=== PATIENT | male | born 1950 | race Caucasian/White ===

== ENCOUNTER 2016-03-15 20:14 | Inpatient (IN) | payer OTHER ==
[~2016-03-15] VITALS: Ht 180.3 cm; Wt 104.7 kg
[~2016-03-15 20:14] MED LIST: ASPI-435 PO; CIPR1TAB10 PO; COEN1CAP28 PO; HYDR500C3 PO; LISI40TA PO; MULT-506 PO; OMEG10007 PO; PARO1TAB27 PO; ROSU40TA PO
[2016-03-15] MEDS ORDERED: PARO10TA3 PO ×2 (21:14)
[2016-03-15] MEDS ORDERED: SODIUM CHLORIDE 0.9% 500ML 500 ML IV STA (21:25)
[2016-03-15] MEDS ORDERED: SODIUM CHLORIDE 0.9% 1000ML 1,000 ML IV STA (21:25)
--- NOTE | 2016-03-15 21:32 | EMERGENCY ROOM VISIT NOTE ---
History Report prepared by Denita: Vaughn Klein Under the Supervision of: Dr. Nancie Zabala M.D. First contact with patient: 21:00 Chief Complaint: OTHER COMPLAINT Stated Complaint: CLOGGED CATHETER History of Present Illness The patient is a 65 year old male who presents to the Emergency Room with complaints of a persistent clogged catheter that started around 1600 today. Per the nursing staff, the patient's catheter is a 15 [place]. The patient notes that he was here last Wednesday because he was having hematuria. 2 days ago, the patient was here and he had a catheter put in. He was also here twice last night due to not having clear fluid coming out of the catheter and he had the catheter replaced. He was bleeding last night. The patient called urology because he started getting back pain associated with this problem, and he was told that he was having bladder spasms. He saw his urologist (Dr. Anderson) last week, and the plan was to have a CT scan and the doctor would go in with a scope on the . He has the CT scan scheduled for this Wednesday. He denies any fevers. The patient stopped taking Aspirin 2 weeks ago after being given advice to stop taking it from his doctor. Source of History: patient Onset: Earlier today around 1600 Position: other (bladder - clogged catheter) Timing: other (persistent) Associated Symptoms: + back pain, + urinary symptoms (hematuria), No fevers Note: No other associated symptoms noted. Review of Systems See HPI for pertinent positives & negatives. A total of 10 systems reviewed and were otherwise negative. Past Medical & Surgical Medical Problems: (1) Hx of dislocation of shoulder (2) Hypertension (3) Malignant hypertension Surgical Problems: (1) Hx of tonsillectomy Family History Diabetes mellitus Heart disease Lung disease Social History Smoking Status: Never Smoker Alcohol Use: occasionally Marital Status: Housing Status: lives with family Occupation Status: employed Current/Historical Medications Scheduled Ciprofloxacin Hcl (Cipro), 500 MG PO BID Coenzyme Q10 (Ubidecarenone) (Co Q10), 100 MG PO DAILY Fish Oil ([place]-3), 1,000 MG PO DAILY Hydroxyurea (Hydrea Cap), 1,000 MG PO DAILY Lisinopril (Zestril), 40 MG PO DAILY Multivitamin (Multivitamin), 1 TAB PO DAILY Paroxetine HCl (Paroxetine), 10 MG PO DAILY Rosuvastatin Calcium (Crestor), 40 MG PO DAILY Allergies Coded Allergies: No Known Allergies (Unverified , 03/13/16) Physical Exam Vital Signs Date Time Temp Pulse Resp B/P Pulse Ox O2 Delivery O2 Flow Rate FiO2 03/15/16 23:40 81 20 131/78 99 Room Air 03/15/16 22:16 90 20 172/105 99 Room Air 03/15/16 20:17 36.8 84 20 196/106 97 Room Air Physical Exam Vital signs reviewed. General: Well-appearing 65 year old male, in no significant distress. HEENT: No scleral icterus, PERRLA, neck supple. Atraumatic. Cardiovascular: Regular rate and rhythm, no extra sounds. Pulmonary: Clear to auscultation bilaterally, normal work of breathing. Abdomen: Soft, nontender, nondistended, positive bowel sounds. Musculoskeletal: Atraumatic, no peripheral edema. : Normal external male genitalia. Circumcised. Catheter in place with bright red urine with several small clots, slow drainage. Neurologic: Patient awake alert and oriented x 3 Skin: Warm, dry, no rash Medical Decision & Procedures ER Provider Diagnostic Interpretation: CT results as stated below per my review and radiologist interpretation: CT UROGRAM CLINICAL HISTORY: Hematuria. COMPARISON STUDY: Abdominal CT dated 12/07/2013. TECHNIQUE: Before and following the IV administration of 120 cc of Optiray 320, CT urogram of the abdomen and pelvis is performed from the lung bases to the proximal femora. Images are reviewed in the axial, sagittal, and coronal planes. IV contrast was administered without complication. CT DOSE: 1492.38 mGy.cm FINDINGS: Lung bases: The heart is normal in size and without pericardial effusion. There are coronary artery calcifications. The lung bases are clear noting dependent atelectasis. A small hiatal hernia is identified. Liver: The contrast-enhanced liver is normal in size, contour, and attenuation. There is no intrahepatic biliary ductal dilatation. The hepatic veins and portal veins are patent. Gallbladder: Unremarkable. Spleen: The spleen is enlarged measuring 16 cm in length. Pancreas: Unremarkable. Adrenal glands: Unremarkable. Kidneys and ureters: The contrast enhanced kidneys demonstrate mild cortical atrophy and are without hydronephrosis. There are no renal calculi identified on the unenhanced images. The kidneys enhance and excrete symmetrically. There is no enhancing renal cortical mass lesion identified. Subcentimeter cortical hypodensities in both kidneys may represent cysts but are too small for definitive characterization. These are unchanged from 2014. There is no evidence of urothelial lesion within the renal pelvis bilaterally or along the course of either ureter. Abdominal vasculature: The abdominal aorta is normal in course and caliber noting mild atherosclerotic calcification. Bowel: The small bowel and colon are normal in course and caliber. There is mild to moderate sigmoid diverticulosis without CT evidence of acute diverticulitis. There is colonic fecal retention. The appendix is well-visualized and normal. Peritoneum: There is no intraperitoneal free air or abdominal ascites. There is a small fat-containing umbilical hernia. Lymphadenopathy: None. Pelvic viscera: The bladder is partially decompressed around a Sweeney catheter. Foci of intraluminal gas are likely related to instrumentation. Heterogeneous hyperdense material within the bladder likely represents blood clots. No obvious mucosal lesion is seen although this is not well assessed. The prostate gland is diminutive versus surgically absent. There are small bilateral fat-containing inguinal hernias. Skeletal structures: The skeletal structures appear osteopenic. There is mild lumbar sacral spondylosis. Degenerative changes noted in the sacroiliac joints. No destructive bony lesions are seen. IMPRESSION: 1. The bladder is partially decompressed around a Sweeney catheter. Foci of intraluminal gas are likely related to instrumentation. 2. Hyperdense debris within the bladder lumen likely represents blood clots. There is no clear evidence of mucosal lesion although this is not well assessed. Follow-up with urology is recommended. 3. There are no renal calculi identified and there is no hydronephrosis. There is no enhancing renal cortical mass or evidence of urothelial lesion within the renal pelvis bilaterally or along the course of the ureters. 4. Mild to moderate sigmoid diverticulosis without CT evidence of acute diverticulitis. 5. The prostate gland is diminutive versus surgically absent. 6. Splenomegaly. 7. Additional changes as above. Electronically signed by: Mamadou Weeks M.D. 03/15/2016 10:55 PM Laboratory Results 03/15/16 21:45 Red Blood Count 3.54, Mean Corpuscular Volume 110.5, Mean Corpuscular Hemoglobin 39.0, Mean Corpuscular Hemoglobin Concent 35.3, Mean Platelet Volume 10.2, Neutrophils (%) (Auto) 63.7, Lymphocytes (%) (Auto) 23.4, Monocytes (%) ( Auto) 11.1, Eosinophils (%) (Auto) 0.8, Basophils (%) (Auto) 0.2, Neutrophils # (Auto) 3.84, Lymphocytes # (Auto) 1.41, Monocytes # (Auto) 0.67, Eosinophils # ( Auto) 0.05, Basophils # (Auto) 0.01 03/15/16 21:45 Test 03/15/16 21:45 03/15/16 22:17 White Blood Count 6.03 K/uL (4.8-10.8) Red Blood Count 3.54 M/uL (4.7-6.1) Hemoglobin 13.8 g/dL (14.0-18.0) Hematocrit 39.1 % (42-52) Mean Corpuscular Volume 110.5 fL (80-100) Mean Corpuscular Hemoglobin 39.0 pg (25-34) Mean Corpuscular Hemoglobin Concent 35.3 g/dl (32-36) Platelet Count 271 K/uL (130-400) Mean Platelet Volume 10.2 fL (7.4-10.4) Neutrophils (%) (Auto) 63.7 % Lymphocytes (%) (Auto) 23.4 % Monocytes (%) (Auto) 11.1 % Eosinophils (%) (Auto) 0.8 % Basophils (%) (Auto) 0.2 % Neutrophils # (Auto) 3.84 K/uL (1.4-6.5) Lymphocytes # (Auto) 1.41 K/uL (1.2-3.4) Monocytes # (Auto) 0.67 K/uL (0.11-0.59) Eosinophils # (Auto) 0.05 K/uL (0-0.5) Basophils # (Auto) 0.01 K/uL (0-0.2) RDW Standard Deviation 56.4 fL (36.4-46.3) RDW Coefficient of Variation 14.0 % (11.5-14.5) Immature Granulocyte % (Auto) 0.8 % Immature Granulocyte # (Auto) 0.05 K/uL (0.00-0.02) Hypersegmented Polys 1+ Polychromasia 1+ Macrocytosis PRESENT Prothrombin Time 11.4 SECONDS (9.0-12.0) Prothromb Time International Ratio 1.1 (0.9-1.1) Activated Partial Thromboplast Time 26.7 SECONDS (21.0-31.0) Partial Thromboplastin Ratio 1.0 Anion Gap 9.0 mmol/L (3-11) Est Creatinine Clear Calc Drug Dose 75.8 ml/min Estimated GFR () 72.6 Estimated GFR (Non- 62.6 BUN/Creatinine Ratio 16.4 (10-20) Calcium Level 8.7 mg/dl (8.5-10.1) Magnesium Level 2.3 mg/dl (1.8-2.4) Total Bilirubin 0.7 mg/dl (0.2-1) Direct Bilirubin 0.2 mg/dl (0-0.2) Aspartate Amino Transf (AST/SGOT) 25 U/L (15-37) Alanine Aminotransferase (ALT/SGPT) 35 U/L (12-78) Alkaline Phosphatase 96 U/L (45-117) Total Protein 6.8 gm/dl (6.4-8.2) Albumin 3.8 gm/dl (3.4-5.0) Urine Color RED Urine Appearance CLOUDY (CLEAR) Urine pH 7.5 (4.5-7.5) Urine Specific [place] 1.025 (1.000-1.030) Urine Protein 3+ (NEG) Urine Glucose (UA) NEG (NEG) Urine Ketones NEG (NEG) Urine Occult Blood 3+ (NEG) Urine Nitrite NEG (NEG) Urine Bilirubin NEG (NEG) Urine Urobilinogen NEG (NEG) Urine Leukocyte Esterase NEG (NEG) Urine RBC >30 /hpf (0-4) Urine WBC 5-10 /hpf (0-5) Urine Epithelial Cells 0-5 /lpf (0-5) Urine Bacteria NEG (NEG) Laboratory results per my review. Medications Administered Medications (Trade) Dose Ordered Sig/Kelvin Route Start Time Stop Time Status Last Admin Dose Admin Sodium Chloride 500 ml @ 999 mls/hr Q31M STAT IV 03/15/16 21:25 03/15/16 21:55 DC 03/15/16 21:25 999 MLS/HR Sodium Chloride (Nss 1000ml) 1,000 ml @ 125 mls/hr Q8H STAT IV 03/15/16 21:25 03/16/16 01:44 DC 03/15/16 21:25 125 MLS/HR Labetalol HCl (Normodyne IV) 10 mg NOW STAT IV 03/15/16 22:35 03/15/16 22:36 DC 03/15/16 23:29 10 MG Hydromorphone HCl (Dilaudid Inj) 1 mg STK-MED ONCE .ROUTE 03/15/16 23:10 03/15/16 23:11 DC 03/15/16 23:12 1 MG ED Course 2106: Past medical records reviewed. The patient was evaluated in room B7. A complete history and physical examination was performed. 2124: Ordered NSS 1000 ml @ 125 mls/hr IV, NSS 500 ml @ 999 mls/hr IV. 2128: I discussed the patient with Dr. Monica GALVEZ urology - he says no continuous bladder irrigation. 2234: Ordered Normodyne IV 10 mg IV. 9: I reevaluated the patient and he is resting comfortably. The patient verbally expressed agreement and understanding of the treatment plan. The patient will be evaluated for further treatment. 5: I discussed the patient with Dr. Ravinedr Gandhi [facility] hospitalist - he will evaluate the patient for further treatment. Medical Decision Differential diagnoses include: bladder mass, UTI, prostate hemorrhage, kidney stone, renal mass. This patient was evaluated and appeared to be in significant discomfort. Full catheter was irrigated however we were unable to retrieve the fluid/urine. Catheter was removed and a larger catheter was placed. Initially the patient was able to pass urine but is again clotted off. An attempt irrigation was made with the same issue returned. The catheter was removed and the patient was able to urinate and pass several clots. Patient's blood pressure was noted to be markedly elevated. He was given IV labetalol. Pain medication was also administered. CT scan of the abdomen and pelvis was ordered per Dr. Anderson of urology. He has requested a hematuria protocol. He is familiar with the patient's story and has recommended admission at this time given the multiple ER visits and catheter complications. The patient was discussed with Dr. Hunter the hospitalist service who will evaluate for further management. Patient is aware of the plan and agrees. Consults Time Called: 2126 Consulting Physician: Dr. Monica GALVEZ urology Returned Call: [phone] I discussed the patient with Dr. Monica GALVEZ urology - he says no continuous bladder irrigation. Additional Consults: Time Called: 2328 Consulted Physician: Dr. Ravinder GALVEZ hospitalist Returned Call: [phone] Additional Comments: I discussed the patient with Dr. Ravinder GALVEZ hospitalist - he will evaluate the patient for further treatment. Impression Primary Impression: Gross hematuria Additional Impression: Urinary obstruction Scribe Attestation The scribe's documentation has been prepared under my direction and personally reviewed by me in its entirety. I confirm that the note above accurately reflects all work, treatment, procedures, and medical decision making performed by me. Departure Information Dispostion Being Evaluated By Hospitalist Referrals Bryan Arias M.D. (PCP) Patient Instructions A Signature Page, My [facility]
[2016-03-15] MEDS ORDERED: OPTIRAY 320 IV PRN (21:45)
[2016-03-15 21:56] LABS: BASO % 0.2 %; BASO ABS # 0.01 K/uL (0-0.2); EOS % 0.8 %; HEMATOCRIT 39.1 % (42-52); IG% 0.8 %; LYMPH % 23.4 %; LYMPH ABS # 1.41 K/uL (1.2-3.4); MEAN CELL VOLUME 110.5 fL (80-100); MEAN CORPUSCULAR HGB CONC 35.3 g/dl (32-36); MEAN PLATELET VOLUME 10.2 fL (7.4-10.4); MONO % 11.1 %; NEUT % 63.7 %; PLATELET COUNT 271 K/uL (130-400); RED BLOOD COUNT 3.54 M/uL (4.7-6.1); WHITE BLOOD COUNT 6.03 K/uL (4.8-10.8)
[2016-03-15 22:05] LABS: INR 1.1 (0.9-1.1); PROTHROMBIN TIME (PATIENT) 11.4 SECONDS (9.0-12.0)
[2016-03-15 22:12] LABS: BUN/CREATININE RATIO 16.4 (10-20); CALCIUM 8.7 mg/dl (8.5-10.1); CREATININE 1.2 mg/dl (0.60-1.40); MAGNESIUM 2.3 mg/dl (1.8-2.4)
[2016-03-15 22:26] LABS: COMPLETE YES; HYPERSEGMENTED POLYS 1+; POLYCHROMASIA 1+
[2016-03-15] MEDS ORDERED: LABETALOL HCL IV 5 MG/ML 20ML IV STA (22:35)
[2016-03-15 22:41] LABS: MANUAL MICROSCOPIC REQUIRED? YES; URINE APPEARANCE CLOUDY (CLEAR); URINE BILIRUBIN NEG (NEG); URINE COLOR RED; URINE NITRITE NEG (NEG); URINE PH 7.5 (4.5-7.5); URINE SPECIFIC GRAVITY 1.025 (1.000-1.030); UROBILINOGEN NEG (NEG)
[2016-03-15 22:42] LABS: REVIEW REQ? NO
[2016-03-15 22:46] LABS: SULFASALICYLIC ACID POS (NEG); URINE BACTERIA NEG (NEG); URINE RBC >30 /hpf (0-4)
[2016-03-15 22:47] LABS: ZZURINE CULT IF INDIC CATH NO
--- NOTE | 2016-03-15 22:57 | DIAGNOSTIC IMAGING REPORT ---
CT UROGRAM CLINICAL HISTORY: Hematuria. COMPARISON STUDY: Abdominal CT dated 12/07/2013. TECHNIQUE: Before and following the IV administration of 120 cc of Optiray 320, CT urogram of the abdomen and pelvis is performed from the lung bases to the proximal femora. Images are reviewed in the axial, sagittal, and coronal planes. IV contrast was administered without complication. CT DOSE: 1492.38 mGy.cm FINDINGS: Lung bases: The heart is normal in size and without pericardial effusion. There are coronary artery calcifications. The lung bases are clear noting dependent atelectasis. A small hiatal hernia is identified. Liver: The contrast-enhanced liver is normal in size, contour, and attenuation. There is no intrahepatic biliary ductal dilatation. The hepatic veins and portal veins are patent. Gallbladder: Unremarkable. Spleen: The spleen is enlarged measuring 16 cm in length. Pancreas: Unremarkable. Adrenal glands: Unremarkable. Kidneys and ureters: The contrast enhanced kidneys demonstrate mild cortical atrophy and are without hydronephrosis. There are no renal calculi identified on the unenhanced images. The kidneys enhance and excrete symmetrically. There is no enhancing renal cortical mass lesion identified. Subcentimeter cortical hypodensities in both kidneys may represent cysts but are too small for definitive characterization. These are unchanged from 2014. There is no evidence of urothelial lesion within the renal pelvis bilaterally or along the course of either ureter. Abdominal vasculature: The abdominal aorta is normal in course and caliber noting mild atherosclerotic calcification. Bowel: The small bowel and colon are normal in course and caliber. There is mild to moderate sigmoid diverticulosis without CT evidence of acute diverticulitis. There is colonic fecal retention. The appendix is well-visualized and normal. Peritoneum: There is no intraperitoneal free air or abdominal ascites. There is a small fat-containing umbilical hernia. Lymphadenopathy: None. Pelvic viscera: The bladder is partially decompressed around a Sweeney catheter. Foci of intraluminal gas are likely related to instrumentation. Heterogeneous hyperdense material within the bladder likely represents blood clots. No obvious mucosal lesion is seen although this is not well assessed. The prostate gland is diminutive versus surgically absent. There are small bilateral fat-containing inguinal hernias. Skeletal structures: The skeletal structures appear osteopenic. There is mild lumbar sacral spondylosis. Degenerative changes noted in the sacroiliac joints. No destructive bony lesions are seen. IMPRESSION: 1. The bladder is partially decompressed around a Sweeney catheter. Foci of intraluminal gas are likely related to instrumentation. 2. Hyperdense debris within the bladder lumen likely represents blood clots. There is no clear evidence of mucosal lesion although this is not well assessed. Follow-up with urology is recommended. 3. There are no renal calculi identified and there is no hydronephrosis. There is no enhancing renal cortical mass or evidence of urothelial lesion within the renal pelvis bilaterally or along the course of the ureters. 4. Mild to moderate sigmoid diverticulosis without CT evidence of acute diverticulitis. 5. The prostate gland is diminutive versus surgically absent. 6. Splenomegaly. 7. Additional changes as above. Electronically signed by: Mamadou Weeks M.D. 03/15/2016 10:55 PM
[2016-03-15] MEDS ORDERED: HYDROmorphone INJ 1 MG/ML SYR ONE (23:10)
[2016-03-16] VITALS (10 sets, daily range): BP systolic 122–161; BP diastolic 68–90; PULSE 59–69; TEMP 36.4–36.7; O2SAT 95–98; Ht 180.3 cm; Wt 104.7 kg
[2016-03-16] MEDS ORDERED: ZOLPIDEM TARTRATE 5 MG TAB PO PRN (00:30)
[2016-03-16] MEDS ORDERED: CIPROFLOXACIN 400MG / 200ML D5W IV STA (00:38)
[2016-03-16] MEDS ORDERED: DILTIAZEM HCL 60 MG TAB PO STA (00:44)
[2016-03-16] MEDS ORDERED: METOPROLOL TARTRATE 1 MG/ML VIAL IV PRN (00:45)
[2016-03-16] MEDS: NSS + 20MEQ KCL 1000ML 1,000 ML IV SCH ×4 (01:55→21:55)
[2016-03-16] MEDS: CIPROFLOXACIN / D5W 400 MG in PREMIXED IN D5W 200 ML IV SCH ×2 (01:55→14:22)
--- NOTE | 2016-03-16 04:10 | History and Physical ---
History & Physical Date & Time of Service: Mar 16, 2016 at 03:55 Chief Complaint: Gross Hematuria, Malignant Hypertension Primary Care Physician: Bryan Arias M.D. History of Present Illness Source: patient The patient is a 65-year-old male who presents emergency department with complaint of persistently clogged urinary catheter that began around 1600 hrs. today. The patient initially began having symptoms about 6 weeks ago. He did see his PCP, underwent laboratory testing, which was negative, and was ultimately sent to urology, who also performed laboratory testing, which again was normal. When he returned his PCP, he was advised to stop aspirin, and was scheduled to have follow-up procedure done by urology. In the intervening time he has developed significantly more issues with passing blood clots, and over the past week has been seen at the emergency department on the medications as had a Sweeney catheter placed and irrigated and also changed. Is also developed right lower back pain which was thought to be related to bladder spasms. He did see his urologist last week, and was scheduled to undergo a CT scan this week and undergo a scoping procedure on April 01. He return to the emergency department again today due to clogging of the Sweeney catheter again, and urology is advised his admission for further assessment. Of note, upon questioning, he does take naproxen 440 mg every morning for right shoulder pain , and also takes 2000 mg of fish oil every day. Past Medical/Surgical History Medical Problems: (1) Hx of dislocation of shoulder Status: Chronic (2) Hypertension Status: Chronic Surgical Problems: (1) Hx of tonsillectomy Status: Chronic Family History Diabetes mellitus Heart disease Lung disease Social History Smoking Status: Never Smoker Smokeless Tobacco Use: No Alcohol Use: none Drug Use: none Marital Status: Housing status: lives with family Occupational Status: employed Immunizations History of Influenza Vaccine: Yes History of Tetanus Vaccine?: Yes History of Pneumococcal: No History of Hepatitis B Vaccine: No Multi-Drug Resistant Organisms History of MDRO: No Allergies Coded Allergies: No Known Allergies (Unverified , 03/13/16) Home Medications Scheduled Ciprofloxacin Hcl (Cipro), 500 MG PO BID Coenzyme Q10 (Ubidecarenone) (Co Q10), 100 MG PO DAILY Fish Oil ([place]-3), 1,000 MG PO DAILY Hydroxyurea (Hydrea Cap), 1,000 MG PO DAILY Lisinopril (Zestril), 40 MG PO DAILY Multivitamin (Multivitamin), 1 TAB PO DAILY Paroxetine HCl (Paroxetine), 10 MG PO DAILY Rosuvastatin Calcium (Crestor), 40 MG PO DAILY Review of Systems The patient denies chest pain, palpitations, shortness of breath, cough, lower extremity swelling, vision change, hearing change, sore throat, fevers, chills, sweats, weight change, fatigue, nausea, vomiting, abdominal pain, pelvic pain, blood in stool, lightheadedness, dizziness, headache, memory loss, rash, abnormal bruising or bleeding, imbalance, focal or generalized weakness, numbness or tingling in arms or legs, arthralgias or myalgias, neck pain, night sweats, or allergy symptoms. The review of systems is otherwise negative other than for that already noted above, and at least 10 systems have been reviewed. Physical Exam Vital Signs Date Time Temp Pulse Resp B/P Pulse Ox O2 Delivery O2 Flow Rate FiO2 03/16/16 02:45 61 122/68 03/16/16 01:35 77 20 131/78 98 03/16/16 01:30 36.4 69 20 161/90 95 Room Air 03/15/16 23:40 81 20 131/78 99 Room Air 03/15/16 22:16 90 20 172/105 99 Room Air 03/15/16 20:17 36.8 84 20 196/106 97 Room Air The patient is awake, well-developed and adequately nourished, alert and oriented 3, normocephalic and atraumatic, lying in bed and in no acute distress. HEENT--PERRL, EOMI, mucous membranes moist, and oropharynx normal. Neck--supple, no JVD or bruits, thyroid normal, trachea midline, no adenopathy. Heart--normal S1 and S2, no extra beats, no murmurs, rubs or gallops. Lungs--clear bilaterally with good air movement, no respiratory distress, no accessory muscle use. Abdomen--normal bowel sounds and soft, right flank and lower back pain, no hernias or masses, no organomegaly. Extremities--no cyanosis, clubbing or edema. There are good distal pulses b/l. Dermatologic--normal skin turgor, normal color, warm and dry, no abnormal lymph nodes, no rash. Neurologic--cranial nerves II through XII grossly intact. Rheumatologic--normal range of motion, nontender, muscles and joints. Psychiatric--normal affect. Diagnostics Laboratory Results Results Past 24 Hours Test 03/15/16 21:45 03/15/16 22:17 Range/Units White Blood Count 6.03 4.8-10.8 K/uL Red Blood Count 3.54 4.7-6.1 M/uL Hemoglobin 13.8 14.0-18.0 g/dL Hematocrit 39.1 42-52 % Mean Corpuscular Volume 110.5 80-100 fL Mean Corpuscular Hemoglobin 39.0 25-34 pg Mean Corpuscular Hemoglobin Concent 35.3 32-36 g/dl Platelet Count 271 130-400 K/uL Mean Platelet Volume 10.2 7.4-10.4 fL Neutrophils (%) (Auto) 63.7 % Lymphocytes (%) (Auto) 23.4 % Monocytes (%) (Auto) 11.1 % Eosinophils (%) (Auto) 0.8 % Basophils (%) (Auto) 0.2 % Neutrophils # (Auto) 3.84 1.4-6.5 K/uL Lymphocytes # (Auto) 1.41 1.2-3.4 K/uL Monocytes # (Auto) 0.67 0.11-0.59 K/uL Eosinophils # (Auto) 0.05 0-0.5 K/uL Basophils # (Auto) 0.01 0-0.2 K/uL RDW Standard Deviation 56.4 36.4-46.3 fL RDW Coefficient of Variation 14.0 11.5-14.5 % Immature Granulocyte % (Auto) 0.8 % Immature Granulocyte # (Auto) 0.05 0.00-0.02 K/uL Hypersegmented Polys 1+ Polychromasia 1+ Macrocytosis PRESENT Prothrombin Time 11.4 9.0-12.0 SECONDS Prothromb Time International Ratio 1.1 0.9-1.1 Activated Partial Thromboplast Time 26.7 21.0-31.0 SECONDS Partial Thromboplastin Ratio 1.0 Sodium Level 140 136-145 mmol/L Potassium Level 4.0 3.5-5.1 mmol/L Chloride Level 104 98-107 mmol/L Carbon Dioxide Level 27 21-32 mmol/L Anion Gap 9.0 3-11 mmol/L Blood Urea Nitrogen 20 7-18 mg/dl Creatinine 1.20 0.60-1.40 mg/dl Est Creatinine Clear Calc Drug Dose 75.8 ml/min Estimated GFR () 72.6 Estimated GFR (Non- 62.6 BUN/Creatinine Ratio 16.4 10-20 Random Glucose 107 70-99 mg/dl Calcium Level 8.7 8.5-10.1 mg/dl Magnesium Level 2.3 1.8-2.4 mg/dl Total Bilirubin 0.7 0.2-1 mg/dl Direct Bilirubin 0.2 0-0.2 mg/dl Aspartate Amino Transf (AST/SGOT) 25 15-37 U/L Alanine Aminotransferase (ALT/SGPT) 35 12-78 U/L Alkaline Phosphatase 96 45-117 U/L Total Protein 6.8 6.4-8.2 gm/dl Albumin 3.8 3.4-5.0 gm/dl Urine Color RED Urine Appearance CLOUDY CLEAR Urine pH 7.5 4.5-7.5 Urine Specific [place] 1.025 1.000-1.030 Urine Protein 3+ NEG Urine Glucose (UA) NEG NEG Urine Ketones NEG NEG Urine Occult Blood 3+ NEG Urine Nitrite NEG NEG Urine Bilirubin NEG NEG Urine Urobilinogen NEG NEG Urine Leukocyte Esterase NEG NEG Urine RBC >30 0-4 /hpf Urine WBC 5-10 0-5 /hpf Urine Epithelial Cells 0-5 0-5 /lpf Urine Bacteria NEG NEG Diagnostic Radiology Patient Name: AYE CLARKE Unit Number: [id number] Dictated: 03/15/162246 Transcribed: 03/15/162246 EV Printed Date/Time: [~ rep prt dt]/[~ rep prt tm] [~ rep ct labl] - [~ rep ct ivnm] [facility] [place] [address] Dictated: 03/15/162246 Transcribed: 03/15/162246 EV Printed Date/Time: [~ rep prt dt]/[~ rep prt tm] [~ rep ct labl] - [~ rep ct ivnm] CT UROGRAM CLINICAL HISTORY: Hematuria. COMPARISON STUDY: Abdominal CT dated 12/07/2013. TECHNIQUE: Before and following the IV administration of 120 cc of Optiray 320, CT urogram of the abdomen and pelvis is performed from the lung bases to the proximal femora. Images are reviewed in the axial, sagittal, and coronal planes. IV contrast was administered without complication. CT DOSE: 1492.38 mGy.cm FINDINGS: Lung bases: The heart is normal in size and without pericardial effusion. There are coronary artery calcifications. The lung bases are clear noting dependent atelectasis. A small hiatal hernia is identified. Liver: The contrast-enhanced liver is normal in size, contour, and attenuation. There is no intrahepatic biliary ductal dilatation. The hepatic veins and portal veins are patent. Gallbladder: Unremarkable. Spleen: The spleen is enlarged measuring 16 cm in length. Pancreas: Unremarkable. Adrenal glands: Unremarkable. Kidneys and ureters: The contrast enhanced kidneys demonstrate mild cortical atrophy and are without hydronephrosis. There are no renal calculi identified on the unenhanced images. The kidneys enhance and excrete symmetrically. There is no enhancing renal cortical mass lesion identified. Subcentimeter cortical hypodensities in both kidneys may represent cysts but are too small for definitive characterization. These are unchanged from 2014. There is no evidence of urothelial lesion within the renal pelvis bilaterally or along the course of either ureter. Abdominal vasculature: The abdominal aorta is normal in course and caliber noting mild atherosclerotic calcification. Bowel: The small bowel and colon are normal in course and caliber. There is mild to moderate sigmoid diverticulosis without CT evidence of acute diverticulitis. There is colonic fecal retention. The appendix is well-visualized and normal. Peritoneum: There is no intraperitoneal free air or abdominal ascites. There is a small fat-containing umbilical hernia. Lymphadenopathy: None. Pelvic viscera: The bladder is partially decompressed around a Sweeney catheter. Foci of intraluminal gas are likely related to instrumentation. Heterogeneous hyperdense material within the bladder likely represents blood clots. No obvious mucosal lesion is seen although this is not well assessed. The prostate gland is diminutive versus surgically absent. There are small bilateral fat-containing inguinal hernias. Skeletal structures: The skeletal structures appear osteopenic. There is mild lumbar sacral spondylosis. Degenerative changes noted in the sacroiliac joints. No destructive bony lesions are seen. IMPRESSION: 1. The bladder is partially decompressed around a Sweeney catheter. Foci of intraluminal gas are likely related to instrumentation. 2. Hyperdense debris within the bladder lumen likely represents blood clots. There is no clear evidence of mucosal lesion although this is not well assessed. Follow-up with urology is recommended. 3. There are no renal calculi identified and there is no hydronephrosis. There is no enhancing renal cortical mass or evidence of urothelial lesion within the renal pelvis bilaterally or along the course of the ureters. 4. Mild to moderate sigmoid diverticulosis without CT evidence of acute diverticulitis. 5. The prostate gland is diminutive versus surgically absent. 6. Splenomegaly. 7. Additional changes as above. Electronically signed by: Mamadou Weeks M.D. 03/15/2016 10:55 PM The status of this report is Signed. Draft = Not yet reviewed or approved by Radiologist. Signed = Reviewed and approved by Radiologist. <AttendingPhy></AttendingPhy> <FamilyPhy>Bryan Arias M.D.</FamilyPhy> < PrimaryPhy>Bryan Arias M.D.</PrimaryPhy> <UnitNumber>[id number]</ UnitNumber> <VisitNumber>[id number]</VisitNumber> <PatientName>AYE CLARKE</ PatientName> <DateOfBirth>1950</DateOfBirth> <Location>C.[facility]</Location> < ServiceDate>03/15/16</ServiceDate> <MNE>ESINDI</MNE> <OrderingPhy>Nancie Zabala M.D.</OrderingPhy> <OrderingPhyMNE>f rep ord dr philippe</OrderingPhyMNE> < DictatingPhyMNE>f rep dict dr philippe</DictatingPhyMNE> <CCListMNE>f rep ct karene</ CCListMNE> <AdmittingPhyMNE>f pt admit dr philippe</AdmittingPhyMNE> <AttendingPhyMNE >f pt attend dr philippe</AttendingPhyMNE> <ConsultingPhyMNE>f pt consult dr philippe</ConsultingPhyMNE> <FamilyPhyMNE>f pt fam dr phiilppe</FamilyPhyMNE> <OtherPhyMNE>f pt other dr philippe</OtherPhyMNE> < PrimaryPhyMNE>f pt prim care dr philippe</PrimaryPhyMNE> <ReferringPhyMNE>f pt referring dr philippe</ReferringPhyMNE> Impression Assessment and Plan Gross hematuria--the patient will be admitted to the medical surgical floor. He 'll be kept nothing by mouth after midnight except medications for possible procedure. We'll consult urology. He'll be placed on normal saline with potassium chloride 20 mEq at 125 ML's per hour. We will hold naproxen 440 mg every morning, and fish oil 2000 mg by mouth daily. We will start Cipro 400 mg IV every 12 hours. Malignant Hypertension--hold lisinopril 40 mg by mouth daily. We'll start Cardizem 60 mg by mouth 4 times a day. We will have Lopressor 5 mg IV every 4 hours PRN systolic blood pressure greater than 150 available. This may be secondary to combination of NSAIDs and KARRI inhibitor's being used. Of note, this does not appear to be related to a pain stimulus. Polycythemia vera--continue hydroxyurea 1000 mg by mouth daily. Hypercholesterolemia--continue Crestor 40 mg by mouth daily. Depression--continue Paxil 10 mg by mouth daily. Level of Care Med/Surg Advanced Directives Existing Advance Directive: No Existing Living Will: No Existing Power of Health It Specialist: No Resuscitation Status FULL RESUSCITATION VTE Prophylaxis VTE Risk Assessment Done? Y/N: Yes Risk Level: Low Given or contraindicated: SCD's Social Service Consult None Apply
[2016-03-16] MEDS: MULTIVITAMIN TAB PO SCH (09:00)
[2016-03-16] MEDS ORDERED: NON-FORMULARY MEDICATION (Coenzyme Q10 (Ubidecarenone) (Co Q10) 100 MG) PO SCH (09:00)
[2016-03-16] MEDS: HYDROXYUREA 500 MG CAP PO SCH (09:00)
[2016-03-16] MEDS: DILTIAZEM HCL 60 MG TAB PO SCH ×4 (09:00→20:27)
[2016-03-16] MEDS: PAROXETINE 20 MG TAB PO SCH (09:00)
[2016-03-16] MEDS: ROSUVASTATIN CALCIUM 20 MG TAB PO SCH (09:00)
--- NOTE | 2016-03-16 10:05 | Urology Consultation ---
History General Date of Service: Mar 16, 2016. Primary Care Physician: Bryan Arias M.D. Pt seen a urologist before?: Yes If yes, why?: hematuria History of Present Illness 65 year old male admitted with hematuria and blood clots. He was recently seen by Dr. Cheek in our office last week after recurrent ER visits due to hematuria, urinary clot retention. Reviewed his CT scan this am- he has notable clots in bladder along with smalls catheter- this was changed in ER but continued to become clogged with clot therefore was removed. CT did not show any stones/hydro/masses. He is currently voiding on his own clear urine- he reports this has been the pattern at home for over the past week. He is able to void for a while then passes clot and is unable to void with pain. He has remained NPO for possible intervention. He is currently pain free. Reviewed allscript chart- hx of prostate cancer about 10 years ago with prostatectomy elsewhere. His PSA has been <0 per pt. Recent cytology was negative for high grade epithelial cancer but did reveal abundant acute inflammatory cells. Stopped his ASA as well as Naproxen and Fish Oil. No hx of smoking, stones. Denies other bothersome urinary symptoms. White count and creatinine normal Hgb/Hct 13.8/39.1 AFVSS Urine culture from 03/13 showed no growth Imaging Imaging: CT Laboratory Labs were reviewed and are within normal limits unless listed below. Labs are available in the chart and at [facility] Problem List Medical Problems: (1) Gross hematuria Status: Acute (2) Right knee pain Status: Acute (3) Urinary obstruction Status: Acute Past History hypertension Past Surgical History: tonsillectomy Family History Diabetes mellitus Heart disease Lung disease Social History Hx Tobacco Use In Past Year?: No Smoking: non-smoker Marital status: Housing status: lives with family Occupation status: employed Immunizations History of Influenza Vaccine: Yes History of Tetanus Vaccine?: Yes History of Pneumococcal: No History of Hepatitis B Vaccine: No History of MDRO No Allergies Coded Allergies: No Known Allergies (Unverified , 03/13/16) Medications Home Medications: Home Meds and Scripts Medications Dose Route/Sig Max Daily Dose Days Date Category Paroxetine (Paroxetine HCl) 10 Mg Tab 10 Mg PO DAILY 03/15/16 Reported Cipro (Ciprofloxacin Hcl) 500 Mg Tab 500 Mg PO BID 7 03/11/16 Rx [place]-3 (Fish Oil) 1 Ea Cap 1,000 Mg PO DAILY 06/16/15 Reported Co Q10 (Coenzyme Q10) 50 Mg Cap 100 Mg PO DAILY 06/16/15 Reported Zestril (Lisinopril) 40 Mg Tab 40 Mg PO DAILY 06/16/15 Reported Crestor (Rosuvastatin Calcium) 40 Mg Tab 40 Mg PO DAILY 06/16/15 Reported Hydrea Cap (Hydroxyurea) 500 Mg Cap 1,000 Mg PO DAILY 01/29/14 Reported Multivitamin (Multivitamins) Tab 1 Tab PO DAILY 01/24/13 Reported Inpatient Medications: Current Inpatient Medications Medications (Trade) Dose Ordered Sig/Kelvin Route Start Time Stop Time Status Last Admin Dose Admin Ioversol 100 ml 100 ml UD PRN IV 03/15/16 21:45 03/19/16 21:44 Potassium Chloride/Sodium Chloride (Nss + 20meq KCl 1000ml) 1,000 ml @ 125 mls/hr Q8H IV 03/16/16 01:45 04/15/16 01:44 03/16/16 01:55 125 MLS/HR Acetaminophen (Tylenol Tab) 650 mg Q4H PRN PO 03/16/16 00:30 04/15/16 00:29 Zolpidem Tartrate (Ambien Tab) 5 mg HSZ PRN PO 03/16/16 00:30 04/15/16 00:29 Hydroxyurea (Hydrea Cap) 1,000 mg DAILY PO 03/16/16 09:00 04/15/16 08:59 Multivitamins (Multivitamin Tab) 1 tab DAILY PO 03/16/16 09:00 04/15/16 08:59 Rosuvastatin Calcium (Crestor Tab) 40 mg DAILY PO 03/16/16 09:00 04/15/16 08:59 Paroxetine HCl (pAXil TAB) 10 mg QAM PO 03/16/16 09:00 04/15/16 08:59 Diltiazem HCl (Cardizem Tab) 60 mg QID PO 03/16/16 09:00 04/15/16 08:59 Metoprolol Tartrate 5 mg 5 mg Q4 PRN IV 03/16/16 00:45 04/15/16 00:44 Ciprofloxacin/ Dextrose/Prmx (Cipro / D5w/ Premixed D5W) 200 ml @ 100 mls/hr Q12H IV 03/16/16 02:00 03/26/16 01:59 03/16/16 01:55 100 MLS/HR Review of Systems Review of Systems Constitutional: No fever Eyes: No blurred vision Neurological: No dizzy Endocrine: No excessive thirst Gastrointestinal: No abdominal pain Cardiovascular: No chest pain Respiratory: No shortness of breath Skin: No rash Musculoskeletal: No joint pain Blood / Lymphatic: + see HPI Ears / Nose / Throat: No hearing loss Psychologic / Mental: No nervous Male : + see HPI Physical Exam Vital Signs: Vital Signs Past 12 Hours Date Time Temp Pulse Resp B/P Pulse Ox O2 Delivery O2 Flow Rate FiO2 03/16/16 07:09 36.4 59 18 136/72 98 BiPAP 03/16/16 05:00 36.4 68 18 130/70 97 CPAP 03/16/16 05:00 97 Room Air 03/16/16 05:00 97 Room Air CPAP 03/16/16 02:45 61 122/68 03/16/16 01:35 77 20 131/78 98 03/16/16 01:30 36.4 69 20 161/90 95 Room Air 03/15/16 23:40 81 20 131/78 99 Room Air 03/15/16 22:16 90 20 172/105 99 Room Air Physical Exam: General Appearance: WD/WN, no apparent distress ENT: hearing grossly normal Neck: no JVD Respiratory/Chest: no respiratory distress, no accessory muscle use Extremities: normal inspection, no pedal edema, no calf tenderness Neurologic/Psychiatric: alert, normal mood/affect, oriented x 3 Skin: normal color, warm/dry, no rash Assessment & Plan Assessment & Plan Hematuria with clots. Reviewed CT images with Dr. Spence- note clots in bladder. No stones or masses in kidney, ureter or bladder. Previous urine culture showed no growth and urine cytology no high grade cancer. Since pt is able to pass clots on his own for now without pain recommend continuing to monitor. Will avoid CBI for now. If he is unable to void due to clot will use at least 18 persian straight cath and hand irrigate prn. No plans for clot evacuation in the OR for now. Explained above to pt and he is not pleased he will not be going to for cysto to manually remove clots. Offered second opinion with [facility] urologist. Thanks for the consult. Will continue to monitor for now. May increase diet as tolerated.
[2016-03-16] MEDS: ACETAMINOPHEN 325 MG TAB PO PRN ×2 (10:31→21:55)
--- NOTE | 2016-03-16 13:39 | Urology Consultation ---
History General Date of Service: Mar 16, 2016. Chief Complaint: second opinion hematuria Primary Care Physician: Bryan Arias M.D. Pt seen a urologist before?: Yes If yes, why?: hematuria History of Present Illness I am asked by Dr Spence to evaluate patient for hematuria. He has been having intermittent hematuria for 2 weeks. he has been in and out of ER several times and is very frustrated. lynette thompson had clot retention and multiple foleys. He had a ct urogram yesterday which showed no renal mass or ureteral mass. There is clot in the bladder. He clogged up a 18 fr smalls shortly after placement and is currently voiding on his own. He never smoked. He had a radical prostatectomy many years ago. Imaging Imaging: CT Laboratory Labs were reviewed and are within normal limits unless listed below. Labs are available in the chart and at [facility] Problem List Medical Problems: (1) Gross hematuria Status: Acute (2) Right knee pain Status: Acute (3) Urinary obstruction Status: Acute Past History hypertension Past Surgical History: tonsillectomy, other (prostatectomy) Family History Diabetes mellitus Heart disease Lung disease Social History Hx Tobacco Use In Past Year?: No Smoking: non-smoker Marital status: Housing status: lives with family Occupation status: employed Immunizations History of Influenza Vaccine: Yes History of Tetanus Vaccine?: Yes History of Pneumococcal: No History of Hepatitis B Vaccine: No History of MDRO No Allergies Coded Allergies: No Known Allergies (Unverified , 03/13/16) Medications Home Medications: Home Meds and Scripts Medications Dose Route/Sig Max Daily Dose Days Date Category Paroxetine (Paroxetine HCl) 10 Mg Tab 10 Mg PO DAILY 03/15/16 Reported Cipro (Ciprofloxacin Hcl) 500 Mg Tab 500 Mg PO BID 7 03/11/16 Rx [place]-3 (Fish Oil) 1 Ea Cap 1,000 Mg PO DAILY 06/16/15 Reported Co Q10 (Coenzyme Q10) 50 Mg Cap 100 Mg PO DAILY 06/16/15 Reported Zestril (Lisinopril) 40 Mg Tab 40 Mg PO DAILY 06/16/15 Reported Crestor (Rosuvastatin Calcium) 40 Mg Tab 40 Mg PO DAILY 06/16/15 Reported Hydrea Cap (Hydroxyurea) 500 Mg Cap 1,000 Mg PO DAILY 01/29/14 Reported Multivitamin (Multivitamins) Tab 1 Tab PO DAILY 01/24/13 Reported Inpatient Medications: Current Inpatient Medications Medications (Trade) Dose Ordered Sig/Kelvin Route Start Time Stop Time Status Last Admin Dose Admin Ioversol 100 ml 100 ml UD PRN IV 03/15/16 21:45 03/19/16 21:44 Potassium Chloride/Sodium Chloride (Nss + 20meq KCl 1000ml) 1,000 ml @ 125 mls/hr Q8H IV 03/16/16 01:45 04/15/16 01:44 03/16/16 12:39 125 MLS/HR Acetaminophen (Tylenol Tab) 650 mg Q4H PRN PO 03/16/16 00:30 04/15/16 00:29 03/16/16 10:31 650 MG Zolpidem Tartrate (Ambien Tab) 5 mg HSZ PRN PO 03/16/16 00:30 04/15/16 00:29 Hydroxyurea (Hydrea Cap) 1,000 mg DAILY PO 03/16/16 09:00 04/15/16 08:59 03/16/16 09:00 1,000 MG Multivitamins (Multivitamin Tab) 1 tab DAILY PO 03/16/16 09:00 04/15/16 08:59 03/16/16 09:00 1 TAB Rosuvastatin Calcium (Crestor Tab) 40 mg DAILY PO 03/16/16 09:00 04/15/16 08:59 03/16/16 09:00 40 MG Paroxetine HCl (pAXil TAB) 10 mg QAM PO 03/16/16 09:00 04/15/16 08:59 03/16/16 09:00 10 MG Diltiazem HCl (Cardizem Tab) 60 mg QID PO 03/16/16 09:00 04/15/16 08:59 03/16/16 12:40 60 MG Metoprolol Tartrate 5 mg 5 mg Q4 PRN IV 03/16/16 00:45 04/15/16 00:44 Ciprofloxacin/ Dextrose/Prmx (Cipro / D5w/ Premixed D5W) 200 ml @ 100 mls/hr Q12H IV 03/16/16 02:00 03/26/16 01:59 03/16/16 01:55 100 MLS/HR Review of Systems Review of Systems Male : + blood in urine, + frequent urination, + nocturia more than once/ night, + painful urination, + urinary retention Physical Exam Vital Signs: Vital Signs Past 12 Hours Date Time Temp Pulse Resp B/P Pulse Ox O2 Delivery O2 Flow Rate FiO2 03/16/16 12:23 36.4 65 20 155/84 97 Room Air 03/16/16 12:00 97 Room Air CPAP 03/16/16 08:00 97 Room Air CPAP 03/16/16 07:09 36.4 59 18 136/72 98 BiPAP 03/16/16 05:00 36.4 68 18 130/70 97 CPAP 03/16/16 05:00 97 Room Air 03/16/16 05:00 97 Room Air CPAP 03/16/16 02:45 61 122/68 03/16/16 01:35 77 20 131/78 98 Physical Exam: General Appearance: WD/WN, no apparent distress, + obese ENT: hearing grossly normal Assessment & Plan Assessment & Plan Imaging: CT gross hematuria has clogged several catheters I agree with leaving smalls out He will pass his clots on his own his own urethra is bigger than any smalls if he ever needs a new smalls go big like 22fr or larger to irrigate clots I see no reason to go to OR this admission for clot evacuation. he will need outpatient cysto I suggest delay cysto if possible for a few weeks to give time for all the smalls trauma to resolve. He is now off all his blood thinners (asa, fish oil, and naproxen) suggest he add antioxidants like blueberries daily
--- NOTE | 2016-03-16 13:39 | Medical Student: [facility] ---
Med Student Progress Note Date of Service Mar 16, 2016. Subjective Pt evaluation today including: conversation w/ patient, physical exam, chart review, lab review, review of studies Pain: Mild right lower back pain PO Intake: NPO Voiding: voiding difficulty (passing frequent clots, but no obstructions since removal of smalls catheter last night) Patient reports that his smalls was removed last night at the recommendation of urology. Since then, he has had frequent clots passing in his voids, but reports that his last two voids have been clear and without clots. He has been drinking receiving lots of fluids, but has not eaten anything since his admission yesterday. He also expresses some frustration because he understood that he was supposed to get scoped today but urology is not planning on scoping him at this time since he has not had any more obstructions. Review of Systems Male : + hematuria, + incontinence, + urinary frequency All Other Systems: Reviewed and Negative (except as noted in HPI) Objective Vital Signs Date Time Temp Pulse Resp B/P Pulse Ox O2 Delivery O2 Flow Rate FiO2 03/16/16 07:09 36.4 59 18 136/72 98 BiPAP 03/16/16 05:00 36.4 68 18 130/70 97 CPAP 03/16/16 05:00 97 Room Air 03/16/16 05:00 97 Room Air CPAP 03/16/16 02:45 61 122/68 03/16/16 01:35 77 20 131/78 98 03/16/16 01:30 36.4 69 20 161/90 95 Room Air 03/15/16 23:40 81 20 131/78 99 Room Air 03/15/16 22:16 90 20 172/105 99 Room Air 03/15/16 20:17 36.8 84 20 196/106 97 Room Air Physical Exam General Appearance: WD/WN, no apparent distress, + obese ENT: normal ENT inspection, hearing grossly normal, pharynx normal Neck: no JVD Respiratory/Chest: chest non-tender, lungs clear, normal breath sounds Cardiovascular: regular rate, rhythm, no gallop, no JVD, no murmur Abdomen: normal bowel sounds, non tender, soft, no organomegaly Extremities: no pedal edema, normal capillary refill Neurologic/Psychiatric: alert, normal mood/affect, oriented x 3 Skin: normal color, warm/dry Comments: : No CVA tenderness Laboratory Results Last 24 Hours Test 03/15/16 21:45 03/15/16 22:17 White Blood Count 6.03 K/uL Red Blood Count 3.54 M/uL Hemoglobin 13.8 g/dL Hematocrit 39.1 % Mean Corpuscular Volume 110.5 fL Mean Corpuscular Hemoglobin 39.0 pg Mean Corpuscular Hemoglobin Concent 35.3 g/dl Platelet Count 271 K/uL Mean Platelet Volume 10.2 fL Neutrophils (%) (Auto) 63.7 % Lymphocytes (%) (Auto) 23.4 % Monocytes (%) (Auto) 11.1 % Eosinophils (%) (Auto) 0.8 % Basophils (%) (Auto) 0.2 % Neutrophils # (Auto) 3.84 K/uL Lymphocytes # (Auto) 1.41 K/uL Monocytes # (Auto) 0.67 K/uL Eosinophils # (Auto) 0.05 K/uL Basophils # (Auto) 0.01 K/uL RDW Standard Deviation 56.4 fL RDW Coefficient of Variation 14.0 % Immature Granulocyte % (Auto) 0.8 % Immature Granulocyte # (Auto) 0.05 K/uL Hypersegmented Polys 1+ Polychromasia 1+ Macrocytosis PRESENT Prothrombin Time 11.4 SECONDS Prothromb Time International Ratio 1.1 Activated Partial Thromboplast Time 26.7 SECONDS Partial Thromboplastin Ratio 1.0 Sodium Level 140 mmol/L Potassium Level 4.0 mmol/L Chloride Level 104 mmol/L Carbon Dioxide Level 27 mmol/L Anion Gap 9.0 mmol/L Blood Urea Nitrogen 20 mg/dl Creatinine 1.20 mg/dl Est Creatinine Clear Calc Drug Dose 75.8 ml/min Estimated GFR () 72.6 Estimated GFR (Non- 62.6 BUN/Creatinine Ratio 16.4 Random Glucose 107 mg/dl Calcium Level 8.7 mg/dl Magnesium Level 2.3 mg/dl Total Bilirubin 0.7 mg/dl Direct Bilirubin 0.2 mg/dl Aspartate Amino Transf (AST/SGOT) 25 U/L Alanine Aminotransferase (ALT/SGPT) 35 U/L Alkaline Phosphatase 96 U/L Total Protein 6.8 gm/dl Albumin 3.8 gm/dl Urine Color RED Urine Appearance CLOUDY Urine pH 7.5 Urine Specific [place] 1.025 Urine Protein 3+ Urine Glucose (UA) NEG Urine Ketones NEG Urine Occult Blood 3+ Urine Nitrite NEG Urine Bilirubin NEG Urine Urobilinogen NEG Urine Leukocyte Esterase NEG Urine RBC >30 /hpf Urine WBC 5-10 /hpf Urine Epithelial Cells 0-5 /lpf Urine Bacteria NEG Assessment and Plan Problems Blocked urinary catheter Gross hematuria Hematuria Hx of dislocation of shoulder Hx of tonsillectomy Hypertension Assessment and Plan: Hematuria: Continue to monitor urine for blood and obstruction. Defer to urology for further workup and evaluation. Malignant Hypertension: Continue current blood pressure regimen of cardizem.and lopressor. Polycythemia Vera: Continue hydroxyurea 1000 mg Continue paroxetine 10 mg daily Continued [facility] stay due to: voiding difficulties (monitor urine for blood and wait for further instructions regarding urinary tract scoping) Discharge planning: home
--- NOTE | 2016-03-16 18:33 | Progress Note ---
Subjective Date of Service: Mar 16, 2016. Subjective Pt evaluation today including: conversation w/ patient, physical exam, chart review, lab review, review of studies (CT abd/pelvis), review of inpatient medication list Pain: minimal back pain PO Intake: eager to eat smalls catheter was discontinued this am since then his urine has cleared; no further hematuria he denies suprapubic pain or difficulty passing his urine no dysuria Problem List Medical Problems: (1) Gross hematuria Status: Acute (2) Right knee pain Status: Acute (3) Urinary obstruction Status: Acute Review of Systems Constitutional: No fever Respiratory: No shortness of breath Cardiac: No chest pain Abdomen: No pain Objective Vital Signs Date Time Temp Pulse Resp B/P Pulse Ox O2 Delivery O2 Flow Rate FiO2 03/16/16 16:00 97 Room Air 03/16/16 15:16 36.7 64 18 136/71 97 Room Air 03/16/16 12:23 36.4 65 20 155/84 97 Room Air 03/16/16 12:00 97 Room Air CPAP 03/16/16 08:00 97 Room Air CPAP 03/16/16 07:09 36.4 59 18 136/72 98 BiPAP 03/16/16 05:00 36.4 68 18 130/70 97 CPAP 03/16/16 05:00 97 Room Air 03/16/16 05:00 97 Room Air CPAP 03/16/16 02:45 61 122/68 03/16/16 01:35 77 20 131/78 98 03/16/16 01:30 36.4 69 20 161/90 95 Room Air 03/15/16 23:40 81 20 131/78 99 Room Air 03/15/16 22:16 90 20 172/105 99 Room Air 03/15/16 20:17 36.8 84 20 196/106 97 Room Air Physical Exam General Appearance: no apparent distress ENT: pharynx normal Neck: no JVD Respiratory/Chest: lungs clear, no respiratory distress, no accessory muscle use Cardiovascular: regular rate, rhythm, no gallop, no murmur Abdomen: normal bowel sounds, non tender, soft, no organomegaly Extremities: no pedal edema Neurologic/Psychiatric: alert, oriented x 3 Laboratory Results Last 24 Hours Test 03/15/16 21:45 03/15/16 22:17 White Blood Count 6.03 K/uL Red Blood Count 3.54 M/uL Hemoglobin 13.8 g/dL Hematocrit 39.1 % Mean Corpuscular Volume 110.5 fL Mean Corpuscular Hemoglobin 39.0 pg Mean Corpuscular Hemoglobin Concent 35.3 g/dl Platelet Count 271 K/uL Mean Platelet Volume 10.2 fL Neutrophils (%) (Auto) 63.7 % Lymphocytes (%) (Auto) 23.4 % Monocytes (%) (Auto) 11.1 % Eosinophils (%) (Auto) 0.8 % Basophils (%) (Auto) 0.2 % Neutrophils # (Auto) 3.84 K/uL Lymphocytes # (Auto) 1.41 K/uL Monocytes # (Auto) 0.67 K/uL Eosinophils # (Auto) 0.05 K/uL Basophils # (Auto) 0.01 K/uL RDW Standard Deviation 56.4 fL RDW Coefficient of Variation 14.0 % Immature Granulocyte % (Auto) 0.8 % Immature Granulocyte # (Auto) 0.05 K/uL Hypersegmented Polys 1+ Polychromasia 1+ Macrocytosis PRESENT Prothrombin Time 11.4 SECONDS Prothromb Time International Ratio 1.1 Activated Partial Thromboplast Time 26.7 SECONDS Partial Thromboplastin Ratio 1.0 Sodium Level 140 mmol/L Potassium Level 4.0 mmol/L Chloride Level 104 mmol/L Carbon Dioxide Level 27 mmol/L Anion Gap 9.0 mmol/L Blood Urea Nitrogen 20 mg/dl Creatinine 1.20 mg/dl Est Creatinine Clear Calc Drug Dose 75.8 ml/min Estimated GFR () 72.6 Estimated GFR (Non- 62.6 BUN/Creatinine Ratio 16.4 Random Glucose 107 mg/dl Calcium Level 8.7 mg/dl Magnesium Level 2.3 mg/dl Total Bilirubin 0.7 mg/dl Direct Bilirubin 0.2 mg/dl Aspartate Amino Transf (AST/SGOT) 25 U/L Alanine Aminotransferase (ALT/SGPT) 35 U/L Alkaline Phosphatase 96 U/L Total Protein 6.8 gm/dl Albumin 3.8 gm/dl Urine Color RED Urine Appearance CLOUDY Urine pH 7.5 Urine Specific [place] 1.025 Urine Protein 3+ Urine Glucose (UA) NEG Urine Ketones NEG Urine Occult Blood 3+ Urine Nitrite NEG Urine Bilirubin NEG Urine Urobilinogen NEG Urine Leukocyte Esterase NEG Urine RBC >30 /hpf Urine WBC 5-10 /hpf Urine Epithelial Cells 0-5 /lpf Urine Bacteria NEG Assessment and Plan 65yo male with: 1. gross hematuria - resolved. H/H stable. appreciate urology consultation. no emergent/urgent cystoscopy planned at this time. leave smalls out. observe overnight. H/H in am. reasonable to cont cipro for now while awaiting urine cx but would d/c if cx is negative will likely have outpatient cystoscopy in very near future. no RBC casts on u/a and micro thus this is unlikely to be glomerular in origin 2. PCV - continue hydroxyurea. CBC is stable. 3. hyperlipidemia - statin 4. HTN - controlled 5. DVT proph - SCDs; chemical means contraindicated hopefully home tomorrow if H/H stable and no further/copious gross hematuria Discharge planning: home
[2016-03-17 00:27] VITALS: BP 131/77; PULSE 8; TEMP 36.7; O2SAT 97
[2016-03-17] MEDS: CIPROFLOXACIN / D5W 400 MG in PREMIXED IN D5W 200 ML IV SCH (01:28)
[2016-03-17] MEDS: ACETAMINOPHEN 325 MG TAB PO PRN ×2 (03:07→10:19)
[2016-03-17 03:24] VITALS: BP 151/84; PULSE 59; TEMP 36.5; O2SAT 98
[2016-03-17 05:42] LABS: HEMATOCRIT 35.5 % (42-52); MEAN CELL VOLUME 110.9 fL (80-100); MEAN CORPUSCULAR HEMOGLOBIN 38.8 pg (25-34); MEAN CORPUSCULAR HGB CONC 34.9 g/dl (32-36); MEAN PLATELET VOLUME 10.1 fL (7.4-10.4); PLATELET COUNT 241 K/uL (130-400); WHITE BLOOD COUNT 4.95 K/uL (4.8-10.8)
[2016-03-17 06:28] LABS: BUN/CREATININE RATIO 10.4 (10-20); CALCIUM 8.3 mg/dl (8.5-10.1); CREATININE 1.2 mg/dl (0.60-1.40)
[2016-03-17 07:17] VITALS: BP 155/86; PULSE 67; TEMP 36.6; O2SAT 98
[2016-03-17] MEDS: HYDROXYUREA 500 MG CAP PO SCH (07:52)
[2016-03-17] MEDS: MULTIVITAMIN TAB PO SCH (07:52)
[2016-03-17] MEDS: ROSUVASTATIN CALCIUM 20 MG TAB PO SCH (07:52)
[2016-03-17] MEDS: DILTIAZEM HCL 60 MG TAB PO SCH (07:53)
[2016-03-17] MEDS: PAROXETINE 20 MG TAB PO SCH (07:53)
[2016-03-17] MEDS: NSS + 20MEQ KCL 1000ML 1,000 ML IV SCH (07:53)
--- NOTE | 2016-03-17 10:27 | Progress Note ---
Subjective Date of Service: Mar 17, 2016. Subjective Pt evaluation today including: conversation w/ patient, chart review, lab review Voiding: no voiding problems 65 yo male with gross hematuria. Pt reports passing a clot yesterday, but none since. He reports his urine is yellow this morning, and denies difficulty voiding. H&H are stable at 12.4 and 35.5. The pt reports he would like to continue care with his regular urologist Dr. Cheek. Problem List Medical Problems: (1) Gross hematuria Status: Acute (2) Right knee pain Status: Acute (3) Urinary obstruction Status: Acute Review of Systems Constitutional: No chills, No fever Respiratory: No shortness of breath Cardiac: No chest pain Abdomen: No nausea, No pain, No vomiting Male : No dysuria, No hematuria Heme: No abnormal bleeding/bruising Objective Vital Signs Date Time Temp Pulse Resp B/P Pulse Ox O2 Delivery O2 Flow Rate FiO2 03/17/16 08:00 Room Air 03/17/16 07:17 36.6 67 20 155/86 98 BiPAP 03/17/16 04:00 Room Air 03/17/16 03:24 36.5 59 19 151/84 98 Room Air 03/17/16 00:27 36.7 8 18 131/77 97 Room Air 03/17/16 00:00 Room Air 03/16/16 20:00 Room Air 03/16/16 19:01 36.5 67 18 155/71 96 Room Air 03/16/16 16:00 97 Room Air 03/16/16 15:16 36.7 64 18 136/71 97 Room Air 03/16/16 12:23 36.4 65 20 155/84 97 Room Air 03/16/16 12:00 97 Room Air CPAP Physical Exam General Appearance: no apparent distress Eyes: normal inspection ENT: hearing grossly normal Neck: no JVD Respiratory/Chest: no respiratory distress, no accessory muscle use Cardiovascular: no JVD Extremities: normal inspection Neurologic/Psychiatric: alert, normal mood/affect, oriented x 3 Skin: normal color Laboratory Results Last 24 Hours Test 03/17/16 05:05 White Blood Count 4.95 K/uL Red Blood Count 3.20 M/uL Hemoglobin 12.4 g/dL Hematocrit 35.5 % Mean Corpuscular Volume 110.9 fL Mean Corpuscular Hemoglobin 38.8 pg Mean Corpuscular Hemoglobin Concent 34.9 g/dl RDW Standard Deviation 57.8 fL RDW Coefficient of Variation 14.4 % Platelet Count 241 K/uL Mean Platelet Volume 10.1 fL Sodium Level 142 mmol/L Potassium Level 4.0 mmol/L Chloride Level 110 mmol/L Carbon Dioxide Level 26 mmol/L Anion Gap 6.0 mmol/L Blood Urea Nitrogen 12 mg/dl Creatinine 1.20 mg/dl Est Creatinine Clear Calc Drug Dose 74.5 ml/min Estimated GFR () 72.6 Estimated GFR (Non- 62.6 BUN/Creatinine Ratio 10.4 Random Glucose 97 mg/dl Calcium Level 8.3 mg/dl Assessment and Plan A/P: Gross hematuria AFVSS. Hematuria improved. Pt will continue outpatient urologic care with Dr. Cheek. Plan for outpatient cysto as scheduled. Pt OK for d/c home from [facility]. Will sign off for now. Recall PRN issues. Discharge planning: home
--- NOTE | 2016-03-17 10:42 | Discharge Instructions ---
Discharge Instructions Admission Reason for Admission: Gross Hematuria (bright red blood in the urine) Discharge Discharge Diagnosis / Problem: Hematuria - resolved; exact cause to be determined. Discharge Goals Goal(s): Learn about illness, Diagnostic testing, Therapeutic intervention Activity Recommendations Activity Limitations: resume your previous activity . Instructions / Follow-Up Instructions / Follow-Up From Dr. Campbell - 1. PLEASE STOP all anti-inflammatory pills including - * asprin * motrin / ibuprofen * naprosyn / naproxen / alleve 2. PLEASE STOP all fish oil supplements. 3. Tylenol is ok for any pain or discomfort. 4. Please call the urology office OR report back to [facility] with any fever over 100.5 degrees, worsening bleeding from the penis/bladder, severe bladder pain not responding to tylenol, severe back pain or pain on the sides of your abdomen, etc. 5. Keep your appointment for this for your cystoscopy. Current Hospital Diet Patient's current hospital diet: Regular Diet Discharge Diet Recommended Diet: Regular Diet Procedures Procedures Performed: CAT scan of abdomen & pelvis showing blood in your bladder but normal kidneys and normal ureters (the tubes that run from the kidneys to the bladder). No bladder cancer or kidney cancer seen. Pending Studies Studies pending at discharge: no Medical Emergencies . Who to Call and When: Medical Emergencies: If at any time you feel your situation is an emergency, please call 911 immediately. . Non-Emergent Contact Non-Emergency issues call your: Urologist Call Non-Emergent contact if: temperature is above 100.5, your pain is not controlled, your pain is worsening, your pain is concerning you, you have any medication questions . . "Provider Documentation" section prepared by Bryan Campbell. VTE Core Measure Inpt VTE Proph given/why not?: SCD's
[2016-03-17 10:45] VITALS: BP 155/86; PULSE 67; TEMP 36.6; O2SAT 98
[2016-03-17 11:47] LABS: URINE PROTIEN/CREAT RATIO 0.2 (0-0.2)
--- NOTE | 2016-03-23 15:33 | Discharge Summary ---
Discharge Summary Admission Date: Mar 16, 2016 at 00:29 Discharge Date: Mar 17, 2016 Discharge Disposition: Home Principal Diagnosis: gross hematuria - resolved; etiology uncertain Problems/Secondary Diagnoses: polycythemia rubra vera HTN hyperlipidemia proteinuria Immunizations: Have You Had Influenza Vaccine: Yes History of Tetanus Vaccine?: Yes History of Pneumococcal: No History of Hepatitis B Vaccine: No Procedures: CT abd/pelvis: IMPRESSION: 1. The bladder is partially decompressed around a Smalls catheter. Foci of intraluminal gas are likely related to instrumentation. 2. Hyperdense debris within the bladder lumen likely represents blood clots. There is no clear evidence of mucosal lesion although this is not well assessed. Follow-up with urology is recommended. 3. There are no renal calculi identified and there is no hydronephrosis. There is no enhancing renal cortical mass or evidence of urothelial lesion within the renal pelvis bilaterally or along the course of the ureters. 4. Mild to moderate sigmoid diverticulosis without CT evidence of acute diverticulitis. 5. The prostate gland is diminutive versus surgically absent. 6. Splenomegaly. Consultations: urology - MD Vanessa Henderson MD Medication Reconciliation Continued Medications: Coenzyme Q10 (Ubidecarenone) (Co Q10) 50 Mg Cap 100 MG PO DAILY Hydroxyurea (Hydrea Cap) 500 Mg Cap 1000 MG PO DAILY, CAP Lisinopril (Zestril) 40 Mg Tab 40 MG PO DAILY, TAB Multivitamin (Multivitamin) Tab 1 TAB PO DAILY, TAB Paroxetine HCl (Paroxetine) 10 Mg Tab 10 MG PO DAILY Rosuvastatin Calcium (Crestor) 40 Mg Tab 40 MG PO DAILY, TAB Discontinued Medications: Ciprofloxacin Hcl (Cipro) 500 Mg Tab 500 MG PO BID for 7 Days, #14 TAB Fish Oil ([place]-3) 1 Ea Cap 1000 MG PO DAILY, CAP Referrals At Discharge Follow up Referrals: Urologist Referral - 03/19/16 with Torito Cheek MD Discharge Exam Physical Exam: General Appearance: WD/WN, no apparent distress ENT: pharynx normal Neck: no JVD Respiratory/Chest: lungs clear, no respiratory distress, no accessory muscle use Cardiovascular: regular rate, rhythm, no gallop, no murmur, normal peripheral pulses Abdomen / GI: normal bowel sounds, non tender, soft, no organomegaly Extremities: no pedal edema Neurologic/Psychiatric: alert, oriented x 3 Skin: no rash Hospital Course HISTORY OF PRESENT ILLNESS: The patient is a 65-year-old male who presented to the emergency department with complaint of persistently clogged urinary catheter that began the afternoon of admission. The patient initially began having symptoms (hematuria ) about 6 weeks ago. He saw his PCP, underwent laboratory testing, which was negative, and was ultimately sent to urology, who also performed laboratory testing including urine cytologies, which again were normal. He was ultimately scheduled to have a cystoscopy done by urology as an outpatient on April 01. In the intervening time he had developed significantly more issues with passing blood clots, and over the past week was seen at the emergency department and had a Smalls catheter placed and irrigated and also changed. He also developed right lower back pain which was thought to be related to bladder spasms. He returned to the emergency department again today due to clogging of the Smalls catheter again due to clots and urology advised admission for further assessment. Of note, upon questioning, he does take naproxen 440 mg every morning for right shoulder pain, and also takes 2000 mg of fish oil every day. CT scan of the abd/pelvis in the ER did NOT show any bladder or kidney masses, no stones, or other abnormalities except for dense material in the bladder suspicious for blood. HOSPITAL COURSE: Shortly after admission he was seen by urology who recommended discontinuation of his smalls catheter. Aspirin, NSAIDs, and fish oil were all discontinued. He was given IVF, and his gross hematuria resolved in less than 24 hours. His hemoglobin remained relatively stable with discharge Hb of 12.4. Since his hematuria had fully resolved and hemoglobin was stable urology felt he was safe to discharge home. He will follow-up with Dr. Torito Cheek on March 19, 2016 for outpatient cystoscopy to determine the etiology of his chronic, intermittent gross hematuria. If urological work-up is negative consider nephrology referral in light of his 3 + protein on urine dipstick. Total Time Spent: Greater than 30 minutes This includes examination of the patient, discharge planning, medication reconciliation, and communication with other providers. Discharge Instructions Please refer to the electronic Patient Visit Report (Discharge Instructions) for additional information. Follow-Up March 19, [address] Torito Cheek Additional Copies To Bryan Arias M.D.; Torito Cheek MD
== END 2016-03-17 12:32 | disposition home or self-care (01) | DRG 696 ==
LOC: ENRESERVTM → CANRESERV → ENRESERVDT → C.EDB 20:14 → C.MED 03-16 00:29
PROVIDERS: ADMIT Hospitalist; ATTEND Internal Medicine
PROC: 0T9B70Z Drainage of Bladder with Drainage Device, Via Natural or Artificial Opening (ICD-10-PCS; principal; 2016-03-13)
DX: R31.0 Gross hematuria (principal); N13.9 Obstructive and reflux uropathy, unspecified; N32.89 Other specified disorders of bladder; I10 Essential (primary) hypertension; D45 Polycythemia vera; E78.00 Pure hypercholesterolemia, unspecified; E78.5 Hyperlipidemia, unspecified; M25.511 Pain in right shoulder; F32.9 Major depressive disorder, single episode, unspecified; Z96.0 Presence of urogenital implants; Z85.46 Personal history of malignant neoplasm of prostate; Z90.79 Acquired absence of other genital organ(s); Z79.899 Other long term (current) drug therapy; Z79.1 Long term (current) use of non-steroidal anti-inflammatories (NSAID); R31.9 Hematuria, unspecified; R33.9 Retention of urine, unspecified; Z98.890 Other specified postprocedural states; T83.098A Other mechanical complication of other urinary catheter, initial encounter; R39.89 Other symptoms and signs involving the genitourinary system; R10.9 Unspecified abdominal pain; R10.30 Lower abdominal pain, unspecified; Z83.3 Family history of diabetes mellitus

== ENCOUNTER → 2016-07-13 | Outpatient (CLI) | payer OTHER ==
[~2016-07-13] MED LIST changes: -ASPI-435 PO; -CIPR1TAB10 PO; -OMEG10007 PO; +PARO10TA3 PO; -PARO1TAB27 PO
== END | disposition home or self-care (01) ==
LOC: C.RDSM 16:34
PROVIDERS: ATTEND Physical Medicine & Rehabilitation Sports Medicine
DX: M25.512 Pain in left shoulder (principal)

== ENCOUNTER 2022-04-28 05:22 | Observation (INO) ==
--- NOTE | 2022-03-26 10:43 | PAT Medication Instructions ---
Medication Instructions Date of Service March 26, 2022 Home Medications chlorthalidone 25 mg tablet 25 mg PO Q2D fluoxetine 10 mg tablet 10 mg PO QAM hydroxyurea 500 mg capsule 500 mg PO UD irbesartan 300 mg tablet 300 mg PO HS rosuvastatin 5 mg tablet 5 mg PO UD aspirin 81 mg tablet,delayed release 81 mg PO QAM folic acid 800 mcg tablet 0.8 mg PO QAM Continue as directed rosuvastatin 5 mg tablet 5 mg PO UD ASK your prescriber and surgeon hydroxyurea 500 mg capsule 500 mg PO UD DO NOT take the morning of surgery chlorthalidone 25 mg tablet 25 mg PO Q2D folic acid 800 mcg tablet 0.8 mg PO QAM Take morning of surgery With a small sip of water, OTHERWISE NOTHING TO EAT OR DRINK AFTER MIDNIGHT: fluoxetine 10 mg tablet 10 mg PO QAM aspirin 81 mg tablet,delayed release 81 mg PO QAM (continue as normal unless told otherwise by surgeon) Take evening before surgery irbesartan 300 mg tablet 300 mg PO HS Other Notes If you have any questions please call us at [phone] or [phone] or [phone] or [phone]
--- NOTE | 2022-03-31 10:20 | Anesthesiology Consultation ---
Date of Service March 31, 2022 Assessment & Plan (1) Encounter for pre-operative examination: Chart Review Chart Review: Acceptable Risk for Surgery (pending PCP clearance 03/31/22) and Patient seen in Pre Admission Testing -Awaiting PCP clearance 03/31/21 Pt currently scheduled as 23 hours observation. If surgeon decides to change patient to [facility] Day [facility], patient would be acceptable risk for TKA, pending patient is motivated, has good support and surgeon's office completes [facility] preop requirements. Per PAT appt on 03/31/22, patient denies any recent travel or large group activities. Pt is vaccinated for Covid. Will leave to surgeon's discretion if preop Covid testing needed. Educated on importance of using Covid precautions one week prior to surgery History Surgery Operation Date: 04/28/22 10:20 Proposed Procedures p Right Total Knee Arthroplasty - Holden Melgar MD Height/Weight Height: 5 ft 11 in Weight: 102.9 kg Allergies Allergy/AdvReac Type Severity Reaction Status Date / Time No Known Drug Allergies Allergy Verified 03/23/22 08:32 Medications Home Medications Medication Instructions Recorded Confirmed Last Taken chlorthalidone 25 mg tablet 25 mg PO Q2D 10/20/21 03/23/22 Unknown fluoxetine 10 mg tablet 10 mg PO QAM 10/20/21 03/23/22 Unknown hydroxyurea 500 mg capsule 500 mg PO UD 10/20/21 03/23/22 Unknown irbesartan 300 mg tablet 300 mg PO HS 10/20/21 03/23/22 Unknown rosuvastatin 5 mg tablet 5 mg PO UD 10/20/21 03/23/22 Unknown aspirin 81 mg tablet,delayed 81 mg PO QAM 03/23/22 03/23/22 Unknown release folic acid 800 mcg tablet 0.8 mg PO QAM 03/23/22 03/23/22 Unknown Past Medical History Medical History (Updated 04/02/22 @ 08:44 by Rebecca Isbell PA-C) Anxiety History of hematuria Occurred 4-5 years ago- clots in urine Avoids NSAIDs History of prostate cancer Dx'ed 2007. S/p prostatectomy- no chemo or XRT Hx of polycythemia vera Follows with [facility] On hydroxyurea Hypertension Sleep apnea cpap Exercise / Class Metabolic Activity II 4-5 Yardwork/Stairs/Walk up hill (one flight of stairs- no chest pain or SOB ) Past Family History Family History Father Prostate cancer Heart disease Sister Heart disease Other No family history of adverse response to anesthesia No family history of bleeding disorder Past Surgical History Surgical History History of shoulder replacement rt. History of shoulder surgery lt. Hx of colonoscopy Hx of radical prostatectomy Hx of tonsillectomy Past Anesthesia History No Hx of Anesthesia Complications and No Family Hx of Anesthesia Complications History of PONV No Hx of PONV and No Hx of Motion Sickness Social History Smoking Status: Never smoker Do You Dip or Chew Tobacco: No Hx Alcohol Use: Yes alcohol intake frequency: holidays/special occasions only Hx Substance Use: No substance use type: does not use Review of Systems Patient denies chest pain, shortness of breath, dyspnea on exertion, reflux, cough, wheezing, palpitations. No hx of seizures, stroke, ID. No hx of blood clots or blood transfusions Physical Exam Vital Signs VITALS BP 129/86 P 69 TEMP 98.0 SP02 98% RESP 16 Constitutional no acute distress ENMT Mouth: + small oral opening; no TMJ clicking Thyromental Distance: < 3.5 Finger Breadths (3.0) Mallampati Class: III Caps to left front tooth Neck neck extension not limited Respiratory normal respiratory effort; no respiratory distress Auscultation: lungs clear to auscultation bilaterally; no wheezes Cardiovascular Rate/Rhythm: regular rate and regular rhythm Heart Sounds: no murmur Vessels: no carotid bruit Musculoskeletal Spine: no pain with cervical ROM Extremities: extremities normal to inspection Psychiatric Orientation: alert Lab Results Anesthesia Preop Results Results Anesthesia Widget: WBC 10.42 K/ul (4.8-10.8) 03/31/22 Hgb 14.4 g/dl (14.0-18.0) 03/31/22 Hct 41.1 % (40.1-51.0) 03/31/22 Plt 271 K/uL (130-400) 03/31/22 Na 138 mmol/L (136-145) 03/18/22 K 4.0 mmol/L (3.5-5.1) 03/18/22 Cl 103 mmol/L (98-107) 03/18/22 CO2 27 mmol/L (21-32) 03/18/22 BUN 23 mg/dl (6-23) 03/18/22 Creat 1.18 mg/dl (0.6-1.4) 03/18/22 Glucose Level 78 mg/dl (70-99(Fasting)) 03/18/22 PT 12.0 Seconds (9.0-12.0) 03/31/22 PTT 29.1 Seconds (21.0-31.0) 03/31/22 INR 1.1 (0.9-1.1) 03/31/22 Blood Type A Positive 03/31/22 Antibody Screen NEGATIVE 03/31/22 Testing Electrocardiogram Date: 03/31/22 SR with PACs at 64bpm Otherwise normal EKG per cardio Chest X-Ray Date: 08/27/21 Findings: + NAD COVID-19 Risk Screen Screening Information COVID-19 Screen Date: 03/31/22 Exposure 21 Days Family/Household +COVID Last 21 Days: No Exposure 10 Days Any COVID Exposure Last 10 Days: No Symptoms Last 10 Days Experienced COVID Sx Last 10 Days: No + COVID 0-90 Days COVID + in Last 0-90 Days: No Risk Plan COVID Risk Plan: No Risk Identified Patient Education COVID Preop Screening Education Complete: Yes
[2022-04-28] MEDS ORDERED: METOCLOPRAMIDE HCL 10 MG TABLET PO SCH (06:00)
[2022-04-28] MEDS ORDERED: GABAPENTIN 300 MG CAP PO SCH (06:00)
[2022-04-28] MEDS ORDERED: cloNIDine HCL 0.1 MG/24 HR TRANSDERM SYS TD SCH (06:00)
[2022-04-28] MEDS ORDERED: LR 500ML BOLUS, THEN 15ML/HR IV SCH (06:00)
[2022-04-28] MEDS ORDERED: CeleBREX 200 MG CAP PO SCH (06:00)
[2022-04-28] MEDS ORDERED: TRANEXAMIC ACID 1,000 MG **IV Intra-op IV SCH (06:00)
[2022-04-28] MEDS ORDERED: TRANEXAMIC ACID 1,000 MG **IV Pre-op IV SCH (06:00)
[2022-04-28] MEDS ORDERED: ROPIVACAINE 0.5% HCL/PF 150 MG, BUPIVACAINE 0.75% MPF 20 ML, EPINEPHrine 0.15 MG, Ketor... INFIL SCH (06:00)
[2022-04-28] MEDS ORDERED: ceFAZolin 2000MG 2,000 MG/15 ML SYR IV SCH (06:00)
[2022-04-28] MEDS ORDERED: FAMOTIDINE 20 MG TAB PO SCH (06:00)
[2022-04-28] MEDS ORDERED: ACETAMINOPHEN 500 MG TAB PO SCH (06:00)
[2022-04-28] MEDS ORDERED: traMADol HCL 50 MG TABLET PO SCH (06:00)
[2022-04-28] MEDS ORDERED: oxyCODONE HCL 10 MG TABCR (OxyCONTIN) PO SCH (06:00)
[2022-04-28] MEDS ORDERED: LR 60ML/HR IV SCH (06:00)
[2022-04-28] MEDS ORDERED: dexAMETHasone 4 MG TAB PO SCH (06:00)
[2022-04-28] MEDS ORDERED: BUPIVACAINE 0.5 % 5 MG/1 ML PF 10ML VIAL ONE (06:21)
[2022-04-28] MEDS ORDERED: ROPIVACAINE 0.5% 5 MG/ML 30 ML VIAL ONE (06:21)
[2022-04-28] MEDS ORDERED: VANCOMYCIN HCL 1000MG/20ML VIAL ONE (06:37)
[2022-04-28] MEDS ORDERED: ORTHO JOINT ANESTHETIC ONE (06:37)
--- NOTE | 2022-04-28 06:38 | History & Physical Bridge Note ---
Date of Service April 28, 2022 History & Physical Bridge Note I have examined the patient, reviewed the History & Physical and in the interval since the performance of the History & Physical I have noted the following changes of clinical significance: no changes noted
[2022-04-28] MEDS ORDERED: MIDAZOLAM HCL 1 MG/ML 2ML VIAL ONE (06:41)
[2022-04-28] MEDS ORDERED: ePHEDrine sulfate 50 MG/ML AMP IV PRN (06:43)
[2022-04-28] MEDS ORDERED: ONDANSETRON INJ 2 MG/ML 2 ML VIAL IV PRN ×2 (06:43→11:25)
[2022-04-28] MEDS ORDERED: fentaNYL citrate 100 MCG/2 ML VIAL IV PRN (06:43)
[2022-04-28] MEDS ORDERED: ATROPINE SULFATE 0.1 MG/ML 10ML SYR IV PRN (06:43)
[2022-04-28] MEDS ORDERED: KETAMINE 50 MG/5 ML SYRINGE ONE (07:13)
[2022-04-28] MEDS ORDERED: ONDANSETRON INJ 2 MG/ML 2 ML VIAL ONE (07:13)
[2022-04-28] MEDS ORDERED: PROPOFOL IV EMULSION 10 MG/ML 20 ML VIAL IV ONE (07:13)
[2022-04-28] MEDS ORDERED: LIDOCAINE 2% MPF LOCAL 5 ML VIAL INFIL ONE (07:13)
[2022-04-28] MEDS ORDERED: fentaNYL citrate 100 MCG/2 ML VIAL ONE (07:15)
--- NOTE | 2022-04-28 09:52 | Operative Report ---
Post Operative Report Pre & Post Diagnosis Operation Date: 04/28/22 07:00 Pre-Op Diagnosis: Right Knee Primary Osteoarthritis Post-Op Diagnosis: Right Knee Primary Osteoarthritis I identified the patient and participated in the time-out.: Yes Procedure Operation Date: 04/28/22 07:00 Actual Procedures p Right Total Knee Arthroplasty(Right) - Holden Melgar MD Surgeon Holden Melgar M.D. Rehabilitation Attendant Vanessa Wilcox PA-C Estimated Blood Loss 10 Findings Consistent with Post-Op Diagnosis Specimens bone and soft tissue Anesthesia Type MAC Spinal Regional Description of Procedure Patient was taken to the operating room, placed under general anesthesia. time out performed, given 2 gm IV Ancef for surgical prophylaxis. Prepped and draped in routine sterile fashion. I was present during the entire case, please see Dr. Melgar's operative report for further detail. Patient was taken to the recovery room in stable condition. I attest to the content of the Intraoperative Record and any orders documented therein. Any exceptions are noted below.
--- NOTE | 2022-04-28 09:54 | Operative Report ---
Post Operative Report Pre & Post Diagnosis Operation Date: 04/28/22 07:00 Pre-Op Diagnosis: Right Knee Primary Osteoarthritis Post-Op Diagnosis: Right Knee Primary Osteoarthritis I identified the patient and participated in the time-out.: Yes Procedure Operation Date: 04/28/22 07:00 Actual Procedures p Right Total Knee Arthroplasty(Right) - Holden Melgar MD Surgeon Holden Melgar MD Produce Laborer Vanessa Wilcox physicians assistant director of nursing no resident or fellow available Estimated Blood Loss 10 Findings Consistent with Post-Op Diagnosis Specimens None Anesthesia Type General Regional Complications none Disposition Accompanied Patient To Recovery: No Disposition: Recovery Room Indications Patient is 71 years old. Severe right knee arthritis refractory to nonsurgical treatment. He wishes to proceed with knee replacement. Description of Procedure Informed consent obtained. Patient identified. He identified the operative site as the right knee. I marked with my initials. A preoperative surgical timeout was performed. A preop dose of IV antibiotics was given. He was taken to the operating room positioned supine on the operating room table. A anesthetic was administered. Sedation spinal peripheral nerve block. He was positioned supine on the OR table. A bump was placed under the right hip and a padded post under the right calf. Tourniquet was applied to the right thigh. The leg was prescribed prepped and draped in usual sterile fashion. DVT prophylaxis intraoperatively with mechanical devices. Postoperatively mobility mechanical devices and Lovenox. The exam under anesthesia revealed range of motion 0/10/120. Varus deformity fixed. Intact LCL. Limb exsanguinated with the Esmarch. Tourniquet inflated to 250 mmHg. A midl ine longitudinal incision was made about 20 cm in length. This was followed by medial parapatellar arthrotomy. The synovial reflection in the lateral gutter was released. The retropatellar fat pad was noted to be scarred down and was resected. Soft tissue on the anterior aspect the distal femur was resected and an extensile medial tibial release was performed. Substantial osteophytes were noted about the patella lateral anterior and medial femur and the medial tibia and these were removed as encountered. The patella was everted and the knee was flexed. Notch osteophytes were noted and removed. The cruciate ligaments were resected. The tibia was then subluxated and the remainder of the menisci were removed. The lateral compartment looked relatively normal. The medial compartment showed large areas of worn and eburnated bone with grade 4 changes both sides of the joint with a deficient medial meniscus. No loose bodies were noted. A aeroplane pilot hole was drilled just in front of and in between the tibial spines. This was followed by the insertion of the intramedullary alignment ángela. The 0 degree cutting block was aligned to the tibial tubercle and pinned into place to resect 10 off of the lateral side corresponding to 2 mm cut medially. This was pinned into place and the knee was placed into full extension and the extra medullary alignment ángela confirmed neutral slope and intersection of the second ray and bisection of the ankle joint. This cut was then made and sized to a 5. Medial and posterior medial osteophytes were removed. A aeroplane pilot hole was drilled into the distal femur followed by insertion of the distal femoral cutting guide. This was set to be at 5 degree right knee valgus and a 14 mm thick cut based upon the flexion contracture. The level of the cut in relationship to the collateral ligaments was checked and verified. The cut was then made. The epicondylar axis was marked out. The distal femoral sizing block was applied and sized to a 5. The external rotation drill holes were then marked. The size 5 anterior down cutting block was applied. The alignment match the measured external rotation. The cut was made protecting the collateral ligaments. Large posterior medial osteophytes were removed. Osteophytes under the MCL removed. The box cutting guide was applied lateralized pinned in place and the box cut was made. The size 5 trial was applied. Attention was turned to the tibia with the size 5 tibial tray was applied and lateralized. Rotation was set and marked. This was pinned in place and then prepared with the drill and keel punch. Trialing was then performed and the knee had full extension with gentle manipulation there was slight increased lateral laxity in extension probably secondary to over tightness medially. There was 1+ LCL laxity in mid position and no laxity at 90. The sizing blocks were previously utilized in the knee. Initially it was a tight 10 medially slightly loose laterally in extension. It was a symmetric 10 on the flexion gap. I went ahead and resected some of the uncapped medial bone and did more of a medial and posterior medial release and this relieved the excessive medial tightness which actually diminished the lateral laxity as well. Therefore there was a symmetric 10 mm flexion and extension gap. The patella was sized to a 41. 25 mm thick. Guide set to preserve 15 mm of b one. The residual cut was 14-1/2. All bone was noted to be hard. The paddle was distal lysed and medialized and the lug holes were drilled with the paddle in the appropriate orientation in relationship to the trochlea. The locals were drilled and trialing showed good tracking with no hands technique. No lateral release was needed. The trial components were removed from the knee the bony surfaces were meticulously prepared by pulsatile lavage. The Ortho joint mix was injected into the back the knee and the canals were plugged. 2 bags of Simplex P cement were mixed and while in the doughy state smears were placed on the posterior condyles followed by cementation of the femur tibia and patella. The knee was held in full extension until cement hardened. Gentle manipulation was performed and full extension was achieved. After the cement had hardened and the remainder the Ortho joint mix was injected into the knee the tourniquet was let down after 100 minutes of inflation. Meticulous hemostasis was performed. The inferolateral geniculate was cauterized. Trialing again was then performed. 10 mm was good. There was intact stability and full extension trace MCL laxity in mid position 1+ LCL laxity in mid position and no varus valgus laxity at 90. Patella tracking was fine. Patellar thickness was 25-1/2 mm. The trial component was removed from the knee. Cement was removed from the posterior medial aspect the knee. Irrigation and hemostasis were performed. The final size 5 x 10 posterior stabilized polyethylene insert was applied and the knee was reduced. Irrigation was then reperformed. The extensor mechanism was closed above the equator the patella with interrupted #2 FiberWire. Below the equator with interrupted and running #1 Vicryl. The skin was closed in layers with 0 and 2-0 Vicryl followed by mary on the skin. The leg was cleaned wet and dry sponges and a bulky soft sterile dressing was applied Xeroform 4 x 4's ABD soft wrap full-length Tariq wrap and knee immobilizer. Patient was wake from anesthesia without difficulty and taken to the recovery room in stable condition. There were no complications. Counts were correct blood loss is estimated to be 10 cc in the resected bone and soft tissue was sent for specimen. At the conclusion of the operation spoke to patient's informed of my findings. Postop instructions were discussed. He will be admitted to the hospital and rehab according to the total knee protocol. He may weight-bear as tolerated. Components inserted with a J[employer]J PFC Sigma rotating platform knee size 5 right femur and a size 5 tibial tray. A size 5 x 10 mm thick polyethylene posterior stabilized rotating platform insert and a 41 mm 3 peg oval dome patella I attest to the content of the Intraoperative Record and any orders documented therein. Any exceptions are noted below.
--- NOTE | 2022-04-28 10:31 | XRay Report ---
TWO VIEWS RIGHT KNEE CLINICAL HISTORY: Postoperative examination. FINDINGS: AP and crosstable lateral portable views of the right knee are obtained. A right knee arthr oplasty is in near anatomic alignment. There has been undersurface remodeling of the patella. No acut e fracture is seen. There are expected postoperative changes around the knee including skin clips, so ft tissue edema, and subcutaneous gas. IMPRESSION: Expected postoperative changes status post right knee arthroplasty. No acute fracture is seen. ACT 112: Negative or not required by law. Electronically signed by: Mamadou Weeks M.D. 04/28/2022 10:30 AM
[2022-04-28] MEDS ORDERED: TAMSULOSIN HCL 0.4 MG CAP PO PRN (11:25)
[2022-04-28] MEDS ORDERED: hydrALAZINE HCL 20 MG/ML VIAL IV PRN (11:25)
[2022-04-28] MEDS ORDERED: MAGNESIUM HYDROXIDE SUSP 30 ML UDC PO PRN (11:25)
[2022-04-28] MEDS ORDERED: bisacodyL 10 MG SUPP PR PRN (11:25)
[2022-04-28] MEDS ORDERED: traMADol HCL 50 MG TABLET PO PRN (11:25)
[2022-04-28] MEDS ORDERED: NALOXONE HCL 0.4 MG/1 ML VIAL/CARP IV PRN (11:25)
[2022-04-28] MEDS ORDERED: HYDROmorphone INJ 0.5 MG/0.5 ML SYR IV PRN (11:25)
[2022-04-28] MEDS ORDERED: CHLORTHALIDONE 25 MG TAB PO SCH ×2 (11:25→21:00)
[2022-04-28] MEDS: CHECK CLONIDINE PATCH PLACEMENT SCH ×3 (11:44→15:56)
--- NOTE | 2022-04-28 11:47 | Anesthesiology Progress Note ---
Date of Service April 28, 2022 Anesthesia Post Procedure Vital Signs Vital Signs: Temp Pulse Pulse Resp BP Pulse Ox O2 Del Method 04/28/22 10:45 97.3 F L 82 16 125/83 93 Room Air 04/28/22 10:20 69 17 114/63 94 Room Air 04/28/22 10:00 64 18 121/75 100 Oxymask 04/28/22 10:30 97.3 F L 67 15 132/69 93 Room Air 04/28/22 10:10 65 12 112/61 97 Room Air 04/28/22 09:50 66 20 129/70 96 Oxymask 04/28/22 09:49 97.2 F L 68 16 120/74 96 Oxymask 04/28/22 05:47 98.1 F 70 18 156/81 H 98 Room Air O2 Flow Rate 04/28/22 10:45 04/28/22 10:20 04/28/22 10:00 3 04/28/22 10:30 04/28/22 10:10 04/28/22 09:50 6 04/28/22 09:49 6 04/28/22 05:47 Transfer of Care Handoff Completed per policy Notes Mental Status: alert / awake / arousable and participated in evaluation Patient Amnestic to Procedure: Yes Nausea / Vomiting: adequately controlled Pain: adequately controlled Airway Patency, RR, SpO2: stable & adequate BP & HR: stable & adequate Hydration State: stable & adequate Neuraxial Anesthesia: was administered and sensory block is resolving Anesthetic Complications: no major complications apparent and Pt Satisfied with anesthetic care
[2022-04-28] MEDS: SODIUM CHLORIDE 0.9% 1000ML 1,000 ML IV SCH (11:54)
[2022-04-28] MEDS: ACETAMINOPHEN 500 MG TAB PO SCH ×2 (12:51→21:06)
[2022-04-28] MEDS: KETOROLAC TROMETHAMINE 15 MG/ML VIAL IV SCH ×2 (12:55→18:03)
[2022-04-28] MEDS ORDERED: Nursing to Pharmacy Communication SCH (14:15)
[2022-04-28] MEDS: ceFAZolin 2000MG 2,000 MG/15 ML SYR IV SCH (15:58)
--- NOTE | 2022-04-28 16:41 | Orthopedic Progress Note ---
Date of Service April 28, 2022 Assessment & Plan (1) Status post total right knee replacement: Plan: POD 0 - right TKA with Dr. Melgar Regular diet PT/OT Lovenox 30mg SQ BID x 2-4 weeks after surgery for DVT prophylaxis. Teds and AV impulse boots Ice and elevation PRN right knee WBAT with walker Resume home medications Case management for disposition. Will re-eval in AM. Admission and Anticipated Discharge Date Admission Date: April 28, 2022 Subjective Patient doing well. Mild achiness in right knee. States that he feels his sensation is returning to normal. Tolerating a regular diet. Has not urinated or had BM since surgery. No shortness of breath or chest pains. Physical Exam Musculoskeletal: Right knee surgical dressing in place. Ice on top of knee. Normal sensation of right foot. Normal strength. Distal pulses 1 +. Able to actively SLR right lower extremity Results & Data ([facility]) Vital Signs (Past 12 Hours) Vital Signs Temp Pulse Pulse Resp BP Pulse Ox O2 Del Method 04/28/22 15:22 36.6 C 80 16 135/75 96 Room Air 04/28/22 12:55 36.7 C 75 18 149/79 H 97 Room Air 04/28/22 11:45 78 18 155/77 H 99 Room Air 04/28/22 11:15 36.5 C 75 18 152/72 H 97 Room Air 04/28/22 12:27 74 16 136/82 95 Room Air 04/28/22 10:45 36.3 C L 82 16 125/83 93 Room Air 04/28/22 10:20 69 17 114/63 94 Room Air 04/28/22 10:00 64 18 121/75 100 Oxymask 04/28/22 10:30 36.3 C L 67 15 132/69 93 Room Air 04/28/22 10:10 65 12 112/61 97 Room Air 04/28/22 09:50 66 20 129/70 96 Oxymask 04/28/22 09:49 36.2 C L 68 16 120/74 96 Oxymask 04/28/22 05:47 36.7 C 70 18 156/81 H 98 Room Air O2 Flow Rate 04/28/22 15:22 04/28/22 12:55 04/28/22 11:45 04/28/22 11:15 04/28/22 12:27 02/14/23 10:45 04/28/22 10:20 04/28/22 10:00 3 04/28/22 10:30 04/28/22 10:10 04/28/22 09:50 6 04/28/22 09:49 6 04/28/22 05:47 Diagnostic Findings TWO VIEWS RIGHT KNEE CLINICAL HISTORY: Postoperative examination. FINDINGS: AP and crosstable lateral portable views of the right knee are obtained. A right knee arthroplasty is in near anatomic alignment. There has been undersurface remodeling of the patella. No acute fracture is seen. There are expected postoperative changes around the knee including skin clips, soft tissue edema, and subcutaneous gas. IMPRESSION: Expected postoperative changes status post right knee arthroplasty. No acute fracture is seen.
[2022-04-28] MEDS ORDERED: IRBESARTAN 150 MG TAB PO SCH (21:00)
[2022-04-28] MEDS ORDERED: SENNA 8.6 MG TAB PO SCH (21:00)
[2022-04-28] MEDS: ENOXAPARIN INJ 30 MG/0.3 ML SYR SQ SCH (21:05)
[2022-04-28] MEDS: DOCUSATE SODIUM 100 MG CAP PO SCH (21:07)
[2022-04-29] MEDS: KETOROLAC TROMETHAMINE 15 MG/ML VIAL IV SCH ×2 (00:18→05:59)
[2022-04-29] MEDS: ceFAZolin 2000MG 2,000 MG/15 ML SYR IV SCH (00:18)
[2022-04-29] MEDS: CHECK CLONIDINE PATCH PLACEMENT SCH ×2 (00:30→07:45)
[2022-04-29] MEDS: oxyCODONE HCL IR 5 MG TAB (IMMEDIATE RELEASE) PO PRN ×2 (01:11→12:52)
[2022-04-29] MEDS: SODIUM CHLORIDE 0.9% 1000ML 1,000 ML IV SCH (01:18)
[2022-04-29] MEDS: ACETAMINOPHEN 500 MG TAB PO SCH (06:01)
[2022-04-29] MEDS: DOCUSATE SODIUM 100 MG CAP PO SCH (07:48)
[2022-04-29] MEDS ORDERED: dexAMETHasone 4 MG TAB PO SCH (08:00)
[2022-04-29 08:17] LABS: Hematocrit (blood only) 29.5 % (42.0-52.0); Hemoglobin 10.4 g/dl (14.0-18.0); Mean Corpuscular Hemoglobin 36.2 pg (25.0-34.0); Mean Corpuscular Hgb Conc 35.3 g/dL (32.0-36.0); Mean Corpuscular Volume 102.8 fL (80.0-100.0); Mean Platelet Volume 10.5 fL (9.4-12.4); Nucleated RBC # (auto) 0.02 K/uL (0-0.12); Nucleated RBC % (auto) 0.1 %; Platelet Count 306 K/uL (130-400); RDW Coefficient of Variation 13.8 % (11.5-14.5); RDW Standard Deviation 51.4 fL (36.4-46.3); Red Blood Count 2.87 M/uL (4.70-6.10); White Blood Count 21.22 K/ul (4.8-10.8)
[2022-04-29 08:49] LABS: BUN Creatinine Ratio 17.4 (10-20); Calcium 8.7 mg/dl (8.5-10.1); Creatinine Clr Calc Pharmacy 50.3 ml/min; Est GFR (African American) 48.8 ml/min; Est GFR (Non-African American) 42.1 ml/min; Potassium 3.7 mmol/L (3.5-5.1)
[2022-04-29] MEDS ORDERED: FLUoxetine HCL 10 MG CAP PO SCH (09:00)
[2022-04-29] MEDS ORDERED: ROSUVASTATIN CALCIUM 5 MG TAB PO SCH (09:00)
[2022-04-29] MEDS ORDERED: ASPIRIN 81 MG ECTAB PO SCH (09:00)
[2022-04-29] MEDS ORDERED: MULTIVITAMIN TAB PO SCH (09:00)
[2022-04-29] MEDS ORDERED: FOLIC ACID 400 MCG TAB PO SCH (09:00)
[2022-04-29] MEDS ORDERED: HYDROXYUREA 500 MG CAP PO SCH (09:00)
[2022-04-29] MEDS: ENOXAPARIN INJ 30 MG/0.3 ML SYR SQ SCH (10:03)
--- NOTE | 2022-04-29 11:57 | Orthopedic Progress Note ---
Date of Service April 29, 2022 Assessment & Plan (1) Status post total right knee replacement: Plan: POD 1 - right TKA with Dr. Melgar Regular diet PT/OT Lovenox 30mg SQ BID x 2-4 weeks after surgery for DVT prophylaxis. Teds and AV impulse boots Ice and elevation PRN right knee WBAT with walker Dr. Melgar present for today's visit. Plan for discharge to his home with his and home health today. Prescriptions for his oxycodone, tramadol and Lovenox was sent to his pharmacy. Will discuss with nursing on Lovenox training today. Follow-up as scheduled. He knows to call with any problems, questions or concerns. Discharge instructions provided. Admission and Anticipated Discharge Date Admission Date: April 28, 2022 Subjective Patient is sitting in chair. His is at his bedside. No complaints of significant pain in his right leg. Has been doing his bedside exercises and also getting up to walk around for 5 minutes every hour. Denies any chest pain or shortness of breath. He is tolerating a regular diet without any postoperative nausea or vomiting. His pain is well controlled. Denies any numbness or tingling in his right lower extremity. Physical Exam Musculoskeletal: Exam of his right lower extremity: His right leg is elevated on a stool. He has no significant distal edema into his right leg. His calf is supple and nontender. He has full ankle strength with dorsiflexion, plantarflexion, inversion and eversion. Distal pulses are 1+. Distal sensation is normal. He is able to independently straight leg raise. Postoperative dressings are clean and dry. Results & Data ([facility]) Vital Signs (Past 12 Hours) Vital Signs Temp Pulse Resp BP Pulse Ox O2 Del Method 04/29/22 11:16 36.5 C 82 16 119/57 L 97 Room Air 04/29/22 09:23 36.7 C 64 17 128/66 98 Room Air 04/29/22 02:54 36.7 C 82 18 115/69 97 Room Air Laboratory Results 04/29/22 04/29/22 Range/Units 08:02 08:02 WBC 21.22 H (4.8-10.8) K/ul RBC 2.87 L (4.70-6.10) M/uL Hgb 10.4 L (14.0-18.0) g/dl Hct 29.5 L (42.0-52.0) % MCV 102.8 H (80.0-100.0) fL MCH 36.2 H (25.0-34.0) pg MCHC 35.3 (32.0-36.0) g/dL RDW Std Deviation 51.4 H (36.4-46.3) fL RDW Coeff of Nikia 13.8 (11.5-14.5) % Plt Count 306 (130-400) K/uL MPV 10.5 (9.4-12.4) fL Absolute Nucleated RBC 0.02 (0-0.12) K/uL Nucleated RBC % (auto) 0.1 % Sodium 135 L (136-145) mmol/L Potassium 3.7 (3.5-5.1) mmol/L Chloride 102 (98-107) mmol/L Carbon Dioxide 27 (21-32) mmol/L Anion Gap 6 (3-11) BUN 28 H (6-23) mg/dl Creatinine 1.61 H (0.6-1.4) mg/dl Est Cr Clr Drug Dosing 50.3 ml/min Est GFR ( Amer) 48.8 ml/min Est GFR (Non-Af Amer) 42.1 ml/min BUN/Creatinine Ratio 17.4 (10-20) Glucose 119 H (70-99(Fasting)) mg/dl Calcium 8.7 (8.5-10.1) mg/dl
--- NOTE | 2022-04-29 12:02 | Discharge Summary ---
Date of Service April 29, 2022 Discharge Data Procedures Performed Operation Date: 04/28/22 07:00 Actual Procedures p Right Total Knee Arthroplasty(Right) - Holden Melgar MD Hospital Course (1) Status post total right knee replacement: Patient was admitted to [facility] after undergoing an elective right total knee arthroplasty with Dr. Melgar on April 28, 2022. His surgery was performed with spinal anesthesia peripheral nerve block. He tolerated the procedure well without any intraoperative complications. He was given 2 g of IV Ancef for surgical prophylaxis which was continued for 24 hours after his procedure. Postoperative x-rays were obtained in the recovery room and showed a stable right total knee arthroplasty with no evidence of fracture. He was allowed out of bed, weight-bear as tolerated with the assistance of a knee immobilizer and a walker. He was given IV Dilaudid, Toradol, tramadol, oxycodone all to be taken as needed for pain control. He was also placed on scheduled Tylenol for control of his postoperative pain. He was seen and evaluated by physical therapy and Occupational Therapy. He was seen by the rn case manager for disposition needs. He has been arranged for home health. He did not develop any postoperative chest pain, shortness of breath, lightheadedness or dizziness, nausea or vomiting. He is urinating normally. He is on a stool softener. He was followed by Dr. Melgar during his inpatient stay. His home medications were continued. He was given a regular diet. On postoperative day 1 it was determined that he did well in physical therapy and Occupational Therapy and was safe for discharge to his home. He was discharged to his home with his in stable condition on April 29, 2022.
[2022-04-29] MEDS ORDERED: CeleBREX 200 MG CAP PO SCH (21:00)
== END 2022-04-29 13:20 | disposition home health service (06) ==
LOC: 3N 05:22 → ASU 05:22

== ENCOUNTER 2023-01-31 03:14 | Observation (INO) ==
[2023-01-31] MEDS ORDERED: KETOROLAC 30 MG/ML VIAL IV ONE (04:12)
[2023-01-31 04:58] LABS: Alanine Aminotransferase 12 U/L (7-52); Albumin Globulin Ratio 1.3 (0.9-2); Alkaline Phosphatase 80 U/L (34-104); Anion Gap 7 (3-11); Aspartate Aminotransferase 33 U/L (13-39); BUN Creatinine Ratio 15.8 (10-20); Bilirubin,Total 0.6 mg/dl (0.2-1.0); Blood Urea Nitrogen 21 mg/dl (6-23); Carbon Dioxide 25 mmol/L (21-32); Chloride 105 mmol/L (98-107); Est GFR (Non-African American) 52.7 ml/min; Globulin 3.1 gm/dl (2.5-4.0); Glucose 108 mg/dl (70-99(Fasting)); Potassium 4.2 mmol/L (3.5-5.1); Sodium 137 mmol/L (136-145); Total Protein 7.1 gm/dl (6.0-8.3)
--- NOTE | 2023-01-31 05:38 | History & Physical Report ---
Date of Service January 31, 2023 Assessment & Plan (1) Acute Lyme disease: Plan: Patient was possibly exposed to tick bite in the last couple of weeks. Said he found some ticks on his cat Presents to the hospital with 1 week duration of muscle pains joint pains chest tightness. On examination no evidence of erythema migrans No changes on EKG However IgM and IgG were both positive for Lyme, Western blot pending We will continue p.o. doxycycline 100 mg twice daily Monitor for neurologic changes, in that case we will switch to parenteral penicillin or ceftriaxone (2) Hx of polycythemia vera: Plan: On hydroxyurea at home, continue Takes 500 mg Fridays and 250 mg the other days days (3) Hypertension: Plan: Blood pressure is under good control On irbesartan and chlorthalidone at home, continue Plan Admit to [facility] Full code DVT prophylaxis heparin History of Present Illness Chief Complaint: Generalized body aches and pains joint pains Primary Care Provider: Florinda Verdin Is a 72-year-old male with a history of hypertension, polycythemia vera who presents to the emergency department with complaints of flulike symptoms chest tightness muscle and joint pains for about 1 week duration. Patient initially presented to admitted department on the was diagnosed with Lyme disease, tested positive for IgM and IgG antibodies and was discharged home on doxycycline however he said the pain got worse so he came back to emergency department where his pain was controlled he got discharged but came back yet again this morning with worsening pain myalgia. Currently patient he thinks he may have been exposed to tick because he has found a few ticks on his home cat, which he claims sleeps on his bed. The emergency department EKG did not show any ST changes chest x-ray was unremarkable CT scan of the chest did not show any evidence of PE however there was some evidence of splenomegaly. Patient will be admitted to the hospital for treatment of his Lyme disease and control of his pain. Allergies Allergy/AdvReac Type Severity Reaction Status Date / Time No Known Drug Allergies Allergy 0 Verified 01/30/23 03:05 Home Medications Medication Instructions Recorded Confirmed Type chlorthalidone 25 mg tablet 25 mg PO Q2D 10/20/21 01/30/23 History fluoxetine 10 mg tablet 10 mg PO QAM 10/20/21 01/30/23 History hydroxyurea 500 mg capsule 500 mg PO UD 10/20/21 01/30/23 History irbesartan 300 mg tablet 300 mg PO HS 10/20/21 01/30/23 History rosuvastatin 5 mg tablet 5 mg PO UD 10/20/21 01/30/23 History aspirin 81 mg tablet,delayed 81 mg PO QAM 03/23/22 01/30/23 History release folic acid 800 mcg tablet 0.8 mg PO QAM 03/23/22 01/30/23 History acetaminophen 500 mg tablet 1,000 mg PO Q8 PRN Pain 01/30/23 01/30/23 History (Tylenol Extra Strength) doxycycline hyclate 100 mg tablet 100 mg PO BID 10 days #20 tabs 01/30/23 01/30/23 Rx hydroxyurea 500 mg capsule 250 mg PO SUTUTHSA 01/30/23 01/30/23 History Past Med/Surg History Medical History (Updated 01/31/23 @ 05:34 by Wilfrido Urbano MD) History of hematuria Occurred 4-5 years ago- clots in urine Avoids NSAIDs Hx of polycythemia vera Follows with [facility] On hydroxyurea History of prostate cancer Dx'ed 2007. S/p prostatectomy- no chemo or XRT Anxiety Hypertension Sleep apnea cpap Surgical History History of total knee replacement right Hx of colonoscopy Hx of radical prostatectomy History of shoulder replacement rt. History of shoulder surgery lt. 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 Physical Exam Physical Exam: The patient is awake, alert and oriented 3, well developed and well nourished, normocephalic and atraumatic, lying in bed and in no acute distress. HEENT--PERRL, EOMI, mucous membranes and oropharynx mildly dry Neck--supple. No JVD. No bruits. Thyroid normal, trachea midline, no adenopathy. Heart--normal S1 and S2. No murmurs, rubs or gallops. Lungs--clear bilaterally, no respiratory distress, no accessory muscle use. Abdomen--normal bowel sounds and soft. Mild epigastric and left sided abdominal pain Extremities--no cyanosis or clubbing. No edema. Dermatologic--normal skin turgor, normal color, no abnormal lymph nodes, no rash. Neurologic--cranial nerves II through XII grossly intact. Rheumatologic--normal range of motion. Psychiatric--normal affect. Results & Data Results & Data Vital Signs (Past 12 Hours) Vital Signs Temp Pulse Resp BP Pulse Ox O2 Del Method 01/31/23 05:00 88 18 147/77 H 95 Room Air 01/31/23 04:42 85 01/31/23 03:19 98.2 F 77 20 106/60 99 Room Air PG Care Time/CCT Total # of Minutes Spent Total Time Spent with Patient: Total time spent is greater than 50% in coordination of care (as documented) at patient's floor/unit and/or counseling patient: Coding Level of Care Code 24834 INT INP/OBS CARE 3/75MIN Diagnoses Acute Lyme disease A69.20 Hx of polycythemia vera Z86.2 Hypertension I10 Time Spent (min) 75
[2023-01-31 05:55] LABS: Hematocrit (blood only) 30.7 % (42.0-52.0); Hemoglobin 10.6 g/dl (14.0-18.0); Mean Corpuscular Hemoglobin 34.8 pg (25.0-34.0); Mean Corpuscular Hgb Conc 34.5 g/dL (32.0-36.0); Mean Corpuscular Volume 100.7 fL (80.0-100.0); Mean Platelet Volume 11.5 fL (9.4-12.4); Platelet Count 141 K/uL (130-400); RDW Coefficient of Variation 15.3 % (11.5-14.5); RDW Standard Deviation 56.3 fL (36.4-46.3); Red Blood Count 3.05 M/uL (4.70-6.10); White Blood Count 18.61 K/ul (4.8-10.8)
[2023-01-31 06:31] LABS: Basophils # (auto) 0.05 K/uL (0.00-0.20); Basophils % (auto) 0.3 %; Eosinophils % (auto) 0.5 %; Immature Granulocytes % (auto) 9.1 %; Lymphocytes # (auto) 1.25 K/uL (1.20-3.40); Lymphocytes % (auto) 6.7 %; Monocytes # (auto) 2.93 K/uL (0.11-0.59); Monocytes % (auto) 15.7 %; Neutrophils # (auto) 12.58 K/uL (1.40-6.50); Neutrophils % (auto) 67.7 %
--- NOTE | 2023-01-31 08:17 | Emergency Department Note ---
Impression & Plan Chest tightness, Acute extremity pain, Lyme disease Admit to the [facility] ED Provider Note NAME: AYE CLARKE AGE: 72 SEX: Male INFORMANT: Patient ED PROVIDER(S): Kathy Younger DO CHIEF COMPLAINT: Extremity pain and chest tightness PLAN: Disposition: Admit to the [facility] MEDICAL DECISION MAKING: This is a 72-year-old male patient presents to the emergency department for the third time in the past 24 hours. Patient describes recurrent episodes of chest tightness and extremity pain. The patient was diagnosed with Lyme disease and started on doxycycline Care/management discussed with: ED case management; [facility] Level of care consideration(s): After review of the information above and other included data, I feel the patient can be managed safely as an outpatient/could have required admission but improved significantly and is stable for discharge/requires escalation of care to admission. Triage Nursing notes: Reviewed and agree with them. Vital Signs: reviewed and unremarkable Additional History obtained from: None Chronic Medical/Social Conditions affecting care: Polycythemia vera Differential Diagnosis: Cardiac ischemia, pain associated with Lyme diagnosis, anxiety, complication of polycythemia Diagnostics, independently interpreted by me: Cardiac Monitoring: Normal sinus rhythm at 72 HPI: 72 year old Male arrives for evaluation of persistent chest tightness and extremity pain. Patient had return to the emergency department with chest discomfort and extremity pain after I saw him overnight last night same complaint and diagnosed him with Lyme disease. Rest of his work-up was essentially negative and there was no signs of cardiac ischemia. He tried using NSAIDs at home without relief and return to the emergency department was prescribed tramadol. He tried taking tramadol at 10 PM this evening with no relief and took a second tramadol at 1:45 AM which gave him very little relief so return here to the ER. PAST MEDICAL HISTORY: See Below, PAST SURGICAL HISTORY: See Below, SOCIAL HISTORY: See Below, HOME MEDICATIONS: See list ALLERGIES: None VITALS: See Below PHYSICAL EXAMINATION: HEENT: Head - normocephalic and atraumatic. Pupils are equal, round, and reactive to light. Extraocular eye muscles are intact, and sclera are anicteric. Nose - moist nasal mucosa without discharge. Mouth - moist buccal mucosa. Oropharynx is nonerythematous and there is no tonsillar exudate or edema noted. Neck: Supple; no cervical lymphadenopathy Heart: Regular rate and rhythm. There is a normal S1 and S2 with no murmurs, clicks, or gallops appreciated. Lungs: Clear to auscultation bilaterally with no wheezes, rales, or rhonchi. Abdomen: Soft, completely nontender, nondistended, with good bowel sounds. There are no palpable pulsatile masses or hepatosplenomegaly. There is no guarding, rigidity, or rebound noted. Extremities: No evidence of cyanosis, clubbing, or edema. There are easily palpable peripheral pulses. Skin: warm and dry with good turgor and no rashes. Emergency department treatment: telemetry monitor, IV Toradol Emergency department course: The patient was evaluated in room A-12. A complete history and physical was performed. An IV lock was initiated and labs were drawn as above. An order was placed for continuous cardiac monitoring. The patient was in a normal sinus rhythm at a rate of 72. Patient was given a dose of IV Toradol. [facility] for further [facility] care. Past Med/Surg History Medical History (Updated 02/01/23 @ 04:00 by Kathy Younger DO) History of hematuria Occurred 4-5 years ago- clots in urine Avoids NSAIDs Hx of polycythemia vera Follows with [facility] On hydroxyurea History of prostate cancer Dx'ed 2007. S/p prostatectomy- no chemo or XRT Anxiety Hypertension Sleep apnea cpap Surgical History History of total knee replacement right Hx of colonoscopy Hx of radical prostatectomy History of shoulder replacement rt. History of shoulder surgery lt. 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 Beliefs That Will Affect Care: None marital status: Current Living Situation: Spouse current occupational status: retired Feels Safe at Home: Yes Assistive Devices: CPAP and Glasses Allergies Allergies Allergy/AdvReac Type Severity Reaction Status Date / Time No Known Drug Allergies Allergy 0 Verified 01/30/23 03:05 Home Meds Home Medications Medication Instructions Recorded Confirmed chlorthalidone 25 mg tablet 25 mg PO Q2D 10/20/21 01/31/23 fluoxetine 10 mg tablet 10 mg PO QAM 10/20/21 01/31/23 hydroxyurea 500 mg capsule 500 mg PO UD 10/20/21 01/31/23 irbesartan 300 mg tablet 300 mg PO HS 10/20/21 01/31/23 rosuvastatin 5 mg tablet 5 mg PO UD 10/20/21 01/31/23 aspirin 81 mg tablet,delayed 81 mg PO QAM 03/23/22 01/31/23 release folic acid 800 mcg tablet 0.8 mg PO QAM 03/23/22 01/31/23 acetaminophen 500 mg tablet 1,000 mg PO Q8 PRN Pain 01/30/23 01/31/23 (Tylenol Extra Strength) hydroxyurea 500 mg capsule 250 mg PO SUTUTHSA 01/30/23 01/31/23 Previous Rx's Medication Instructions Recorded doxycycline hyclate 100 mg tablet 100 mg PO BID 10 days #20 tabs 01/30/23 Results & Data (ED) Vital Signs Vital Signs - 24 hr 01/31/23 04:42 01/31/23 05:00 Pulse Rate 85 88 Respiratory Rate 18 Blood Pressure 147/77 H Blood Pressure Mean 101 Pulse Oximetry 95 Oxygen Delivery Method Room Air Laboratory Data 01/31/23 05:26 01/31/23 04:24 Lab Results 01/31/23 Range/Units 04:24 WBC Cancelled RBC Cancelled Hgb Cancelled Hct Cancelled MCV Cancelled MCH Cancelled MCHC Cancelled RDW Std Deviation Cancelled RDW Coeff of Nikia Cancelled Plt Count Cancelled MPV Cancelled Immature Gran % (Auto) Cancelled Neut % (Auto) Cancelled Lymph % (Auto) Cancelled Baxter % (Auto) Cancelled Eos % (Auto) Cancelled Baso % (Auto) Cancelled Neut # (Auto) Cancelled Lymph # (Auto) Cancelled Baxter # (Auto) Cancelled Eos # (Auto) Cancelled Baso # (Auto) Cancelled Immature Gran # (Auto) Cancelled Absolute Nucleated RBC Cancelled Nucleated RBC % (auto) Cancelled Neutrophils % (Manual) Cancelled Band Neutrophils % Cancelled Lymphocytes % (Manual) Cancelled Prolymphocyte % Cancelled Reactive Lymphs % (Man) Cancelled Monocytes % (Manual) Cancelled Eosinophils % (Manual) Cancelled Basophils % (Manual) Cancelled Metamyelocytes % (Man) Cancelled Myelocytes % (Man) Cancelled Promyelocytes % (Man) Cancelled Blast Cells % (Manual) Cancelled Plasma Cell % (Manual) Cancelled Other Cells % Cancelled Nucleated RBC % Cancelled Neutrophils # (Manual) Cancelled Band Neutrophils # Cancelled Total Absolute Neuts Cancelled Lymphocytes # (Manual) Cancelled Prolymphocyte # Cancelled Reactive Lymphs # Cancelled Total Abs Lymphocytes Cancelled Monocytes # (Manual) Cancelled Eosinophils # (Manual) Cancelled Basophils # (Manual) Cancelled Metamyelocytes # (Man) Cancelled Myelocytes # (Manual) Cancelled Promyelocytes # (Man) Cancelled Blast Cells # (Man) Cancelled Plasma Cell # (Manual) Cancelled Other Cells # Cancelled Nucleated RBCs # (Man) Cancelled Hypersegmented Neuts Cancelled Hyposegmented Neuts Cancelled Hypogranular Neuts Cancelled Large Granular Lymphs Cancelled # Lrg Granular Lymphs Cancelled Hairy Cells Cancelled Smudge Cells Cancelled Toxic Granulation Cancelled Toxic Vacuolation Cancelled Dohle Bodies Cancelled Tono Rods Cancelled Platelet Estimate Cancelled Hypogranular Platelets Cancelled Giant Platelets Cancelled Platelet Satelliting Cancelled RBC Morphology Cancelled Polychromasia Cancelled Hypochromasia Cancelled Poikilocytosis Cancelled Basophilic Stippling Cancelled Anisocytosis Cancelled Microcytosis Cancelled Macrocytosis Cancelled Spherocytes Cancelled Pappenheimer Bodies Cancelled Sickle Cells Cancelled Target Cells Cancelled Tear Drop Cells Cancelled Ovalocytes Cancelled Stomatocytes Cancelled [place] Bodies Cancelled Echinocytes Cancelled Acanthocytes (Spur) Cancelled Rouleaux Cancelled RBC Agglutinates Cancelled Schistocytes Cancelled Sezary Cell Cancelled Sodium 137 (136-145) mmol/L Potassium 4.2 (3.5-5.1) mmol/L Chloride 105 (98-107) mmol/L Carbon Dioxide 25 (21-32) mmol/L Anion Gap 7 (3-11) BUN 21 (6-23) mg/dl Creatinine 1.33 (0.6-1.4) mg/dl Est Cr Clr Drug Dosing Not Reportable Est GFR ( Amer) 61.0 ml/min Est GFR (Non-Af Amer) 52.7 ml/min BUN/Creatinine Ratio 15.8 (10-20) Glucose 108 H (70-99(Fasting)) mg/dl Calcium 9.0 (8.6-10.3) mg/dl Total Bilirubin 0.6 (0.2-1.0) mg/dl AST 33 (13-39) U/L ALT 12 (7-52) U/L Alkaline Phosphatase 80 (34-104) U/L Total Protein 7.1 (6.0-8.3) gm/dl Albumin 4.0 (3.4-5.0) gm/dl Globulin 3.1 (2.5-4.0) gm/dl Albumin/Globulin Ratio 1.3 (0.9-2) Blood Parasites ID Cancelled Administered Medications Acetaminophen (Acetaminophen 500 Mg Tab) 1,000 mg PO TID GAYATHRI Stop: 03/02/23 13:59 Last Admin: 01/31/23 20:18 Dose: 1,000 mg Documented By: Admin: 01/31/23 13:12 Dose: 1,000 mg Documented By: WILY Aspirin (Aspirin 81 Mg Ectab) 81 mg PO QAM GAYATHRI Stop: 03/02/23 09:29 Last Admin: 01/31/23 09:51 Dose: 81 mg Documented By: WILY Chlorthalidone (Chlorthalidone 25 Mg Tab) 25 mg PO Q48H GAYATHRI Stop: 03/02/23 20:59 Last Admin: 01/31/23 20:18 Dose: 25 mg Documented By: BOO Docusate Sodium (Docusate Sodium 100 Mg Cap) 100 mg PO BID GAYATHRI Stop: 03/02/23 12:59 Last Admin: 01/31/23 20:18 Dose: 100 mg Documented By: Admin: 01/31/23 14:31 Dose: 100 mg Documented By: WILY Doxycycline Hyclate (Doxycycline Hyclate 100 Mg Cap) 100 mg PO BID [facility] Stop: 02/09/23 21:01 Last Admin: 01/31/23 20:18 Dose: 100 mg Documented By: Admin: 01/31/23 09:51 Dose: 100 mg Documented By: WILY Fluoxetine HCl (Fluoxetine Hcl 10 Mg Cap) [facility] [place] Stop: 03/02/23 09:29 Last Admin: 01/31/23 09:51 Dose: 10 mg Documented By: WILY Folic Acid (Folic Acid 400 Mcg Tab) [facility] [place] Stop: 03/02/23 09:29 Last Admin: 01/31/23 09:51 Dose: 800 mcg Documented By: WILY Heparin Sodium (Porcine) (Heparin Sod 5,000 Unit/0.5 Ml Vial) 5,000 units SQ Q12H [facility] Stop: 03/02/23 09:29 Last Admin: 01/31/23 20:18 Dose: 5,000 units Documented By: Admin: 01/31/23 10:31 Dose: 5,000 units Documented By: WILY Hydroxyurea (Hydroxyurea 500 Mg Cap) 500 mg PO SuTuThSa@0900 [facility] Stop: 03/02/23 17:14 Last Admin: 01/31/23 17:50 Dose: 500 mg Documented By: WILY Co-signed By: FERNANDA Losartan Potassium (Losartan Potassium 50 Mg Tab) 100 mg PO HS [facility] Stop: 03/02/23 20:59 Last Admin: 01/31/23 20:18 Dose: 100 mg Documented By: BOO Miscellaneous (Hydroxyurea 250mg ~ Order Awaiting Action) 1 each N/A QS [facility] Stop: 03/02/23 15:59 Last Admin: 01/31/23 23:38 Dose: Not Given Documented By: Admin: 01/31/23 17:49 Dose: Not Given Documented By: WILY Polyethylene Glycol (Polyethylene (Miralax) 17 Gm Pack) 17 gm PO DAILY PRN PRN Reason: Constipation Stop: 03/02/23 10:48 Last Admin: 02/01/23 03:23 Dose: 17 gm Documented By: BOO Discontinued Medications Ketorolac Tromethamine (Ketorolac 30 Mg/Ml Vial) 30 mg IV NOW ONE Stop: 01/31/23 04:13 Last Admin: 01/31/23 04:37 Dose: 30 mg Documented By: REENA Discharge Plan Visit Data Chief Complaint: Pain (Generalized) Stated Complaint: GENERALIZED PAIN ED Provider: Kathy Younger Discharge Problem: Chest tightness, Acute extremity pain, Lyme disease Patient Disposition: Admitted As Inpatient Discharge Instructions Interventions: ED Discharge Assessment Last Done: 01/31/23 08:23
[2023-01-31] MEDS ORDERED: ACETAMINOPHEN 500 MG TAB PO PRN (09:03)
[2023-01-31] MEDS: ASPIRIN 81 MG ECTAB PO SCH (09:51)
[2023-01-31] MEDS: FOLIC ACID 400 MCG TAB PO SCH (09:51)
[2023-01-31] MEDS: FLUoxetine HCL 10 MG CAP PO SCH (09:51)
[2023-01-31] MEDS: DOXYCYCLINE HYCLATE 100 MG CAP PO SCH ×2 (09:51→20:18)
[2023-01-31] MEDS: HEPARIN SOD 5,000 UNIT/0.5 ML VIAL SQ SCH ×2 (10:31→20:18)
[2023-01-31] MEDS ORDERED: oxyCODONE HCL IR 5 MG TAB (IMMEDIATE RELEASE) PO PRN (10:49)
[2023-01-31] MEDS ORDERED: NAPROXEN 250 MG TAB PO PRN (10:49)
[2023-01-31] MEDS ORDERED: SENNA 8.6 MG TAB PO PRN (10:49)
[2023-01-31] MEDS ORDERED: POLYETHYLENE (MIRALAX) 17 GM PACK PO PRN (10:49)
[2023-01-31] MEDS: ACETAMINOPHEN 500 MG TAB PO SCH ×2 (13:12→20:18)
[2023-01-31] MEDS ORDERED: traMADol HCL 50 MG TABLET PO PRN (14:05)
--- NOTE | 2023-01-31 14:12 | Communication Note ---
Date of Service: Jan Follow up Admitted this AM. Severe arthralgias/myalgias with acute lyme. Never had rash. Had lesion top of head last week, thought he picked off a scab, wonders if it could have been a tick. Started doxy by ED then returned 2x with severe discomfort. Has affected shoulders, back, hips, knees, and has had chest tightness. Much better after 30 mg IV toradol last night. Also had ceftriaxone dose in ED. Did well this AM, now having some bilateral knee pain, took APAP but might need something more. Updated and son in room. Appears well, no rash or joint swelling. Lungs clear heart reg. 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 Continue analgesics for pain - very judicious / limited low dose naproxen (caution renal function), acetaminophen, tramadol, oxycodone if necessary Continue doxycycline po - has Rx for 14d course Splenomegaly is related to his longstanding polycythemia vera and is of no acute concern. Leukocytosis occurs with 5% of Lyme, suspect he's having a more exhuberant leukemoid reaction from the Lyme in the setting of his PV, WBC frequently elevated on past labs home in AM if stable/improving sx controlled on oral medications
[2023-01-31] MEDS: DOCUSATE SODIUM 100 MG CAP PO SCH ×2 (14:31→20:18)
[2023-01-31] MEDS ORDERED: HYDROXYUREA 500 MG CAP PO SCH (17:15)
[2023-01-31] MEDS ORDERED: LOSARTAN POTASSIUM 50 MG TAB PO SCH (21:00)
[2023-01-31] MEDS ORDERED: CHLORTHALIDONE 25 MG TAB PO SCH (21:00)
[2023-02-01 06:24] LABS: Hematocrit (blood only) 31.5 % (42.0-52.0); Hemoglobin 10.6 g/dl (14.0-18.0); Mean Corpuscular Hemoglobin 34.1 pg (25.0-34.0); Mean Corpuscular Hgb Conc 33.7 g/dL (32.0-36.0); Mean Corpuscular Volume 101.3 fL (80.0-100.0); Mean Platelet Volume 11.7 fL (9.4-12.4); Platelet Count 141 K/uL (130-400); RDW Coefficient of Variation 14.9 % (11.5-14.5); RDW Standard Deviation 55.2 fL (36.4-46.3); Red Blood Count 3.11 M/uL (4.70-6.10); White Blood Count 18.85 K/ul (4.8-10.8)
[2023-02-01 06:25] LABS: BUN Creatinine Ratio 16.9 (10-20); Creatinine Clr Calc Pharmacy 56.6 ml/min; Est GFR (African American) 59.4 ml/min; Est GFR (Non-African American) 51.3 ml/min; Potassium 3.8 mmol/L (3.5-5.1)
[2023-02-01] MEDS: DOXYCYCLINE HYCLATE 100 MG CAP PO SCH (08:08)
[2023-02-01] MEDS: ASPIRIN 81 MG ECTAB PO SCH (08:08)
[2023-02-01] MEDS: ACETAMINOPHEN 500 MG TAB PO SCH (08:09)
[2023-02-01] MEDS: FLUoxetine HCL 10 MG CAP PO SCH (08:09)
[2023-02-01] MEDS: FOLIC ACID 400 MCG TAB PO SCH (08:09)
[2023-02-01] MEDS: DOCUSATE SODIUM 100 MG CAP PO SCH (08:09)
[2023-02-01] MEDS ORDERED: CHLORTHALIDONE 25 MG TAB PO SCH ×2 (09:00→21:00)
[2023-02-01] MEDS ORDERED: HYDROXYUREA 500 MG CAP PO SCH ×2 (09:00)
--- NOTE | 2023-02-01 17:23 | Hospitalist Progress Note ---
Date of Service February 01, 2023 Assessment & Plan Admission and Anticipated Discharge Date Admission Date: January 31, 2023 Results & Data Results & Data Vital Signs (Past 12 Hours) Vital Signs Temp Pulse Resp BP BP Pulse Ox O2 Del Method 02/01/23 10:04 38.7 C H 75 18 134/70 136/71 94 02/01/23 07:42 38.7 C H 75 18 136/71 94 Room Air PG Care Time/CCT Total # of Minutes Spent Total Time Spent with Patient: Total time spent is greater than 50% in coordination of care (as documented) at patient's floor/unit and/or counseling patient: Coding
--- NOTE | 2023-02-01 17:31 | Discharge Summary ---
Date of Service February 01, 2023 Admission HPI Per Admitting Provider Is a 72-year-old male with a history of hypertension, polycythemia vera who presents to the emergency department with complaints of flulike symptoms chest tightness muscle and joint pains for about 1 week duration. Patient initially presented to admitted department on the was diagnosed with Lyme disease, tested positive for IgM and IgG antibodies and was discharged home on doxycycline however he said the pain got worse so he came back to emergency department where his pain was controlled he got discharged but came back yet again this morning with worsening pain myalgia. Currently patient he thinks he may have been exposed to tick because he has found a few ticks on his home cat, which he claims sleeps on his bed. The emergency department EKG did not show any ST changes chest x-ray was unremarkable CT scan of the chest did not show any evidence of PE however there was some evidence of splenomegaly. Patient will be admitted to the hospital for treatment of his Lyme disease and control of his pain. Principal Diagnosis acute Lyme disease Discharge Exam PHYSICAL EXAMINATION Last 24h vital signs reviewed, see documentation in flowsheet General: comfortable appearing, no distress HEENT: Normocephalic, atraumatic, pupils round and equal, sclerae anicteric, no conjunctival injection, moist mucus membranes Lungs: Normal respiratory effort. Clear to auscultation bilaterally. No RRW Heart: Regular rate and rhythm, no murmurs. No JVD Abdomen: Soft, nondistended. Extremities: Warm, dry, well-perfused. No extremity edema. Neuro: Alert and oriented x 4, face asymmetric holds right corner of mouth lower but I believe this is baseline he has no evidence of paralysis of the right side of his face and has a symmetric smile, moves 4 extremities well skin: Warm dry no rashes Psych: Normal affect and behavior Discharge Data Allergies Allergy/AdvReac Type Severity Reaction Status Date / Time No Known Drug Allergies Allergy 0 Verified 01/30/23 03:05 Consultations 01/31/23 05:35 ED Decision to Admit Stat Ordered Studies 02/01/23 Range/Units 05:52 WBC 18.85 H (4.8-10.8) K/ul RBC 3.11 L (4.70-6.10) M/uL Hgb 10.6 L (14.0-18.0) g/dl Hct 31.5 L (42.0-52.0) % MCV 101.3 H (80.0-100.0) fL MCH 34.1 H (25.0-34.0) pg MCHC 33.7 (32.0-36.0) g/dL RDW Std Deviation 55.2 H (36.4-46.3) fL RDW Coeff of Nikia 14.9 H (11.5-14.5) % Plt Count 141 (130-400) K/uL MPV 11.7 (9.4-12.4) fL Sodium 134 L (136-145) mmol/L Potassium 3.8 (3.5-5.1) mmol/L Chloride 103 (98-107) mmol/L Carbon Dioxide 23 (21-32) mmol/L Anion Gap 8 (3-11) BUN 23 (6-23) mg/dl Creatinine 1.36 (0.6-1.4) mg/dl Est Cr Clr Drug Dosing 56.6 ml/min Est GFR ( Amer) 59.4 ml/min Est GFR (Non-Af Amer) 51.3 ml/min BUN/Creatinine Ratio 16.9 (10-20) Glucose 118 H (70-99(Fasting)) mg/dl Calcium 9.0 (8.6-10.3) mg/dl Hospital Course (1) Acute Lyme disease: 72-year-old man with history of polycythemia vera on hydroxyurea treatment who may have been exposed to ticks recently while taking care of his outdoor cats but no specific knowledge of a tick bite Presents to the hospital with 1 week duration of muscle pains joint pains chest tightness. On examination no evidence of erythema migrans, never had rash No changes on EKG However IgM and IgG were both positive for Lyme, Western blot pending We will continue p.o. doxycycline 100 mg twice daily x 14 days he was seen in the ED 3 times on 01/30 with worsening arthralgias and myalgias, thus admitted for observation. I believe that he was having a Jarisch- Herxheimer reaction after initiation of treatment for Lyme and thus feeling worse, he did have a fever this morning but otherwise is feeling much better and able to continue treatment at home He does have leukocytosis which is possible though uncommon in Lyme. It may be related to his underlying PV, causing an exuberant leukemoid reaction with the Lyme. His WBC is frequently elevated on my review of past labs in our system. There is no evidence of an alternative infectious source. (2) Hx of polycythemia vera: On hydroxyurea at home, continue Splenomegaly seen on CT is characteristic of polycythemia vera - follow up with his fuel management handler per usual routine, typically sees q3 mo (3) Hypertension: Blood pressure is under good control On irbesartan and chlorthalidone at home, continue Plan Admit to [facility] Full code DVT prophylaxis heparin Total Time Total Time Spent Total Time Spent (In Minutes): 25 minutes Discharge Plan Discharge Items Patient Disposition: Home - Self-Care Reason For Visit: ACUTE LYME DISEASE Discharge Diagnosis: acute lyme disease Activity: As commented below Activity Comment: no specific restrictions but you'll need to take it easy for a few weeks Non-emergency contact: Primary Care Provider Call non-emergency contact if: you have any medication questions and your symptoms worsen Follow-up/Referrals: Florinda Verdin PA-C [Primary Care Provider] - (Patient will schedule own f/u appt. Patient already scheduled w/fuel management handler.) Diet: Regular Addtl Attending Provider Instructions: You are being treated for acute Lyme disease. This is based on symptoms and bl ood tests. (Positive IgG and IgM antibody tests for Lyme) -take doxycycline for 2 weeks -take acetaminophen (tylenol) as directed for pain and fever -you can use the tramadol for pain not relieved by tylenol -you will have some fever, especially the next few days, but it should be slowly improving over time and eventually resolving within a 1-2 weeks You felt worse temporarily after starting treatment (and fever developed) because the antibiotic is killing the Lyme parasites, which is a well-described reaction to starting treatment especially in the first 24-48 hours I think your WBC is elevated because of the above reaction in combination with your polycythemia vera, which frequently causes WBC increases Your spleen is enlarged because of the polycythemia vera, there is nothing specific to do about that finding, follow up with your fuel management handler per usual routine Pending Studies at Discharge: Yes Studies:: extended Lyme immunoglobulin panel Stand-Alone Forms: My [facility] [employer], Smoking Cessation Medications and DC Order Prescriptions: New hydroxyurea 500 mg Capsule 1,000 mg PO MoWeFr@0900 Qty: 0 0RF hydroxyurea 500 mg Capsule 500 mg PO SuTuThSa@0900 Qty: 0 0RF tramadol 50 mg Tablet 50 mg PO Q4H PRNQty: 0 0RF Continued irbesartan 300 mg tablet 300 mg PO HS chlorthalidone 25 mg tablet 25 mg PO Q2D fluoxetine 10 mg tablet 10 mg PO QAM rosuvastatin 5 mg tablet 5 mg PO UD Rx Instructions: 5 mg orally every 3 days; aspirin 81 mg Tablet,Delayed Release (Dr/Ec) 81 mg PO QAM folic acid 800 mcg Tablet 0.8 mg PO QAM acetaminophen [Tylenol Extra Strength] 500 mg tablet 1,000 mg PO Q8 PRN (Reason: Pain) doxycycline hyclate 100 mg tablet 100 mg PO BID 10 Days Qty: 20 0RF Discontinued hydroxyurea 500 mg capsule 500 mg PO UD Rx Instructions: mon/wed/fri hydroxyurea 500 mg Capsule 250 mg PO SUTUTHSA Rx Instructions: 4 days a week Discharge Orders: Discharge Order (Routine); Ordered 02/01/23 Ordered By: Mee Dhaliwal/Other Patient Handouts: ED Lyme Disease Admission Data Admit Date/Time: 01/31/23 05:23 Attending Provider: Mee Garcia Admit Provider: Wilfrido Urbano Primary Care Provider: Florinda Verdin Other Providers: Wilfrido Urbano Other Interventions: Discharge Summary Assessment (RN) Last Done: 02/01/23 10:04 Coding Level of Care Code 72675 IN/OBS DISCH 30 MIN/LESS Diagnoses Acute Lyme disease A69.20 Hx of polycythemia vera Z86.2 Hypertension I10
[2023-02-02] MEDS ORDERED: ROSUVASTATIN CALCIUM 5 MG TAB PO SCH (09:00)
== END 2023-02-01 10:31 | disposition home or self-care (01) | DRG 869 ==
LOC: ED 03:14 → INTOOBSV 05:23 → SUATTDRO 05:23 → 3E 05:23

== ENCOUNTER 2023-02-04 10:09 | Inpatient (IN) ==
[2023-02-04] MEDS ORDERED: SODIUM CHLORIDE 0.9% 500 ML IV ONE (10:35)
[2023-02-04] MEDS ORDERED: KETOROLAC TROMETHAMINE 15 MG/ML VIAL IV ONE (10:35)
--- NOTE | 2023-02-04 10:40 | Emergency Department Note ---
History of Present Illness General Chief complaint: Illness Stated complaint: ACHES ALL OVER BODY Time Seen by Provider: 02/04/23 10:24 Source: patient, family, RN notes reviewed and old records reviewed (I did review her recent discharge summary from 02-01-2023) Mode of arrival: ambulatory Limitations: no limitations History of Present Illness Maximum Pain Intensity: 6 This patient is 72-year-old male who comes in with body aches and joint aches. He was diagnosed recent with Lyme and has been here several times including admission. He said this started around 10 days ago he said no redness of his joint no fever. No nausea vomiting diarrhea no headache no rash no blood or melena stool no history of gout. He tried tramadol Tylenol and oxycodone nothing seems to be helping his pain. Looking through his chart he has had Toradol before. His son is at the bedside and driving Home Medications Medication Instructions Recorded Confirmed Type chlorthalidone 25 mg tablet 25 mg PO Q2D 10/20/21 02/04/23 History fluoxetine 10 mg tablet 10 mg PO QAM 10/20/21 02/04/23 History irbesartan 300 mg tablet 300 mg PO HS 10/20/21 02/04/23 History rosuvastatin 5 mg tablet 5 mg PO .EVERY 3 DAYS 10/20/21 02/04/23 History aspirin 81 mg tablet,delayed 81 mg PO QAM 03/23/22 02/04/23 History release folic acid 800 mcg tablet 0.8 mg PO QAM 03/23/22 02/04/23 History acetaminophen 500 mg tablet 1,000 mg PO Q8 PRN Pain 01/30/23 02/04/23 History (Tylenol Extra Strength) doxycycline hyclate 100 mg tablet 100 mg PO BID 10 days #20 tabs 01/30/23 02/04/23 Rx hydroxyurea 500 mg capsule 1,000 mg (2 x 500 mg) PO 02/01/23 02/04/23 Rx MoWeFr@0900 #0 caps hydroxyurea 500 mg capsule 500 mg PO SuTuThSa@0900 #0 caps 02/01/23 02/04/23 Rx tramadol 50 mg tablet 50 mg PO Q4H PRN #0 tabs 02/01/23 02/04/23 Rx coenzyme Q10 100 mg capsule (Co 100 mg PO HS 02/04/23 02/04/23 History Q-10) multivitamin 1 tab PO QAM 02/04/23 02/04/23 History Allergies Allergy/AdvReac Type Severity Reaction Status Date / Time No Known Drug Allergies Allergy 0 Verified 02/04/23 12:26 Past Med/Surg History Medical History History of hematuria Occurred 4-5 years ago- clots in urine Avoids NSAIDs Hx of polycythemia vera Follows with [facility] On hydroxyurea History of prostate cancer Dx'ed 2007. S/p prostatectomy- no chemo or XRT Anxiety Hypertension Sleep apnea cpap Surgical History History of total knee replacement right Hx of colonoscopy Hx of radical prostatectomy History of shoulder replacement rt. History of shoulder surgery lt. 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 Beliefs That Will Affect Care: None marital status: Current Living Situation: Spouse current occupational status: retired Feels Safe at Home: Yes Assistive Devices: None Review of Systems A total of 10 systems reviewed and were otherwise negative Physical Exam Vital Signs Vital Signs - 24 hr 02/04/23 10:20 02/04/23 10:42 02/04/23 10:44 Temperature 37.5 C Temperature Source Oral Pulse Rate 81 Pulse Rate [Apical] 66 Respiratory Rate 20 18 Respiratory Effort / Characteristics Non-Labored Respiratory Depth Normal Blood Pressure 99/59 L Blood Pressure [Right Arm] 113/55 L Blood Pressure Mean 72 Blood Pressure Mean [Right Arm] 74 Pulse Oximetry 95 96 96 Oxygen Delivery Method Room Air Room Air Room Air Sepsis Recent Fever Within 48 Hours No Sepsis New/Unexplained Change in Mental Status N/A Sepsis Action Taken by Nursing No Action Required 02/04/23 12:14 02/04/23 12:30 02/04/23 14:00 Temperature Temperature Source Pulse Rate 68 Pulse Rate [Apical] 65 74 Respiratory Rate 20 16 Respiratory Effort / Characteristics Respiratory Depth Deep Deep Blood Pressure Blood Pressure [Right Arm] 122/72 132/72 Blood Pressure Mean Blood Pressure Mean [Right Arm] 88 92 Pulse Oximetry 97 97 Oxygen Delivery Method Room Air Room Air Sepsis Recent Fever Within 48 Hours Sepsis New/Unexplained Change in Mental Status Sepsis Action Taken by Nursing General: Well developed well nourished onp-[id number] older male who appears in no acute distress, breathing comfortably on room air. Normal speech HEENT: Normal cephalic atraumatic. Pupils are equal round and reactive to light. Extraocular movements are intact. Oropharynx is pink with moist mucous membranes. No swelling of the mouth lips or tongue. Neck: Supple with a midline trachea. No meningeal signs or stiffness, no JVD or bruits. No Stridor. Chest: Clear to auscultation bilaterally. No wheezes or rhonchi. No increased work of breathing. Heart: Regular rate and rhythm without murmurs or gallops. Abdomen: Soft nontender, nondistended without rebound guarding or rigidity. Extremities: No cyanosis clubbing or edema. No calf tenderness or assymetry. Joints are not red or warm. Spine/Back. Non tender to palpation. No CVA tenderness Skin: Good turgor without rashes. Neurologic exam: Cranial nerves two through 12 are intact. Motor and sensation are intact and symmetrical throughout. Course Administered Medications Discontinued Medications Sodium Chloride (Nss) 500 mls @ 999 mls/hr IV .Q31M ONE Stop: 02/04/23 11:05 Last Infusion: 02/04/23 11:36 Dose: Infused Documented By: Admin: 02/04/23 10:54 Dose: 999 mls/hr Documented By: MES Ketorolac Tromethamine (Ketorolac Tromethamine 15 Mg/Ml Vial) 10 mg IV NOW ONE Stop: 02/04/23 10:36 Last Admin: 02/04/23 10:54 Dose: 10 mg Documented By: KELSEY Morphine Sulfate (Morphine Sulfate 2 Mg/Ml Carp) 2 mg IV NOW STA Stop: 02/04/23 12:58 Last Admin: 02/04/23 13:24 Dose: 2 mg Documented By: NA Medical Decision Making Differential Diagnosis Lyme disease, reaction to medications, gout, acute exacerbation of pain, sepsis, electrolyte or metabolic abnormality Medical Records Attestation: I reviewed the patient's medical records. Home Medications Current Medication List: was personally reviewed by me Laboratory Data Attestation: I reviewed the patient's lab results. 02/04/23 10:41 02/04/23 10:41 Lab Results 02/04/23 02/04/23 Range/Units 10:41 12:27 WBC 20.66 H (4.8-10.8) K/ul RBC 3.08 L (4.70-6.10) M/uL Hgb 10.6 L (14.0-18.0) g/dl Hct 31.0 L (42.0-52.0) % MCV 100.6 H (80.0-100.0) fL MCH 34.4 H (25.0-34.0) pg MCHC 34.2 (32.0-36.0) g/dL RDW Std Deviation 54.3 H (36.4-46.3) fL RDW Coeff of Nikia 14.8 H (11.5-14.5) % Plt Count 119 L (130-400) K/uL MPV 12.1 (9.4-12.4) fL Neutrophils % (Manual) 72 % Lymphocytes % (Manual) 7 % Monocytes % (Manual) 13 % Metamyelocytes % (Man) 2 % Myelocytes % (Man) 3 % Blast Cells % (Manual) 3 % Neutrophils # (Manual) 14.88 H (1.40-6.50) K/uL Total Absolute Neuts 14.88 H (1.4-6.5) K/uL Lymphocytes # (Manual) 1.45 (1.2-3.4) K/uL Total Abs Lymphocytes 1.45 (1.2-3.4) K/uL Monocytes # (Manual) 2.69 H (0.11-0.59) K/uL Metamyelocytes # (Man) 0.41 H (0-0) K/uL Myelocytes # (Manual) 0.62 H (0-0) K/uL Blast Cells # (Man) 0.62 H (0-0) K/uL Hypogranular Neuts 2+ ESR 42 H (0-20) mm/hr Sodium 134 L (136-145) mmol/L Potassium 3.9 (3.5-5.1) mmol/L Chloride 101 (98-107) mmol/L Carbon Dioxide 22 (21-32) mmol/L Anion Gap 11 (3-11) BUN 25 H (6-23) mg/dl Creatinine 1.32 (0.6-1.4) mg/dl Est Cr Clr Drug Dosing Not Reportable Est GFR ( Amer) 61.6 ml/min Est GFR (Non-Af Amer) 53.1 ml/min BUN/Creatinine Ratio 18.9 (10-20) Glucose 96 (70-99(Fasting)) mg/dl Lactate 1.7 (0.4-2.0) mmol/L Uric Acid 8.2 H (2.6-7.2) mg/dl Calcium 9.5 (8.6-10.3) mg/dl Total Bilirubin 0.7 (0.2-1.0) mg/dl AST 39 (13-39) U/L ALT 14 (7-52) U/L Alkaline Phosphatase 82 (34-104) U/L C-Reactive Protein 10.86 H (0-0.5) mg/dl Total Protein 6.9 (6.0-8.3) gm/dl Albumin 3.8 (3.4-5.0) gm/dl Globulin 3.1 (2.5-4.0) gm/dl Albumin/Globulin Ratio 1.2 (0.9-2) Lipase 13 (11-82) U/L Procalcitonin 0.09 (0-0.5) ng/ml ECG Data Attestation: I personally reviewed and interpreted this ECG as follows: Indication: + back/shoulder pain Rate (beats per minute): 64 Rhythm: + normal sinus ECG Intervals/blocks: + Normal QRS, + Normal QT and + Normal DC ECG [place]: + Normal ECG ST segments: + Normal ST segments ECG Findings: + Poor R wave progression and + Other (Anterior T wave abnormalities in V1 and V2) Comparison ECG Date: from (01/30/2023) Change: the following changes noted (He does have poor over progression and anterior T wave abnormalities) MDM Narrative This patient comes in as scribed above he comes in with diffuse pain in his joints. He has had no fever. IV access was established and he was hydrated normal saline. He was given Toradol 10 mg IV. He does have a recent diagnosis of gout and this is been going on for about 10 days intermittently. He did feel better after receiving the IV Toradol. His white count is elevated 20 although he was 18 when in the hospital he did other inflammatory markers. Lactic acid was normal at 1.7 however sed rate and CRP were also elevated. His uric acid was elevated as well as possibly could be a gout component. He was hydrated with normal saline initial blood pressure was on the lower side at 99 he had low-grade temperature 37 5 in light of this I did add blood cultures as well. I did review his old records. His Lyme titer came back positive for IgG and IgM in the Western blot. He was feeling a lot better but then started having pain again mostly in his back. I did give morphine 2 mg IV. He is not driving. I do think with his inflammatory markers being elevated and his other underlying issues including splenomegaly he may benefit from admission/observation. I am concerned that this may be more than just Lyme. It is possible he could have another source of infection including endocarditis or osteomyelitis or other potential sources. EKG was obtained and shows no definite acute ischemic changes however he does have some poor R wave progression. I have consulted the [facility] hospitalist to see the patient in ER for these measures. Continuous cardiac monitoring: Orders placed in EMR for continuous cardiac monitoring: Upon my evaluation patient was reviewed normal sinus rhythm rate of 65. Impression & Plan Lyme disease, Myalgia, Arthralgia, Elevated erythrocyte sedimentation rate Discharge Plan Visit Data Chief Complaint: Illness Stated Complaint: ACHES ALL OVER BODY ED Provider: Brandon Alvarez Discharge Problem: Lyme disease, Myalgia, Arthralgia, Elevated erythrocyte sedimentation rate Forms Stand Alone Forms: My [facility] Prescriptions Prescriptions: No Action irbesartan 300 mg tablet 300 mg PO HS chlorthalidone 25 mg tablet 25 mg PO Q2D fluoxetine 10 mg tablet 10 mg PO QAM rosuvastatin 5 mg tablet 5 mg PO .EVERY 3 DAYS Rx Instructions: 5 mg orally every 3 days; aspirin 81 mg Tablet,Delayed Release (Dr/Ec) 81 mg PO QAM folic acid 800 mcg Tablet 0.8 mg PO QAM multivitamin Tablet 1 tab PO QAM coenzyme Q10 [Co Q-10] 100 mg Capsule 100 mg PO HS acetaminophen [Tylenol Extra Strength] 500 mg tablet 1,000 mg PO Q8 PRN (Reason: Pain) doxycycline hyclate 100 mg tablet 100 mg PO BID 10 Days Qty: 20 0RF Rx Instructions: Start Date 01/30/23 - End Date 02/09/23 hydroxyurea 500 mg Capsule 1,000 mg PO MoWeFr@0900 Qty: 0 0RF hydroxyurea 500 mg Capsule 500 mg PO SuTuThSa@0900 Qty: 0 0RF tramadol 50 mg Tablet 50 mg PO Q4H PRNQty: 0 0RF Referrals Referrals: Florinda Verdin PA-C [Primary Care Provider] -
[2023-02-04 11:07] LABS: Hemoglobin 10.6 g/dl (14.0-18.0); Mean Corpuscular Hemoglobin 34.4 pg (25.0-34.0); Mean Corpuscular Hgb Conc 34.2 g/dL (32.0-36.0); Mean Corpuscular Volume 100.6 fL (80.0-100.0); Mean Platelet Volume 12.1 fL (9.4-12.4); Platelet Count 119 K/uL (130-400); RDW Coefficient of Variation 14.8 % (11.5-14.5); RDW Standard Deviation 54.3 fL (36.4-46.3); Red Blood Count 3.08 M/uL (4.70-6.10); White Blood Count 20.66 K/ul (4.8-10.8)
[2023-02-04 11:24] LABS: Alanine Aminotransferase 14 U/L (7-52); Albumin Globulin Ratio 1.2 (0.9-2); Albumin Level 3.8 gm/dl (3.4-5.0); Alkaline Phosphatase 82 U/L (34-104); Anion Gap 11 (3-11); Aspartate Aminotransferase 39 U/L (13-39); BUN Creatinine Ratio 18.9 (10-20); Bilirubin,Total 0.7 mg/dl (0.2-1.0); Blood Urea Nitrogen 25 mg/dl (6-23); Calcium 9.5 mg/dl (8.6-10.3); Carbon Dioxide 22 mmol/L (21-32); Chloride 101 mmol/L (98-107); Est GFR (African American) 61.6 ml/min; Est GFR (Non-African American) 53.1 ml/min; Globulin 3.1 gm/dl (2.5-4.0); Glucose 96 mg/dl (70-99(Fasting)); Lipase 13 U/L (11-82); Potassium 3.9 mmol/L (3.5-5.1); Sodium 134 mmol/L (136-145); Total Protein 6.9 gm/dl (6.0-8.3); Uric Acid 8.2 mg/dl (2.6-7.2)
[2023-02-04 11:29] LABS: ALC (manual) 1.45 K/uL (1.2-3.4); ANC (manual) 14.88 K/uL (1.4-6.5); Blast # (manual) 0.62 K/uL (0-0); Blast Cells % (manual) 3 %; Hypogranular Neutrophils 2+; Lymphocytes # (manual) 1.45 K/uL (1.2-3.4); Lymphocytes % (manual) 7 %; Metamyelocytes # (manual) 0.41 K/uL (0-0); Metamyelocytes % (manual) 2 %; Monocytes # (manual) 2.69 K/uL (0.11-0.59); Monocytes % (manual) 13 %; Myelocytes # (manual) 0.62 K/uL (0-0); Myelocytes % (manual) 3 %; Neutrophils # (manual) 14.88 K/uL (1.40-6.50); Neutrophils % (manual) 72 %
[2023-02-04 12:39] LABS: C Reactive Protein 10.86 mg/dl (0-0.5)
[2023-02-04] MEDS ORDERED: MoRPHine SULFATE 2 MG/ML CARP IV STA (12:57)
--- NOTE | 2023-02-04 13:25 | History & Physical Report ---
Date of Service February 04, 2023 Assessment & Plan (1) Lumbar spine pain: Plan: Severe, intractable sacral/lumbar pain on the evening of 02/03 Patient also endorses new onset, sharp pain between the shoulder blades He reports this pain is different from his body aches over the past 10 days, which are likely secondary to recent Lyme dx Patient took 6 tablets of Tylenol, 2 tablets of tramadol, and 1 tablet of oxycodone over the course of 02/03 without pain relief CTA chest ordered, pending Lactate WNL Acetaminophen 650 mg p.o. q4h as needed for pain 1-3 Dilaudid 0.5 mg IV q4h as needed for pain 4-7 Dilaudid 1.0 mg IV q4h as needed for pain 8-10 Lidoderm patch to be applied to patient's lower back A.m. CBC, BMP, CRP (2) Lyme disease: Plan: In the setting of polycythemia vera Lyme dx on 01/30; no rash [facility] from 01/30-02/01 with severe arthralgias/myalgias Patient reports he has been taking doxycycline 100 mg p.o. twice daily since discharge Jarisch-Herxheimer reaction was considered during prior admission, however patient's pain is inconsistent with this reaction's timeline ESR elevated at 42 CRP elevated at 10.86 Continue doxycycline 100 mg IV twice daily while inpatient; consider switch to Rocephin Monitor for cardiac/neurologic changes Trend a.m. CRP (3) Chest tightness: Plan: EKG showed NSR at 64 bpm; however new V1/V2 t-wave inversions compared to EKG on 01/30/2023 Stat echo ordered, pending Troponin WNL at 8.4 on arrival Clinically, patient endorses chest tightness, but no chest palpitations or SOB Continuous telemetry monitoring (4) Hx of polycythemia vera: Plan: [facility] Mildly elevated uric acid level at 8.2, despite no hx of gout; ?Secondary to PCV or Lyme Peripheral blood smear on 01/30 was consistent with PCV Mild increase in blast cells, myelocytes, and metamyelocytes; consider repeat peripheral blood smear (5) Splenomegaly: Plan: Chronic; secondary to PCV (6) History of prostate cancer: Plan: S/p radical prostatectomy in 2006 Plan Disposition: Admit to [facility] telemetry Full code Regular diet VTE PPx: SCDs, heparin 5000u SQ q12h History of Present Illness Chief Complaint: Illness Primary Care Provider: Florinda Wade is a 72-year-old male with PMH of Lyme disease, polycythemia vera, splenomegaly, prostate cancer s/p radical prostatectomy in 2006, and malignant hypertension. He presented for body aches in his shoulders, hips, knees, and elbows x10 days, as well as acute worsening of new onset lower back pain and pain between the shoulder blades since the night of 02/03. Recent diagnosis of Lyme disease on 01/30, with [facility] admission from 01/30-02/01. Patient reports that his body aches have not improved despite taking doxycycline as prescribed. He also notes that his pain worsened on 02/03, specifically his lumbar/sacral pain, which she describes as constant, sharp; rated 8/10. No radiation. He is unsure of alleviating/exacerbating symptoms. He reports that he took 6 tablets of Tylenol, 2 tablets of tramadol, and 1 tablet of oxycodone throughout the day on 02/03 without pain relief. He also endorses sharp stabbing pain between his shoulder blades, and mild pleuritic CP. He denies a history of tobacco use. [facility] for his polycythemia vera. He reports that he took his morning medications, and that there have been no recent changes in medications. Vitals are stable at time of admission. ED course: NSS 500 mL Toradol 10 mg IV Morphine 2 mg IV ROS: Patient endorses mild pleuritic CP, mild chest tightness, joint pain, new onset lower back pain, and pain between the shoulder blades. Patient denies fever, chills, sweats, CP, chest palpitations, SOB, abdominal pain, N/V/D, burning with urination, urinary symptoms, or numbness and tingling in the UEs or LEs. Patient denies PMH of NM, DVT/PE, diabetes, or CVA Allergies Allergy/AdvReac Type Severity Reaction Status Date / Time No Known Drug Allergies Allergy 0 Verified 02/04/23 12:26 Home Medications Medication Instructions Recorded Confirmed Type chlorthalidone 25 mg tablet 25 mg PO Q2D 10/20/21 02/04/23 History fluoxetine 10 mg tablet 10 mg PO QAM 10/20/21 02/04/23 History irbesartan 300 mg tablet 300 mg PO HS 10/20/21 02/04/23 History rosuvastatin 5 mg tablet 5 mg PO .EVERY 3 DAYS 10/20/21 02/04/23 History aspirin 81 mg tablet,delayed 81 mg PO QAM 03/23/22 02/04/23 History release folic acid 800 mcg tablet 0.8 mg PO QAM 03/23/22 02/04/23 History acetaminophen 500 mg tablet 1,000 mg PO Q8 PRN Pain 01/30/23 02/04/23 History (Tylenol Extra Strength) doxycycline hyclate 100 mg tablet 100 mg PO BID 10 days #20 tabs 01/30/23 02/04/23 Rx hydroxyurea 500 mg capsule 1,000 mg (2 x 500 mg) PO 02/01/23 02/04/23 Rx MoWeFr@0900 #0 caps hydroxyurea 500 mg capsule 500 mg PO SuTuThSa@0900 #0 caps 02/01/23 02/04/23 Rx tramadol 50 mg tablet 50 mg PO Q4H PRN #0 tabs 02/01/23 02/04/23 Rx coenzyme Q10 100 mg capsule (Co 100 mg PO HS 02/04/23 02/04/23 History Q-10) multivitamin 1 tab PO QAM 02/04/23 02/04/23 History Past Med/Surg History Medical History (Updated 02/04/23 @ 14:42 by Tino Figueroa PA-C) History of hematuria Occurred 4-5 years ago- clots in urine Avoids NSAIDs Hx of polycythemia vera Follows with [facility] On hydroxyurea History of prostate cancer Dx'ed 2007. S/p prostatectomy- no chemo or XRT Anxiety Hypertension Sleep apnea cpap Surgical History History of total knee replacement right Hx of colonoscopy Hx of radical prostatectomy History of shoulder replacement rt. History of shoulder surgery lt. Hx of tonsillectomy Family History Father Prostate cancer Heart disease Sister Heart disease Other No family history of adverse response to anesthesia No family history of bleeding disorder Social History Smoking Status: Never smoker Second Hand Exposure: Yes (past); Do You Dip or Chew Tobacco: No; Hx Alcohol Use: Yes Alcohol type: beer and wine Alcohol Intake Frequency Comment: socially Hx Substance Use: No Preferred Language: [place] Citizen Communication Ability: Effective Want Ad Clerk Required: No Beliefs That Will Affect Care: None marital status: Current Living Situation: Spouse current occupational status: retired Feels Safe at Home: Yes Assistive Devices: None Review of Systems Review of Systems: See HPI above Physical Exam Physical Exam: General: Moderate physical distress; non-toxic appearing; cooperative HEENT: normocephalic, atraumatic; no scleral icterus; PERRLA w/ EOMs intact; moist mucus membrane; vision and hearing grossly intact Neck: supple; no lymphadenopathy; trachea midline Skin: warm, dry without signs of tenting; no cyanosis; no rashes, bruising, lesi ons, or erythema noted CV: chest wall NTP; RRR; S1/S2 normal; no murmurs/rubs/gallops; pulses intact and symmetric at radial, DP, and PT Lungs: no acute respiratory distress; symmetrical chest wall expansion; clear breath sounds across all lung alaniz w/o adventitious sounds; no wheezing ABD: Soft, NTP; BS present; no rebound/guarding; no ascites; no distention; no rashes or bruising; positive for splenomegaly Back: Positive CVA tenderness B/L; TTP in the lower lumbar spine around the sacrum; no contreras rashes or bruising on the back MSK: no tics or fasciculations; no edema noted in the LEs b/l Neuro: A&Ox3; normal mood and affect; fluent speech; no focal deficits; sensation grossly intact in the LEs B/L Results & Data Results & Data Vital Signs (Past 12 Hours) Vital Signs Temp Pulse Pulse Resp BP BP Pulse Ox 02/04/23 12:30 65 20 122/72 97 02/04/23 12:14 68 02/04/23 10:44 66 18 113/55 L 96 02/04/23 10:42 96 02/04/23 10:20 37.5 C 81 20 99/59 L 95 O2 Del Method 02/04/23 12:30 Room Air 02/04/23 12:14 02/04/23 10:44 Room Air 02/04/23 10:42 Room Air 02/04/23 10:20 Room Air Code Status & VTE Plan Code Status Full code VTE Prophylaxis Plan VTE Prophylaxis will be ordered: Yes Supervising Physician Co-Signing Physician Notes Patient seen and examined, chart reviewed, case discussed with Tino Figueroa PA-C and I agree with the assessment and plan as above except as otherwise noted Labs and images reviewed Mauro is a 72-year-old male recently diagnosed with Lyme disease and discharged on doxycycline who represents to the ER with severe intractable pain, new onset of worsening pain between his shoulder blades, and additional severe pain in his lumbar spine. Evaluation in the ER shows a leukocytosis with interpretation limited by history of polycythemia although precursor cell counts are significantly elevated from prior, elevated CRP, elevated ESR. Patient was noted at that time to have had joint pain likely worsened from with Jerish Herxheimer reaction, his joint pains did not improve as expected within 48 hours however his current back pain and shoulder plane is new and severe. Lactate is normal. Blood cultures are pending Patient is of CTA 01/30/2023; however he has had rapid onset of severe pain between his shoulder blades since that time. Patient endorses that since being in the ER he is also had some 1/10 pressure-like ache in his anterior chest he reports he did not mention this before but thinks that this has been present for approximately 5 days, though he notices it more laying in the ER. Does not notice a change in discomfort with position. EKG obtained at admission, this does show V1/V2 inversions and stat echo was obtained. Apical Four-chamber view without obvious anterior abnormality or septal abnormality, formal read pending. DDx includes Lyme and ischemic. High sensitive troponin is normal despite several days of pain, low suspicion for ischemic etiology Patient's muscle and joint aches with his Lyme onset approximately 11 days ago have improved, he reports that his current pain which is in his sacrum and mid upper back is achy and different from the pain when he was in the hospital. This has not improved despite ER treatment with Toradol/morphine/salines and home treatment with Tylenol. He does not have reproducible/worse tenderness on spinal or paraspinal palpation, although does endorse that palpation at around L4-S2 overlies where his discomfort is. He is a non-smoker. He has had the L4-S2 pain in the past and this is chronic, although the shoulder blade pain is new. CTA was obtained due to new onset shoulder blade painThere is no evidence of aortic injury/dissection, 4 mm nodule in the lower lobe is noted, and has trace left upper quadrant fluid stable compared to prior with known history of splenomegaly and polycythemia vera. Patient does not have midline spinal or paraspinal tenderness to palpation, endorses that he has some aching underlying sacral and mid thoracic palpation but palpation does not worsen his pain. Lower suspicion for spinal abscess, although if no etiology for his pain is ruled out continues to have elevated inflammatory markers CT/MRI as next f/u. PCT neg. inflammatory markers pending PG Care Time/CCT Total # of Minutes Spent Total Time Spent with Patient: Total time spent is greater than 50% in coordination of care (as documented) at patient's floor/unit and/or counseling patient: C[place] [address] INT INP/OBS CARE 2/55MIN Patient Type Established Medical Decision Making Moderate Complexity Diagnoses Lumbar spine pain M54.50 Lyme disease A69.20 Chest tightness R07.89 Hx of polycythemia vera Z86.2 Splenomegaly R16.1 History of prostate cancer Z85.46
[2023-02-04 14:48] LABS: Troponin I High Sensitivity 8.4 pg/ml (0-20)
[2023-02-04] MEDS ORDERED: OPTIRAY 320 125ml IV ONE (15:16)
--- NOTE | 2023-02-04 15:51 | CT Scan Report ---
CT angio chest dissec wo/w con CLINICAL HISTORY: New onset, severe back pain; btwn shoulder blades TECHNIQUE: Multidetector row helical CT of the chest was performed before and after injection of IV c ontrast. Coronal and sagittal reformations were obtained. Automated dose lowering techniques and/or a djustment according to patient size were utilized for this exam. CT DOSE: 1234.72 mGy.cm Comparison: Comparison is made to CTA chest 01/30/2023 FINDINGS: Lungs and pleura: Atelectasis versus scarring is seen in the dependent portions of the lungs. There i s a 4 mm nodule in left lower lobe (series 4 image 136). Heart and pericardium: Cardiomegaly is seen with biatrial enlargement. Vessels: No aortic dissection or intramural hematoma is seen. Moderate atherosclerotic disease is see n. Moderate atherosclerotic disease is seen. Mediastinum and maría elena: Unremarkable. Chest wall and lower neck: Unremarkable. Abdomen: Trace free fluid is noted in the left upper quadrant. Bones: Right shoulder arthroplasty is seen. Degenerative changes are seen in the spine. IMPRESSION: 1. No acute abnormality and in particular no evidence of acute aortic injury. 2. Trace free fluid in the left upper quadrant, similar to prior exam. ACT 112: Negative or not required by law. Electronically signed by: Ish Lee M.D. 02/04/2023 3:48 PM
[2023-02-04] MEDS ORDERED: LIDOCAINE 5% 1 PATCH TD STA (18:35)
[2023-02-04] MEDS ORDERED: Patient's WEIGHT Needed SCH (19:00)
[2023-02-04] MEDS ORDERED: CHLORTHALIDONE 25 MG TAB PO SCH (19:00)
[2023-02-04] MEDS: HYDROmorphone INJ 0.5 MG/0.5 ML SYR IV PRN ×2 (19:15→22:56)
[2023-02-04] MEDS: DOXYCYCLINE HYCLATE 100 MG in DEXTROSE 5% MINI-B 100 ML IV SCH (19:49)
[2023-02-04] MEDS ORDERED: HYDROmorphone INJ 1 MG/ML SYRINGE IV PRN (20:00)
[2023-02-04] MEDS ORDERED: IRBESARTAN 150 MG TAB PO SCH (21:00)
[2023-02-04] MEDS: ROSUVASTATIN CALCIUM 5 MG TAB PO SCH ×2 (22:55→23:05)
[2023-02-04] MEDS: HEPARIN SOD 5,000 UNIT/0.5 ML VIAL SQ SCH (22:55)
[2023-02-04] MEDS: LOSARTAN POTASSIUM 50 MG TAB PO SCH ×2 (22:57→23:13)
[2023-02-05] MEDS: HYDROmorphone INJ 0.5 MG/0.5 ML SYR IV PRN (03:01)
[2023-02-05] MEDS: DOXYCYCLINE HYCLATE 100 MG in DEXTROSE 5% MINI-B 100 ML IV SCH ×2 (06:40→18:15)
[2023-02-05] MEDS: ACETAMINOPHEN 325 MG TAB PO PRN ×3 (06:40→19:23)
--- NOTE | 2023-02-05 08:07 | Hospitalist Progress Note ---
Date of Service February 05, 2023 Assessment & Plan (1) Lumbar spine pain: Plan: Severe, intractable sacral/lumbar pain on the evening of 02/03 Patient also endorses new onset, sharp pain between the shoulder blades He reports this pain is different from his body aches over the past 10 days, which are likely secondary to recent Lyme dx Reported taking 6 tablets of Tylenol, 2 tablets of tramadol, and 1 tablet of oxycodone over the course of 02/03 without pain relief Pain control; Tylenol/scaled diladid prn, lidoderm patch 02/05 CTA negative for PE on 01/30. CTA chest negative for dissection 02/04. Noting trace free fluid in left upper quadrant WBC 21.4k from 20k, temp 37.7C this morning (feeling warm on exam/endorses feeling clammy). Blood cultures from admission pending (negative after 5 days from 01/30) Patient feeling better reported, continue pain control/supportive care. Lactic 1.7 * Added Anaplasmosis/babesia PCR as well * Checking UA/ck given leukocytosis/low back pain, alternative causes for fever/leukocytosis. ESR/CRP elevated further * CBC w/ blast cells in patient w/ hx polycythemia. Per patient >10 years of having this diagnosis * --> ?leukemic transformation * --> Hematology consult placed. Discussed w/ Dr Finley this am, possible reaction to Lyme but official consultation to follow. Rec'd to hold patient home hydroxyurea at present time (held this morning but patient did already receive his dose to note) Placing irbesartan/chlorthalidone on hold. BUN/Cr elevation and appearing slightly dehydrated on exam. BUN/Cr 31/1.41, LFTs wnl on admit. Check CK Will order NS @ 80cc/hr for 1L for today and encourage PO intake. Was given 500cc IVF on admission but also received his chlorthalidone last evening and given dehydration will place on hold for now Pain control/antipyretics/antiemetics prn Monitor CBCD, peripheral smear, repeat labs in AM (2) Lyme disease: Plan: In the setting of polycythemia vera, Lyme testing + on 01/30, no rash. Admitted 01/30- w/ severe arthralagia/myalgias Has been on Doxy BID since discharge, no issues w/ swallowing/dysphagia/esophagitis type discomfort CTA negative for dissection on admission CRP/ESR elevation further, blood cultures pending Continue Doxy IV BID for now, additional tick testing as above/peripheral smear/hematology consultation ?switch to Rocephin, denied any known allergies to abx in the past. ?drug reaction. NO RASH ON EXAM/NOTED BY PATIENT Has been NSR on monitor, PACs. Continued monitoring on telemetry ECHO obtained on admission, official read pending. No new murmur on examination appreciated Prior admit 01/30 w/ temps up to 38.7C. Highest temp this afmit 37.8C. WBC as above, blood cultures pending, anaplasmosis/babesia PCR pending (3) Chest tightness: Plan: EKG showed NSR at 64 bpm; however new V1/V2 t-wave inversions compared to EKG on 01/30/2023 Clinically, patient endorses chest tightness, but no chest palpitations or SOB. Reports improvement since admission. CTa chest neg for dissection as above Incentive spirometer ordered for bibasilar crackles/suspect atelectasis. CTA on admit noting atelectasis vs scarring. 4mm nodule LL lobe ECHO pending as above, noting cardiomegaly on prior imaging. Trop 8.4 on arrival. Has been NSR on monitor EKG w/ CP Denied any reflux type pain but could consider pepcid vs ppi daily? Continuous telemetry monitoring check mag ?biofire testing -- will obtain given fevers (4) Hx of polycythemia vera: Plan: [facility], prior Dr Finley Mildly elevated uric acid level at 8.2, despite no hx of gout; ?Secondary to PCV or Lyme Peripheral blood smear on 01/30 was consistent with PCV --- repeat peripheral smear ordered for AM Hematology consulted as above, official consult pending. HOLDING FURTHER HYDROXYUREA ABOVE POSSIBLE NEED FOR BONE MARROW BIOPSY -- SEE NOTE Monitor CBC/peripheral smear in AM (5) Splenomegaly: Plan: Chronic; secondary to PCV further testing as above, hematology/oncology consulted (6) History of prostate cancer: Plan: S/p radical prostatectomy in 2006 ?metastatic disease. No focal tenderness at present. Hematology/oncology consulted as above ?need for CTAP/spinal imaging (7) Dehydration: Plan: on exam, dehydrated. likely 2nd to poor PO intake/chlorthalidone use placing diuretics on hold, 1L IVF to be provided for today Plan VTE PPx: SCDs, heparin 5000u SQ q12h while inpatient Continued inpatient stay, will place consults for PT/OT as well given weakness on admission/repeat hospitalization Admission and Anticipated Discharge Date Admission Date: February 04, 2023 Subjective Eval this morning, resting in bed. Reports feeling slightly better than on admission, continues to feel warm/clammy. He notes he has been that way since he came in the first time. Feels like a truck hit him/achy all over. Lower back pain/shoulder blade discomfort. No pain with swallowing/issues w/ dysphagia since taking the doxycycline. Discussed his hx polycythemia, he notes at least 10 year diagnosis, had been followed by Dr Finley in the past but someone new recently he doesn't recall. Discussed I reached out to him this morning given findings on blood count testing for review and possible reaction t Lyme vs other and instructed to hold his hydroxyurea at this time. Pain controlled with ordered medications. No nausea/vomiting. Appetite ok/fair, not great. Results & Data Results & Data Vital Signs (Past 12 Hours) Vital Signs Temp Pulse Pulse Resp BP Pulse Ox O2 Del Method 02/05/23 07:16 37.7 C H 88 16 132/76 96 Room Air 02/05/23 06:00 80 02/05/23 03:32 37.5 C 85 16 128/72 93 Room Air 02/04/23 22:40 37.4 C 83 18 128/69 95 Room Air 02/04/23 21:58 76 Laboratory Results 02/05/23 07:37 02/05/23 07:37 Diagnostic Findings Chest CTA 02/04/23 13:30 CT angio chest dissec wo/w con CLINICAL HISTORY: New onset, severe back pain; btwn shoulder blades TECHNIQUE: Multidetector row helical CT of the chest was performed before and after injection of IV contrast. Coronal and sagittal reformations were obtained. Automated dose lowering techniques and/or adjustment according to patient size were utilized for this exam. CT DOSE: 1234.72 mGy.cm Comparison: Comparison is made to CTA chest 01/30/2023 FINDINGS: Lungs and pleura: Atelectasis versus scarring is seen in the dependent portions of the lungs. There is a 4 mm nodule in left lower lobe (series 4 image 136). Heart and pericardium: Cardiomegaly is seen with biatrial enlargement. Vessels: No aortic dissection or intramural hematoma is seen. Moderate atherosclerotic disease is seen. Moderate atherosclerotic disease is seen. Mediastinum and maría elena: Unremarkable. Chest wall and lower neck: Unremarkable. Abdomen: Trace free fluid is noted in the left upper quadrant. Bones: Right shoulder arthroplasty is seen. Degenerative changes are seen in the spine. IMPRESSION: 1. No acute abnormality and in particular no evidence of acute aortic injury. 2. Trace free fluid in the left upper quadrant, similar to prior exam. ACT 112: Negative or not required by law. Electronically signed by: Ish Lee M.D. 02/04/2023 3:48 PM PG Care Time/CCT Total # of Minutes Spent Total Time Spent with Patient: Total time spent is greater than 50% in coordination of care (as documented) at patient's floor/unit and/or counseling patient: Coding Level of Care Code 73782 SUB INP/OBS CARE 3/50MIN Diagnoses Lumbar spine pain M54.50 Lyme disease A69.20 Chest tightness R07.89 Hx of polycythemia vera Z86.2 Splenomegaly R16.1 History of prostate cancer Z85.46 Dehydration E86.0
[2023-02-05] MEDS: HEPARIN SOD 5,000 UNIT/0.5 ML VIAL SQ SCH ×2 (08:13→20:49)
[2023-02-05] MEDS: ASPIRIN 81 MG ECTAB PO SCH (08:14)
[2023-02-05] MEDS: FLUoxetine HCL 10 MG CAP PO SCH (08:14)
[2023-02-05] MEDS: FOLIC ACID 400 MCG TAB PO SCH (08:14)
[2023-02-05 08:28] LABS: C Reactive Protein 19.07 mg/dl (0-0.5); Calcium 9.5 mg/dl (8.6-10.3); Creatinine Clr Calc Pharmacy 53.9 ml/min; Est GFR (African American) 56.9 ml/min; Est GFR (Non-African American) 49.1 ml/min; Potassium 3.9 mmol/L (3.5-5.1)
--- NOTE | 2023-02-05 08:48 | Hospitalist Progress Note ---
Date of Service February 05, 2023 Assessment & Plan (1) Hx of polycythemia vera: Plan: I have briefly reviewed and sent an additional message directly to the hospitalist team. History of polycythemia vera which can frequently be associated with leukocytosis and he has indeed showed variable leukocytosis over the course of his disease. We note that the peripheral smear pathology review showed a single blast which is not at all uncommon in a patient with a pre-existing hematologic condition whose bone marrow is "stressed" by an acute condition such as his Lyme disease. Although he has mild anemia and a mild decrease in platelet counts, these are well-maintained overall thus this is not an immediate suggestion of a florid evolution to acute leukemia though that can never be excluded on a smoldering basis. If his symptoms are not easily stabilized sufficient for discharge and he is still in the hospital early next week, we may take this opportunity to proceed to marrow aspiration and biopsy for more complete understanding of his current status. If he does seem to improve clinically and shows no further significant changes in his red cell or platelet count to allow for early discharge we will be sure there is very close follow-up as an outpatient. Would suggest that we hold his hydroxyurea for now until we see his situation improve Plan Hold Hydrea and monitor for now. If remains in the hospital would consider marrow aspiration and biopsy early in the week to best understand his current situation. If he improves sufficiently for discharge we will ensure close follow-up as an outpatient Full consult will follow this evening but I am available for telephone consultation if needed in the interim Admission and Anticipated Discharge Date Admission Date: February 04, 2023 Results & Data Results & Data Vital Signs (Past 12 Hours) Vital Signs Temp Pulse Pulse Resp BP Pulse Ox O2 Del Method 02/05/23 07:16 37.7 C H 88 16 132/76 96 Room Air 02/05/23 06:00 80 02/05/23 03:32 37.5 C 85 16 128/72 93 Room Air 02/04/23 22:40 37.4 C 83 18 128/69 95 Room Air 02/04/23 21:58 76 PG Care Time/CCT Total # of Minutes Spent Total Time Spent with Patient: Total time spent is greater than 50% in coordination of care (as documented) at patient's floor/unit and/or counseling patient: Coding Level of Care Code None Diagnoses Hx of polycythemia vera Z86.2
[2023-02-05] MEDS ORDERED: HYDROXYUREA 500 MG CAP PO SCH (09:00)
[2023-02-05 09:14] LABS: Hematocrit (blood only) 28.4 % (42.0-52.0); Hemoglobin 9.8 g/dl (14.0-18.0); Mean Corpuscular Hemoglobin 34.5 pg (25.0-34.0); Mean Corpuscular Hgb Conc 34.5 g/dL (32.0-36.0); Mean Platelet Volume 12.3 fL (9.4-12.4); Nucleated RBC # (auto) 0.03 K/uL (0.00-0.12); Nucleated RBC % (auto) 0.1 %; Platelet Count 106 K/uL (130-400); RDW Coefficient of Variation 14.9 % (11.5-14.5); RDW Standard Deviation 54.4 fL (36.4-46.3); Red Blood Count 2.84 M/uL (4.70-6.10)
[2023-02-05 09:15] LABS: ALC (manual) 1.93 K/uL (1.2-3.4); ANC (manual) 15.19 K/uL (1.4-6.5); Blast # (manual) 0.64 K/uL (0-0); Blast Cells % (manual) 3 %; Hypersegmented Neutrophils 1+; Hypogranular Neutrophils 2+; Lymphocytes # (manual) 1.93 K/uL (1.2-3.4); Lymphocytes % (manual) 9 %; Monocytes # (manual) 3.64 K/uL (0.11-0.59); Monocytes % (manual) 17 %; Neutrophils # (manual) 15.19 K/uL (1.40-6.50); Neutrophils % (manual) 71 %
--- NOTE | 2023-02-05 09:24 | Electrocardiogram Report ---
Test Reason : Blood Pressure : / mmHG Vent. Rate : 064 BPM Atrial Rate : 064 BPM P-R Int : 158 ms QRS Dur : 078 ms QT Int : 420 ms P-R-T Axes : 052 -05 014 degrees QTc Int : 433 ms Normal sinus rhythm Septal infarct , age undetermined Abnormal ECG When compared with ECG of 30-JAN-2023 18:16, Premature atrial complexes are no longer Present Septal infarct is now Present Nonspecific T wave abnormality now evident in Anterior leads Confirmed by Yaya Bailey ([id number]) on 02/05/2023 9:23:49 AM Referred By: REFERRED SELF Confirmed By:Yaya Bailey
[2023-02-05 10:41] LABS: Folate (Folic Acid),Ser orPlas > 22.30 ng/ml (>5.38)
[2023-02-05 10:42] LABS: Vitamin B12 1081 pg/ml (180-914)
[2023-02-05] MEDS: SODIUM CHLORIDE 0.9% 1,000 ML IV SCH ×2 (10:53→23:33)
--- NOTE | 2023-02-05 12:03 | XCELERA ---
[id number] \\[id number]
[2023-02-05 12:17] LABS: Magnesium 1.9 mg/dl (1.7-2.4)
[2023-02-05 12:32] LABS: Appearance Urine Clear (Clear); Bacteria Urine Automated Negative (Negative); Bilirubin Urine Negative (Negative); Blood Urine Negative (Negative); Color Urine Yellow; Glucose Urine UA Negative (Negative); Ketones Urine Negative (Negative); Leukocyte Esterase Urine Negative (Negative); Nitrite Urine Negative (Negative); Protein Urine Trace (Negative); RBC Urine Automated 0-4 /hpf (0-4); Specific Gravity Urine 1.022 (1.000-1.030); Urobilinogen Urine Negative (Negative)
[2023-02-05 13:13] LABS: Adenovirus PCR Not Detected (NotDetected); Bordetella parapertussis PCR Not Detected (NotDetected); Bordetella pertussis PCR Not Detected (NotDetected); Chlamydia pneumoniae PCR Not Detected (NotDetected); Coronavirus 229E PCR Not Detected (NotDetected); Coronavirus CoV-2 (COVID19)PCR Not Detected (NotDetected); Coronavirus HKU1 PCR Not Detected (NotDetected); Coronavirus NL63 PCR Not Detected (NotDetected); Coronavirus OC43PCR Not Detected (NotDetected); Human Metapneumovirus PCR Not Detected (NotDetected); Influenza A PCR Not Detected (NotDetected); Influenza B PCR Not Detected (NotDetected); Mycoplasma pneumoniae PCR Not Detected (NotDetected); Parainfluenza Virus 1 PCR Not Detected (NotDetected); Parainfluenza Virus 2 PCR Not Detected (NotDetected); Parainfluenza Virus 3 PCR Not Detected (NotDetected); Parainfluenza Virus 4 PCR Not Detected (NotDetected); Respiratory Syncytial VirusPCR Not Detected (NotDetected); Rhinovirus/Enterovirus PCR Not Detected (NotDetected)
--- NOTE | 2023-02-05 17:11 | Consultation ---
Date of Consultation February 05, 2023 Assessment & Plan (1) History of prostate cancer: Remote history of prostate cancer status post radical prostatectomy with previously well-controlled PSAs. We will recheck PSA this admission to ensure there is no reason to suspect possible relapse of his cancer as bony metastases though that is not suggested by two-dimensional chest imaging. (2) Splenomegaly: Splenomegaly is common in the context of a myeloproliferative disorder such as polycythemia vera. The spleen is only marginally increased in size and we note that the CT scan done at the beginning of the year also showed splenomegaly at that time suggesting this is a chronic and stable issue (3) Lumbar spine pain: Acute lumbar spine pain is unassociated with evidence of dissection of the aorta on either echocardiogram or chest CT imaging, any sign of pulmonary embolism or infarction, any sign of other cardiac dysfunction on the echocardiogram, and without gross changes of the spine seen on CT of the chest. We do not have a specific imaging of the lumbar spine. Nursing notes suggest that the pain has significantly improved. Could be a potential consequence of his Lyme disease. If pain is a persistent issue, however, MRI imaging of both the thoracic and lumbar spines might be helpful to assess for any soft tissue issues not well defined by the CT scan and also to look at the marrow pattern for any dramatic changes there (4) Anemia: Anemia discussion is incorporated into the leukocytosis review (5) Thrombocytopenia: Thrombocytopenia discussion is incorporated into the leukocytosis review (6) Neutrophilic leukocytosis: Patient has a baseline history of mild leukocytosis which can commonly be seen in polycythemia vera. It is now more dramatically elevated and associated with left shift including immature forms and a low number (3%) of blasts. Review of the peripheral smear by pathology did indicate only 1 blast cell noted in 100 cells reviewed and did not find changes in other cell lines of any concern except to note occasional nucleated red blood cells which would be a not uncommon finding in an acutely stressed marrow in the face of significant cytokine release. Given an underlying myeloproliferative disorder with acute exacerbation by inflammatory cytokines, it would not be unusual to not only see a somewhat more dramatic numerical leukocytosis that could be associated with the emergence of some immature forms even including a small number of blasts such as seen here. Polycythemia vera can evolve into an acute leukemia though that is a relatively rare event. Although there is mild anemia and thrombocytopenia, these are not yet severe and we do not seem to be dealing with a florid picture of immediately threatening acute leukemic transformation. Cannot exclude the possibility that there is a very early and smoldering transformation - if the CBC does not return towards his baseline with successful treatment of his Lyme disease it may be worthwhile to consider marrow aspiration and biopsy to more completely define the inherent marrow structure. For the time being, would focus on treatment of the pain and the Lyme disease and continue to monitor CBC and differential closely. This process has been associated with the evolution of a more pronounced anemia and a mild thrombocytopenia. These could be multifactorial related to the acute infection, the anemia related to modest worsening renal function with relative decrease in erythropoietin stimulation, and both also reflecting the negative consequences of inflammatory cytokines on marrow function. He does have some mild splenomegaly and there could be exacerbated splenic sequestration in the face of the acute inflammatory state. Neither the decrease in red cells nor the decrease in platelets represent a threatening numerical change and neither require transfusion support. B12 and folic acid levels are in good range, iron studies are pending to make sure there is no iron deficiency that is contributing to the anemia. Reticulocyte count will be checked to more formally exclude concern over hemolysis though the absence of significant elevation of bilirubin seems to exclude any significant degree of that. Review of the peripheral smear does not suggest a significant microangiopathic process. 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 This has been stable for many years without any previous suggestions of evolution and it would be unusual to do so abruptly but as above it is certainly within the differential diagnosis and we will continue to monitor. He is well below his target level of hematocrit control so hydroxyurea will be suspended for the time being as we monitor CBC/differential daily Plan We will suspend hydroxyurea treatment and continue to monitor daily CBC/differential. If his pain remains significant it may be worthwhile to do MRI imaging of both the thoracic and lumbar spine. PSA is pending to assess for any possible relapse of his prostate cancer though that seems unlikely we do not see evidence of that on the current two-dimensional bone images of the thorax. If he is not stabilizing quickly and ready for discharge, may want to consider marrow aspiration and biopsy early next week. If he does stabilize quickly, could discharge and we will assure close follow-up in the [facility]. For completeness we will also check iron studies, reticulocyte count, LDH. History of Present Illness Reason for Consultation: Patient with longstanding polycythemia vera admitted with acute upper back and lumbar spine pain in the context of a new diagnosis of Lyme disease Attending Physician: Gregg Brand MD History of Present Illness Please note that this is a consultation constructed purely from review of the electronic database. I am working remotely and unable to speak directly with the patient or examine him. I reviewed both the [facility] and the current admission records which seem to be an accurate source of relevant information but I am completely reliant on that for my conclusions and perspectives. If there are urgent concerns regarding the need for more direct [id number] review, you should consider transferring the patient to another institution. I will follow up with the patient in a [id number] meeting at a later date to augment my assessment and recommendations The evaluation is consultative in nature and all patient care and treatment decisions can either be accepted or rejected by the patient's primary hospital- based treating physician using their own independent medical judgment for the patient. 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 He has also been on long-term aspirin 81 mg daily. This has generally kept Hct adequately controlled between 40 and 44% (target less than 45%). Notably WBC count has typically been in the very low double digits. He is currently admitted after diagnosis of Lyme disease with back pain, leukocytosis, and moderately more pronounced anemia/thrombocytopenia He also has a history of prostate cancer status post 2007 prostatectomy with undetectable PSA in April of this year He was recently diagnosed with Lyme disease and started on doxycycline but represents to the emergency department and is admitted with severe pain between the shoulder blades as well as similarly severe pain of the lumbar area See history and physical on admission for additional details Allergies Allergy/AdvReac Type Severity Reaction Status Date / Time No Known Drug Allergies Allergy 0 Verified 02/04/23 12:26 Home Medications Medication Instructions Recorded Confirmed Type chlorthalidone 25 mg tablet 25 mg PO Q2D 10/20/21 02/04/23 History fluoxetine 10 mg tablet 10 mg PO QAM 10/20/21 02/04/23 History irbesartan 300 mg tablet 300 mg PO HS 10/20/21 02/04/23 History rosuvastatin 5 mg tablet 5 mg PO .EVERY 3 DAYS 10/20/21 02/04/23 History aspirin 81 mg tablet,delayed 81 mg PO QAM 03/23/22 02/04/23 History release folic acid 800 mcg tablet 0.8 mg PO QAM 03/23/22 02/04/23 History acetaminophen 500 mg tablet 1,000 mg PO Q8 PRN Pain 01/30/23 02/04/23 History (Tylenol Extra Strength) doxycycline hyclate 100 mg tablet 100 mg PO BID 10 days #20 tabs 01/30/23 02/04/23 Rx hydroxyurea 500 mg capsule 1,000 mg (2 x 500 mg) PO 02/01/23 02/04/23 Rx MoWeFr@0900 #0 caps hydroxyurea 500 mg capsule 500 mg PO SuTuThSa@0900 #0 caps 02/01/23 02/04/23 Rx tramadol 50 mg tablet 50 mg PO Q4H PRN #0 tabs 02/01/23 02/04/23 Rx coenzyme Q10 100 mg capsule (Co 100 mg PO HS 02/04/23 02/04/23 History Q-10) multivitamin 1 tab PO QAM 02/04/23 02/04/23 History Patient History Medical History (Updated 02/05/23 @ 17:36 by Deandre Finley MD) History of hematuria Occurred 4-5 years ago- clots in urine Avoids NSAIDs Hx of polycythemia vera Follows with [facility] On hydroxyurea History of prostate cancer Dx'ed 2007. S/p prostatectomy- no chemo or XRT Anxiety Hypertension Sleep apnea cpap Surgical History History of total knee replacement right Hx of colonoscopy Hx of radical prostatectomy History of shoulder replacement rt. History of shoulder surgery lt. Hx of tonsillectomy Family History Father Prostate cancer Heart disease Sister Heart disease Other No family history of adverse response to anesthesia No family history of bleeding disorder Social History Smoking Status: Never smoker Second Hand Exposure: Yes; Do You Dip or Chew Tobacco: No; Tobacco Cessation Education Requested by Patient: No Hx Alcohol Use: Yes Alcohol type: beer and wine Alcohol Intake Frequency Commen t: socially Hx Substance Use: No Preferred Language: Qatari Communication Ability: Effective Customer Sales Specialist Required: No Beliefs That Will Affect Care: None marital status: Current Living Situation: Spouse current occupational status: retired Other Information That Helps Us Care for You: No Feels Safe at Home: Yes Safety Concerns: Feels Safe At This Time Assistive Devices: CPAP and Walker Physical Exam Physical Exam: This is an electronic only consult I was not able to directly examine the patient. I note the current vitals are stable and particularly patient is not tachycardic or tachypneic, is oxygenating well on room air and has no temperature elevation. Nursing notes suggest that in the afternoon he was in minimal or no pain. Review of the emergency department physical exam and the admission history and physical exam suggest that there may have been some splenomegaly but a relatively benign abdomen overall, some possible CVA tenderness bilaterally but no gross deformities of the spine or signs of injury, relatively unremarkable cardiac and lung exams. Results & Data Vital Signs (Past 12 Hours) Vital Signs Temp Pulse Pulse Resp BP Pulse Ox O2 Del Method 02/05/23 15:13 36.8 C 72 18 123/68 97 Room Air 02/05/23 14:00 82 02/05/23 11:07 37.8 C H 76 16 120/64 96 Room Air 02/05/23 07:16 37.7 C H 88 16 132/76 96 Room Air 02/05/23 06:00 80 Laboratory Results Laboratory Results - last 24 hr 02/05/23 02/05/23 02/05/23 07:37 09:12 11:45 WBC 21.40 H RBC 2.84 L Hgb 9.8 L Hct 28.4 L MCV 100.0 MCH 34.5 H MCHC 34.5 RDW Std Deviation 54.4 H RDW Coeff of Nikia 14.9 H Plt Count 106 L MPV 12.3 Absolute Nucleated RBC 0.03 Nucleated RBC % (auto) 0.1 Neutrophils % (Manual) 71 Lymphocytes % (Manual) 9 Monocytes % (Manual) 17 Blast Cells % (Manual) 3 Neutrophils # (Manual) 15.19 H Total Absolute Neuts 15.19 H Lymphocytes # (Manual) 1.93 Total Abs Lymphocytes 1.93 Monocytes # (Manual) 3.64 H Blast Cells # (Man) 0.64 H Hypersegmented Neuts 1+ Hypogranular Neuts 2+ Sodium 132 L Potassium 3.9 Chloride 99 Carbon Dioxide 24 Anion Gap 9 BUN 31 H Creatinine 1.41 H Est Cr Clr Drug Dosing 53.9 Est GFR ( Amer) 56.9 Est GFR (Non-Af Amer) 49.1 BUN/Creatinine Ratio 22.0 H Glucose 98 Calcium 9.5 Magnesium 1.9 Total Creatine Kinase 121 C-Reactive Protein 19.07 H Vitamin B12 1081 H Folate > 22.30 TSH 4.062 Urine Color Yellow Urine Appearance Clear Urine pH 5.0 Ur Specific Dexter 1.022 Urine Protein Trace H Urine Glucose (UA) Negative Urine Ketones Negative Urine Blood Negative Urine Nitrite Negative Urine Bilirubin Negative Urine Urobilinogen Negative Ur Leukocyte Esterase Negative Urine WBC (Auto) 1-5 Urine RBC (Auto) 0-4 U Hyaline Cast (Auto) 1-5 U Epithel Cells (Auto) 5-10 H Urine Bacteria (Auto) Negative Adenovirus (PCR) Anaplasma Smear See Comment Babesia Smear See Comment Babesia microti DNA PCR Pending B. pertussis DNA (PCR) B.parapertussis DNA PCR C. pneumoniae DNA (PCR) Coronavirus OC43 (PCR) Coronavirus HKU1 (PCR) Coronavirus 229E (PCR) SARS-CoV-2 (PCR) Coronavirus NL63 (PCR) Human Metapneumovir PCR Influenza Type A (PCR) Influenza Type B (PCR) M. pneumoniae (PCR) Parainfluenza 1 (PCR) Parainfluenza 2 (PCR) Parainfluenza 3 (PCR) Parainfluenza 4 (PCR) RSV (PCR) Entero/Rhino (PCR) 02/05/23 12:13 WBC RBC Hgb Hct MCV MCH MCHC RDW Std Deviation RDW Coeff of Nikia Plt Count MPV Absolute Nucleated RBC Nucleated RBC % (auto) Neutrophils % (Manual) Lymphocytes % (Manual) Monocytes % (Manual) Blast Cells % (Manual) Neutrophils # (Manual) Total Absolute Neuts Lymphocytes # (Manual) Total Abs Lymphocytes Monocytes # (Manual) Blast Cells # (Man) Hypersegmented Neuts Hypogranular Neuts Sodium Potassium Chloride Carbon Dioxide Anion Gap BUN Creatinine Est Cr Clr Drug Dosing Est GFR ( Amer) Est GFR (Non-Af Amer) BUN/Creatinine Ratio Glucose Calcium Magnesium Total Creatine Kinase C-Reactive Protein Vitamin B12 Folate TSH Urine Color Urine Appearance Urine pH Ur Specific Dexter Urine Protein Urine Glucose (UA) Urine Ketones Urine Blood Urine Nitrite Urine Bilirubin Urine Urobilinogen Ur Leukocyte Esterase Urine WBC (Auto) Urine RBC (Auto) U Hyaline Cast (Auto) U Epithel Cells (Auto) Urine Bacteria (Auto) Adenovirus (PCR) Not Detected Anaplasma Smear Babesia Smear Babesia microti DNA PCR B. pertussis DNA (PCR) Not Detected B.parapertussis DNA PCR Not Detected C. pneumoniae DNA (PCR) Not Detected Coronavirus OC43 (PCR) Not Detected Coronavirus HKU1 (PCR) Not Detected Coronavirus 229E (PCR) Not Detected SARS-CoV-2 (PCR) Not Detected Coronavirus NL63 (PCR) Not Detected Human Metapneumovir PCR Not Detected Influenza Type A (PCR) Not Detected Influenza Type B (PCR) Not Detected M. pneumoniae (PCR) Not Detected Parainfluenza 1 (PCR) Not Detected Parainfluenza 2 (PCR) Not Detected Parainfluenza 3 (PCR) Not Detected Parainfluenza 4 (PCR) Not Detected RSV (PCR) Not Detected Entero/Rhino (PCR) Not Detected Diagnostic Findings Chest CTA 02/04/23 13:30 CT angio chest dissec wo/w con CLINICAL HISTORY: New onset, severe back pain; btwn shoulder blades TECHNIQUE: Multidetector row helical CT of the chest was performed before and after injection of IV contrast. Coronal and sagittal reformations were obtained. Automated dose lowering techniques and/or adjustment according to patient size were utilized for this exam. CT DOSE: 1234.72 mGy.cm Comparison: Comparison is made to CTA chest 01/30/2023 FINDINGS: Lungs and pleura: Atelectasis versus scarring is seen in the dependent portions of the lungs. There is a 4 mm nodule in left lower lobe (series 4 image 136). Heart and pericardium: Cardiomegaly is seen with biatrial enlargement. Vessels: No aortic dissection or intramural hematoma is seen. Moderate atherosclerotic disease is seen. Moderate atherosclerotic disease is seen. Mediastinum and maría elena: Unremarkable. Chest wall and lower neck: Unremarkable. Abdomen: Trace free fluid is noted in the left upper quadrant. Bones: Right shoulder arthroplasty is seen. Degenerative changes are seen in the spine. IMPRESSION: 1. No acute abnormality and in particular no evidence of acute aortic injury. 2. Trace free fluid in the left upper quadrant, similar to prior exam. ACT 112: Negative or not required by law. Electronically signed by: Ish Lee M.D. 02/04/2023 3:48 PM PG Care Time/CCT Total # of Minutes Spent Total Time Spent with Patient: Total time spent is greater than 50% in coordination of care (as documented) at patient's floor/unit and/or counseling patient: [place] [address] IN/OBS CONSULT LVL 3,45M Patient Type New History Expanded Problem Focused Medical Decision Making Moderate Complexity Diagnoses History of prostate cancer Z85.46 Splenomegaly R16.1 Lumbar spine pain M54.50 Anemia D64.9 Thrombocytopenia D69.6 Neutrophilic leukocytosis D72.9 Polycythemia rubra vera D45
[2023-02-05] MEDS ORDERED: DICLOFENAC SOD 1% GEL 100 GM TUBE EXT PRN (19:29)
[2023-02-05] MEDS ORDERED: SIMETHICONE 80 MG CHEW PO PRN (19:34)
[2023-02-06] MEDS: ACETAMINOPHEN 325 MG TAB PO PRN ×2 (04:10→16:06)
[2023-02-06] MEDS: HYDROmorphone INJ 0.5 MG/0.5 ML SYR IV PRN ×4 (04:18→23:41)
[2023-02-06 05:56] LABS: Albumin Globulin Ratio 1.2 (0.9-2); Albumin Level 3.6 gm/dl (3.4-5.0); BUN Creatinine Ratio 19.4 (10-20); Bilirubin,Total 0.9 mg/dl (0.2-1.0); Calcium 9.3 mg/dl (8.6-10.3); Creatinine Clr Calc Pharmacy 58.9 ml/min; Est GFR (African American) 63.3 ml/min; Est GFR (Non-African American) 54.6 ml/min; Globulin 3.1 gm/dl (2.5-4.0); Magnesium 1.8 mg/dl (1.7-2.4); Potassium 3.7 mmol/L (3.5-5.1); Total Protein 6.7 gm/dl (6.0-8.3)
[2023-02-06] MEDS: DOXYCYCLINE HYCLATE 100 MG in DEXTROSE 5% MINI-B 100 ML IV SCH ×2 (06:05→18:16)
[2023-02-06 06:43] LABS: Hematocrit (blood only) 29.7 % (42.0-52.0); Hemoglobin 9.9 g/dl (14.0-18.0); Mean Corpuscular Hemoglobin 33.7 pg (25.0-34.0); Mean Corpuscular Hgb Conc 33.3 g/dL (32.0-36.0); Mean Platelet Volume 12.3 fL (9.4-12.4); Platelet Count 95 K/uL (130-400); RDW Coefficient of Variation 14.9 % (11.5-14.5); RDW Standard Deviation 54.4 fL (36.4-46.3); Red Blood Count 2.94 M/uL (4.70-6.10); White Blood Count 21.81 K/ul (4.8-10.8)
[2023-02-06 06:45] LABS: ALC (manual) 1.74 K/uL (1.2-3.4); ANC (manual) 17.45 K/uL (1.4-6.5); Basophils # (manual) 0.22 K/uL (0-0.2); Basophils % (manual) 1 %; Eosinophils # (manual) 0.44 K/uL (0-0.50); Eosinophils % (manual) 2 %; Hypogranular Neutrophils 1+; Lymphocytes # (manual) 1.74 K/uL (1.2-3.4); Lymphocytes % (manual) 8 %; Monocytes # (manual) 1.31 K/uL (0.11-0.59); Monocytes % (manual) 6 %; Myelocytes # (manual) 0.65 K/uL (0-0); Myelocytes % (manual) 3 %; Neutrophils # (manual) 17.45 K/uL (1.40-6.50); Neutrophils % (manual) 80 %; Platelet Estimate Decreased (Normal); Reticulocyte % 0.8 % (0.5-2.0); Reticulocytes # 0.02 10^6/uL (0.02-0.10)
--- NOTE | 2023-02-06 07:26 | Hospitalist Progress Note ---
Date of Service February 06, 2023 Assessment & Plan (1) History of prostate cancer: Plan: PSA remains undetectable essentially removing prostate cancer in the differential diagnosis of his back pain. (2) Neutrophilic leukocytosis: Plan: Persistent CBC pattern similar to previous - notably machine differential does not show any further rise in the overall count, does not indicate the presence of any blasts on current review and and with some encouraging decrease in monocyte count. Await pathologist review to make sure that there is not an excessive population of blasts that is significantly increased from previous. Anemia and thrombocytopenia remain at similar levels to previous. Incidentally note that the marked elevation of ferritin would be common in patients with prolonged anemia and certainly could have an element of acute phase reactant as well. It is unassociated with elevated iron percent saturation suggesting against hemochromatosis. Patient is now spiking fevers in excess of 39 C further reinforcing the concern that the leukocytosis may be an part or whole manifestation of an infectious process. Acute leukemia can be the cause of "tumor fever" though that is probably much more commonly associated with acute lymphoblastic leukemia than acute myelogenous leukemia. Much more often, fevers associated with AML represent an issue of neutropenic infection and he is not at risk for that given the elevated neutrophil counts that we are seeing currently. If he remains hospitalized, marrow aspiration biopsy will still be a consideration for later this week. Plan Await pathologist review of the current peripheral smear and will continue to watch CBC The pattern is not improving over the next 48 hours would consider marrow aspiration biopsy With high fevers would be particularly aggressive and further work-up and treatment of any infectious process Admission and Anticipated Discharge Date Admission Date: February 04, 2023 Subjective Please see full consultation from yesterday, this is a quick supplemental follow-up review of labs that were pending at that time Results & Data Results & Data Vital Signs (Past 12 Hours) Vital Signs Temp Pulse Pulse Resp BP Pulse Ox O2 Del Method 02/06/23 03:00 39 C H 86 20 136/68 95 CPAP 02/05/23 23:03 72 02/05/23 22:00 37.3 C 79 18 123/65 98 Room Air 02/05/23 20:45 37 C PG Care Time/CCT Total # of Minutes Spent Total Time Spent with Patient: Total time spent is greater than 50% in coordination of care (as documented) at patient's floor/unit and/or counseling patient: Coding Level of Care Code None Diagnoses History of prostate cancer Z85.46 Neutrophilic leukocytosis D72.9
[2023-02-06] MEDS: FOLIC ACID 400 MCG TAB PO SCH (08:04)
[2023-02-06] MEDS: HEPARIN SOD 5,000 UNIT/0.5 ML VIAL SQ SCH ×2 (08:04→21:55)
[2023-02-06] MEDS: ASPIRIN 81 MG ECTAB PO SCH (08:04)
[2023-02-06] MEDS: FLUoxetine HCL 10 MG CAP PO SCH (08:05)
[2023-02-06] MEDS ORDERED: HYDROXYUREA 500 MG CAP PO SCH (09:00)
[2023-02-06] MEDS ORDERED: Nursing to Pharmacy Communication SCH (11:00)
[2023-02-06] MEDS: SODIUM CHLORIDE 0.9% 1,000 ML IV SCH ×2 (11:52→23:42)
[2023-02-06] MEDS: COQ10 PO SCH (11:52)
[2023-02-06] MEDS: ROSUVASTATIN CALCIUM 5 MG TAB PO SCH (11:53)
--- NOTE | 2023-02-06 14:33 | Hospitalist Progress Note ---
Date of Service February 06, 2023 Assessment & Plan (1) Lumbar spine pain: Plan: Severe, intractable sacral/lumbar pain on the evening of 02/03 Patient also endorses new onset, sharp pain between the shoulder blades He reports this pain is different from his body aches over the past 10 days, which are likely secondary to recent Lyme dx Reported taking 6 tablets of Tylenol, 2 tablets of tramadol, and 1 tablet of oxycodone over the course of 02/03 without pain relief Pain control; Tylenol/scaled diladid prn, lidoderm patch CTA negative for PE on 01/30. CTA chest negative for dissection 02/04. Noting trace free fluid in left upper quadrant WBC count remains elevated at 21,000 Spiking fevers of 39 C Blood cultures negative so far Urinalysis negative Babesiosis and anaplasmosis PCR pending CPK negative ESR/CRP elevated [employer] on board given history of polycythemia Plan on bone marrow aspiration on Wednesday (2) Lyme disease: Plan: In the setting of polycythemia vera, Lyme testing + on 01/30, no rash. Admitted 01/30- w/ severe arthralagia/myalgias Has been on Doxy BID since discharge, no issues w/ swallowing/dysphagia/esophagitis type discomfort CTA negative for dissection on admission CRP/ESR elevation further, blood cultures pending Continue Doxy IV BID for now, additional tick testing as above/peripheral smear/hematology consultation ?switch to Rocephin, denied any known allergies to abx in the past. ?drug reaction. NO RASH ON EXAM/NOTED BY PATIENT Has been NSR on monitor, PACs. Continued monitoring on telemetry ECHO obtained on admission, unremarkable. (3) Chest tightness: Plan: EKG showed NSR at 64 bpm; however new V1/V2 t-wave inversions compared to EKG on 01/30/2023 Clinically, patient endorses chest tightness, but no chest palpitations or SOB. Reports improvement since admission. CTa chest neg for dissection as above Incentive spirometer ordered for bibasilar crackles/suspect atelectasis. CTA on admit noting atelectasis vs scarring. 4mm nodule LL lobe ECHO unremarkable. Trop 8.4 on arrival. Has been NSR on monitor EKG w/ CP Denied any reflux type pain but could consider pepcid vs ppi daily? Continuous telemetry monitoring check mag [employer] testing negative (4) Hx of polycythemia vera: Plan: [facility], prior Dr Finley Mildly elevated uric acid level at 8.2, despite no hx of gout; ?Secondary to PCV or Lyme Peripheral blood smear on 01/30 was consistent with PCV Hematology on board Tentatively planning for bone marrow biopsy on Wednesday Monitor CBC/peripheral smear in AM (5) Splenomegaly: Plan: Chronic; secondary to PCV further testing as above, hematology/oncology consulted (6) History of prostate cancer: Plan: S/p radical prostatectomy in 2006 ?metastatic disease. No focal tenderness at present. Hematology/oncology consulted as above ?need for CTAP/spinal imaging (7) Dehydration: Plan: on exam, dehydrated. likely 2nd to poor PO intake/chlorthalidone use placing diuretics on hold, 1L IVF given yesterday Labs improved today Plan VTE PPx: SCDs, heparin 5000u SQ q12h while inpatient Continued inpatient stay, will place consults for PT/OT as well given weakness on admission/repeat hospitalization Admission and Anticipated Discharge Date Admission Date: February 04, 2023 Subjective Patient continues to complain of body aches. His aches are most pronounced in the legs today. He denies chest pain or shortness of breath. Noted that he is spiking fevers of 39 C Review of Systems Review of Systems: All systems reviewed & are unremarkable except as noted in Subjective Physical Exam Physical Exam: General: Awake, conversant Heart: S1, S2/regular rate and rhythm, no murmur rubs or gallops Lungs: Clear to auscultation bilaterally. Normal effort Abdomen: Soft/nontender/nondistended. No hepatosplenomegaly Extremities: No clubbing/cyanosis. No edema Behavior: Appropriate, cooperative Results & Data Results & Data Vital Signs (Past 12 Hours) Vital Signs Temp Pulse Pulse Resp BP Pulse Ox O2 Del Method 02/06/23 11:01 37.5 C 80 16 133/71 97 Room Air 02/06/23 07:50 71 02/06/23 07:31 36.9 C 73 20 113/69 94 Room Air 02/06/23 03:00 39 C H 86 20 136/68 95 CPAP Laboratory Results Abnormal lab results 02/06/23 Range/Units 05:25 WBC 21.81 H (4.8-10.8) K/ul RBC 2.94 L (4.70-6.10) M/uL Hgb 9.9 L (14.0-18.0) g/dl Hct 29.7 L (42.0-52.0) % MCV 101.0 H (80.0-100.0) fL RDW Std Deviation 54.4 H (36.4-46.3) fL RDW Coeff of Nikia 14.9 H (11.5-14.5) % Plt Count 95 L (130-400) K/uL Neutrophils # (Manual) 17.45 H (1.40-6.50) K/uL Total Absolute Neuts 17.45 H (1.4-6.5) K/uL Monocytes # (Manual) 1.31 H (0.11-0.59) K/uL Basophils # (Manual) 0.22 H (0-0.2) K/uL Myelocytes # (Manual) 0.65 H (0-0) K/uL Platelet Estimate Decreased L (Normal) Sodium 133 L (136-145) mmol/L BUN 25 H (6-23) mg/dl Glucose 134 H (70-99(Fasting)) mg/dl TIBC 209 L (250-450) mcg/dl Transferrin % Sat 19 L (20-50) % Ferritin 2785.0 H (8-388) ng/ml AST 45 H (13-39) U/L Lactate Dehydrogenase 3166 H (86-244) U/L PG Care Time/CCT Total # of Minutes Spent Total Time Spent with Patient: Total time spent is greater than 50% in coordination of care (as documented) at patient's floor/unit and/or counseling patient: Coding Level of Care Code 31640 SUB INP/OBS CARE 2/35MIN Diagnoses Lumbar spine pain M54.50 Lyme disease A69.20 Chest tightness R07.89 Hx of polycythemia vera Z86.2 Splenomegaly R16.1 History of prostate cancer Z85.46 Dehydration E86.0
[2023-02-06] MEDS ORDERED: COQ10 PO SCH (21:00)
[2023-02-07] MEDS: ACETAMINOPHEN 325 MG TAB PO PRN ×4 (03:41→19:36)
[2023-02-07 06:28] LABS: Hematocrit (blood only) 27.2 % (42.0-52.0); Hemoglobin 8.9 g/dl (14.0-18.0); Mean Corpuscular Hemoglobin 33.3 pg (25.0-34.0); Mean Corpuscular Hgb Conc 32.7 g/dL (32.0-36.0); Mean Corpuscular Volume 101.9 fL (80.0-100.0); Mean Platelet Volume 12.3 fL (9.4-12.4); Platelet Count 84 K/uL (130-400); RDW Coefficient of Variation 14.8 % (11.5-14.5); RDW Standard Deviation 54.7 fL (36.4-46.3); Red Blood Count 2.67 M/uL (4.70-6.10); White Blood Count 18.79 K/ul (4.8-10.8)
[2023-02-07 06:34] LABS: ALC (manual) 2.82 K/uL (1.2-3.4); Basophils # (manual) 0.19 K/uL (0-0.2); Basophils % (manual) 1 %; Lymphocytes # (manual) 2.82 K/uL (1.2-3.4); Lymphocytes % (manual) 15 %; Metamyelocytes # (manual) 0.56 K/uL (0-0); Metamyelocytes % (manual) 3 %; Monocytes # (manual) 2.82 K/uL (0.11-0.59); Monocytes % (manual) 15 %; Neutrophils % (manual) 66 %
--- NOTE | 2023-02-07 08:37 | Hospitalist Progress Note ---
Date of Service February 07, 2023 Assessment & Plan (1) Neutrophilic leukocytosis: Plan: WBC trending down, some metamyelocytes but no re-emergence of blasts on machine diff, await follow up smear review Anemia and platelets also done some but still in very "safe" ranges numerically and could be the combined effect of acute infection and residual hydrea effect. Fever improved but would still focus on ID issues Plan Monitor CBC Assure optimal ID apporaches Admission and Anticipated Discharge Date Admission Date: February 04, 2023 Subjective This is an electronic review only. By hospitalist notes more leg ache/generalized aches. Note fever seems to be trending down Results & Data Results & Data Vital Signs (Past 12 Hours) Vital Signs Temp Pulse Pulse Resp BP Pulse Ox O2 Del Method 02/07/23 07:50 37.1 C 77 16 129/69 99 Room Air 02/07/23 05:45 36.7 C 02/07/23 03:45 38.1 C H 83 16 140/80 95 Room Air, CPAP 02/06/23 23:29 37.1 C 80 18 127/65 96 Room Air 02/06/23 21:56 78 PG Care Time/CCT Total # of Minutes Spent Total Time Spent with Patient: Total time spent is greater than 50% in coordination of care (as documented) at patient's floor/unit and/or counseling patient: Coding Level of Care Code None Diagnoses Neutrophilic leukocytosis D72.9
[2023-02-07] MEDS: HYDROmorphone INJ 0.5 MG/0.5 ML SYR IV PRN ×3 (09:42→23:55)
[2023-02-07] MEDS: DOXYCYCLINE HYCLATE 100 MG in DEXTROSE 5% MINI-B 100 ML IV SCH ×2 (09:42→18:18)
[2023-02-07] MEDS: FOLIC ACID 400 MCG TAB PO SCH (09:43)
[2023-02-07] MEDS: HEPARIN SOD 5,000 UNIT/0.5 ML VIAL SQ SCH ×2 (09:43→21:08)
[2023-02-07] MEDS: FLUoxetine HCL 10 MG CAP PO SCH (09:44)
[2023-02-07] MEDS: COQ10 PO SCH (09:44)
[2023-02-07] MEDS: ASPIRIN 81 MG ECTAB PO SCH (09:44)
[2023-02-07] MEDS: SODIUM CHLORIDE 0.9% 1,000 ML IV SCH (11:58)
--- NOTE | 2023-02-07 13:17 | Hospitalist Progress Note ---
Date of Service February 07, 2023 Assessment & Plan (1) Lumbar spine pain: Plan: Severe, intractable sacral/lumbar pain on the evening of 02/03 Patient also endorses new onset, sharp pain between the shoulder blades He reports this pain is different from his body aches over the past 10 days, which are likely secondary to recent Lyme dx Reported taking 6 tablets of Tylenol, 2 tablets of tramadol, and 1 tablet of oxycodone over the course of 02/03 without pain relief Pain control; Tylenol/scaled diladid prn, lidoderm patch CTA negative for PE on 01/30. CTA chest negative for dissection 02/04. Noting trace free fluid in left upper quadrant WBC count Came down today to 18,000 from 21,000 fever spikes are improving slightly. Highest temp was 38 down from 39 the previous day Blood cultures negative so far Urinalysis negative Babesiosis and anaplasmosis PCR pending CPK negative ESR/CRP elevated [employer] on board given history of polycythemia Plan on bone marrow aspiration on Wednesday Will consult infectious disease (2) Lyme disease: Plan: In the setting of polycythemia vera, Lyme testing + on 01/30, no rash. Admitted 01/30- w/ severe arthralagia/myalgias Has been on Doxy BID since discharge, no issues w/ swallowing/dysphagia/esophagitis type discomfort CTA negative for dissection on admission CRP/ESR elevation further, blood cultures pending Continue Doxy IV BID for now, additional tick testing as above/peripheral smear/hematology consultation ?switch to Rocephin, denied any known allergies to abx in the past. ?drug reaction. NO RASH ON EXAM/NOTED BY PATIENT Has been NSR on monitor, PACs. Continued monitoring on telemetry ECHO obtained on admission, unremarkable. (3) Chest tightness: Plan: EKG showed NSR at 64 bpm; however new V1/V2 t-wave inversions compared to EKG on 01/30/2023 Clinically, patient endorses chest tightness, but no chest palpitations or SOB. Reports improvement since admission. CTa chest neg for dissection as above Incentive spirometer ordered for bibasilar crackles/suspect atelectasis. CTA on admit noting atelectasis vs scarring. 4mm nodule LL lobe ECHO unremarkable. Trop 8.4 on arrival. Has been NSR on monitor EKG w/ CP Denied any reflux type pain but could consider pepcid vs ppi daily? Continuous telemetry monitoring check mag [employer] testing negative (4) Hx of polycythemia vera: Plan: [facility], prior Dr Finley Mildly elevated uric acid level at 8.2, despite no hx of gout; ?Secondary to PCV or Lyme Peripheral blood smear on 01/30 was consistent with PCV Hematology on board Tentatively planning for bone marrow biopsy on Wednesday Monitor CBC/peripheral smear in AM (5) Splenomegaly: Plan: Chronic; secondary to PCV further testing as above, hematology/oncology consulted (6) History of prostate cancer: Plan: S/p radical prostatectomy in 2006 ?metastatic disease. No focal tenderness at present. Hematology/oncology consulted as above ?need for CTAP/spinal imaging (7) Dehydration: Plan: on exam, dehydrated. likely 2nd to poor PO intake/chlorthalidone use placing diuretics on hold, 1L IVF given yesterday Labs improved Plan VTE PPx: SCDs, heparin 5000u SQ q12h while inpatient Continued inpatient stay, will place consults for PT/OT as well given weakness on admission/repeat hospitalization Admission and Anticipated Discharge Date Admission Date: February 04, 2023 Subjective Patient says that he does not feel much better overall. Still has generalized aches and pains, most pronounced in the legs particularly the right leg. Review of Systems Review of Systems: All systems reviewed & are unremarkable except as noted in Subjective Physical Exam Physical Exam: General: Awake, conversant Heart: S1, S2/regular rate and rhythm, no murmur rubs or gallops Lungs: Clear to auscultation bilaterally. Normal effort Abdomen: Soft/nontender/nondistended. No hepatosplenomegaly Extremities: No clubbing/cyanosis. No edema Behavior: Appropriate, cooperative Results & Data Results & Data Vital Signs (Past 12 Hours) Vital Signs Temp Pulse Pulse Resp BP Pulse Ox O2 Del Method 02/07/23 11:32 70 02/07/23 11:32 Room Air 02/07/23 07:50 37.1 C 77 16 129/69 99 Room Air 02/07/23 05:45 36.7 C 02/07/23 03:45 38.1 C H 83 16 140/80 95 Room Air, CPAP Laboratory Results Abnormal lab results 02/07/23 Range/Units 05:33 WBC 18.79 H (4.8-10.8) K/ul RBC 2.67 L (4.70-6.10) M/uL Hgb 8.9 L (14.0-18.0) g/dl Hct 27.2 L (42.0-52.0) % MCV 101.9 H (80.0-100.0) fL RDW Std Deviation 54.7 H (36.4-46.3) fL RDW Coeff of Nikia 14.8 H (11.5-14.5) % Plt Count 84 L (130-400) K/uL Neutrophils # (Manual) 12.40 H (1.40-6.50) K/uL Total Absolute Neuts 12.40 H (1.4-6.5) K/uL Monocytes # (Manual) 2.82 H (0.11-0.59) K/uL Metamyelocytes # (Man) 0.56 H (0-0) K/uL PG Care Time/CCT Total # of Minutes Spent Total Time Spent with Patient: Total time spent is greater than 50% in coordination of care (as documented) at patient's floor/unit and/or counseling patient: Coding Level of Care Code 66508 SUB INP/OBS CARE 2/35MIN Diagnoses Lumbar spine pain M54.50 Lyme disease A69.20 Chest tightness R07.89 Hx of polycythemia vera Z86.2 Splenomegaly R16.1 History of prostate cancer Z85.46 Dehydration E86.0
[2023-02-07 13:33] LABS: Babesia microti DNA Not Detected (Not Detected)
[2023-02-08] MEDS: SODIUM CHLORIDE 0.9% 1,000 ML IV SCH ×2 (00:33→12:37)
[2023-02-08] MEDS: ACETAMINOPHEN 325 MG TAB PO PRN ×4 (03:25→21:13)
[2023-02-08] MEDS: MoRPHine SULFATE 2 MG/ML CARP IV PRN ×4 (04:13→17:09)
[2023-02-08] MEDS: DOXYCYCLINE HYCLATE 100 MG in DEXTROSE 5% MINI-B 100 ML IV SCH ×2 (06:05→18:06)
[2023-02-08] MEDS: FLUoxetine HCL 10 MG CAP PO SCH (08:40)
[2023-02-08] MEDS: HEPARIN SOD 5,000 UNIT/0.5 ML VIAL SQ SCH ×2 (08:40→21:13)
[2023-02-08] MEDS: COQ10 PO SCH (08:41)
[2023-02-08] MEDS: FOLIC ACID 400 MCG TAB PO SCH (08:41)
[2023-02-08 08:45] LABS: Hematocrit (blood only) 28.8 % (42.0-52.0); Hemoglobin 9.6 g/dl (14.0-18.0); Mean Corpuscular Hgb Conc 33.3 g/dL (32.0-36.0); Mean Corpuscular Volume 102.1 fL (80.0-100.0); Mean Platelet Volume 11.7 fL (9.4-12.4); Platelet Count 84 K/uL (130-400); RDW Coefficient of Variation 14.8 % (11.5-14.5); RDW Standard Deviation 55.1 fL (36.4-46.3); Red Blood Count 2.82 M/uL (4.70-6.10); White Blood Count 19.25 K/ul (4.8-10.8)
[2023-02-08 09:00] LABS: BUN Creatinine Ratio 17.1 (10-20); Calcium 9.4 mg/dl (8.6-10.3); Creatinine Clr Calc Pharmacy 66.1 ml/min; Est GFR (African American) 71.3 ml/min; Est GFR (Non-African American) 61.5 ml/min; Potassium 4.4 mmol/L (3.5-5.1)
[2023-02-08] MEDS: ASPIRIN 81 MG ECTAB PO SCH (10:32)
--- NOTE | 2023-02-08 15:11 | Infectious Disease Consult ---
Date of Consultation February 08, 2023 Assessment & Plan (1) Arthralgia: (2) Myalgia: (3) Lyme disease: (4) Acute Lyme disease: (5) Splenomegaly: (6) Lyme disease: (7) Anemia: (8) Thrombocytopenia: (9) Neutrophilic leukocytosis: (10) Fever: Plan Mauro Hernandez is a 72-year-old man with history of polycythemia vera on hydroxyurea, splenomegaly, prostate cancer s/p radical prostatectomy in 2006, and malignant hypertension, recent admission to [facility] 01/30-02/01/23 for myalgias and +Lyme +IgM and +IgG c/f acute lyme treated with doxycycline, who presents with 10 days of body aches, back pain, on 02/04, with daily fevers, persistent leukocytosis, anemia, thrombocytopenia, found to have ferritin >3000 and LDH >3000. ID is consulted to evaluate fevers and possible infection. Patient with recent presumptive diagnosis of Lyme disease given +IgM and +IgG with confirmatory Western Blot, no erythema migrans. He now presents with daily fevers, leukocytosis, and severe anemia (Hgb 8 to 9, down from baseline of 14 to 15), and worsening thrombocytopenia to the 80s. His +IgM and +IgG have 2 IgM bands and 6 IgG bands positive, and thus in the appropriate clinical context is suggestive of acute Lyme disease. However, it is unclear how much of his ongoing clinical presentation, if any, is attributable to Lyme. He has daily fevers, leukocytosis, elevated ferritin >3000, elevated LDH >3000, and bicytopenia (plts, Hgb), and splenomegaly of unclear etiology. His clinical picture is concerning for inflammation out of proportion to infection, and potentially suggestive of HLH. Will check fibrinogen, D-dimer, IL-2 (CD25), triglycerides (fasting). Agree with hematology evaluation for HLH as well as potential other underlying etiology (e.g., heme malignancy) that may explain his cytopenias. HLH can be triggered by infection, including tickborne infection/Lyme disease. If pursuing BMBx, will follow results. Will evaluate for additional infections given his fever, leukocytosis, and possible HLH. Will evaluate for additional possible infections, including infections that may precipitate HLH, including Bartonella, Histo, parvovirus B19, HSV/VZV/CMV/EBV, adenovirus, Ehrlichia, Anaplasma Babesia (had prior negative Anaplasma/Babesia smears and Babesia PCR but not serology). Negative respiratory [employer]. Will also check HIV. The patients main exposures appear to be his indoor/outdoor cats, and [place]. He does not have travel outside of the country nor any sick contacts or contacts with children. Would also favor CT A/P given the unclear cause of fevers. He has remained hemodynamically stable without broad-spectrum antibiotics and has been only on doxycycline. Do not think this is a typical bacterial process and would continue to monitor off broad-spectrum antibiotics at this time. However, if fevers or clinical worsening, repeat BCx and start vancomycin and cefepime. Can continue doxycycline for now given the possibility of acute Lyme disease and/or other tickborne infection. 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 Send blood HSV-1/2, VZV, CMV, EBV, adenovirus PCRs. Send Ehrlichia Ab, Ehrlichia PCR, Anaplasma Ab, Anaplasma PCR, Babesia Ab - Agree with hematology, would favor further evaluation for HLH. Will check fibrinogen, D-dimer, IL-2 (CD25), triglycerides (fasting) as well. If pursuing BMBx, will follow results. - Obtain CT A/P ID will continue to follow. Nieves Baxter MD, MHS Infectious Diseases [facility] ID Connect direct line: [phone] Consultation Information Consultation was provided via telemedicine using two-way real-time interactive telecommunication between the patient and the telemedicine provider. For the duration of the visit, the provider was performing the assessment from a different facility than the patient. This includesuse of bluetooth stethoscope forauscultationperformed by the telepresenter that the telemedicine provider can hear if described in the physical exam. [employer] contact information: Please call [facility] Connect Call Center [phone]. (Phone Number For Physician Use Only) After establishing a telemedicine visit, patient was: Patient was verified with two unique identifiers, Patient/authorized rep acknowledged consent and understanding and Gave permission to continue telehealth session Time Spent with Patient: Initial => 75 min History of Present Illness Reason for Consultation: Fevers, Lyme disease Attending Physician: Doreen Garcia MD History of Present Illness Mauro Hernandez is a 72-year-old man with history of polycythemia vera on hydroxyurea, splenomegaly, prostate cancer s/p radical prostatectomy in 2006, and malignant hypertension, recent admission to [facility] 01/30-02/01/23 for myalgias and +Lyme +IgM and +IgG c/f acute lyme treated with doxycycline, who presents with 10 days of body aches, back pain, on 02/04, with daily fevers, persistent leukocytosis, anemia, thrombocytopenia, found to have ferritin >3000 and LDH >3000. ID is consulted to evaluate fevers and possible infection. The patient was recently admitted to [facility] from 01/30-02/01/23 for acute Lyme disease. He had presented with flulike symptoms, chest muscle tightness, and joint pains, x1 week. He was found to have +IgM and +IgG Ab for Lyme. He did not directly see a tick bite him but does take care of indoor/outdoor cats and had seen ticks on his cats (which sleep in his bed). He did not notice a rash and no rash was seen on clinical exam. He actually presented to the ED three times for pain on 01/30. He was treated with a 14-day course of doxycycline 100 mg PO BID with worsening athralgias and myalgias. It was felt that he had a possible Jarisch-Herxheimer reaction after initiation of treatment for Lyme. He was also noted to have a leukocytosis which was felt potentially due to the patients PV, for which he takes hydroxyurea. The patient presents again, with ongoing body aches in his shoulders, hips, knees, and elbows x10 days, as well as acute worsening of new onset lower back pain (especially lumbar/sacral) and pain between the shoulder blades since the night of 02/03. He continues on doxycycline as recently prescribed but continues to have significant body aches. He also endorses sharp stabbing pain between his shoulder blades, and mild pleuritic CP. He presented to the ED on 02/04. The patient was noted to be febrile on 02/01 (T38.7 on 02/01), and was febrile at home as above. He was initially afebrile on 02/04, then febrile throughout 02/05 (TMax 39.4) and daily fevers since admission. He has had leukocytosis to 22, most recently WBC 19 on 02/08. LDH 3166 on 02/06. AST 45 ALT 18 tbili 0.9 alk phos 88 ferritin 2785. 01/30 and 02/04 CTA chest both with splenomegaly. At the time of evaluation, he continues to report aching pain in the bilateral knees (R > L), throughout the legs, and throughout his back. The patients is at bedside. He has had shortness of breath since his symptoms first started, but no cough, no nausea/vomiting/diarrhea, no rash. Prior to his symptoms that led to his recent admission, he was feeling well befo re this. No weight loss, no fatigue, no night sweats. No sick contacts or contacts with children. He received his flu and Covid boosters in November 2022. 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 No travel outside the country except for November 2022 cruise to [place]. He has two cats (that are both indoor/outdoor). The patient believes they have ticks but neither the patient nor his has recently seen ticks, and the cats receive monthly flea/tick/worm meds. He does not recall any cat bites or scratches. [place]. No hunting/fishing. No exposure to farm animals/livestock/birds. No recent changes in environment. Drinks city/municipal water. Allergies Allergy/AdvReac Type Severity Reaction Status Date / Time No Known Drug Allergies Allergy 0 Verified 02/04/23 12:26 Home Medications Medication Instructions Recorded Confirmed Type chlorthalidone 25 mg tablet 25 mg PO Q2D 10/20/21 02/04/23 History fluoxetine 10 mg tablet 10 mg PO QAM 10/20/21 02/04/23 History irbesartan 300 mg tablet 300 mg PO HS 10/20/21 02/04/23 History rosuvastatin 5 mg tablet 5 mg PO .EVERY 3 DAYS 10/20/21 02/04/23 History aspirin 81 mg tablet,delayed 81 mg PO QAM 03/23/22 02/04/23 History release folic acid 800 mcg tablet 0.8 mg PO QAM 03/23/22 02/04/23 History acetaminophen 500 mg tablet 1,000 mg PO Q8 PRN Pain 01/30/23 02/04/23 History (Tylenol Extra Strength) doxycycline hyclate 100 mg tablet 100 mg PO BID 10 days #20 tabs 01/30/23 02/04/23 Rx hydroxyurea 500 mg capsule 1,000 mg (2 x 500 mg) PO 02/01/23 02/04/23 Rx MoWeFr@0900 #0 caps hydroxyurea 500 mg capsule 500 mg PO SuTuThSa@0900 #0 caps 02/01/23 02/04/23 Rx tramadol 50 mg tablet 50 mg PO Q4H PRN #0 tabs 02/01/23 02/04/23 Rx coenzyme Q10 100 mg capsule (Co 100 mg PO HS 02/04/23 02/04/23 History Q-10) multivitamin 1 tab PO QAM 02/04/23 02/04/23 History Patient History Medical History (Updated 02/08/23 @ 15:09 by Nieves Baxter MD) History of hematuria Occurred 4-5 years ago- clots in urine Avoids NSAIDs Hx of polycythemia vera Follows with [facility] On hydroxyurea History of prostate cancer Dx'ed 2007. S/p prostatectomy- no chemo or XRT Anxiety Hypertension Sleep apnea cpap Surgical History History of total knee replacement right Hx of colonoscopy Hx of radical prostatectomy History of shoulder replacement rt. History of shoulder surgery lt. Hx of tonsillectomy Family History Father Prostate cancer Heart disease Sister Heart disease Other No family history of adverse response to anesthesia No family history of bleeding disorder Social History Smoking Status: Never smoker Second Hand Exposure: Yes; Do You Dip or Chew Tobacco: No; Tobacco Cessation Education Requested by Patient: No Hx Alcohol Use: Yes Alcohol type: beer and wine Alcohol Intake Frequency Comment: socially Hx Substance Use: No Preferred Language: British Communication Ability: Effective Cableway Operator Required: No Beliefs That Will Affect Care: None marital status: Current Living Situation: Spouse current occupational status: retired Other Information That Helps Us Care for You: No Feels Safe at Home: Yes Safety Concerns: Feels Safe At This Time Assistive Devices: CPAP and Walker Physical Exam Physical Exam: Exam obtained with aid of in-person telepresenter. General: Tired-appearing, no acute distress HEENT: Conjunctivae non-injected, sclerae anicteric, MMM, OP clear. CV: RRR, Faint systolic murmur with loud S2 Resp: CTAB; no wheezes, rales, or rhonchi. Respirations nonlabored. Abd: Soft, nontender, nondistended. Normal bowel sounds throughout. No masses or organomegaly. Back: No tenderness to palpation along spine Ext: Tenderness over joints though without apparent effusion, erythema, or warmth Skin: No rashes or lesions. Neuro: Alert & interactive. Grossly non-focal. Psych: Pleasant, appropriate. Results & Data Vital Signs (Past 12 Hours) Vital Signs Temp Pulse Pulse Resp BP Pulse Ox O2 Del Method 02/08/23 11:38 39.2 C H 87 18 127/68 93 Room Air 02/08/23 07:54 37.2 C 78 18 124/66 98 Room Air 02/08/23 07:11 71 02/08/23 03:43 39.5 C H 87 18 124/68 93 Room Air, CPAP Diagnostic Findings Diagnostics: 02/04 CTA chest 1. No acute abnormality and in particular no evidence of acute aortic injury. 2. Trace free fluid in the left upper quadrant, similar to prior exam. 01/30 CTA chest 1. No acute pulmonary embolism. 2. Moderate splenomegaly 3. 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 Negative 23, 28, 30, 93, 23 kDa bands. Antibiotic Summary: Doxycycline (01/30-present) Abx Allergies: None
--- NOTE | 2023-02-08 17:33 | Hospitalist Progress Note ---
Date of Service February 08, 2023 Assessment & Plan (1) Lumbar spine pain: Plan: Severe, intractable sacral/lumbar pain on the evening of 02/03 Patient also endorses new onset, sharp pain between the shoulder blades He reports this pain is different from his body aches over the past 10 days, which are likely secondary to recent Lyme dx Reported taking 6 tablets of Tylenol, 2 tablets of tramadol, and 1 tablet of oxycodone over the course of 02/03 without pain relief Pain control; Tylenol/scaled diladid prn, lidoderm patch CTA negative for PE on 01/30. CTA chest negative for dissection 02/04. 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 Ordered bone marrow aspiration by IR. Spoke to log chipper who will speak to the interventional list to have the bone marrow aspiration done tomorrow. Infectious disease involved. Appreciate their input. Raised concerns for HL H. Spoke to the log chipper about the possibility of HL H. He recommended bone marrow biopsy Continue doxycycline for now Spoke to the who is requesting transfer to [facility]. I will initiate the process tomorrow. (2) Lyme disease: Plan: In the setting of polycythemia vera, Lyme testing + on 01/30, no rash. Admitted 01/30- 20 w/ severe arthralagia/myalgias Has been on Doxy BID since discharge, no issues w/ swallowing/dysphagia/esophagitis type discomfort CTA negative for dissection on admission CRP/ESR elevation further, blood cultures pending Continue Doxy IV BID for now, additional tick testing as above/peripheral smear/hematology consultation ?switch to Rocephin, denied any known allergies to abx in the past. ?drug reaction. NO RASH ON EXAM/NOTED BY PATIENT Has been NSR on monitor, PACs. Continued monitoring on telemetry ECHO obtained on admission, unremarkable. (3) Chest tightness: Plan: EKG showed NSR at 64 bpm; however new V1/V2 t-wave inversions compared to EKG on 01/30/2023 Clinically, patient endorses chest tightness, but no chest palpitations or SOB. Reports improvement since admission. CTa chest neg for dissection as above Incentive spirometer ordered for bibasilar crackles/suspect atelectasis. CTA on admit noting atelectasis vs scarring. 4mm nodule LL lobe ECHO unremarkable. Trop 8.4 on arrival. Has been NSR on monitor EKG w/ CP Denied any reflux type pain but could consider pepcid vs ppi daily? Continuous telemetry monitoring check mag [employer]Fire testing negative (4) Hx of polycythemia vera: Plan: [facility], prior Dr Finley Mildly elevated uric acid level at 8.2, despite no hx of gout; ?Secondary to PCV or Lyme Peripheral blood smear on 01/30 was consistent with PCV Hematology on board bone marrow biopsy planned for tomorrow Monitor CBC/peripheral smear in AM (5) Splenomegaly: Plan: Chronic; secondary to PCV further testing as above, hematology/oncology consulted (6) History of prostate cancer: Plan: S/p radical prostatectomy in 2006 ?metastatic disease. No focal tenderness at present. Hematology/oncology consulted as above ?need for CTAP/spinal imaging (7) Dehydration: Plan: on exam, dehydrated. likely 2nd to poor PO intake/chlorthalidone use placing diuretics on hold, 1L IVF given yesterday Labs improved Plan VTE PPx: SCDs, heparin 5000u SQ q12h while inpatient Continued inpatient stay Admission and Anticipated Discharge Date Admission Date: February 04, 2023 Subjective Patient continues to spike fevers. He still has the muscle aches, most pronounced in the right knee and hips. He denies any chest pain or shortness of breath. Review of Systems Review of Systems: All systems reviewed & are unremarkable except as noted in Subjective Physical Exam Physical Exam: General: Awake, conversant Heart: S1, S2/regular rate and rhythm, no murmur rubs or gallops Lungs: Clear to auscultation bilaterally. Normal effort Abdomen: Soft/nontender/nondistended. No hepatosplenomegaly Extremities: No clubbing/cyanosis. No edema Behavior: Appropriate, cooperative Results & Data Results & Data Vital Signs (Past 12 Hours) Vital Signs Temp Pulse Pulse Resp BP Pulse Ox O2 Del Method 02/08/23 16:56 82 02/08/23 16:24 39 C H 97 H 18 155/73 H 92 Room Air 02/08/23 11:38 39.2 C H 87 18 127/68 93 Room Air 02/08/23 07:54 37.2 C 78 18 124/66 98 Room Air 02/08/23 07:11 71 Laboratory Results Abnormal lab results 02/08/23 Range/Units 08:19 WBC 19.25 H (4.8-10.8) K/ul RBC 2.82 L (4.70-6.10) M/uL Hgb 9.6 L (14.0-18.0) g/dl Hct 28.8 L (42.0-52.0) % MCV 102.1 H (80.0-100.0) fL RDW Std Deviation 55.1 H (36.4-46.3) fL RDW Coeff of Nikia 14.8 H (11.5-14.5) % Plt Count 84 L (130-400) K/uL Sodium 134 L (136-145) mmol/L PG Care Time/CCT Total # of Minutes Spent Total Time Spent with Patient: Total time spent is greater than 50% in coordination of care (as documented) at patient's floor/unit and/or counseling patient: Coding Level of Care Code 02991 SUB INP/OBS CARE 2/35MIN Diagnoses Lumbar spine pain M54.50 Lyme disease A69.20 Chest tightness R07.89 Hx of polycythemia vera Z86.2 Splenomegaly R16.1 History of prostate cancer Z85.46 Dehydration E86.0
[2023-02-08 18:16] LABS: Fibrinogen 707 mg/dl (184-400)
[2023-02-08 18:20] LABS: D Dimer 2960 ug/L FEU (0-500)
[2023-02-08 19:11] LABS: INR 1.4 (0.9-1.1); Partial Thromboplastin Ratio 1.6; Prothrombin Time 15.1 Seconds (9.0-12.0)
[2023-02-08 19:25] LABS: Partial Thromboplastin Time 44.9 Seconds (21.0-31.0)
[2023-02-08] MEDS ORDERED: OPTIRAY 320 125ml IV ONE (20:05)
--- NOTE | 2023-02-08 20:40 | CT Scan Report ---
Exam(s): CTA CHEST IV Amt: 119 ml optiray 320 EXAM: CT Angiography Chest With Intravenous Contrast CLINICAL HISTORY: Reason for exam: PE. TECHNIQUE: Axial computed tomographic angiography images of the chest with intravenous contrast. CTDI is 33.79 mGy and DLP is 731.39 mGy-cm. Automated exposure control was utilized for the study. A dose lowering technique was utilized adhering to the principles of ALARA. MIP reconstructed images were created and reviewed. COMPARISON: No relevant prior studies available. FINDINGS: Pulmonary arteries: Unremarkable. No acute pulmonary embolism. Aorta: No acute findings. No thoracic aortic aneurysm. Lungs: Mild, patchy bilateral airspace consolidations, concerning for multifocal pneumonia. Pleural space: Trace bilateral pleural effusions. No pneumothorax. Heart: Unremarkable. No cardiomegaly. No significant pericardial effusion. No evidence of RV dysfunction. Bones/joints: No acute fracture. No dislocation. Soft tissues: Unremarkable. Lymph nodes: Unremarkable. No enlarged lymph nodes. IMPRESSION: 1. No acute pulmonary embolism. 2. Mild, patchy bilateral airspace consolidations, concerning for multifocal pneumonia. 3. Trace bilateral pleural effusions. No pneumothorax. Electronically signed by: Gregorio Tapia MD 02/08/23 20:39 PM
--- NOTE | 2023-02-09 01:01 | Ultrasound Report ---
Exam(s): US VENOUS BILATERAL LOWER EXTREMITIES EXAM: US Duplex Bilateral Lower Extremities Veins CLINICAL HISTORY: Reason for exam: ?DVT, DD. TECHNIQUE: Real-time duplex ultrasound scan of the bilateral lower extremity veins integrating B-mode two-dimensional vascular structure, Doppler spectral analysis, color flow Doppler imaging and compression. COMPARISON: No relevant prior studies available. FINDINGS: Right deep veins: Unremarkable. No DVT in the right common femoral, femoral, proximal deep femoral or popliteal veins. The veins demonstrate normal color flow, are normally compressible, with normal phasic flow and/or augmentation response. Right superficial veins: Unremarkable. No thrombus in the visualized right great saphenous vein. Left deep veins: No DVT in the RIGHT lower extremity. Left superficial veins: Superficial thrombus in the LEFT long saphenous vein extending from the popliteal fossa to the posterior distal calf. Soft tissues: No acute findings. No popliteal cyst. IMPRESSION: No DVT in the bilateral lower extremities. Superficial thrombus in the LEFT long saphenous vein extending from the popliteal fossa to the posterior distal calf. Electronically signed by: Gregorio Tapia MD 02/09/23 01:00 AM
[2023-02-09] MEDS: MoRPHine SULFATE 2 MG/ML CARP IV PRN ×4 (01:17→18:48)
[2023-02-09] MEDS: SODIUM CHLORIDE 0.9% 1,000 ML IV SCH ×2 (03:11→13:48)
[2023-02-09] MEDS: ACETAMINOPHEN 325 MG TAB PO PRN ×4 (03:12→20:35)
[2023-02-09 06:26] LABS: Hematocrit (blood only) 25.2 % (42.0-52.0); Hemoglobin 8.5 g/dl (14.0-18.0); Mean Corpuscular Hemoglobin 34.1 pg (25.0-34.0); Mean Corpuscular Hgb Conc 33.7 g/dL (32.0-36.0); Mean Corpuscular Volume 101.2 fL (80.0-100.0); Mean Platelet Volume 12.1 fL (9.4-12.4); Platelet Count 66 K/uL (130-400); RDW Coefficient of Variation 14.7 % (11.5-14.5); RDW Standard Deviation 53.5 fL (36.4-46.3); Red Blood Count 2.49 M/uL (4.70-6.10); White Blood Count 18.35 K/ul (4.8-10.8)
[2023-02-09 07:03] LABS: BUN Creatinine Ratio 17.4 (10-20); Calcium 8.7 mg/dl (8.6-10.3); Creatinine Clr Calc Pharmacy 66.4 ml/min; Est GFR (African American) 72.8 ml/min; Est GFR (Non-African American) 62.8 ml/min; Potassium 3.9 mmol/L (3.5-5.1)
[2023-02-09 07:16] LABS: INR 1.5 (0.9-1.1); Partial Thromboplastin Ratio 1.6; Prothrombin Time 15.9 Seconds (9.0-12.0)
[2023-02-09] MEDS: DOXYCYCLINE HYCLATE 100 MG in DEXTROSE 5% MINI-B 100 ML IV SCH ×2 (07:38→20:31)
[2023-02-09 07:51] LABS: Partial Thromboplastin Time 46.3 Seconds (21.0-31.0)
[2023-02-09] MEDS ORDERED: VANCOMYCIN CONSULT ACTIVE PRN (08:16)
--- NOTE | 2023-02-09 08:26 | Hospitalist Progress Note ---
Date of Service February 09, 2023 Assessment & Plan (1) Neutrophilic leukocytosis: Plan: White count level to minimally decreased, most recent peripheral smear review no longer shows blasts and the overall picture seems to be moving away from a priscilla acute leukemic transformation of his P vera. He has evolving pulmonary infiltrates but no evidence of pulm embolism or DVT, superficial venous thrombosis is noted but it is not likely to be responsible for the levels of fever and clinical changes that we see here. Infectious disease evaluation is not able to pinpoint an infectious process that we do note the evolving fluffy pulmonary infiltrates. Marrow aspiration and biopsy is pending and would be a source for additional evaluation for leukemic transformation, HLH, other infectious process. It would be well worthwhile to transfer the patient to a quaternary center, however, for both diagnostic and therapeutic experience may be more attuned to what is working out to be an unusual situation. While HLH is a statistically rare event, he does have elevated LDH, ferritin, and an evolving bicytopenia which could fit with that diagnosis. Soluble interleukin-2 receptor is pending and we will recheck liver enzymes. Marrow may be even more definitive. Plan Marrow aspiration and biopsy today if at all possible with particular focus on infectious disease stains, assessment for HLH, and assessment for an evolving hematologic process by light microscopy and genetic review Continued close collaboration with infectious disease as to appropriate empiric antibiotics given the lung infiltrates Although he has only a superficial thrombosis, in the setting I think it would be important to be aggressive with anticoagulation so long as his platelet count remains above 50,000. Could easily see this extending into a DVT without appropriate treatment Facilitated transfer to a quaternary institution could be very important given that we do appear to be dealing with an aggressive yet unusual constellation of symptoms and signs Admission and Anticipated Discharge Date Admission Date: February 04, 2023 Subjective Ill but not toxic, still mentating well and remains ambulatory with a nonfocal neuro Physical Exam Physical Exam: Continues to spike fevers to 39.5 Results & Data Results & Data Vital Signs (Past 12 Hours) Vital Signs Temp Pulse Pulse Resp BP BP Pulse Ox 02/09/23 08:17 80 02/09/23 07:53 39.1 C H 73 19 151/71 H 90 02/09/23 03:51 36.8 C 89 18 145/70 H 91 02/09/23 00:00 02/08/23 23:22 36.6 C 81 16 131/69 94 02/08/23 22:03 76 O2 Del Method 02/09/23 08:17 02/09/23 07:53 Room Air 02/09/23 03:51 Room Air 02/09/23 00:00 Room Air 02/08/23 23:22 Room Air 02/08/23 22:03 Laboratory Results Laboratory Results - last 24 hr 02/08/23 02/08/23 02/09/23 08:19 17:09 05:51 WBC 19.25 H 18.35 H RBC 2.82 L 2.49 L Hgb 9.6 L 8.5 L Hct 28.8 L 25.2 L MCV 102.1 H 101.2 H MCH 34.0 34.1 H MCHC 33.3 33.7 RDW Std Deviation 55.1 H 53.5 H RDW Coeff of Nikia 14.8 H 14.7 H Plt Count 84 L 66 L MPV 11.7 12.1 PT 15.1 H 15.9 H INR 1.4 H 1.5 H APTT 44.9 H* 46.3 H* PTT Ratio 1.6 1.6 Fibrinogen 707 H D-Dimer 2960 H* Sodium 134 L 132 L Potassium 4.4 3.9 Chloride 101 99 Carbon Dioxide 26 25 Anion Gap 7 8 BUN 20 20 Creatinine 1.17 1.15 Est Cr Clr Drug Dosing 66.1 66.4 Est GFR ( Amer) 71.3 72.8 Est GFR (Non-Af Amer) 61.5 62.8 BUN/Creatinine Ratio 17.1 17.4 Glucose 94 97 Calcium 9.4 8.7 Triglycerides 221 H Interleukin 2-Receptor Pending Adenovirus Source Pending Adenovirus (PCR) Pending A. phagocytophilum DNA Pending Babesia microti IgG Ab Pending Babesia microti IgM Ab Pending Babesia Interpretation Pending Bartonella henselae IgG Pending Bartonella henselae IgM Pending Bartonella vázquez IgG Pending Bartonella vázquez IgM Pending CMV Specimen Source Pending CMV Qnt PCR IU/mL Pending CMV Qnt PCR log IU/mL Pending E. chaffeensis IgG Ab Pending E. chaffeensis IgM Ab Pending E.chaffeensis DNA (PCR) Pending E. chaffeensis Interp Pending E. chaffeensis Comment Pending EBV Source Pending EBV DNA, Quant Pending EBV DNA (PCR) Pending Herpes Virus Source Pending HSV I DNA PCR Pending HSV II DNA PCR Pending HIV (1&2) Ag & Ab Conf Pending Parvovirus Source Pending Parvovirus IgG Ab Index Pending Parvovirus IgM Ab Index Pending Parvovirus B19 DNA PCR Pending Parvov B19 PCR logIU/mL Pending Varicella-Zoster Source Pending VZV DNA (PCR) Pending Diagnostic Findings Chest CTA 02/08/23 18:36 Exam(s): CTA CHEST IV Amt: 119 ml optiray 320 EXAM: CT Angiography Chest With Intravenous Contrast CLINICAL HISTORY: Reason for exam: PE. TECHNIQUE: Axial computed tomographic angiography images of the chest with intravenous contrast. CTDI is 33.79 mGy and DLP is 731.39 mGy-cm. Automated exposure control was utilized for the study. A dose lowering technique was utilized adhering to the principles of ALARA. MIP reconstructed images were created and reviewed. COMPARISON: No relevant prior studies available. FINDINGS: Pulmonary arteries: Unremarkable. No acute pulmonary embolism. Aorta: No acute findings. No thoracic aortic aneurysm. Lungs: Mild, patchy bilateral airspace consolidations, concerning for multifocal pneumonia. Pleural space: Trace bilateral pleural effusions. No pneumothorax. Heart: Unremarkable. No cardiomegaly. No significant pericardial effusion. No evidence of RV dysfunction. Bones/joints: No acute fracture. No dislocation. Soft tissues: Unremarkable. Lymph nodes: Unremarkable. No enlarged lymph nodes. IMPRESSION: 1. No acute pulmonary embolism. 2. Mild, patchy bilateral airspace consolidations, concerning for multifocal pneumonia. 3. Trace bilateral pleural effusions. No pneumothorax. Electronically signed by: Gregorio Tapia MD 02/08/23 20:39 PM Venous Doppler Study 02/08/23 18:36 Exam(s): US VENOUS BILATERAL LOWER EXTREMITIES EXAM: US Duplex Bilateral Lower Extremities Veins CLINICAL HISTORY: Reason for exam: ?DVT, DD. TECHNIQUE: Real-time duplex ultrasound scan of the bilateral lower extremity veins integrating B-mode two-dimensional vascular structure, Doppler spectral analysis, color flow Doppler imaging and compression. COMPARISON: No relevant prior studies available. FINDINGS: Right deep veins: Unremarkable. No DVT in the right common femoral, femoral, proximal deep femoral or popliteal veins. The veins demonstrate normal color flow, are normally compressible, with normal phasic flow and/or augmentation response. Right superficial veins: Unremarkable. No thrombus in the visualized right great saphenous vein. Left deep veins: No DVT in the RIGHT lower extremity. Left superficial veins: Superficial thrombus in the LEFT long saphenous vein extending from the popliteal fossa to the posterior distal calf. Soft tissues: No acute findings. No popliteal cyst. IMPRESSION: No DVT in the bilateral lower extremities. Superficial thrombus in the LEFT long saphenous vein extending from the popliteal fossa to the posterior distal calf. Electronically signed by: Gregorio Tapia MD 02/09/23 01:00 AM PG Care Time/CCT Total # of Minutes Spent Total Time Spent with Patient: Total time spent is greater than 50% in coordination of care (as documented) at patient's floor/unit and/or counseling patient: Coding Level of Care Code 78997 SUB INP/OBS CARE 125MIN Diagnoses Neutrophilic leukocytosis D72.9
[2023-02-09] MEDS ORDERED: VANCOMYCIN HCL 2,000 MG in SODIUM CHLORIDE 0.9% 500 ML IV ONE (08:30)
[2023-02-09] MEDS ORDERED: ACETAMINOPHEN 1000 MG/100 ML IV IV ONE (09:17)
[2023-02-09] MEDS ORDERED: fentaNYL citrate PF 100 MCG/2 ML VIAL ONE (09:17)
[2023-02-09 09:23] LABS: Albumin Level 3.2 gm/dl (3.4-5.0); Bilirubin Direct 0.3 mg/dl (0-0.2)
--- NOTE | 2023-02-09 09:34 | Infectious Disease Progress Nt ---
Date of Service February 09, 2023 Assessment & Plan (1) Arthralgia: (2) Myalgia: (3) Lyme disease: (4) Acute Lyme disease: (5) Splenomegaly: (6) Anemia: (7) Thrombocytopenia: (8) Neutrophilic leukocytosis: (9) Fever: Plan Mauro Hernandez is a 72-year-old man with history of polycythemia vera on hydroxyurea, splenomegaly, prostate cancer s/p radical prostatectomy in 2006, and malignant hypertension, recent admission to [facility] 01/30-02/01/23 for myalgias and +Lyme +IgM and +IgG c/f acute lyme treated with doxycycline, who presents with 10 days of body aches, back pain, on 02/04, with daily fevers, persistent leukocytosis, anemia, thrombocytopenia, found to have ferritin >3000 and LDH >3000. ID is consulted to evaluate fevers and possible infection. Patient with recent presumptive diagnosis of Lyme disease given +IgM and +IgG with confirmatory Western Blot, no erythema migrans. He now presents with daily fevers, leukocytosis, and severe anemia (Hgb 8 to 9, down from baseline of 14 to 15), and worsening thrombocytopenia to the 80s. His +IgM and +IgG have 2 IgM ban ds and 6 IgG bands positive, and thus in the appropriate clinical context is suggestive of acute Lyme disease. However, it is unclear how much of his ongoing clinical presentation, if any, is attributable to Lyme. He has daily fevers, leukocytosis, elevated ferritin >3000, elevated LDH >3000, and bicytopenia (plts, Hgb), and splenomegaly of unclear etiology. His clinical picture is concerning for inflammation out of proportion to infection, and potentially suggestive of HLH; does not have hypofibrinoginemia or hypertriglyceridemia (TG 221) but does have elevated D-dimer. Pending IL-2R (CD25). Agree with hematology evaluation for HLH as well as potential other underlying etiology (e.g., heme malignancy) that may explain his cytopenias. HLH can be triggered by infection, including tickborne infection/Lyme disease. If pursuing BMBx, will follow results. Will evaluate for additional infections given his fever, leukocytosis, and possible HLH. This includes evaluating for infections that may precipitate HLH, including Bartonella, Histo, parvovirus B19, HSV/VZV/CMV/EBV, adenovirus, Ehrlichia, Anaplasma, Babesia (had prior negative Anaplasma/Babesia smears and Babesia PCR but not serology). Negative respiratory Biofire. Will also check HIV. The patients main exposures appear to be his indoor/outdoor cats, and [place] He does not have travel outside of the country nor any sick contacts or contacts with children. Would also favor CT A/P given the unclear cause of fevers. Can continue doxycycline for now given the possibility of acute Lyme disease and/or other tickborne infection. He has remained hemodynamically stable for several days without broad-spectrum antibiotics (had been only on doxycycline) and thus this makes a typical bacterial process less likely. CT scan with mild bilateral patchy infiltrates raising the question of a pneumonia, though the pt does not have a cough. He has several days of mild dyspnea on exertion, which may in part be attributable to his worsening anemia. He has already received doxy which would cover CAP/atypical organisms. He has been started on vancomycin and cefepime for possible HAP. Have ordered a MRSA nares, can stop vancomycin if negative. Can continue cefepime for now but would favor stopping this if no clinical improvement. 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 Stop vancomycin if negative - F/u HIV, Bartonella Ab, Histo UrAg, parvovirus IgG/IgM, parvovirus PCR. Send blood HSV-1/2, VZV, CMV, EBV, adenovirus PCRs. CMV Ab. Ehrlichia Ab, Ehrlichia PCR, Anaplasma Ab, Anaplasma PCR, Babesia Ab - Agree with hematology, would favor further evaluation for HLH. F/u IL-2R (CD- 25). - If pursuing BMBx, will follow results. Send for g/s, cx, and path, as well as additional studies per heme. - Obtain CT A/P ID will continue to follow. The patient may potentially transfer to another hospital today or in the coming days, and I will follow while he remains at [facility]. Nieves Baxter MD, [facility] Infectious Diseases [facility] direct line: [phone] Admission and Anticipated Discharge Date Admission Date: February 04, 2023 Subjective Subsequent visit was provided via telemedicine using two-way real-time interactive telecommunication between the patient and the telemedicine provider. For the duration of the visit, the provider was performing the assessment from a different facility than the patient. This includesuse of bluetooth stethoscope forauscultationperformed by the telepresenter that the telemedicine provider can hear if described in the physical exam. [employer] contact information: Please call [facility] Call Center [phone]. (Phone Number For Physician Use Only) After establishing a telemedicine visit, patient was: Patient was verified with two unique identifiers, Patient/authorized rep acknowledged consent and understanding and Gave permission to continue telehealth session Time Spent with Patient: Subsequent => 55 min - BMBx planned for today - T39.1 this am - WBC 18, Hgb 8.5 plt 66 - Feels overall the same as he did yesterday. No rash, no diarrhea. No coughing. Having the same dyspnea with exertion as he has had the last 2 weeks and does n ot think that it is any worse than usual Physical Exam Physical Exam: Exam obtained with aid of in-person telepresenter. General: Tired-appearing, no acute distress HEENT: Conjunctivae non-injected, sclerae anicteric, MMM, OP clear. CV: Unable to tele-auscultate due to technical difficulties; per telepresenter: RRR Resp: Unable to tele-auscultate due to technical difficulties; per telepresenter: CTAB. Respirations nonlabored and speaking full sentences at rest. Mild dyspnea on exertion. Abd: Soft, nontender, nondistended. Back: No tenderness to palpation along spine Ext: Tenderness over joints though without apparent effusion, erythema, or warmth Skin: No rashes or lesions. Neuro: Alert & interactive. Grossly non-focal. Psych: Pleasant, appropriate. Results & Data Vital Signs (Past 12 Hours) Vital Signs Temp Pulse Pulse Resp BP BP Pulse Ox 02/09/23 08:17 80 02/09/23 07:53 39.1 C H 73 19 151/71 H 90 02/09/23 03:51 36.8 C 89 18 145/70 H 91 02/09/23 00:00 02/08/23 23:22 36.6 C 81 16 131/69 94 02/08/23 22:03 76 O2 Del Method 02/09/23 08:17 02/09/23 07:53 Room Air 02/09/23 03:51 Room Air 02/09/23 00:00 Room Air 02/08/23 23:22 Room Air 02/08/23 22:03 Diagnostic Findings Diagnostics: 02/08 BLE US Duplex No DVT in the bilateral lower extremities. Superficial thrombus in the LEFT long saphenous vein extending from the popliteal fossa to the posterior distal calf. 02/08 CTA chest 1. No acute pulmonary embolism. 2. Mild, patchy bilateral airspace consolidations, concerning for multifocal pneumonia. 2.Trace bilateral pleural effusions. No pneumothorax. 02/04 CTA chest 1. No acute abnormality and in particular no evidence of acute aortic injury. 2. Trace free fluid in the left upper quadrant, similar to prior exam. 01/30 CTA chest 1. No acute pulmonary embolism. 2. Moderate splenomegaly 3. Trace perisplenic free fluid Micro Summary: 02/09 Babesia Ab: p 02/09 Bartonella Ab: p 02/09 Parvovirus Ab: p; parvovirus PCR: p 02/09 HIV: p 02/09 CMV PCR: p; EBV PCR: p; HSV1/2 PCR:p; VZV PCR: p 02/09 Erhlichia PCR: p; Ehrlichia Ab: p 02/09 triglycerides 221; IL-2R pending; D-dimer 2960; fibrinogen: 707 02/09 serum adenovirus: p 02/08 Anaplasma PCR: p 02/05 Biofire ANALYST respiratory PCR panel neg 02/05 Anaplasma smear neg 02/05 Babesia smear neg, Babesia PCR neg 02/04 BCx x2 NG 01/30 BCx x2 NG 01/30 EBV Capsid IgG 199 (elevated), IgM <36 neg, EBNA 178 elevated; c/w past infection 01/30 monospot negative 01/30 Lyme Ab +IgM and +IgG Western blot showing positivity for 18, 39, 41, 45, 58, 66 kDa bands. Negative 23, 28, 30, 93, 23 kDa bands. Antibiotic Summary: Doxycycline (01/30-present) Vancomycin (02/09-present) Cefepime (02/09-present)
[2023-02-09] MEDS: COQ10 PO SCH (10:19)
[2023-02-09 10:21] LABS: ALC (manual) 2.39 K/uL (1.2-3.4); ANC (manual) 12.66 K/uL (1.4-6.5); Blast # (manual) 0.37 K/uL (0-0); Blast Cells % (manual) 2 %; Lymphocytes # (manual) 2.39 K/uL (1.2-3.4); Lymphocytes % (manual) 13 %; Metamyelocytes # (manual) 0.37 K/uL (0-0); Metamyelocytes % (manual) 2 %; Monocytes % (manual) 12 %; Myelocytes # (manual) 0.37 K/uL (0-0); Myelocytes % (manual) 2 %; Neutrophils # (manual) 12.66 K/uL (1.40-6.50); Neutrophils % (manual) 69 %
[2023-02-09] MEDS: FOLIC ACID 400 MCG TAB PO SCH (10:21)
[2023-02-09] MEDS: FLUoxetine HCL 10 MG CAP PO SCH (10:21)
[2023-02-09] MEDS: ROSUVASTATIN CALCIUM 5 MG TAB PO SCH (10:21)
[2023-02-09] MEDS: CEFEPIME 2,000 MG in SYRINGE 0 ML IV SCH ×2 (10:22→16:15)
[2023-02-09 10:44] LABS: Bone Marrow Smear SLHOLD; Polychromasia 1+
[2023-02-09] MEDS ORDERED: HYDROmorphone INJ 1 MG/ML SYRINGE IV ONE ×2 (10:58→13:45)
--- NOTE | 2023-02-09 13:17 | CT Scan Report ---
CT-guided bone marrow biopsy INDICATION: Leukocytosis PROCEDURE: Procedure and risks were explained. Informed consent was obtained. A final timeout was com pleted. The patient was placed prone on the exam table. The left gluteal region was prepped and drape d in sterile fashion. 1% buffered lidocaine was utilized for skin anesthesia. Utilizing CT guidance, an 11-gauge bone biopsy needle was advanced into the left iliac bone. Multiple aspirates were attempted, however the aspiration was a dry tap. One bone core was obtained and given to the lab. The needle was removed and Band-Aid applied. The patient tolerated the procedure well. V ital signs will be monitored postprocedure. IMPRESSION: Bone marrow biopsy as above. Performed, dictated, and signed by Vaughn Carrizales PA-C; to be co-signed by Dr. Micheal Hernandez. Electronically signed by: Micheal Hernandez M.D. 02/09/2023 3:57 PM
--- NOTE | 2023-02-09 14:10 | CT Scan Report ---
CT OF THE ABDOMEN AND PELVIS WITHOUT CONTRAST CLINICAL HISTORY: Fever. COMPARISON STUDY: CT of the abdomen and pelvis March 15, 2016. TECHNIQUE: Axial images of the abdomen and pelvis were obtained without IV contrast. Images were revi ewed in the axial, sagittal, and coronal planes. Automated exposure control was utilized for the thomas dy. A dose lowering technique was utilized adhering to the principles of ALARA. FINDINGS: There are small bilateral pleural effusions. Interlobular septal thickening and patchy airs pace opacities are present. Excreted contrast within the collecting systems, ureters and bladder is f rom recent contrast-enhanced CT. Evaluation of the abdomen and pelvis is suboptimal on this unenhance d exam. Liver, adrenal glands and pancreas are unremarkable. The gallbladder is mildly distended. The re is no pericholecystic stranding. Moderate to marked splenomegaly has significantly increased since abdominal CT of March 15, 2016. Spleen measures 22 cm in craniocaudal dimension. There is trace per isplenic fluid. No evidence for a bowel obstruction. The appendix is normal. There is no lymphadenopa thy. No fluid collections are identified. No acute fractures are identified. There is anasarca. IMPRESSION: 1. Moderate to marked splenomegaly, significantly increased CT of March 15, 2016. This is nonspecifi c and a lymphoproliferative process cannot be excluded. Trace perisplenic fluid. No lymphadenopathy w ithin the abdomen or pelvis. 2. Mildly distended gallbladder. No adjacent infiltration to strongly suggest acute cholecystitis. Ho wever, if right upper quadrant pain, ultrasound is recommended. 3. Small bilateral pleural effusions with evidence for interstitial pulmonary edema. Airspace opaciti es within the lower lungs could reflect alveolar pulmonary edema or pneumonia. 4. No bowel obstruction. No bowel wall thickening on unenhanced exam. 5. Anasarca. ACT 112: Negative or not required by law. Electronically signed by: Micheal Hernandez M.D. 02/09/2023 2:08 PM
--- NOTE | 2023-02-09 14:25 | Pharmacy Report ---
Pharmacy PK ABX Note - Date of Service February 09, 2023 - Assessment and Plan Assessment 72 year old M receiving empiric vancomycin and cefepime for treatment of possible infectious process (fluffy pulmonary infiltrates) in patient w/ polycythemia vera. Bone marrow aspiration completed today, cultures pending. No growth in blood cultures from 02/04. Infectious diseases consulted, recommended d/c vancomycin if MRSA nasal swab is negative. Patient febrile w/ leukocytosis. Renal function appears to be at/near baseline. Day # 1 of antimicrobial therapy. Plan Vancomycin * Loading dose: 2000 mg IV x 1 * Maintenance dose: 1250 mg IV every 18 hours * Regimen is predicted to achieve target AUC/GER of 400-600 mg/L.hr * Will order vancomycin level if it is to be continued beyond 48 hours Cefepime * 2 g IV q8h - no change Pharmacy will continue to follow and will adjust dose/frequency as necessary. Thank you. Pharmacy has transitioned to AUC monitoring for vancomycin. AUC/GER is the preferred PK/PD target and is associated with decreased risk of nephrotoxicity compared to traditional trough targets.
--- NOTE | 2023-02-09 16:25 | Discharge Summary ---
Date of Service February 09, 2023 Admission HPI Per Admitting Provider Mauro is a 72-year-old male with PMH of Lyme disease, polycythemia vera, splenomegaly, prostate cancer s/p radical prostatectomy in 2006, and malignant hypertension. He presented for body aches in his shoulders, hips, knees, and elbows x10 days, as well as acute worsening of new onset lower back pain and pain between the shoulder blades since the night of 02/03. Recent diagnosis of Lyme disease on 01/30, with [facility] admission from 01/30-02/01. Patient reports that his body aches have not improved despite taking doxycycline as prescribed. He also notes that his pain worsened on 02/03, specifically his lumbar/sacral pain, which she describes as constant, sharp; rated 8/10. No radiation. He is unsure of alleviating/exacerbating symptoms. He reports that he took 6 tablets of Tylenol, 2 tablets of tramadol, and 1 tablet of oxycodone throughout the day on 02/03 without pain relief. He also endorses sharp stabbing pain between his shoulder blades, and mild pleuritic CP. He denies a history of tobacco use. [facility]cythemia vera. He reports that he took his morning medications, and that there have been no recent changes in medications. Vitals are stable at time of admission. ED course: NSS 500 mL Toradol 10 mg IV Morphine 2 mg IV ROS: Patient endorses mild pleuritic CP, mild chest tightness, joint pain, new onset lower back pain, and pain between the shoulder blades. Patient denies fever, chills, sweats, CP, chest palpitations, SOB, abdominal pain, N/V/D, burning with urination, urinary symptoms, or numbness and tingling in the UEs or LEs. Patient denies PMH of TX, DVT/PE, diabetes, or CVA Admission Exam Per Admitting Provider General: Moderate physical distress; non-toxic appearing; cooperative HEENT: normocephalic, atraumatic; no scleral icterus; PERRLA w/ EOMs intact; moist mucus membrane; vision and hearing grossly intact Neck: supple; no lymphadenopathy; trachea midline Skin: warm, dry without signs of tenting; no cyanosis; no rashes, bruising, lesions, or erythema noted CV: chest wall NTP; RRR; S1/S2 normal; no murmurs/rubs/gallops; pulses intact and symmetric at radial, DP, and PT Lungs: no acute respiratory distress; symmetrical chest wall expansion; clear breath sounds across all lung alaniz w/o adventitious sounds; no wheezing ABD: Soft, NTP; BS present; no rebound/guarding; no ascites; no distention; no rashes or bruising; positive for splenomegaly Back: Positive CVA tenderness B/L; TTP in the lower lumbar spine around the sacrum; no contreras rashes or bruising on the back MSK: no tics or fasciculations; no edema noted in the LEs b/l Neuro: A&Ox3; normal mood and affect; fluent speech; no focal deficits; sensation grossly intact in the LEs B/L Principal Diagnosis Acute febrile illness Fever of unknown etiology Lyme's disease leukocytosis, Anemia and thrombocytopenia Superficial vein thrombosis in left lower extremity Possible pneumonia Splenomegaly Discharge Exam General: Awake, conversant Heart: S1, S2/regular rate and rhythm, no murmur rubs or gallops Lungs: Clear to auscultation bilaterally. Normal effort Abdomen: Soft/nontender/nondistended. No hepatosplenomegaly Extremities: No clubbing/cyanosis. No edema Behavior: Appropriate, cooperative Discharge Data Allergies Allergy/AdvReac Type Severity Reaction Status Date / Time No Known Drug Allergies Allergy 0 Verified 02/04/23 12:26 Consultations 02/05/23 08:17 Consult Hematology Routine 02/07/23 13:37 Consult Infectious Diseases Routine Procedures Performed bone marrow biopsy done today 02/09, results pending Ordered Studies 02/04/23 13:30 CTA chest dissec wo/w con [CT angio chest dissec wo/w con] Stat 02/08/23 14:50 IR bone marrow bx & asp Routine 02/08/23 18:36 CT angio chest PE protocol Stat US venous doppler LE BI Stat 02/09/23 08:56 CT abd pelvis wo con Routine Hospital Course (1) Lumbar spine pain: Severe, intractable sacral/lumbar pain on the evening of 02/03 Patient also endorses new onset, sharp pain between the shoulder blades He reports this pain is different from his body aches over the past 10 days, which are likely secondary to recent Lyme dx Reported taking 6 tablets of Tylenol, 2 tablets of tramadol, and 1 tablet of oxycodone over the course of 02/03 without pain relief Pain control; Tylenol/scaled diladid prn, lidoderm patch CTA negative for PE on 01/30. CTA chest negative for dissection 02/04. Noting trace free fluid in left upper quadrant WBC count Still elevated at 19,000 still having fever spikes Blood cultures negative so far Urinalysis negative Babesiosis PCR negative and anaplasmosis PCR pending CPK negative ESR/CRP elevated Dry End Tester on board given history of polycythemia bone marrow biopsy done today. Dry tap. we may not be able to send aspirate slides as it was a dry tap. Infectious disease involved. Appreciate their input. Raised concerns for HL H. Spoke to the business development recruiter about the possibility of HL H. Bone marrow biopsy done today Continue doxycycline for now D-dimer elevated Thromboembolism versus DIC CT angio ruled out PE. Lower extremity duplex ultrasound revealed a left lower extremity superficial vein thrombosis. No anticoagulation started in the setting of thrombocytopenia And since this is not a DVT DIC workup revealed elevated fibrinogen which goes against acute DIC. Although PT and INR was slightly elevated. Spoke to hematology and infectious disease. All agreed with transfer to [facility] for escalation of care and rheumatology evaluation for fever of unknown origin requesting transfer to [facility] Patient has been accepted by Dr. Bright at [facility] All images have been sent over to [facility] for review. Since this was a dry tap, aspirate slide could not be sent. CT chest showed findings suggestive of bilateral pneumonia. Patient was start ed on vancomycin and cefepime. Vancomycin discontinued since MRSA negative. (2) Lyme disease: In the setting of polycythemia vera, Lyme testing + on 01/30, no rash. Admitted 01/30- w/ severe arthralagia/myalgias Has been on Doxy BID since discharge, no issues w/ swallowing/dysphagia/esophagitis type discomfort CTA negative for dissection on admission CRP/ESR elevation further, blood cultures pending Continue Doxy IV BID for now, additional tick testing as above/peripheral smear/hematology consultation Has been NSR on monitor, PACs. Continued monitoring on telemetry ECHO obtained on admission, unremarkable. (3) Chest tightness: EKG showed NSR at 64 bpm; however new V1/V2 t-wave inversions compared to EKG on 01/30/2023 Clinically, patient endorses chest tightness, but no chest palpitations or SOB. Reports improvement since admission. CTa chest neg for dissection as above Incentive spirometer ordered for bibasilar crackles/suspect atelectasis. CTA on admit noting atelectasis vs scarring. 4mm nodule LL lobe ECHO unremarkable. Trop 8.4 on arrival. Has been NSR on monitor EKG w/ CP Denied any reflux type pain but could consider pepcid vs ppi daily? Continuous telemetry monitoring check mag [employer] testing negative (4) Hx of polycythemia vera: [facility], prior Dr Finley Mildly elevated uric acid level at 8.2, despite no hx of gout; ?Secondary to PCV or Lyme Peripheral blood smear on 01/30 was consistent with PCV Hematology on board bone marrow biopsy planned for tomorrow Monitor CBC/peripheral smear in AM (5) Splenomegaly: Chronic; secondary to PCV further testing as above, hematology/oncology consulted CT abdomen showed moderate to large splenomegaly. This will need to be evaluated at [facility] (6) History of prostate cancer: S/p radical prostatectomy in 2006 ?metastatic disease. No focal tenderness at present. Hematology/oncology consulted as above (7) Dehydration: on exam, dehydrated. likely 2nd to poor PO intake/chlorthalidone use placing diuretics on hold, 1L IVF given during the hospital stay Labs improved Plan transferred to [facility] Total Time Total Time Spent Total Time Spent (In Minutes): 35 Discharge Plan Discharge Items Patient Disposition: Transfer Acute Care Hospital Reason For Visit: ILLNESS, LYME DZ, LOWER BACK PAIN Discharge Diagnosis: Acute febrile illness Fever of unknown etiology Lyme's disease leukocytosis, Anemia and thrombocytopenia Superficial vein thrombosis in left lower extremity Possible pneumonia Splenomegaly Activity: As commented below Activity Comment: bedrest Non-emergency contact: Primary Care Provider Call non-emergency contact if: you have any medication questions Follow-up/Referrals: Florinda Verdin PA-C [Primary Care Provider] - Diet: Regular Addtl Attending Provider Instructions: Advised to note that you are being transferred to [facility] for escalation of care You will be evaluated by archeology professor, business development recruiter, infectious disease specialist Pending Studies at Discharge: Yes Studies:: bone marrow biopsy: This was a dry tap-aspirate slides may not be available to be sent to the [facility] Stand-Alone Forms: My [facility] Skilled Items Patient informed of condition?: Yes DNR: No Discharge Level of Care: Other Communicable Disease: No Discharge Prognosis: Other Lines: Peripheral IV Urinary Catheter: No Medications and DC Order Prescriptions: Continued irbesartan 300 mg tablet 300 mg PO HS chlorthalidone 25 mg tablet 25 mg PO Q2D fluoxetine 10 mg tablet 10 mg PO QAM rosuvastatin 5 mg tablet 5 mg PO .EVERY 3 DAYS Rx Instructions: 5 mg orally every 3 days; folic acid 800 mcg Tablet 0.8 mg PO QAM multivitamin Tablet 1 tab PO QAM coenzyme Q10 [Co Q-10] 100 mg Capsule 100 mg PO HS acetaminophen [Tylenol Extra Strength] 500 mg tablet 1,000 mg PO Q8 PRN (Reason: Pain) hydroxyurea 500 mg Capsule 1,000 mg PO MoWeFr@0900 Qty: 0 0RF hydroxyurea 500 mg Capsule 500 mg PO SuTuThSa@0900 Qty: 0 0RF Discontinued aspirin 81 mg Tablet,Delayed Release (Dr/Ec) 81 mg PO QAM doxycycline hyclate 100 mg tablet 100 mg PO BID 10 Days Qty: 20 0RF Rx Instructions: Start Date 01/30/23 - End Date 02/09/23 tramadol 50 mg Tablet 50 mg PO Q4H PRNQty: 0 0RF Discharge Orders: Discharge Order (Routine); Ordered 02/09/23 Ordered By: Doreen Garcia Admission Data Admit Date/Time: 02/04/23 15:54 Attending Provider: Doreen Garcia Admit Provider: Holden Pal Primary Care Provider: Florinda Verdin Other Providers: Deandre Finley; Rosibel Urias; Manav Phan; Farida Santacruz; Izzy Hayward; Fátima Cook; Carolina Paiz; Paulette Henderson; Libertad Eric; Mee Stack; Nieves Baxter; [facility] Coding Level of Care Code 41098 INP/OBS DISCH >30 MIN Diagnoses Lumbar spine pain M54.50 Lyme disease A69.20 Chest tightness R07.89 Hx of polycythemia vera Z86.2 Splenomegaly R16.1 History of prostate cancer Z85.46 Dehydration E86.0
[2023-02-09] MEDS ORDERED: VANCOMYCIN HCL 1,250 MG in SODIUM CHLORIDE 0.9% 250 ML IV SCH (21:00)
[2023-02-10 14:21] LABS: CMV IgM Antibody <30.00 AU/mL
[2023-02-12 10:22] LABS: Babesia microti IgG <1:64 titer (<1:64); HSV Type 1 DNA Not Detected (Not Detected); HSV Type 1&2 DNA Source Serum; HSV Type 2 DNA Not Detected (Not Detected)
[2023-02-12 15:07] LABS: Ehrlichia chaff DNA Bld Negative (Negative)
== END 2023-02-09 22:20 | disposition short-term general hospital (02) | DRG 867 ==
LOC: ED 10:09 → SUATTDRO 15:54 → EDINP 15:54 → 2N 16:19

== ENCOUNTER 2023-02-27 10:11 | Observation (INO) ==
--- OUTSIDE RECORDS SUMMARY | 2023-02-27 10:18 | External Medical Summary | Continuity of Care Document ---
Author Name Unknown Organization [facility] Address [address] [place] [address] [phone] Care Team Providers Care Irish Moss Bleacher Name Role Phone Florinda Noel Primary Care Physician [phone] Encounter [facility] [id number] Date(s): 02/10/23 - 02/23/[address] [phone] Encounter Diagnosis Thrombocytopenia(Discharge Diagnosis) - 02/10/23 Positive Lyme disease serology(Discharge Diagnosis) - 02/11/23 Elevated ferritin(Discharge Diagnosis) - 02/12/23 Anemia(Discharge Diagnosis) - 02/11/23 A-fib(Discharge Diagnosis) - 02/11/23 Acute hypoxic respiratory failure(Discharge Diagnosis) - 02/23/23 Splenomegaly(Discharge Diagnosis) - 02/11/23 Body aches(Discharge Diagnosis) - 02/11/23 Respiratory failure(Discharge Diagnosis) - 02/11/23 FUO (fever of unknown origin)(Discharge Diagnosis) - 02/10/23 Polycythemia vera (clinical)(Discharge Diagnosis) - 02/10/23 Discharge Disposition: Home w/ Home Health Care Attending Physician: MD Simon, Scott Abdalla Admitting Physician: MD Kolb Justin Referring Physician: MD Jose, Doreen Alvarez Allergies, Adverse Reactions, Alerts No Known Allergies Functional Status 02/23/23 History of Fall in Last 3 Months Chapa N o Presence of Secondary Diagnosis Chapa Ye s Use of Ambulatory Aid Chapa Crutches/can e/walker IV/Heparin Lock Fall Risk Chapa Yes Gait/Transferring Fall Risk Chapa Weak Mental Status Fall Risk Chapa Oriented t o own ability Chapa Fall Risk Score 60 Chapa Fall Risk High risk 02/23/23 Neurological Symptoms None ADLs Minimal assistance Facial Symmetry Symmetric Gait Steady Swallowing Difficulty None Level of Consciousness Neuro Alert Hallucinations Present None Speech Pattern Clear Immunizations Given and Recorded Vaccine Date Status Refusal Reason SARS-CoV-2 (COVID-19) mRNA-vacc - [id number] 1 12/22/22 Recorded SARS-CoV-2 mRNA (tozinameran 5y-11y) 12/23/21 Jude rded influenza virus vaccine, inactivated 12/23/21 Jude rded influenza virus vaccine, inactivated 12/31/20 Jude rded influenza virus vaccine, inactivated 2 12/18/19 Re corded influenza virus vaccine, inactivated 12/15/18 Jude rded influenza virus vaccine, inactivated 12/23/16 Jude rded influenza virus vaccine, inactivated 01/01/16 Jude rded influenza virus vaccine, inactivated 12/26/14 Jude rded influenza virus vaccine, inactivated 12/27/13 Jude rded influenza virus vaccine, inactivated 3 01/07/13 Re corded influenza virus vaccine, inactivated 11/19/11 Give n influenza virus vaccine, inactivated 11/06/10 Jude rded SARS-CoV-2 mRNA ([id number]) 4 06/28/21 Recorded SARS-CoV-2 (COVID-19) mRNA BNT-162b2 vax 5 12/12/20 Recorded SARS-CoV-2 (COVID-19) mRNA BNT-162b2 vax 6 05/11/20 Recorded SARS-CoV-2 (COVID-19) mRNA BNT-162b2 vax 7 04/20/20 Recorded tetanus/diphtheria/pertuss, acel (Tdap) 8 10/10/20 Recorded tetanus/diphtheria/pertuss, acel (Tdap) 05/05/10 R ecorded zoster vaccine, inactivated 9 04/24/19 Recorded zoster vaccine, inactivated 10 02/20/19 Recorded pneumococcal 23-valent vaccine 09/11/15 Given pneumococcal 13-valent vaccine 07/09/14 Given zoster vaccine live 05/05/10 Recorded 1Result Comment: 2023-02-19: Historical information-source unspecified 2Result Comment: Jeremy KILGORE - [facility] 3Result Comment: [02/20/2013] Got @ [facility] 4Result Comment: 2021-06-30: Historical information-source unspecified 5Result Comment: 2020-12-13: Historical information-source unspecified 6Result Comment: 2020-10-02: Historical information-source unspecified 7Result Comment: 2020-10-02: Historical information-source unspecified 8Result Comment: DOM 9Result Comment: DOM 10Result Comment: DOM Medications aspirin Start: 02/20/10 8:32:12 EST, 81 mg =, PO, Daily, Refills: 0, current medication from another provider Start Date: 02/20/10 Status: Ordered Coenzyme Q10 100 mg oral capsule Start: 07/15/16 10:56:00, See Instructions, 1 cap by mouth every other day (alternate with 200mg tablet) Start Date: 07/15/16 Status: Ordered dexAMETHasone 1 mg oral tablet Start: 02/23/23 10:19:00 EST, 5 tab, PO, Daily, Disp# 5 tab, Refills: 0, Take 5 tabs, once a day, on 02/24/2023, Pharmacy: [facility] [place] Start Date: 02/23/23 Stop Date: 02/24/23 Status: Ordered FLUoxetine 10 mg oral capsule Start: 12/29/21 15:32:00 EDT, See Instructions, Disp# 90 cap, Refills: 4, TAKE 1 CAPSULE BY MOUTH EVERY DAY, Pharmacy: [id number] Start Date: 12/29/21 Status: Ordered folic acid 1 mg oral tablet Start: 07/17/19 8:08:00 EDT, 1 tab, PO, Daily Start Date: 07/17/19 Status: Ordered HumaLOG Sliding Scale Low Dose Range: SSI, injection, subQ, 02/20/23 16:30:00 EST, 02/20/23 16:30:00 EST, Estimated correction need for patients using total insulin daily dose between 31 and 60 units., 02/17/23 18:01:00 EST Start Date: 02/20/23 Stop Date: 02/20/23 Status: Completed HumaLOG Sliding Scale Low Dose Range: SSI, injection, subQ, 02/20/23 22:00:00 EST, 02/20/23 22:00:00 EST, Estimated correction need for patients using total insulin daily dose between 31 and 60 units., 02/17/23 18:01:00 EST Start Date: 02/20/23 Stop Date: 02/20/23 Status: Completed metoprolol succinate 50 mg oral tablet, extended release Start: 02/23/23 10:19:00 EST, 1 tab, PO, Daily, Disp# 30 tab, Refills: 0, take 1 tab, once a day. Do not crush or chew, Pharmacy: [facility] Start Date: 02/23/23 Stop Date: 03/25/23 Status: Ordered rosuvastatin 5 mg oral tablet Start: 11/05/22 9:13:00 EDT, See Instructions, Disp# 30 tab, Refills: 4, TAKE 1 TABLET BY MOUTH EVERY 72 HOURS, Pharmacy: [facility] Start Date: 11/05/22 Status: Ordered ruxolitinib 5 mg oral tablet Start: 02/17/23 13:26:00 EST, 1 tab, PO, bid, Disp# 60 tab, Refills: 1, Pharmacy: [facility] Start Date: 02/17/23 Stop Date: 04/18/23 Status: Ordered Mental Status 02/10/23 Primary Language Luxembourgish Problem List Condition Confirmation Course Effective Dates Status Health Status Informant ANXIETY Confirmed Active Arthrofibrosis of knee joint Confirmed Active BPPV (benign paroxysmal positional vertigo) Confirmed Active Coronary artery calcification seen on CAT scan Confirmed Active DIVERTICULOSIS OF COLON (WITHOUT MENTION OF HEMORRHAGE) Confirmed Active Shortness of breath Confirmed Active S/P knee replacement Confirmed Active Dyslipidemia Confirmed Active HYPERTENSION. 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 Medicare annual wellness visit, subsequent Confirmed Active PERSONAL HISTORY OF MALIGNANT NEOPLASM OF PROSTATE 2 Confirmed Active Polycythemia vera (clinical) Confirmed Active Post-viral cough syndrome Confirmed Active Need for immunization against typhoid Confirmed Active Need for hepatitis A and B vaccination Confirmed Active ROSACEA Confirmed Active UNSPECIFIED HEMORRHOIDS WITHOUT MENTION OF COMPLICATION Confirmed Active 1HDL: 26 2radical prostatectomy May 2006 Diagnosis Diagnosis Type Effective Dates Health Status Clinical Service Informant FUO (fever of unknown origin) Discharge Diagnosis 02/10/23 Non-Specified Thrombocytopenia Discharge Diagnosis 02/10/23 Polycythemia vera (clinical) Discharge Diagnosis 02/10/23 Body aches Discharge Diagnosis 02/11/23 Non-Specified Anemia Discharge Diagnosis 02/11/23 Non-Specified A-fib Discharge Diagnosis 02/11/23 Non-Specified Positive Lyme disease serology Discharge Diagnosis 02/11/23 Non-Specified Splenomegaly Discharge Diagnosis 02/11/23 Non-Specified Respiratory failure Discharge Diagnosis 02/11/23 Non-Specified Elevated ferritin Discharge Diagnosis 02/12/23 Non-Specified Acute hypoxic respiratory failure Discharge Diagnosis 02/23/23 Procedures Procedure Date Related Diagnosis Body Site Status Manipulation of knee joint u nder anesthetic 1 06/18/22 Completed Arthroplasty of right knee 04/28/22 Completed Chest X-ray 2 08/27/21 Completed Colonoscopy 3, 4, 5 12/12/19 Compl eted Chemical test for occult blood 6 01/11/17 Completed Femoral neck DEXA scan Z score 7 08/13/16 Completed R Total Shoulder Arthroplasty 07/27/16 Completed Full sleep study 8 05/20/16 [facility] Emergency medical services 9 03/14/16 Completed US scan of bladder 10 03/10/16 Com pleted Ultrasound procedure on urin gudelia AND/OR male genital system 11 03/04/16 Completed Ultrasound scan of abdomen a nd pelvis 12 03/04/16 Completed X-ray of right knee 13 06/16/15 Co mpleted Magnetic resonance imaging v enography 14 09/24/14 Completed MRA head 15 09/24/14 Completed MRA Neck with and without contrast 16 09/24/14 Completed MRI of brain 17 09/20/14 Completed colonoscopy: diverticulosis, anal papillae, int. hemor. 18 08/16/09 [facility] ed radical prostatectomy 2006 Com pleted colonoscopy 19 05/12/05 Completed hemorrhoidectomy , 2005 C ompleted Right knee arthroscopy 1990 Co mpleted Vasectomy 1988 Completed Left shoulder ORIF 1976 Comple rashaad Tonsillectomy, primary or se condary; younger than age 12 1953 Completed Emergency medical services Completed 1Right 2No acute cardiopulmonary findings. 3COLO to cecum, 3 mm DC polyp CF, left colon diverticulosis. 4final pathologic diagnosis; 1. Colon, descending, polypectomy: - hyperplastic polyp. 5repeat colonoscopy in 5 yrs 6negative 7Z score 1.6 which is sligthly higher seth the nroam limits for theri age and sex. fracture risk is lsow 8severe obstructive sleep apnea 9clogged urinary catheter 10Large volume complex and nonvascular mobile debris present within bladder lumen. Likely represents blood clots. Infectious or neoplastic process considered less likely. f/u with urology recommended. Post void residual volume measures approximately 200 cc. 11Normal bilateral testes Small right-sided hydrocele Subcentimeter bilateral epididymal head cysts Small left -sided varicocele 12No hydronephrosis no gallstones or billiary dilation Fatty liver 13Progressive osteoarthritic changes. Small joint effusion. No acute fracture. 14MRV of brain. Negative study. 15No significant stenosis, occlusion, or aneurysm seen in [place]. A tiny focal fenestration seen in proximal right [employer]. 16unremarkable MRA neck 17no acute intrcranial abnormality right mastoid effusion a metallic foreign body was noted in soft tissue of the forhead 18diverticulosis, hypertrophied anal papillae, internal hemorrhoids 19polyps 20and anal papilla removed 21internal, were excised Results Laboratory List Name Date Blood Type/Antibody Screen ( for possible transfusion) (Type and Screen (for possible transfusion)) 02/23/23 Complete Blood Count w Differential (CBC w Platelets and Diff) 02/23/23 Comprehensive Metabolic Panel (CMP) 02/12 05/07 Magnesium Level 02/23/23 Phosphorus Level 02/23/23 Ferritin 02/23/23 Fibrinogen 02/23/23 Lactate Dehydrogenase (LDH) 02/23/23 Complete Blood Count w Differential (CBC w Platelets and Diff) 02/22/23 Comprehensive Metabolic Panel (CMP) 02/12 04/06 Magnesium Level 02/22/23 Phosphorus Level 02/22/23 Complete Blood Count w Differential (CBC w Platelets and Diff) 02/22/23 Comprehensive Metabolic Panel (CMP) 02/12 04/06 Magnesium Level 02/22/23 Phosphorus Level 02/22/23 Lactate Dehydrogenase (LDH) 02/22/23 Ferritin 02/22/23 Fibrinogen 02/22/23 Complete Blood Count w Differential (CBC w Platelets and Diff) 02/21/23 Glucose Meter (GLUCOSE METER) 02/21/23 Blood Glucose Monitoring Nurse POC (Gluc ose Meter Nurse POC) 02/21/23 Added on Lab order 02/21/23 Ferritin 02/21/23 Fibrinogen 02/21/23 Lactate Dehydrogenase (LDH) 02/21/23 Complete Blood Count w Differential (CBC w Platelets and Diff) 02/21/23 Creatine Kinase, Total (CK) 02/21/23 Glucose Meter (GLUCOSE METER) 02/20/23 Complete Blood Count w Differential (CBC w Platelets and Diff) 02/20/23 Glucose Meter (GLUCOSE METER) 02/20/23 Complete Blood Count w Differential (CBC w Platelets and Diff) 02/19/23 Lyme Antibodies (IgG, IgM), Western Blot (LYME IGG IGM CONFIRM) 02/19/23 LAWANDA with Reflex titer 02/19/23 Blood Type/Antibody Screen ( for possible transfusion) (Type and Screen (for possible transfusion)) 02/19/23 Lyme Antibodies, IgG and IgM 02/19/23 Parvovirus B19 Ab, IgG and IgM 02/19/23 Complete Blood Count w Differential (CBC w Platelets and Diff) 02/18/23 JAK2 V617F mutation by PCR 02/17/23 Blood Type/Antibody Screen ( for possible transfusion) (Type and Screen (for possible transfusion)) 02/16/23 Complete Blood Count w Differential (CBC w Platelets and Diff) 02/16/23 Miscellaneous Lab Order 02/15/23 Legionella Antigen, Urine 02/15/23 Other Testing sent to [facility] (MISCELLANEOU S TEST 1) 02/15/23 Lactic Acid Level 02/15/23 Miscellaneous Lab Order 02/15/23 Lactic Acid Level 02/15/23 Lactic Acid Level 02/15/23 NT-Pro BNP 02/14/23 Troponin T (TROPONIN T) 02/14/23 NT-Pro BNP (BNP, NT-Pro) 02/14/23 Prothrombin Time w/ INR (INR) 02/14/23 Troponin T 02/14/23 Procalcitonin 02/14/23 Mario Alcocer Virus, by PCR, Blood (EBV, by PCR, Blood) 02/14/23 Venous Blood Gases (VBG Venous Blood Gas ) 02/13/23 Cytogenetics, Blood (Sent to [facility]) (CYTO [employer], BLD) 02/12/23 Osmolality, Urine (Urine Osmolality) Sodium, Urine, Random (Urine Sodium, Ran dom) 02/11/23 Creatinine, Urine, Random 02/11/23 HIV Viral Load, by PCR 02/11/23 CD4 Count 02/11/23 Added on Lab order 02/11/23 Added on Lab order 02/11/23 Herpes Simplex Virus 1/2 by PCR (HSV 1,2 by PCR) 02/11/23 Ammonia Level 02/11/23 Miscellaneous Lab Order 02/11/23 Miscellaneous Lab Order 02/11/23 Pathologist Review Smear Panel (Peripher al Smear, Pathology Review) 02/11/23 Blastomyces Antigen 02/11/23 Histoplasma Antigen 02/11/23 Miscellaneous Lab Order 02/11/23 Varicella zoster Virus, by PCR (VZV, by PCR) 02/11/23 Treponemal Ab Screen 02/11/23 Blastomyces Antigen 02/11/23 Blood Parasite Profile 02/11/23 Cytomegalovirus, by PCR, Blood (CMV, by PCR, Blood) 02/11/23 Leptospira AB Screen 02/11/23 Karen IL2 Receptor (IL2 Receptor (CD25), S oluble) 02/11/23 Bartonella Ab Screen (w/ reflex to Titer ) 02/11/23 Bartonella DNA by PCR 02/11/23 Histoplasma Antigen (HISTOPLASMA ANTIGEN ) 02/11/23 Osmolality (OSMOLALITY) 02/11/23 Other Testing sent to [facility] (MISCELLANEOU S TEST 1) 02/11/23 Other Testing sent to [facility] (MISCELLANEOU S TEST 1) 02/11/23 Other Testing sent to [facility] (MISCELLANEOU S TEST 1) 02/11/23 Other Testing sent to [facility] (MISCELLANEOU S TEST 1) 02/11/23 Other Testing sent to [facility] (MISCELLANEOU S TEST) 02/11/23 Other Testing sent to a Reference Lab (M ISCELLANEOUS TEST 1) 02/11/23 Uric Acid Level (URIC ACID) 02/11/23 Cell Count w Differential, Fluid (Fluid Cell Count w Differential) 02/10/23 Specimen Type (SPECIMEN TYPE) 02/10/23 Synovial Fluid Crystals (Crystals, Synov ial Fluid) 02/10/23 Venous Blood Gases (VBG Venous Blood Gas ) 02/10/23 D-Dimer, Quantitative (D-DIMER(QUANTITAT ED)) 02/10/23 HIV Screen w Reflex 02/10/23 Hepatitis C Antibody 02/10/23 Thyroid Stimulating Hormone (TSH) Folic Acid Level (Folate Level) 02/10/23 Pathologist Review Smear Panel 02/10/23 Vitamin B12 Level (B12 Level) 02/10/23 Histoplasma Antigen (HISTOPLASMA ANTIGEN ) 02/10/23 Parvovirus B19 Ab, IgG and IgM (PARVOVIR B19 IGG IGM) 02/10/23 Istat Gases Venous (RES THERAPY) (I-STAT GAS,ALESIA(RESPIRATORY THERAPY)) 02/10/23 Venous Blood Gases (VBG Venous Blood Gas ) 02/10/23 Folic Acid Level (Folate Level) 02/10/23 Vitamin B12 Level (B12 Level) 02/10/23 MRSA Surveillance (Nasal Swab) 02/10/23 Prothrombin Time w/ INR (PT/INR) 3 Osmolality, Urine (Urine Osmolality) Sodium, Urine, Random (Urine Sodium, Ran dom) 02/10/23 Urine Analysis w/ Reflexed M icroscopic. (Urinalysis w/ Reflexed Microscopic.) 02/10/23 Direct Antiglobulin Test (DIRECT AHG DORETHA T) 02/10/23 Partial Thromboplastin Time (PTT) Prothrombin Time w/ INR (PT/INR) 3 Thyroid Stimulating Hormone (TSH) Osmolality 02/10/23 Procalcitonin 02/10/23 C Reactive Protein, Quantitation (CRP, Q uantitation) 02/10/23 Erythrocyte Sedimentation Rate (ESR) Immature Platelet Fraction (IMM. PLT. FR ACTION) 02/10/23 CCP Antibody (ANTI-CCP) 02/10/23 Hepatitis B Core Antibody, IgG and IgM ( HEP B CORE AB G+M) 02/10/23 Hepatitis B Surface Antibody (HEP B SURF AB) 02/10/23 Hepatitis B Surface Antigen (HEP B SURF AG) 02/10/23 Hepatitis C Antibody (HEP C AB) 02/10/23 Immunoglobulin G (IGG) 02/10/23 Immunoglobulin M (IGM) 02/10/23 Rheumatoid Factor (RHEUMATOID FACTOR) Triglycerides (TRIGLYCERIDES) 02/10/23 Pathologist Review Smear Panel (Peripher al Smear, Pathology Review) 02/10/23 Most recent to oldest [Reference Range]: 1 2 3 4 5 Hct, POC [38-51 %] 29 % *LOW* (02/10/23 12:00 PM) Hgb, POC [12-17 g/dL] 9.9 g/dL *LOW* (02/10/23 12:00 PM) Parvovirus B19 IgG Ab 4.19 1 *HI* (02/19/23 5:57 AM) 3.20 2 *HI* (02/10/23 1:29 PM) Parvovirus B19 IgM Ab 0.24 3 (02/19/23 5:57 AM) 0.18 4 (02/10/23 1:29 PM) ABO/Rh A POSITIVE (02/23/23 9:56 AM) A POSITIVE (02/19/23 5:58 AM) A POSITIVE (02/16/23 6:30 AM) Antibody Scr NEGATIVE (02/23/23 9:56 AM) NEGATIVE (02/19/23 5:58 AM) NEGATIVE (02/16/23 6:30 AM) Anti-C3 NEGATIVE (02/10/23 3:08 AM) EWELINA,Anti-IgG NEGATIVE (02/10/23 3:08 AM) Expires at 0600AM on 02/26/2023 (02/23/23 9:56 AM) 02/22/2023 (02/19/23 5:58 AM) 02/19/2023 (02/16/23 6:30 AM) # Units 1 (02/23/23 9:56 AM) 0 (02/19/23 5:58 AM) 1 (02/16/23 6:30 AM) R Number NRQ (02/23/23 9:56 AM) NRQ (02/19/23 5:58 AM) NRQ (02/16/23 6:30 AM) CReacProt [<0.50 mg/dL] 32.48 mg/dL *HI* (02/10/23 3:02 AM) Test Description Francisella tularensis Antibody, IgM and IgG, HILL, Serum (02/11/23 3:36 AM) Result REPORT 02/18/2023 10:26 PM 5 (02/11/23 3:36 AM) HIV Viral Load, by PCR [<20 copies/mL] HIV-1 RNA not detected by Zulma Mahad 6800, (Real Time PCR) copies/mL (02/11/23 1:09 PM) HIV Viral Load (Log copies) [<1.30 Log copies/mL] NOT CALCULATED Log copies/mL (02/11/23 1:09 PM) B henselae IgG Screen TITER = LESS THAN 1:64 6 (02/11/23 3:36 AM) B driver IgG Screen TITER = LESS THAN 1:64 7 (02/11/23 3:36 AM) B henselae IgM Screen < 1:16 8 (02/11/23 3:36 AM) B driver IgM Screen < 1:16 9 (02/11/23 3:36 AM) eGFR CKD-EPI [>60 mL/min/1.73 m2] 81 mL/min/1.73 m2 (02/23/23 3:48 AM) 71 mL/min/1.73 m2 (02/22/23 4:18 PM) 85 mL/min/1.73 m2 (02/22/23 4:53 AM) Base Deficit (v), POC 4 mmol/L (02/10/23 12:00 PM) RF. [<14 I.U./mL] 17 I.U./mL *HI* (02/10/23 3:02 AM) Blood Glucose [70-120 mg/dL] 87 mg/dL 10 (02/21/23 8:00 AM) 147 mg/dL 11 *HI* (02/20/23 10:20 PM) 138 mg/dL 12 *HI* (02/20/23 5:00 PM) Source, Miscellaneous SERUM (02/11/23 3:36 AM) Glu (wb), POC by IStat [70-105 mg/dL] 113 mg/dL *HI* (02/10/23 12:00 PM) Blood Glucose Ref Range [70 - 120 mg/dl] (02/21/23 8:00 AM) Interleukin 2 Receptor (CD25), Soluble 3928.0 pg/mL 13 *HI* (02/11/23 3:36 AM) Lyme Antibodies, IgG/IgM [NEG] PRESUMPTIVELY POSITIVE, SCREENING ASSAY, CONFIRMATION TO FOLLOW *Abnormal* (02/19/23 5:57 AM) SaO2(v), POC [40-70 %] 89 % *HI* (02/10/23 12:00 PM) CMV, by PCR (bld), Log NOT CALCULATED I.U./mL (02/11/23 3:36 AM) Request of Physician CPK (02/21/23 4:22 AM) uric acid (02/11/23 3:38 AM) serum osmolaltiy (02/11/23 3:37 AM) Action Taken YES (02/21/23 4:22 AM) YES (02/11/23 3:38 AM) YES (02/11/23 3:37 AM) HIV Ag/Ab Screening [NR] NONREACTIVE (02/10/23 1:29 PM) FiO2 (v) REQUEST CREDITED % 14 (02/10/23 11:47 AM) D-dimer (q) [<0.54 ug/mL FEU] 4.33 ug/mL FEU 15 *HI* (02/10/23 2:28 PM) LAWANDA, by IFA [L80N] <1:80, NEGATIVE (02/19/23 5:57 AM) Smr (Path Rev) Technical portion complete. Interpretation to follow. (02/11/23 3:36 AM) Technical portion complete. Interpretation to follow. (02/10/23 1:29 PM) Technical portion complete. Interpretation to follow. (02/10/23 3:03 AM) O2 Flow (v) REQUEST CREDITED L/min 16 (02/10/23 11:47 AM) Imm. Retics [5.0-25.0 %] 14.2 % (02/11/23 3:36 AM) 7.0 % (02/10/23 1:29 PM) 16.4 % (02/10/23 3:03 AM) CCP Ab [<17.0 unit/mL] <12.0 unit/mL (02/10/23 3:02 AM) Immature Plt Fraction [1.0-7.3 %] 20.4 % *HI* (02/10/23 3:03 AM) Hypochromia SLIGHT (02/23/23 3:48 AM) SLIGHT (02/21/23 7:24 PM) SLIGHT (02/16/23 3:33 AM) Microcytes FEW (02/23/23 3:48 AM) FEW (02/21/23 7:24 PM) FEW (02/20/23 6:09 PM) Polychromasia INCREASED (02/23/23 3:48 AM) INCREASED (02/19/23 4:35 PM) INCREASED (02/16/23 3:33 AM) Schistocytes FEW (02/11/23 3:36 AM) Spherocytes FEW (02/19/23 4:35 PM) Basophilic Stippling SLIGHT (02/19/23 4:35 PM) Platelet Morphology NORMAL (02/23/23 3:48 AM) NORMAL (02/22/23 4:18 PM) NORMAL (02/22/23 4:53 AM) BNP, NT-Pro [<125 pg/mL] 1872 pg/mL *HI* (02/14/23 9:59 PM) REQUEST CREDITED pg/mL 17 (02/14/23 9:58 PM) LegionellaAg NEGATIVE 18 (02/15/23 4:18 PM) Source, Other WHOLE BLOOD SPECIMEN 19 (02/15/23 5:04 PM) edta plasma (02/15/23 2:30 PM) WHOLE BLOOD SPECIMEN 20 (02/11/23 3:36 AM) WHOLE BLOOD SPECIMEN 21 (02/11/23 3:36 AM) SERUM (02/11/23 3:36 AM) EBV, by PCR (bld) EBV DNA not detected I.U./mL 22 (02/14/23 5:36 AM) EBV, by PCR (bld), Log NOT CALCULATED I.U./mL (02/14/23 5:36 AM) EBV, by PCR, Srce BLOOD (02/14/23 5:36 AM) VZV, by PCR NOT DETECTED 23 (02/11/23 3:36 AM) VZV, by PCR, Source BLOOD (02/11/23 3:36 AM) Histoplasma Ag Interpretation REQUEST CREDITED 24 (02/11/23 3:36 AM) Negative 25 (02/11/23 3:36 AM) Negative 26 (02/10/23 1:29 PM) HBsAb Concentration [NR mIU/mL] NONREACTIVE mIU/mL (02/10/23 3:02 AM) [place], [place] 32 % (02/10/23 8:55 PM) Estimated CrCl 79.44 mL/min (02/23/23 4:45 AM) 70.77 mL/min (02/22/23 5:21 PM) 82.82 mL/min (02/22/23 5:48 AM) Treponemal Ab Screen [NR] NONREACTIVE (02/11/23 3:36 AM) Test Description 1 Microbial Cell Free DNA by Sequencing ([facility] Test),edta plasma to [facility] [id number] (02/15/23 2:30 PM) Brucella Antibody (Total) by Agglutination [facility] [id number] (02/11/23 3:36 AM) [place] PCR Bacterial Identification by 16S [facility] to [facility] (Test (02/11/23 3:36 AM) [place] Disease Panel by PCR, Blood [facility] [id number] (02/11/23 3:36 AM) Blastomyces Antigen Quantitative by EIA, Urine [facility] [id number] (02/11/23 3:36 AM) Result 1 REQUEST CREDITED 27 (02/15/23 2:30 PM) SEE NOTE 28 (02/11/23 3:36 AM) SEE NOTE 29 (02/11/23 3:36 AM) SEE NOTE 30 (02/11/23 3:36 AM) SEE NOTE 31 (02/11/23 3:36 AM) Leptospira Ab Igm NEGATIVE 32 (02/11/23 3:36 AM) Troponin T [<0.010 ng/mL] <0.010 ng/mL 33 (02/14/23 9:59 PM) REQUEST CREDITED ng/mL 34 (02/14/23 9:58 PM) Troponin T Delta NOT CALCULATED (02/14/23 9:59 PM) REQUEST CREDITED 35 (02/14/23 9:58 PM) Procalcitonin. [<0.08 ng/mL] 3.29 ng/mL 36 *HI* (02/14/23 9:59 PM) 10.49 ng/mL 37 *HI* (02/10/23 3:02 AM) Retic Hgb [30.8-36.6 pg] 30.4 pg *LOW* (02/11/23 3:36 AM) 32.4 pg (02/10/23 1:29 PM) 31.5 pg (02/10/23 3:03 AM) JAK2 V617F mutation by PCR Final report to be scanned into Powerchart. (02/17/23 3:27 AM) Lyme IgG Antibodies PRESUMPTIVELY NEGATIVE 38 (02/19/23 5:57 AM) Lyme IgM Antibodies PRESUMPTIVELY NEGATIVE 39 (02/19/23 5:57 AM) Lyme Antibodies Comment NOT REPORTED (02/19/23 5:57 AM) MPV [9.0-12.2 fL] 11.6 fL (02/23/23 3:48 AM) 11.3 fL (02/22/23 4:18 PM) 11.0 fL (02/22/23 4:53 AM) Immature Gran% 17.4 % (02/23/23 3:48 AM) 12.4 % (02/22/23 4:18 PM) 11.5 % (02/22/23 4:53 AM) Neut% 62.6 % (02/23/23 3:48 AM) 68.1 % (02/22/23 4:18 PM) 62.8 % (02/22/23 4:53 AM) Lymph% 10.4 % (02/23/23 3:48 AM) 12.4 % (02/22/23 4:18 PM) 15.1 % (02/22/23 4:53 AM) [place]% 7.0 % (02/23/23 3:48 AM) 7.1 % (02/22/23 4:18 PM) 9.7 % (02/22/23 4:53 AM) Baso% 0.9 % (02/23/23 3:48 AM) 0.0 % (02/22/23 4:18 PM) 0.0 % (02/22/23 4:53 AM) Eos% 0.0 % (02/23/23 3:48 AM) 0.0 % (02/22/23 4:18 PM) 0.0 % (02/22/23 4:53 AM) Other% 1.7 % 40 (02/23/23 3:48 AM) 0.9 % 41 (02/22/23 4:53 AM) 0.9 % 42 (02/21/23 7:24 PM) Immat Gran, Abs [0.0-0.4 K/uL] 2.08 K/uL *HI* (02/23/23 3:48 AM) 1.44 K/uL *HI* (02/22/23 4:18 PM) 1.72 K/uL *HI* (02/22/23 4:53 AM) Neut, Abs [2.0-7.7 K/uL] 7.47 K/uL (02/23/23 3:48 AM) 7.91 K/uL *HI* (02/22/23 4:18 PM) 9.40 K/uL *HI* (02/22/23 4:53 AM) Lymph, Abs [1.0-3.4 K/uL] 1.24 K/uL (02/23/23 3:48 AM) 1.44 K/uL (02/22/23 4:18 PM) 2.26 K/uL (02/22/23 4:53 AM) [place], Abs [0-1.0 K/uL] 0.84 K/uL (02/23/23 3:48 AM) 0.83 K/uL (02/22/23 4:18 PM) 1.45 K/uL *HI* (02/22/23 4:53 AM) Baso, Abs [0-0.1 K/uL] 0.11 K/uL *HI* (02/23/23 3:48 AM) 0.00 K/uL (02/22/23 4:18 PM) 0.00 K/uL (02/22/23 4:53 AM) Eos, Abs [0-0.5 K/uL] 0.00 K/uL (02/23/23 3:48 AM) 0.00 K/uL (02/22/23 4:18 PM) 0.00 K/uL (02/22/23 4:53 AM) Other, Abs [0.0 K/uL] 0.20 K/uL 43 *HI* (02/23/23 3:48 AM) 0.13 K/uL 44 *HI* (02/22/23 4:53 AM) 0.13 K/uL 45 *HI* (02/21/23 7:24 PM) Type of Diff: MANUAL (02/23/23 3:48 AM) MANUAL (02/22/23 4:18 PM) MANUAL (02/22/23 4:53 AM) RBC Morphology NORMAL (02/22/23 4:18 PM) NORMAL (02/22/23 4:53 AM) NORMAL (02/21/23 4:21 AM) RDW [11.5-14.2 %] 14.9 % *HI* (02/23/23 3:48 AM) 14.9 % *HI* (02/22/23 4:18 PM) 14.7 % *HI* (02/22/23 4:53 AM) Base Defic(v) 0.8 mmol/L (02/13/23 1:24 PM) 2.9 mmol/L (02/10/23 5:08 PM) REQUEST CREDITED mmol/L 46 (02/10/23 11:47 AM) Ayana pH REQUEST CREDITED unit 47 (02/10/23 11:47 AM) Ayana pCO2 REQUEST CREDITED mmHg 48 (02/10/23 11:47 AM) Ayana pO2 REQUEST CREDITED mmHg 49 (02/10/23 11:47 AM) Misc Test 1 Flexitest 1 50 (02/11/23 3:36 AM) Spec Type/Src1 WHOLE BLOOD SPECIMEN 51 (02/11/23 3:36 AM) Description1 Bartonella DNA, Qualitative Real Time PCR TO [facility] (02/11/23 3:36 AM) Histoplasma Ag REQUEST CREDITED 52 (02/11/23 3:36 AM) REPORT 53 (02/11/23 3:36 AM) REPORT 54 (02/10/23 1:29 PM) Histoplasma Ag, Specimen SERUM (02/11/23 3:36 AM) URINE (02/11/23 3:36 AM) SERUM (02/10/23 1:29 PM) Ion Ca(wb), POC [1.12-1.32 mmol/L] 1.26 mmol/L (02/10/23 12:00 PM) Na (wb), POC [138-146 mmol/L] 130 mmol/L *LOW* (02/10/23 12:00 PM) K (wb), POC [3.5-4.9 mmol/L] 4.4 mmol/L (02/10/23 12:00 PM) pH (v), POC [7.31-7.41 unit] 7.458 unit *HI* (02/10/23 12:00 PM) pCO2 (v), POC [41-51 mmHg] 26.2 mmHg *LOW* (02/10/23 12:00 PM) pO2 (v), POC [80-105 mmHg] 59 mmHg *LOW* (02/10/23 12:00 PM) HCO3(v), POC [23-28 mmol/L] 18.2 mmol/L *LOW* (02/10/23 12:00 PM) Component RED CELLS (02/23/23 9:56 AM) RED CELLS (02/19/23 5:58 AM) RED CELLS (02/16/23 6:30 AM) Bartonella DNA REORDERED BY LAB 55 (02/11/23 3:36 AM) Bartonella Cmt REORDERED BY LAB 56 (02/11/23 3:36 AM) Granular Casts (u) 20-29 (02/10/23 4:07 AM) Squamous Epithelial Cells (u) NONE (02/10/23 4:07 AM) Mucous (u) FEW (02/10/23 4:07 AM) CMV, by PCR (bld) CMV DNA not detected I.U./mL 57 (02/11/23 3:36 AM) HSV Subtype Source BLOOD (02/11/23 3:36 AM) HSV 1 Subtype, PCR NOT DETECTED (02/11/23 3:36 AM) HSV 2 Subtype, PCR NOT DETECTED 58 (02/11/23 3:36 AM) Blood Parasite Screen NONE DETECTED (02/11/23 3:36 AM) MRSA Surveillance, on Admission [MSND] MRSA NOT detected (02/10/23 5:57 AM) Blastomyces Ag NONE DETECTED 59 (02/11/23 3:36 AM) REORDERED BY LAB 60 (02/11/23 3:36 AM) Blastomyces Ag, Source SERUM 61 (02/11/23 3:36 AM) URINE (02/11/23 3:36 AM) Anion Gap [5-14 mmol/L] 13 mmol/L (02/23/23 3:48 AM) 14 mmol/L (02/22/23 4:18 PM) 12 mmol/L (02/22/23 4:53 AM) Alb [3.5-5.2 g/dL] 3.3 g/dL *LOW* (02/23/23 3:48 AM) 3.4 g/dL *LOW* (02/22/23 4:18 PM) 3.5 g/dL (02/22/23 4:53 AM) Alk Phos [40-130 unit/L] 96 unit/L (02/23/23 3:48 AM) 99 unit/L (02/22/23 4:18 PM) 100 unit/L (02/22/23 4:53 AM) ALT [0-41 unit/L] 26 unit/L (02/23/23 3:48 AM) 26 unit/L (02/22/23 4:18 PM) 28 unit/L (02/22/23 4:53 AM) AST [0-40 unit/L] 42 unit/L *HI* (02/23/23 3:48 AM) 44 unit/L *HI* (02/22/23 4:18 PM) 48 unit/L *HI* (02/22/23 4:53 AM) B12 [211-946 pg/mL] 1410 pg/mL *HI* (02/10/23 1:29 PM) 1378 pg/mL *HI* (02/10/23 1:29 PM) Bact (u) [NONE-NONE] FEW *Abnormal* (02/10/23 4:07 AM) Bili (u) [NEG] NEGATIVE 62 (02/10/23 4:07 AM) BUN [6-23 mg/dL] 38 mg/dL *HI* (02/23/23 3:48 AM) 42 mg/dL *HI* (02/22/23 4:18 PM) 40 mg/dL *HI* (02/22/23 4:53 AM) Ca [8.4-10.2 mg/dL] 9.2 mg/dL (02/23/23 3:48 AM) 9.4 mg/dL (02/22/23 4:18 PM) 9.5 mg/dL (02/22/23 4:53 AM) CPK [39-308 unit/L] 14 unit/L *LOW* (02/21/23 4:21 AM) Cl- [98-107 mmol/L] 102 mmol/L (02/23/23 3:48 AM) 99 mmol/L (02/22/23 4:18 PM) 100 mmol/L (02/22/23 4:53 AM) HCO3 [22-29 mmol/L] 22 mmol/L (02/23/23 3:48 AM) 22 mmol/L (02/22/23 4:18 PM) 23 mmol/L (02/22/23 4:53 AM) HBcAb [NR] NONREACTIVE (02/10/23 3:02 AM) Cret [0.70-1.30 mg/dL] 0.98 mg/dL (02/23/23 3:48 AM) 1.10 mg/dL (02/22/23 4:18 PM) 0.94 mg/dL (02/22/23 4:53 AM) BF Source SYNOVIAL (02/10/23 8:55 PM) ESR [0-40 mm/hr] 33 mm/hr (02/10/23 3:02 AM) Baso,fl 0 % (02/10/23 8:55 PM) Eos,fl 0 % (02/10/23 8:55 PM) Ferritin [30.0-400.0 ng/mL] 1861.0 ng/mL *HI* (02/23/23 3:50 AM) 2805.0 ng/mL *HI* (02/22/23 4:54 AM) 3077.0 ng/mL *HI* (02/21/23 5:09 AM) Fibr [208-435 mg/dL] 258 mg/dL (02/23/23 3:50 AM) 251 mg/dL (02/22/23 4:54 AM) 264 mg/dL (02/21/23 5:09 AM) Lymph,fl 45 % (02/10/23 8:55 PM) Nuc Cell,fl 431 /uL 63 (02/10/23 8:55 PM) Neut,fl 23 % (02/10/23 8:55 PM) Folate [>7.2 ng/mL] >20.0 ng/mL (02/10/23 1:29 PM) >20.0 ng/mL 64 (02/10/23 1:29 PM) OtherMono,fl 0 % (02/10/23 8:55 PM) RBC,fl >77219 /uL (02/10/23 8:55 PM) Glu [74-109 mg/dL] 118 mg/dL 65 *HI* (02/23/23 3:48 AM) 167 mg/dL 66 *HI* (02/22/23 4:18 PM) 96 mg/dL 67 (02/22/23 4:53 AM) Gluc Meter [74-109 mg/dL] 87 mg/dL (02/21/23 7:57 AM) 147 mg/dL *HI* (02/20/23 10:20 PM) 138 mg/dL *HI* (02/20/23 4:45 PM) HBsAg [NR] NONREACTIVE (02/10/23 3:02 AM) HBsAb [NR] NONREACTIVE (02/10/23 3:02 AM) Hct [39-48 %] 22.1 % *LOW* (02/23/23 3:48 AM) 24.3 % *LOW* (02/22/23 4:18 PM) 24.5 % *LOW* (02/22/23 4:53 AM) HCV Ab [NR] NONREACTIVE (02/10/23 1:29 PM) NONREACTIVE (02/10/23 3:02 AM) Hgb [13.0-17.0 g/dL] 7.5 g/dL *LOW* (02/23/23 3:48 AM) 8.1 g/dL *LOW* (02/22/23 4:18 PM) 8.2 g/dL *LOW* (02/22/23 4:53 AM) Hyper Seg PRESENT (02/18/23 6:36 PM) IgG [700-1600 mg/dL] 653 mg/dL 68 *LOW* (02/10/23 3:02 AM) IgM [40-230 mg/dL] 174 mg/dL 69 (02/10/23 3:02 AM) INR [0.9-1.1] 1.5 70 *HI* (02/14/23 9:58 PM) 1.9 71 *HI* (02/10/23 6:17 AM) REQUEST CREDITED 72 (02/10/23 3:02 AM) K [3.5-5.1 mmol/L] 5.1 mmol/L (02/23/23 3:48 AM) 4.6 mmol/L (02/22/23 4:18 PM) 4.8 mmol/L (02/22/23 4:53 AM) Ketones [NEG mg/dL] TRACE mg/dL *Abnormal* (02/10/23 4:07 AM) Lactate [0.5-2.2 mmol/L] 1.7 mmol/L (02/15/23 2:30 PM) 2.2 mmol/L (02/15/23 12:47 PM) 2.3 mmol/L *HI* (02/15/23 4:05 AM) LDH [135-250 unit/L] >2500 unit/L *HI* (02/23/23 3:50 AM) >2500 unit/L *HI* (02/22/23 4:54 AM) >2500 unit/L *HI* (02/21/23 5:09 AM) Leuk Est [NEG] NEGATIVE 73 (02/10/23 4:07 AM) MCH [28-33 pg] 32.3 pg (02/23/23 3:48 AM) 32.3 pg (02/22/23 4:18 PM) 32.0 pg (02/22/23 4:53 AM) MCHC [32-36 g/dL] 33.9 g/dL (02/23/23 3:48 AM) 33.3 g/dL (02/22/23 4:18 PM) 33.5 g/dL (02/22/23 4:53 AM) MCV [81-96 fL] 95.3 fL (02/23/23 3:48 AM) 96.8 fL *HI* (02/22/23 4:18 PM) 95.7 fL (02/22/23 4:53 AM) Mg [1.6-2.6 mg/dL] 2.7 mg/dL *HI* (02/23/23 3:48 AM) 2.7 mg/dL *HI* (02/22/23 4:18 PM) 2.7 mg/dL *HI* (02/22/23 4:53 AM) Na [136-145 mmol/L] 137 mmol/L (02/23/23 3:48 AM) 135 mmol/L *LOW* (02/22/23 4:18 PM) 135 mmol/L *LOW* (02/22/23 4:53 AM) Test-Name Comprehensive Myeloid Disorders Panel to [facility] (02/15/23 5:04 PM) karius test (02/15/23 2:30 PM) [place] PCR (02/11/23 3:36 AM) Tularemia serology and PCR (02/11/23 3:36 AM) [place] Serology (02/11/23 3:36 AM) NH3 [11-51 umol/L] 24 umol/L (02/11/23 3:36 AM) Nitrite (u) [NEG] NEGATIVE 74 (02/10/23 4:07 AM) Osmolality [275-295 mOsm/kg] 277 mOsm/kg (02/11/23 3:36 AM) 286 mOsm/kg (02/10/23 3:02 AM) PO4 [2.5-4.5 mg/dL] 4.3 mg/dL (02/23/23 3:48 AM) 4.7 mg/dL *HI* (02/22/23 4:18 PM) 4.6 mg/dL *HI* (02/22/23 4:53 AM) Plts [150-350 K/uL] 29 K/uL *Critical Low* (02/23/23 3:48 AM) 30 K/uL *LOW* (02/22/23 4:18 PM) 33 K/uL *LOW* (02/22/23 4:53 AM) PT [12.0-14.2 seconds] 18.6 seconds *HI* (02/14/23 9:58 PM) 22.1 seconds *HI* (02/10/23 6:17 AM) REQUEST CREDITED seconds 75 (02/10/23 3:02 AM) PTT [23-35 seconds] REQUEST CREDITED seconds 76 (02/10/23 3:02 AM) RBC [4.40-5.60 M/uL] 2.32 M/uL *LOW* (02/23/23 3:48 AM) 2.51 M/uL *LOW* (02/22/23 4:18 PM) 2.56 M/uL *LOW* (02/22/23 4:53 AM) Result & Ref REORDERED BY LAB 77 (02/15/23 2:30 PM) REORDERED BY LAB 78 (02/11/23 3:36 AM) REORDERED BY LAB 79 (02/11/23 3:36 AM) REORDERED BY LAB 80 (02/11/23 3:36 AM) Retics (abs) [16.7-96.7 K/uL] 8.8 K/uL *LOW* (02/11/23 3:36 AM) 16.5 K/uL *LOW* (02/10/23 1:29 PM) 14.1 K/uL *LOW* (02/10/23 3:03 AM) Retic (%) [0.40-2.05 %] 0.34 % *LOW* (02/11/23 3:36 AM) 0.66 % (02/10/23 1:29 PM) 0.56 % (02/10/23 3:03 AM) Syn Cryst,fl POSITIVE 81 (02/10/23 8:55 PM) Smudge Cell [FEW] MODERATE *Abnormal* (02/23/23 3:48 AM) MODERATE *Abnormal* (02/22/23 4:18 PM) MODERATE *Abnormal* (02/21/23 7:24 PM) T Bili [0.0-1.2 mg/dL] 0.6 mg/dL (02/23/23 3:48 AM) 0.6 mg/dL (02/22/23 4:18 PM) 0.7 mg/dL (02/22/23 4:53 AM) Prot [6.4-8.3 g/dL] 5.7 g/dL *LOW* (02/23/23 3:48 AM) 5.7 g/dL *LOW* (02/22/23 4:18 PM) 5.4 g/dL *LOW* (02/22/23 4:53 AM) TG [<150 mg/dL] 215 mg/dL *HI* (02/10/23 3:02 AM) TSH [0.30-4.20 uIU/mL] 3.36 uIU/mL (02/10/23 1:29 PM) 3.47 uIU/mL (02/10/23 3:02 AM) Appear (u) SLIGHTLY CLOUDY (02/10/23 4:07 AM) Color (u) RUDY (02/10/23 4:07 AM) Creat (u) 137.51 mg/dL 82 (02/11/23 1:22 PM) Glu (u) [NEG mg/dL] NEGATIVE mg/dL 83 (02/10/23 4:07 AM) Hgb (u) [NEG] NEGATIVE 84 (02/10/23 4:07 AM) Na (u) 20 mmol/L 85 (02/11/23 1:22 PM) 46 mmol/L 86 (02/10/23 4:07 AM) Osmol (u) [100-1000 mOsm/kg] 616 mOsm/kg (02/11/23 1:22 PM) 718 mOsm/kg (02/10/23 4:07 AM) pH (u) [5.0-8.0 unit] 5.0 unit (02/10/23 4:07 AM) Prot (u) [NEG mg/dL] 100 mg/dL *Abnormal* (02/10/23 4:07 AM) RBC (u) [0-4 /HPF] 0-4 /HPF (02/10/23 4:07 AM) Uric Acid [3.7-8.0 mg/dL] 4.8 mg/dL (02/11/23 3:36 AM) Urobili [0.1-1.0 EU/dL] 0.1-1.0 EU/dL (02/10/23 4:07 AM) SG [1.005-1.030] 1.024 (02/10/23 4:07 AM) WBC (u) [0-4 /HPF] 5-9 /HPF (02/10/23 4:07 AM) Temp(v) NOT PROVIDED C (02/13/23 1:24 PM) NOT PROVIDED C (02/10/23 5:08 PM) 39.2 C (02/10/23 12:00 PM) Base XS(v) REQUEST CREDITED mmol/L 87 (02/10/23 11:47 AM) HCO3(v) [24-28 mmol/L] 22.6 mmol/L *LOW* (02/13/23 1:24 PM) 22.7 mmol/L *LOW* (02/10/23 5:08 PM) REQUEST CREDITED mmol/L 88 (02/10/23 11:47 AM) pCO2(v) [41-51 mmHg] 31.0 mmHg *LOW* (02/13/23:24 PM) 42.0 mmHg (02/10/23 5:08 PM) REQUEST CREDITED mmHg 89 (02/10/23 11:47 AM) pH(v) [7.33-7.43 unit] 7.470 unit *HI* (02/13/23 1:24 PM) 7.340 unit (02/10/23 5:08 PM) REQUEST CREDITED unit 90 (02/10/23 11:47 AM) pO2(v) 67.0 mmHg (02/13/23 1:24 PM) 34.0 mmHg (02/10/23 5:08 PM) REQUEST CREDITED mmHg 91 (02/10/23 11:47 AM) WBC [4.0-10.4 K/uL] 11.93 K/uL *HI* (02/23/23 3:48 AM) 11.62 K/uL *HI* (02/22/23 4:18 PM) 14.97 K/uL *HI* (02/22/23 4:53 AM) CD4 Dennis (%) [35-60 %] 50 % (02/11/23 1:09 PM) CD4 Dennis (abs cnt) [450-1500 cells/mm3] 520 cells/mm3 (02/11/23 1:09 PM) Cytogenetics, Bld REPORT 02/24/2023 01:36 PM 92 (02/12/23 10:48 AM) 1Result Comment: Reference range: <=0.90 Unit: IV INTERPRETIVE INFORMATION: Parvovirus B19 Antibody, IgG EFFECTIVE 01/21/2023 REFERENCE INTERVAL CHANGE Due to reagent kit trip follower recall, an alternate kit has been validated and implemented by [employer]. The following Reference Interval applies to this result: 0.90 IV or less .......... Negative - No significant level of detectable Parvovirus B19 IgG antibody. 0.91 - 1.10 IV ........... Equivocal - Repeat testing in 7-21 days may be helpful. 1.11 IV or greater ....... Positive - IgG antibody to Parvovirus B19 detected which may indicate a current or past infection. The best evidence for current infection is a significant change on two appropriately timed specimens, where both tests are done in the same laboratory at the same time. 2Result Comment: Reference range: <=0.90 Unit: IV INTERPRETIVE INFORMATION: Parvovirus B19 Antibody, IgG EFFECTIVE 01/21/2023 REFERENCE INTERVAL CHANGE Due to reagent kit trip follower recall, an alternate kit has been validated and implemented by [facility]. The following Reference Interval applies to this result: 0.90 IV or less .......... Negative - No significant level of detectable Parvovirus B19 IgG antibody. 0.91 - 1.10 IV ........... Equivocal - Repeat testing in 7-21 days may be helpful. 1.11 IV or greater ....... Positive - IgG antibody to Parvovirus B19 detected which may indicate a current or past infection. The best evidence for current infection is a significant change on two appropriately timed specimens, where both tests are done in the same laboratory at the same time. 3Result Comment: Reference range: <=0.90 Unit: IV INTERPRETIVE INFORMATION: Parvovirus B19 Antibody, IgM EFFECTIVE 01/21/2023 REFERENCE INTERVAL CHANGE Due to reagent kit trip follower recall, an alternate kit has been validated and implemented by [facility]. The following Reference Interval applies to this result: 0.90 IV or less .......... Negative - No significant level of detectable Parvovirus B19 IgM antibody. 0.91 - 1.10 IV ........... Equivocal - Repeat testing in 7-21 days may be helpful. 1.11 IV or greater ........ Positive - IgM antibody to Parvovirus B19 detected which may indicate a current or recent infection. However, low levels of IgM antibodies may occasionally persist for more than 12 months post-infection. The best evidence for current infection is a significant change on two appropriately timed specimens, where both tests are done in the same laboratory at the same time. Appearance of an IgM antibody response normally occurs 7 to 14 days after the onset of disease. Testing immediately post-exposure is of no value without a later convalescent specimen. A residual IgM response may be distinguished from early IgM response to infection by testing sera from patients three to four weeks later for changing levels of specific IgM antibodies. Performed By: [facility]) [address] [place] [id number] Bandmill Operator: Bryan Rodriguez MD, PhD CLIA Number: [id number] 4Result Comment: Reference range: <=0.90 Unit: IV INTERPRETIVE INFORMATION: Parvovirus B19 Antibody, IgM EFFECTIVE 01/21/2023 REFERENCE INTERVAL CHANGE Due to reagent kit trip follower recall, an alternate kit has been validated and implemented by [facility]. The following Reference Interval applies to this result: 0.90 IV or less .......... Negative - No significant level of detectable Parvovirus B19 IgM antibody. 0.91 - 1.10 IV ........... Equivocal - Repeat testing in 7-21 days may be helpful. 1.11 IV or greater ........ Positive - IgM antibody to Parvovirus B19 detected which may indicate a current or recent infection. However, low levels of IgM antibodies may occasionally persist for more than 12 months post-infection. The best evidence for current infection is a significant change on two appropriately timed specimens, where both tests are done in the same laboratory at the same time. Appearance of an IgM antibody response normally occurs 7 to 14 days after the onset of disease. Testing immediately post-exposure is of no value without a later convalescent specimen. A residual IgM response may be distinguished from early IgM response to infection by testing sera from patients three to four weeks later for changing levels of specific IgM antibodies. Performed By: [facility]) [address] [place] [address] Bandmill Operator: Bryan Rodriguez MD, PhD CLIA Number: [id number] 5Result Comment: Test Result Flag Unit RefValue F. tularensis Ab, IgM/IgG HILL, S F. tularensis Ab, IgM HILL, S Negative Negative F. tularensis Ab, IgG HILL, S Negative Negative F. tularensis Interpretation No antibodies to Francisella tularensis detected. Antibody response may be negative in samples collected too soon following infection/exposure. Repeat testing on a new sample in 1-2 weeks if clinically indicated. Test Performed By: [facility] [place] , [facility] [place] [address] 6Result Comment: INTERPRETIVE INFORMATION: Bartonella henselae Ab, IgG Less than 1:64 ....... Negative: No significant level of Bartonella henselae IgG antibody detected. 1:64 - 1:128 ......... Equivocal: Questionable presence of Bartonella henselae IgG antibody detected. Repeat testing in 10-14 days may be helpful. 1:256 or greater ..... Positive: Presence of IgG antibody to Bartonella henselae detected, suggestive of current or past infection. A low positive suggests past exposure or infection, while high positive results may indicate recent or current infection, but are inconclusive for diagnosis. Seroconversion between acute and convalescent sera is considered strong evidence of recent infection. The best evidence for infection is significant change on two appropriately timed specimens where both tests are done in the same laboratory at the same time. This test was developed and its performance characteristics determined by [facility]). It has not been cleared or approved by the US Food and Drug Administration. This test was performed in a CLIA certified laboratory and is intended for clinical purposes. 7Result Comment: INTERPRETIVE INFORMATION: Bartonella driver Antibody, IgG Less than 1:64 ....... Negative: No significant level of Bartonella driver IgG antibody detected. 1:64 - 1:128 ........ Equivocal: Questionable presence of Bartonella driver IgG antibody detected. Repeat testing in 10-14 days may be helpful. 1:256 or greater ..... Positive: Presence of IgG antibody to Bartonella driver detected, suggestive of current or past infection. A low positive suggests past exposure or infection, while high positive results may indicate recent or current infection, but is inconclusive for diagnosis. Seroconversion between acute and convalescent sera is considered strong evidence of recent infection. The best evidence for infection is a significant change on two appropriately timed specimens where both tests are done in the same laboratory at the same time. This test was developed and its performance characteristics determined by [facility]). It has not been cleared or approved by the US Food and Drug Administration. This test was performed in a CLIA certified laboratory and is intended for clinical purposes. 8Result Comment: INTERPRETIVE INFORMATION: Bartonella henselae Antibody, IgM Less than 1:16 ...... Negative: No significant level of Bartonella henselae IgM antibody detected. 1:16 or greater ..... Positive: Presence of IgM antibody to Bartonella henselae detected, suggestive of current or recent infection. The presence of IgM antibodies suggest recent infection, low levels of IgM antibodies may occasionally persist for more than 12 months post infection. This test was developed and its performance characteristics determined by [facility]). It has not been cleared or approved by the US Food and Drug Administration. This test was performed in a CLIA certified laboratory and is intended for clinical purposes. 9Result Comment: INTERPRETIVE INFORMATION: Bartonella driver Ab, IgM Less than 1:16 ...... Negative-No significant level of Bartonella driver IgM antibody detected. 1:16 or greater ..... Positive-Presence of IgM antibody to Bartonella driver detected, suggestive of current or recent infection. The presence of IgM antibodies suggests recent infection. Low levels of IgM antibodies may occasionally persist for more than 12 months post-infection. This test was developed and its performance characteristics determined by [facility]). It has not been cleared or approved by the US Food and Drug Administration. This test was performed in a CLIA certified laboratory and is intended for clinical purposes. Performed By: [email or web address] [address] [place] [address] Bandmill Operator: Bryan Rodriguez MD, PhD IA Number: [id number] 10Result Comment: Performed at: [address] [place] [address] 11Result Comment: Performed at: [address] [place] [address] 12Result Comment: Performed at: [address] [place] [address] 13Result Comment: Reference range: 175.3 to 858.2 INTERPRETIVE INFORMATION: Cytokines Results are used to understand the pathophysiology of immune, infectious, or inflammatory disorders, or may be used for research purposes. This test was developed and its performance characteristics determined by [facility]). It has not been cleared or approved by the US Food and Drug Administration. This test was performed in a CLIA certified laboratory and is intended for clinical purposes. Test Performed by: [facility]) [address] [place] [id number] 14Result Comment: NO SAMPLE RECEIVED RAN ON ISTAT SEE RESULT ON [id number] 15Result Comment: The clinical d-dimer cut-off value of <0.5 ug/mL FEU has been established by [employer] for the exclusion of pulmonary embolism and/or deep venous thrombosis in outpatients with low pre-test probability. 16Result Comment: NO SAMPLE RECEIVED RAN ON ISTAT SEE RESULT ON [id number] 17Result Comment: Lab orders combined with other orders received on the same specimen. 18Result Comment: Reference range: NEGATIVE Sample is negative for the presence of L. pneumophila serogroup 1 antigen in urine, suggesting no recent or current infection. Legionnaires' Disease cannot be ruled out since other serogroups and species may also cause disease. INTERPRETIVE INFORMATION: Legionella pneumophila Antigen, Urine This assay detects Legionella pneumophila serogroup one (1) antigen. Performed By: [facility]) [address] [place] [address] Bandmill Operator: Bryan Rodriguez MD, PhD CLIA Number: [id number] 19Result Comment: EDTA LAV 20Result Comment: EDTA 21Result Comment: EDTA 22Result Comment: A negative result does not rule out infection with EBV 23Result Comment: NOT DETECTED - A negative result does not rule out the presence of PCR inhibitors in the patient specimen or assay specific nucleic acid in concentrations below the level of detection by the assay. INTERPRETIVE INFORMATION: Varicella-Zoster Virus by PCR This test was developed and its performance characteristics determined by [facility]). It has not been cleared or approved by the US Food and Drug Administration. This test was performed in a CLIA certified laboratory and is intended for clinical purposes. Performed By: [facility]) [address] [place] [address] Bandmill Operator: Bryan Rodriguez MD, PhD CLIA Number: [id number] 24Result Comment: DUPLICATE REQUEST [id number] 25Result Comment: Reference range: SEE COMMENT This test was developed and its performance characteristics determined by [facility]. It has not been cleared or approved by the FDA; however, FDA clearance or approval is not currently required for clinical use. The results are not intended to be used as the sole means for clinical diagnosis or patient management decisions. This document contains confidential privileged information. The recipient of the information is prohibited from disclosing the contents to another republican without authorization. If you are not the intended recipient, you are hereby notified that disclosure of the contents is strictly prohibited. Please notify [facility] immediately if you received this information in error. Test performed by [facility] [address] [place] [address], [place] [address] Phone: Clover Hernandez MD, [place]([facility]), [employer] Test Reported by [facility], [facility], [address] [place] [address] Tino Valdez M.D., Ph.D., Director of Laboratories , CLIA [id number] Performed at [facility] (formerly known as [facility]) [address] [place] [address] . 26Result Comment: Reference range: SEE COMMENT This test was developed and its performance characteristics determined by [facility]. It has not been cleared or approved by the FDA; however, FDA clearance or approval is not currently required for clinical use. The results are not intended to be used as the sole means for clinical diagnosis or patient management decisions. This document contains confidential privileged information. The recipient of the information is prohibited from disclosing the contents to another republican without authorization. If you are not the intended recipient, you are hereby notified that disclosure of the contents is strictly prohibited. Please notify [facility] immediately if you received this information in error. Test performed by [facility] [address] [place] [address] [place] [address] Phone: Clover Hernandez MD, [place]([facility]), Bandmill Operator Test Reported by [facility], [facility], [address] [place] [address] Tino Valdez M.D., Ph.D., Director of Laboratories , CLIA [id number] Performed at [facility] (formerly known as [facility]) [address] [place] [address] . 27Result Comment: CANCELLED BY REFERENCE LAB, POOR SPECIMEN QUALITY Notified Dr. Scott Montes 02/24/23 0807 via [place] Text 28Result Comment: Test name Result Flag Units RefIntvl Brucella Ab (Total) by Agglutination <1:20 <1:20 INTERPRETIVE INFORMATION: Brucella Ab (Total) by Agglutination Cross-reactions may occur between Brucella and F. tularensis antigens and antisera; therefore, parallel tests should be run with these antigens. A fourfold rise in titer is considered diagnostic. A single serum titer of 1:80 or 1:160 is suggestive of brucellosis when accompanied by a compatible clinical course in a patient with a history of potential exposures. Performed By: [facility]) [address] [place] [address] Bandmill Operator: Bryan Rodriguez MD, PhD [place] Number: [id number] 29Result Comment: Test name Result Flag Units RefIntvl Miscellaneous 1 Refrigerated See Note Specimen Details Type Source Blood Blood Bacterial Identification by 16S Result Ref. Range Result No Bacteria Identified. Comment The 16S rRNA gene is relatively short section (approx. 1500 basepairs) of prokaryotic DNA found in all bacteria and archaea encoding for the 16S rRNA of the small subunit of the highly conserved ribosome. The 16S rRNA gene is a commonly used tool for identifying bacteria because analysis of an organism's DNA is more expedient and reliable than classification based solely on phenotypic characteristics. Additionally, while there is a homologous gene in eukaryotes, the 18S rRNA gene, it is distinct, thereby rendering the 16S rRNA gene a useful tool for specifically identifying bacteria distinct from plant, animal, fungal, and protist DNA for a given sample. DNA sequence(s) derived from real time PCR amplified products of the 16S ribosomal RNA gene are aligned to each other, whenever possible, and against the integrated database network system (IDNS) of the web based service of [employer] (www.Friendster; [employer]Me in [facility]). Bacterial organisms are identified (genus) or speciated (genus and species) by 16S rRNA DNA sequencing after assessing and integrating numerous factors, including the analytical quality of real time PCR and DNA sequencing data, the alignment(s) of DNA sequence(s) to the database, the correlation to phenotypic characteristics, when available, from the [facility] Clinical Microbiology Laboratory and the overall clinical presentation of the patient. The performance characteristics of this test were validated by [facility] Clinical Laboratories. The U.S. Food and Drug Administration (FDA) has not approved or cleared this test; however, FDA approval or clearance is currently not required for clinical use of this test. The results are not intended to be used as the sole means for clinical diagnosis or patient management decisions. The [facility] Clinical Laboratories is authorized under Clinical Laboratory Improvement Amendments (CLIA) to perform high-complexity testing. Method: Bacterial DNA from either cultured isolates or biological samples is isolated by automated nucleic acid extraction using CellPly (mobli) procedures. Real time PCR amplification and subsequent DNA sequencing targeting 16S rRNA gene sequences is performed. The 16S rRNA gene is approximately 1,500 DNA basepairs in length and contains several highly variable regions (areas of discrimination) flanked by areas of high conservation (areas targeted by consensus primers). 16S rDNA sequence information is publicly available for a wide variety of prokaryotic organisms. DNA sequences generated from the PCR products of the 16S rRNA gene are compared to known bacterial 16S sequences within the [employer] IDNS to provide genus and, whenever possible, species identification. References available on request. Electronically Signed by Asa Villar MD Test performed at [place] [address]492 Performed By: [facility]) [address] [place] [address] Bandmill Operator: Bryan Rodriguez MD, PhD 30Result Comment: Test name Result Flag Units RefIntvl Babesia species by PCR Not Detected Babesia microti by PCR Not Detected INTERPRETIVE INFORMATION: Babesia Species by PCR A negative result does not rule out the presence of PCR inhibitors in the patient specimen or test-specific nucleic acid in concentrations below the level of detection by this test. This test was developed and its performance characteristics determined by [facility]). It has not been cleared or approved by the US Food and Drug Administration. This test was performed in a CLIA certified laboratory and is intended for clinical purposes. Anaplasma phagocytophilum by PCR Not Detected Ehrlichia chaffeensis by PCR Not Detected Ehrlichia ewingii/canis by PCR Not Detected Ehrlichia muris-like by PCR Not Detected INTERPRETIVE INFORMATION: Ehrlichia and Anaplasma Species by PCR A negative result does not rule out the presence of PCR inhibitors in the patient specimen or test-specific nucleic acid in concentrations below the level of detection by this assay. This test was developed and its performance characteristics determined by [facility]). It has not been cleared or approved by the US Food and Drug Administration. This test was performed in a CLIA certified laboratory and is intended for clinical purposes. Performed By: [facility]) [address] [place] [address] Bandmill Operator: Bryan Rodriguez MD, PhD CLIA Number: [id number] 31Result Comment: Test name Result Flag Units RefIntvl Blastomyces Antigen, Urine Not Detected Blastomyces dermatitidis EIA, Interp Not Detected Not Detected INTERPRETIVE INFORMATION:Blastomyces Ag Quant by [facility], Urine The quantitative range of this assay is 1.25-200 U/mL. Antigen concentrations less than 1.25 U/mL or greater than 200 U/mL fall outside the linear range of the assay and cannot be accurately quantified. This EIA test should be used in conjunction with other diagnostic procedures, including microbiological culture, histological examination of biopsy samples, serology and/or radiographic evidence, to aid in the diagnosis of blastomycosis. Cross-reactivity with other endemic mycoses (Histoplasma and Coccidioides) may occur. Positive test results should be correlated with other clinical findings and relevant exposure history. This test was developed and its performance characteristics determined by [facility]). It has not been cleared or approved by the US Food and Drug Administration. This test was performed in a CLIA certified laboratory and is intended for clinical purposes. Performed By: [facility]) [address] [place] [address] Bandmill Operator: Bryan Rodriguez MD, PhD CLIA Number: [id number] 32Result Comment: INTERPRETIVE INFORMATION: Leptospira Antibody, IgM by Dot Blot Negative: No significant level of Leptospira IgM antibody detected. Equivocal: Questionable presence of Leptospira IgM antibody detected. Repeat testing in 10-14 days may be helpful. Positive: Presence of IgM antibody to Leptospira detected, suggestive of a current or recent infection. Samples interpreted as negative indicate that antibody is not present in the sample, or is below the detection level of the method. Since antibodies may not be present during early disease, confirmation two to three weeks later is recommended. An initially-negative result followed by a positive result indicates IgM seroconversion. Equivocal specimens should be cautiously interpreted. Further testing with an additional specimen is recommended. If the specimen remains equivocal, a second serological method should be considered if leptospirosis infection is still suspected. Samples interpreted as positive may indicate the specific antibody. Antibody presence alone cannot be used for diagnosis of acute infection, however, because antibodies from prior exposure may circulate for a prolonged period of time. Performed By: [facility]) [address] [place] [address] Bandmill Operator: Bryan Rodriguez MD, PhD CLIA Number: [id number] 33Result Comment: cTnT >= 0.030 ng/ml: myocardial necrosis present. This may be due to acute myocardial ischemia (AMI) or other myocardial injury. cTnT < 0.010 ng/ml: 99th percentile upper reference limit for ostensibly healthy adult referencepopulation (male and female). 34Result Comment: Lab orders combined with other orders received on the same specimen. 35Result Comment: Lab orders combined with other orders received on the same specimen. 36Result Comment: For possible community-acquired pneumonia (CAP), if there is diagnostic uncertainty: <0.10 ng/mL Antibiotics strongly discouraged 0.10 - 0.25 ng/mL Antibiotics discouraged 0.26 - 0.50 ng/mL Antibiotics recommended >0.5 ng/mL Antibiotics strongly recommended For sepsis or hospital-acquired pneumonia (HAP). if the patient has stabilized and there is diagnostic uncertainty: <0.51 ng/ml or decrease of >79% Consider stopping antibiotics unless needed for another diagnosis. 37Result Comment: For possible community-acquired pneumonia (CAP), if there is diagnostic uncertainty: <0.10 ng/mL Antibiotics strongly discouraged 0.10 - 0.25 ng/mL Antibiotics discouraged 0.26 - 0.50 ng/mL Antibiotics recommended >0.5 ng/mL Antibiotics strongly recommended For sepsis or hospital-acquired pneumonia (HAP). if the patient has stabilized and there is diagnostic uncertainty: <0.51 ng/ml or decrease of >79% Consider stopping antibiotics unless needed for another diagnosis. 38Result Comment: The results for specific antibodies to B. burgdorferi by Western-Blot demonstrate the presence of fewer than 5 antibodies of the IgG subclass. This negative result does not completelyexclude the possibility of a B. burgdorferi infection. The sample may have been collected before the appearance of antibodies or the antibody titers may be below the limit of detection of the assay. Repeat antibodytest in 4-6 weeks, if clinically indicated. (Order the [facility] Western Blot follow-up test using a Miscellaneous request.) 39Result Comment: The results for specific antibody to B. burgdorferi by Western-Blot demonstratethe presence of fewer than 2 antibodies of the IgM subclass. This negative result does not completely exclude the possibility of an infection to B. burgdorferi. The sample may have been collected before the appearance of antibodies, the antibodies may be belowthe limit of detection of the assay or the infection may have been in the past. Repeat antibody test in 4-6 weeks if clinically indicated. (Order the [facility] Western Blot follow-up test using a Miscellaneous request.) 40Result Comment: REACTIVE LYMPHOCYTES 41Result Comment: REACTIVE LYMPHOCYTES 42Result Comment: REACTIVE LYMPHOCYTES 43Result Comment: REACTIVE LYMPHOCYTES 44Result Comment: REACTIVE LYMPHOCYTES 45Result Comment: REACTIVE LYMPHOCYTES 46Result Comment: NO SAMPLE RECEIVED RAN ON ISTAT SEE RESULT ON [id number] 47Result Comment: NO SAMPLE RECEIVED RAN ON ISTAT SEE RESULT ON [id number] 48Result Comment: NO SAMPLE RECEIVED RAN ON ISTAT SEE RESULT ON [id number] 49Result Comment: NO SAMPLE RECEIVED RAN ON ISTAT SEE RESULT ON [id number] 50Result Comment: Reference range: SEE COMMENT Flexitest 1 TESTS RESULTS--------UNITS--REF. RANGE--- Source WHOLE BLOOD BARTONELLA HENSELAE DNA NOT DETECTED A non-detected Bartonella species PCR result from whole blood does not exclude Bartonella infection. Clinical correlation including clinical history and epidemiological risk need to be considered. Serologic testing for Bartonella IgG antibodies should be considered if the likelihood of infection is high. BARTONELLA DRIVER DNA NOT DETECTED A non-detected Bartonella species PCR result from whole blood does not exclude Bartonella infection. Clinical correlation including clinical history and epidemiological risk need to be considered. Serologic testing for Bartonella IgG antibodies should be considered if the likelihood of infection is high. REFERENCE RANGE: NOT DETECTED This test was developed and its analytical performance characteristics have been determined by [facility]. It has not been cleared or approved by FDA. This assay has been validated pursuant to the CLIA regulations and is used for clinical purposes. Test performed by [facility] [address] [place] [address] Interactive Web Developer: Amparo Briggs MD,PHD,EVELYN Test Reported by [facility], [facility], [address] [place] [address] Tino Valdez M.D., Ph.D., Director of Laboratories , CLIA [id number] Performed at [facility] (formerly known as [facility]) [address] [place] [address] . 51Result Comment: EDTA 52Result Comment: DUPLICATE REQUEST [id number] 53Result Comment: Reference range: SEE COMMENT Result: None Detected ng/mL Test Parameters: Reference Interval: None Detected Reportable Range: Positive Results reported in ng/mL from 0.20 ng/mL to 20.00 ng/mL Positive results above 20.00 ng/mL are reported as "Above the Limit of Quantification" Cross-reactions occur with Blastomyces spp., Coccidioides spp., and Paracoccidioides brasiliensis. Performed at [facility] (formerly known as [facility]) [address] [place] [address] . 54Result Comment: Reference range: SEE COMMENT Result: None Detected ng/mL Test Parameters: Reference Interval: None Detected Reportable Range: Positive Results reported in ng/mL from 0.20 ng/mL to 20.00 ng/mL Positive results above 20.00 ng/mL are reported as "Above the Limit of Quantification" Cross-reactions occur with Blastomyces spp., Coccidioides spp., and Paracoccidioides brasiliensis. Performed at [facility] (formerly known as [facility]) [address] [place] [address] . 55Result Comment: SEE REFERENCE REPORT 56Result Comment: SEE REFERENCE REPORT 57Result Comment: A negative result does not rule out infection with CMV. 58Result Comment: INTERPRETIVE INFORMATION: HSV-1 and HSV-2 Subtype by PCR A negative result does not rule out the presence of PCR inhibitors in the patient specimen or test-specific nucleic acid in concentrations below the level of detection by this test. This test was developed and its performance characteristics determined by [facility]). It has not been cleared or approved by the US Food and Drug Administration. This test was performed in a CLIA certified laboratory and is intended for clinical purposes. Performed By: [facility]) [address] [place] [address] Bandmill Operator: Bryan Rodriguez MD, PhD CLIA Number: [id number] 59Result Comment: Unit: ng/mL Reference Interval: None Detected Reportable Range: Results reported as ng/mL in 0.31 - 20.00 ng/mL range Results above 20.00 ng/mL are reported as 'Positive, Above the Limit of Quantification' This test was developed and its performance characteristics determined by [facility]. It has not been cleared or approved by the FDA; however, FDA clearance or approval is not currently required for clinical use. The results are not intended to be used as the sole means for clinical diagnosis or patient management decisions. This document contains confidential privileged information. The recipient of the information is prohibited from disclosing the contents to another republican without authorization. If you are not the intended recipient, you are hereby notified that the disclosure of the contents is strictly prohibited. Please notify [facility] immediately if you received this information in error. Bandmill Operator: Clover Hernandez MD, [place]([facility]) [address] [place] [address] ALQ = Above the limit of Quantification Performed At: [facility] [address] [place] [address] Interactive Web Developer: Clover Hernandez CLIA Number: [id number] 60Result Comment: SEE REFERENCE REPORT 61Result Comment: Corrected on 02/11 AT 1050: Previously reported as BLOOD 62Result Comment: POSSIBLE INTERFERING SUBSTANCE. ASCORBIC ACID DETECTED IN URINE. RESULTS MAY BEUNRELIABLE. 63Result Comment: "The reference intervals and other method performance specifications are unavailable for this body fluid. Comparision of the result with concentration in the blood, serum or plasma isrecommended." FLUID CLOTTED-CELL COUNT QUESTIONABLE 64Result Comment: HEMOLYZED SPECIMEN 65Result Comment: ADA recommendation for FASTING Serum/Plasma Glucose: Normal: 70-100 mg/dL Prediabetes: 100-125 mg/dL Diabetes: 126 mg/dL or higher 66Result Comment: ADA recommendation for FASTING Serum/Plasma Glucose: Normal: 70-100 mg/dL Prediabetes: 100-125 mg/dL Diabetes: 126 mg/dL or higher 67Result Comment: ADA recommendation for FASTING Serum/Plasma Glucose: Normal: 70-100 mg/dL Prediabetes: 100-125 mg/dL Diabetes: 126 mg/dL or higher 68Result Comment: CHECKED 69Result Comment: CHECKED 70Result Comment: Suggested therapeutic range for low-intensity Coumadin therapy for venous thromboembolism is INR 2.0-3.0 (ex: atrial fibrillation, history of TIA/stroke). For high risk patients, the suggested therapeutic range is INR 2.5-3.5 (ex: mechanical prosthetic valves). 71Result Comment: Suggested therapeutic range for low-intensity Coumadin therapy for venous thromboembolism is INR 2.0-3.0 (ex: atrial fibrillation, history of TIA/stroke). For high risk patients, the suggested therapeutic range is INR 2.5-3.5 (ex: mechanical prosthetic valves). 72Result Comment: BLOOD/ANTICOAG RATIO IN TUBE UNSATISFACTORY ABDI RODRIGUEZ 0415 02 10 2023 73Result Comment: POSSIBLE INTERFERING SUBSTANCE. ASCORBIC ACID DETECTED IN URINE. RESULTS MAY BEUNRELIABLE. 74Result Comment: POSSIBLE INTERFERING SUBSTANCE. ASCORBIC ACID DETECTED IN URINE. RESULTS MAY BEUNRELIABLE. 75Result Comment: BLOOD/ANTICOAG RATIO IN TUBE UNSATISFACTORY ABDI RODRIGUEZ 0415 02 10 2023 76Result Comment: BLOOD/ANTICOAG RATIO IN TUBE UNSATISFACTORY ABDI RODRIGUEZ 0415 02 10 2023 77Result Comment: [facility] [id number] Microbial Cell Free DNA by Sequencing ([facility] Test),edta plasma 78Result Comment: Tick Borne Disease Panel by PCR, Blood to [facility] 79Result Comment: Francisella tularensis Antibody, IgM and IgG, [facility]ILL, Serum to Radiant TULAB/ [place]aremia PCR Bacterial Identification by 16S ARUP to [facility] (test code [id number]) 80Result Comment: Brucella Antibody (Total) by Agglutination to [facility] [id number] 81Result Comment: RARE EXTRACELLULAR CRYSTALS RESEMBLING MONOSODIUM URATE 82Result Comment: Reference Range for Random Urine Not Established. 83Result Comment: POSSIBLE INTERFERING SUBSTANCE. ASCORBIC ACID DETECTED IN URINE. RESULTS MAY BEUNRELIABLE. 84Result Comment: POSSIBLE INTERFERING SUBSTANCE. ASCORBIC ACID DETECTED IN URINE. RESULTS MAY BEUNRELIABLE. 85Result Comment: Reference Range for Random Urine Not Established. 86Result Comment: Reference Range for Random Urine Not Established. 87Result Comment: NO SAMPLE RECEIVED RAN ON ISTAT SEE RESULT ON [id number] 88Result Comment: NO SAMPLE RECEIVED RAN ON ISTAT SEE RESULT ON [id number] 89Result Comment: NO SAMPLE RECEIVED RAN ON ISTAT SEE RESULT ON [id number] 90Result Comment: NO SAMPLE RECEIVED RAN ON ISTAT SEE RESULT ON [id number] 91Result Comment: NO SAMPLE RECEIVED RAN ON ISTAT SEE RESULT ON [id number] 92Result Comment: Test Result Flag Unit RefValue Chromosomes, Hematologic, Blood Result Summary Normal Interpretation No clonal abnormality was apparent. 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 Additional Information Previous Studies DATE SPECIMEN RESULT 01/26/2013 [place] No clonal abnormality was apparent 01/26/2013 [place] MDS Panel within normal limits A portion of the testing process was performed at [facility] site [id number]. Released By Rosalie Steven, Ph.D. Test Performed or Referred By: [facility] Dpt of Lab Med and Pathology, [address] [facility] [address] Orders for Microbiology Reports Name Date Respiratory Pathogen Panel, by PCR (RVP) 02/20/23 Throat Culture for Group A Strep (CULTUR E, GRP A STREP) 02/20/23 Strep A Rapid Antigen 02/20/23 C difficile Toxin Gene PCR Assay. 3 Acid Fast Bacillus Cx/Smear, Bone Marrow 02/12/23 Bone Marrow Culture 02/12/23 Fungus Culture w Smr, Bone Marrow 3 C difficile Toxin Gene PCR Assay. Cryptococcal Antigen 02/11/23 Blood Culture for AFB (Culture, Blood, A FB) 02/11/23 Microbiology Reports (Most Recent Ten) TEST:Respiratory Virus Panel, by PCR STATUS:Auth (Verified) BODY SITE: SOURCE:Nasal/Pharyngeal COLLECTED DATE/TIME:02/20/23 5:09 PM Multiplex PCR Negative for: Severe Acute Respiratory Syndrome Coronavirus (SARS-CoV-2/COVID-19), Influenza A and B, Adenovirus, Bordetella pertussis, Bordetella parapertussis, Chlamydophila pneumoniae, Coronavirus (229E,HKU1,NL63,OC43), Human metapneumovirus, Mycoplasma pneumoniae, Parainfluenza Types 1,2,3, and 4, Respiratory syncytial virus, and Rhinovirus/Enterovirus. TEST:Throat.Scr STATUS:Auth (Verified) BODY SITE: SOURCE:Throat COLLECTED DATE/TIME:02/20/23 10:42 AM Status FINAL 02/22/2023 TEST:Strep A Ag STATUS:Auth (Verified) BODY SITE: SOURCE:Throat COLLECTED DATE/TIME:02/20/23 10:41 AM Status FINAL 02/20/2023 TEST:C.Diff Toxin STATUS:Auth (Verified) BODY SITE: SOURCE:Stool COLLECTED DATE/TIME:02/16/23 1:51 PM Culture No Clostridium difficile toxin genes detected. TEST:AFB.Culture, Bone Marrow STATUS:Auth (Verified) BODY SITE: SOURCE:Bone Marrow COLLECTED DATE/TIME:02/12/23 11:05 AM Status FINAL 02/13/2023 TEST:Fungus.Culture, Bone Marrow STATUS:Auth (Verified) BODY SITE: SOURCE:Bone Marrow COLLECTED DATE/TIME:02/12/23 11:05 AM Status FINAL 02/13/2023 TEST:BM Asp.Cx STATUS:Auth (Verified) BODY SITE: SOURCE:Bone Marrow COLLECTED DATE/TIME:02/12/23 11:05 AM Culture REQUEST CREDITED NO SAMPLE RECEIVED TEST:C.Diff Toxin STATUS:Auth (Verified) BODY SITE: SOURCE:Stool COLLECTED DATE/TIME:02/11/23 4:26 PM Culture No Clostridium difficile toxin genes detected. TEST:Cryptococcal.Antigen STATUS:Auth (Verified) BODY SITE: SOURCE:Blood COLLECTED DATE/TIME:02/11/23 3:36 AM Status FINAL 02/11/2023 TEST:AFB.Cx (bld) STATUS:Unauthenticated BODY SITE: SOURCE:Blood COLLECTED DATE/TIME:02/11/23 3:36 AM Culture NO ACID FAST BACILLI ISOLATED AFTER 12 DAYS Radiology Reports (Most Recent Ten) * Exam Date Time Procedure Performing Provider Status 02/22/23 11:44 AM Echo TransESOPHageal ZACKARY ABDI Solis, Willian ordiana; Final Notes: (Echo TransESOPHageal ZACKARY) Reason For Exam: R/O vegetations Echo [facility]ES[facility]al ZACKARY Report Signatures Finalized by Mamadou Conrad MD on 02/22/2023 04:59 PM Promoted to Fellow by Brennen Godwin MD on 02/22/2023 12:43 PM [place] Act 112: No-No further action needed Summary 1. Normal left ventricular size and systolic function with no regional wall motion abnormalities. 2. Estimated Ejection Fraction 55-60%. 3. Right ventricular dilation with normal function. 4. Structurally unremarkable mitral valve with mild regurgitation and no significant stenosis. 5. No evidence of thrombus or valvular vegetations. 6. When compared with the prior study (TTE from 02/10/23), there is no evidence of endocarditis or thrombus formation. BMI: 25.10 Patient Info Name: AYE HERNANDEZ Age: 72 years : 1950 Gender: Male Ht: 180 cm Wt: 82 kg BSA: 2.03 m2 HR: 59 bpm BP: 112 / 50 mmHg Exam Date: 02/22/2023 11:03 AM Exam Location: Echo Lab Patient Status: Inpatient Staff Ordering Physician: Deny Fraga Attending Physician: Scott Montes Study Info CPT 31841 - 77668 - 25321 - 34219 - Indications [id number] - Other ill-defined heart diseases - r/o vegetations Procedure(s) * A complete two-dimensional transesophageal study was performed. * Complete Spectral Doppler was performed. * Color Doppler was performed. * 3D imaging performed to further visualize and clarify anatomy and severity of disease. 3D data processing was performed online at time of acquisition. Exam Type: Transesophageal Complications There were no complication prior to, during or in recovery from the transesophageal echocardiogram. Medications Sedation provided by anesthesia team. Procedure Details The transesophageal probe was passed into the posterior pharynx, mid-esophagus, distal esophagus, and gastric fundus. The procedure was completed without complications. Left Ventricle Normal left ventricular size and systolic function with no regional wall motion abnormalities. Estimated Ejection Fraction 55-60%. No left ventricular hypertrophy. Right Ventricle Right ventricular dilation with normal function. Left Atrium Normal left atrial size. Right Atrium Normal right atrial size. Atrial Septum The interatrial septum is unremarkable on two-dimensional and color flow Doppler interrogation. Atrial Appendage Left atrial appendage is free of thrombus formation with normal outflow velocities. Aortic Valve Trileaflet aortic valve with trace regurgitation and no significant stenosis. Pulmonic Valve Unremarkable pulmonic valve. Mitral Valve Structurally unremarkable mitral valve with mild regurgitation and no significant stenosis. Tricuspid Valve Unremarkable tricuspid valve. Insufficient TR for estimation of pulmonary artery systolic pressure. Pulmonary Veins Pulmonary veins are normal by two-dimensional and color flow imaging with normal flow patterns. Pericardium/Pleural No significant pericardial effusion. Inferior Vena Cava Normal IVC size and inspiratory collapse. Aorta Normal aortic root. Left Ventricular Outflow Tract Name Value Normal LVOT 2D LVOT Diameter 2.2 cm LVOT Doppler LVOT Peak Velocity 0.94 m/s LVOT Peak Gradient 4 mmHg LVOT Mean Gradient 2 mmHg LVOT VTI 21.01 cm LVOT VTI/AV VTI Ratio 0.61 LVOT Stroke Volume 77.16 ml LVOT Stroke Volume Index 0.04 l/m2 LVOT Cardiac Output 4.55 l/min LVOT Cardiac Index 2.24 L/min/m2 Mitral Valve Name Value Normal MV Doppler MV Peak Velocity 0.95 m/s MV Peak Gradient 3 mmHg MV Mean Gradient 1 mmHg MV VTI 32.26 cm MV Area (Cont Eq VTI) 2.4 cm2 MV Area Index (Cont Eq VTI) 1.18 cm2/m2 MV Diastolic Function MV E Peak Velocity 0.72 m/s <=0.50 MV A Peak Velocity 0.75 m/s MV E/A 0.96 <=0.80 Aorta Name Value Normal Ascending Aorta Sinus of Valsalva Diameter 3.3 cm 3.1-3.7 Sinus of Valsalva Index 1.62 cm/m2 1.50-1.90 Prox Asc Ao Diameter 2.9 cm 2.6-3.4 Prox Asc Ao Diameter Index 1.42 cm/m2 1.30-1.70 Venous Name Value Normal IVC/SVC IVC Diameter (Exp 2D) 1.0 cm <=2.1 Aortic Valve Name Value Normal AV Doppler AV Peak Velocity 1.77 m/s <2.00 AV Peak Gradient 12 mmHg AV Mean Gradient 5 mmHg <20 AV VTI 34.29 cm AV Area (Cont Eq VTI) 2.3 cm2 >=2.0 AV Area Index (Cont Eq VTI) 1.11 cm2/m2 AV Area (Cont Eq Mir) 2.0 cm2 AV Area Index (Cont Eq Mir) 0.97 cm2/m2 AV V1/V2 Ratio 0.53 AV Regurgitation 2D LVOT Area 3.7 cm2 Ventricles Name Value Normal LV Dimensions 2D/MM IVS Diastolic Thickness (2D) 0.7 cm 0.6-1.0 LVOT Diameter 2.2 cm RV Dimensions 2D/MM RV Diastolic Area (4C) 25.4 cm2 10.0-24.0 RV Systolic Area (4C) 16.4 cm2 3.0-15.0 RV Fractional Shortening 2D RV FAC (4C) 35 % >=35 Final Signed by:MD Conrad Eric Signed (Electronic Signature):02/22/2023 11:03 * Exam Date Time Procedure Performing Provider Status 02/17/23 10:40 AM XR Abdomen 1 View Mariah Escobedo Notes: (XR Abdomen 1 View) Reason For Exam: adynamic ileus progression/improved? XR Abdomen 1 View EXAMINATION: XR Abdomen 1 View CLINICAL HISTORY: adynamic ileus progression/improved? COMPARISON: 02/15/[address] FINDINGS: Persistent, at least mildly improved colonic distention compared to 02/15/2023. Surgical clips projecting over the scrotum. No acute bony findings for technique. Degenerative changes in the spine. IMPRESSION: Interval improvement of colonic distention compared to 02/15/2023. Workstation ID: [id number] Final Dictated by:MD Cruz Kathryn L Dictated DT/TM:02/17/2023 11:11 Signed by:MD Cruz Kathryn L Signed (Electronic Signature):02/17/2023 11:10 * Exam Date Time Procedure Performing Provider Status 02/15/23 6:[address] Abdomen and Pelvis w/o Contrast Faviola Early; Final Notes: (CT Abdomen and Pelvis w/o Contrast) Reason For Exam: large bowel obstruction on KUB CT Abdomen and Pelvis w/o Contrast EXAMINATION: CT Abdomen and Pelvis w/o Contrast CLINICAL HISTORY: large bowel obstruction on KUB COMPARISON: Radiograph performed earlier today and CT performed February 10, 2023. TECHNIQUE: CT Abdomen and Pelvis w/o Contrast DOSE: Total Reported Dose Length Product (DLP) = 548.67 mGy.cm FINDINGS: Abdomen Liver, Gallbladder \\T\\ bile ducts: The liver is normal in appearance without contrast. There is no biliary dilation. The gallbladder contains sludge. Pancreas: Normal in appearance without contrast. Spleen: Again seen is severe splenomegaly. Adrenals: Normal in appearance without contrast. Kidneys, collecting system and ureters: Normal in appearance without contrast. There is no hydronephrosis. Retroperitoneum, lymph nodes, and vessels: The abdominal aorta and its major branches are mildly-moderately atherosclerotic. There is no discrete retroperitoneal lymphadenopathy. Bowel \\T\\ Mesentery: There is mild distention of the colon with no discrete transition point identified. The small bowel is normal in caliber. There is a very mild sigmoid colonic diverticulosis without diverticulitis. There is no appreciable mesenteric free fluid or lymphadenopathy. Pelvis Bladder: Normal appearance without contrast. Reproductive organs: No mass. Extraperitoneal, lymph nodes, vessels: There is no discrete pelvic lymphadenopathy. Osseous and body wall: There is multilevel disc degeneration in the lower thoracic and the lumbar spine. There are no worrisome osteolytic or osteoblastic lesions. Lower chest: The lung bases are included on the examination and partially show small left and very small right pleural fluid collections with atelectasis. There are very subtle groundglass opacities in the left lung base. IMPRESSION: 1. Findings suggestive of a mild colonic adynamic ileus. No obstruction. [place] Act 112: This study does not meet the requirements of [place] Act 112. Workstation ID: [id number] Final Dictated by:MD Horn Christine M Dictated DT/TM:02/15/2023 6:49 Signed by:MD Horn Christine M Signed (Electronic Signature):02/15/2023 6:48 p * Exam Date Time Procedure Performing Provider Status 02/15/23 3:47 PM XR Abdomen 1 View Bryan Harding Notes: (XR Abdomen 1 View) Reason For Exam: worsening abdominal distention XR Abdomen 1 View EXAMINATION: XR Abdomen 1 View CLINICAL HISTORY: worsening abdominal distention COMPARISON: 03/13/2023. FINDINGS: 3 AP abdominal radiographs are submitted for review demonstrating air-filled, distended small and large bowel with absence of gas at the level of the rectum, worrisome for obstruction. Bilateral vasectomy clips. Degenerative changes of the hips bilaterally. IMPRESSION: Findings compatible with distal large bowel obstruction. Dedicated abdominopelvic CT is recommendedfor further characterization. Findings discussed via telephone with Dr. Pat of Family Medicine at 16:17 hours. Workstation ID: [id number] Final Dictated by:BirkhMD juan James H Dictated DT/TM:02/15/2023 4:20 Signed by:MD No James H Signed (Electronic Signature):02/15/2023 4:19 p * Exam Date Time Procedure Performing Provider Status 02/14/23 10:59 PM XR Abdomen 1 View Sadia Ceballos; Lopez strong Notes: (XR Abdomen 1 View) Reason For Exam: firm abdomen with LLQ tenderness to palpation, evaluate for stool burden vs. obstruction XR Abdomen 1 View EXAMINATION: XR Chest 1 View, XR Abdomen 1 View CLINICAL HISTORY: persistent tachypnea w last CXR concerning for atelectasis vs. infection. r/o developing left lowerlobe PNA or any other location Firm abdomen with left lower quadrant tenderness to palpation, evaluate for stool burden and obstruction COMPARISON: Prior studies, including radiograph 03/13/2023, CT 02/10/2023, 02/13/2023 FINDINGS: Chest: Semiupright AP view of the chest. Unchanged cardiomediastinal silhouette and pulmonary vasculature. Hypoinflation. Increased interstitial thickening. Left basilar airspace opacities are unchanged. Unchanged small pleural effusions, left greater than right. No pneumothorax. Bones are unchanged. Abdomen: Supine AP view of the abdomen. Nonpathologic gaseous distention of the colon without evidence of obstruction. No significant stool burden. No pneumatosis or priscilla pneumoperitoneum. No acute osseous abnormality. IMPRESSION: 1. Increased interstitial thickening, concerning for mild interstitial edema. 2. Unchanged mild bilateral pleural effusion and left basilar airspace opacities, favoring atelectasis. However, superimposed pneumonia in the left lung base is also possible. 3. Gaseous distention of the colon without evidence of obstruction. No significant stool burden. Dr. Mehran Ernst is the dictating resident. Finalized report status indicates that the attending has reviewed the images and report and agrees with the interpretation. Preliminary report status should be regarded as NOT interpreted by the attending radiologist. Workstation ID: [id number] Final Dictated by:DO Ernst Michael Dictated DT/TM:02/15/2023 1:54 Resident:DO Ernst Michael Signed by:MD Smith Scott W Signed (Electronic Signature):02/15/2023 1:52 a * Exam Date Time Procedure Performing Provider Status 02/14/23 10:59 PM XR Chest 1 View CeabllosSadia; Mark schulz Notes: (XR Chest 1 View) Reason For Exam: persistent tachypnea w last CXR concerning for atelectasis vs. infection. r/o developing left lower lobe PNA or any other location XR Chest 1 View EXAMINATION: XR Chest 1 View, XR Abdomen 1 View CLINICAL HISTORY: persistent tachypnea w last CXR concerning for atelectasis vs. infection. r/o developing left lowerlobe PNA or any other location Firm abdomen with left lower quadrant tenderness to palpation, evaluate for stool burden and obstruction COMPARISON: Prior studies, including radiograph 03/13/2023, CT 02/10/2023, 02/13/2023 FINDINGS: Chest: Semiupright AP view of the chest. Unchanged cardiomediastinal silhouette and pulmonary vasculature. Hypoinflation. Increased interstitial thickening. Left basilar airspace opacities are unchanged. Unchanged small pleural effusions, left greater than right. No pneumothorax. Bones are unchanged. Abdomen: Supine AP view of the abdomen. Nonpathologic gaseous distention of the colon without evidence of obstruction. No significant stool burden. No pneumatosis or priscilla pneumoperitoneum. No acute osseous abnormality. IMPRESSION: 1. Increased interstitial thickening, concerning for mild interstitial edema. 2. Unchanged mild bilateral pleural effusion and left basilar airspace opacities, favoring atelectasis. However, superimposed pneumonia in the left lung base is also possible. 3. Gaseous distention of the colon without evidence of obstruction. No significant stool burden. Dr. Mehran Ernst is the dictating resident. Finalized report status indicates that the attending has reviewed the images and report and agrees with the interpretation. Preliminary report status should be regarded as NOT interpreted by the attending radiologist. Workstation ID: [id number] Final Dictated by:DO Ernst Michael Dictated DT/TM:02/15/2023 1:54 Resident:DO Ernst Michael Signed by:MD Smith Scott W Signed (Electronic Signature):02/15/2023 1:52 a * Exam Date Time Procedure Performing Provider Status 02/13/23 4:[address] Chest - PE Cecile Nguyen; Final Notes: (CT Chest - PE) Reason For Exam: worsening tachyp new afib RVR; eval for PE, worsening ground glassopacities and effusion CT Chest - PE EXAMINATION: CT CHEST ANGIOGRAM WITH CONTRAST - PULMONARY ARTERIES (CTPE) CLINICAL HISTORY: worsening tachyp new afib RVR; eval for PE, worsening ground glass opacities and effusion TECHNIQUE: Helical CT scan through the chest after intravenous contrast administration with contrast timing for evaluation of the pulmonary arteries. Reconstructions in multiple planes. Postprocessing: Maximum intensity projection (MIP). CONTRAST: Contrast Type (IV): Omnipaque 350 Contrast Volume (IV) in ml: 75.00 DOSE: Total Reported Dose Length Product (DLP) = 399.01 mGy.cm COMPARISON: 02/10/2023. FINDINGS: This study is of diagnostic quality. Pulmonary vessels: The central, lobar and segmental arteries are free of embolus. The sub-segmentalarteries are variably seen but contain no filling defect to suggest embolus. Pleura and Lungs: Improving right and worsening left pleural effusions with associated compressive atelectasis. Interval improvement in groundglass changes previously identified within the lungs. Persistent interlobular septal thickening. Central airways: Patent. Lymph nodes: Unchanged mediastinal and right hilar lymphadenopathy, likely reactive. Thyroid and Mediastinum: Unremarkable for technique. Heart and Great vessels: Atherosclerotic calcifications. Upper abdomen: Scant vascular calcification. Chest wall: Degenerative spinal changes. IMPRESSION: 1. No evidence of pulmonary embolism. 2. Interval improvement in previously identified patchy bilateral groundglass opacities with persistent interlobular septal thickening. The differential diagnosis includes improving pulmonary edema although a multifocal atypical infectious/viral process cannot be entirely discounted. 3. Improving right and worsening left pleural effusions with associated compressive atelectasis. [place] Act 112: This study does not meet the requirements of [place] Act [place]. Workstation ID: [id number] Final Dictated by:MD No James H Dictated DT/TM:02/13/2023 5:34 Signed by:MD No James H Signed (Electronic Signature):02/13/2023 5:33 p * Exam Date Time Procedure Performing Provider Status 02/13/23 2:42 PM XR Chest 1 View Gisel Elizabeth; Final Notes: (XR Chest 1 View) Reason For Exam: worsening tachypnea XR Chest 1 View EXAMINATION: XR Chest 1 View CLINICAL HISTORY: worsening tachypnea COMPARISON: Comparison is made to the prior chest x-ray and CT scan of the chest dated 02/10/2023. FINDINGS: AP portable upright view of the chest was obtained on 2 images for coverage. Lung volumes are slightly reduced and there is worsened retrocardiac opacity as compared to prior, which could represent atelectasis/effusion or developing pneumonia. Pulmonary edema seen previously is improved, however. Cardiac silhouette and bones are unchanged. IMPRESSION: Pulmonary edema seen previously is improved, however there is worsened retrocardiac opacification, which could represent atelectasis/effusion or developing left lower lobe pneumonia. Workstation ID: [id number] Final Dictated by:MD Urena Michael A Dictated DT/TM:02/13/2023 2:59 Signed by:MD Urena Michael A Signed (Electronic Signature):02/13/2023 2:58 p * Exam Date Time Procedure Performing Provider Status 02/11/23 11:44 PM MRI Brain w/ + w/o Contrast Anamaria Hartley; Final Notes: (MRI Brain w/ + w/o Contrast) Reason For Exam: AMS, confusion, unclear infectious etiology vs rheumatology vs HLH MRI Brain w/ + w/o Contrast EXAMINATION: MRI OF THE BRAIN WITH AND WITHOUT CONTRAST CLINICAL HISTORY: AMS, confusion, unclear infectious etiology vs rheumatology vs HLH COMPARISON: None. TECHNIQUE: Multiplanar, multisequence MR of the brain was performed without and with intravenous contrast. FINDINGS: Cerebral parenchyma: Scattered T2/FLAIR hyperintensities in the periventricular and subcortical white matter. No restricted diffusion on DWI/ADC to indicate territorial infarct. No acute intraparenchymal hemorrhage. No abnormal enhancement. Extra-axial spaces: No extra-axial collection. Ventricles: No hydrocephalus. Mass effect: No midline shift. Basal cisterns: Preserved. Posterior Fossa: No tonsillar herniation. Vascular system: Major intracranial arteries are patent. Filling defect in the dominant left transverse sinus measuring 9 x 6 mm (sagittal MP rage image #127/160). There is associated signal abnormality on SWI in mag images.. Calvarium: Unremarkable. Sella: Unremarkable. Visualized paranasal sinuses/mastoids: Mild mucosal thickening of the maxillary sinuses. Visualized orbits: Normal. IMPRESSION: Please note the final attending impression at the end of this report Filling defect within the dominant left transverse sinus, possibly representing an old adherent thrombus. No findings to suggest acute infarct. Scattered white matter T2/FLAIR hyperintensities, likely reflecting microangiopathic change. Dr. Andreas Roy is the dictating resident. Finalized reports status indicates that the attending has reviewed the images and report and agrees with the interpretation. Preliminary report status should be regarded as NOT interpreted by the attending radiologist. [place] Act 112: This study does not meet the requirements of [place] Act 112. Final attending impression: The filling defect in the left transverse sinus is an arachnoid granulation and not a thrombus. Agree with the other findings in the preliminary report. Findings were messaged to . Workstation ID: [id number] Final Dictated by:MD Roy Lawrence V Dictated DT/TM:02/12/2023 8:44 Resident:MD Roy Lawrence V Signed by:MD Garza Krishnamoorthy Signed (Electronic Signature):02/12/2023 8:43 a * Exam Date Time Procedure Performing Provider Status 02/10/23 4:[address] Abdomen and Pelvis w/ Contrast Willy Arredondo; Final Notes: (CT Abdomen and Pelvis w/ Contrast) Reason For Exam: eval c/f leukemia vs sequellae of PV, vs infection CT Abdomen and Pelvis w/ Contrast EXAMINATION: CT Abdomen and Pelvis w/ Contrast CLINICAL HISTORY: Provided history: "eval c/f leukemia vs sequellae of PV, vs infection " COMPARISON: None. TECHNIQUE: CT Abdomen and Pelvis w/ Contrast CONTRAST: Contrast Type (IV): Omnipaque 350 Contrast Volume (IV) in ml: 100.00 FINDINGS: Abdomen Liver, Gallbladder \\T\\ bile ducts: The liver is normal in appearance. There are no focal lesions, nor is there biliary dilation. The gallbladder is normal in appearance. Pancreas: Normal in appearance. Spleen: The spleen is severely enlarged. There are ill-defined areas of wedge- shaped low-attenuation in the upper aspect of spleen which may represent evolving infarcts. Adrenals: Normal in appearance. Kidneys, collecting system and ureters: There are probable cysts in both kidneys. There is no hydronephrosis. Retroperitoneum, lymph nodes, and vessels: The abdominal aorta and its major branches are mildly atherosclerotic. There is no discrete retroperitoneal lymphadenopathy. Bowel \\T\\ Mesentery: The bowel is normal in caliber. There is no obstruction. There is mild sigmoidcolonic diverticulosis without diverticulitis. There is mild mesenteric edema. Pelvis Bladder: Normal in appearance. Reproductive organs: No mass. Extraperitoneal, lymph nodes, vessels: No discrete pelvic lymphadenopathy. Osseous and body wall: There is multilevel disc degeneration of the lower thoracic and the lumbar spine. There are no concerning osteolytic or osteoblastic lesions. IMPRESSION: 1. Severe splenomegaly with possible evolving mild splenic infarcts. 2. Other nonurgent findings as above. [place] Act 112: This study does not meet the requirements of [place] Act 112. Workstation ID: [id number] Final Dictated by:MD Horn Christine M Dictated DT/TM:02/10/2023 5:08 Signed by:MD Horn Christine M Signed (Electronic Signature):02/10/2023 5:07 p Vital Signs Most recent to oldest [Reference Range]: 1 2 3 Height 180.34 cm (02/10/23 12:46 AM) Patient Weight 81.2 kg (02/23/23 6:27 AM) 81.7 kg (02/22/23 5:12 AM) 83.4 kg (02/21/23 5:08 AM) Body Mass Index 29.52 kg/m2 (02/10/23 11:45 AM) 29.58 kg/m2 (02/10/23 12:46 AM) Temperature [36.5-37.9 DegC] 36.0 DegC *LOW* (02/23/23 2:06 PM) 36.2 DegC *LOW* (02/23/23 12:00 PM) 36.2 DegC *LOW* (02/23/23 9:43 AM) Heart Rate 73 bpm (02/23/23 2:06 PM) 74 bpm (02/23/23 12:00 PM) 73 bpm (02/23/23 9:43 AM) Respiratory Rate 18 br/min (02/23/23 2:06 PM) 16 br/min (02/23/23 12:00 PM) 14 br/min (02/23/23 9:43 AM) Blood Pressure 133/68mmHg (02/23/23 2:06 PM) 120/60mmHg (02/23/23 12:00 PM) 117/52mmHg (02/23/23 9:43 AM) Mean Blood Pressure 87 mmHg (02/23/23 2:06 PM) 78 mmHg (02/23/23 12:00 PM) 71 mmHg (02/23/23 9:43 AM) Cuff Pulse Pressure 65 mmHg (02/23/23 2:06 PM) 60 mmHg (02/23/23 12:00 PM) 65 mmHg (02/23/23 9:43 AM) BP Location # 1 Right Arm (02/23/23 2:06 PM) Right Arm (02/23/23 12:00 PM) Right Arm (02/23/23 9:43 AM) Social History Social History Type Response Smoking Status Never smoked cigaret doretha Sex Male Cardiology * Contributor_system, [id number]: VERIFY, PERFORM Event Display: EKG Authored Date: [id number] Please click on link to see image. * Contributor_system, [id number]: VERIFY, PERFORM Event Display: EKG Authored Date: [id number] Please click on link to see image. * Contributor_system, [email or web address]: VERIFY, PERFORM Event Display: EKG Authored Date: [id number] Please click on link to see image. History and physical note * MD Tom, Jamal: MODIFY MD Tom, Jamal: MODIFY, MODIFY, PERFORM, MODIFY, MODIFY, MODIFY, MODIFY, MODIFY, MODIFY, MODIFY,MODIFY, MODIFY, MODIFY, MODIFY, MODIFY, MODIFY, MODIFY, MODIFY, MODIFY, MODIFY Event Display: H&P Authored Date: [id number] Name:AYE HERNANDEZ Patient Number:[id number] :1950 Date of Service:02/10/2023 History of Present Illness AYE HERNANDEZ Ris a72 yearMalewith a PMH ofpolycythemia vera,scleroderma, pulmonary nodule, chronic splenomegaly,prostate cancers/p radical prostatectomy in 2006, malignant hypertension,recent[facility] disease[facility] days[facility] on doxycycline,concern forHLH,possible need forhematology/oncology, infectious disease,and rheumatology. Patient statesthat prior tohis admission he [facility] pain" in his lower extremities,hips,and shoulders. The first time he went to the emergency departmentthey treated his pain and he went home, but he came back 8 hours later. They sent him home againand he returns again for the same pain, but at that time they admitted him. He states that he did not have any fevers chills or sweats then, but he did have some shortness of breathbut it has progressively worsened since then. He states that the emergency department is whotested him for Lyme's disease and that it came back positive, which is why he is on doxycycline. He does not feel that any of his symptoms have improved on the doxycycline. He still endorses chills and severe pain inlower extremities, shoulders, hipsand has noticed that hisright knee iswarmer than his other joints.3-4days agohe notes that he began having a dry cough. He shares that he has been having troublefocusing intermittently. He describes this as "being in and out"of itsometimes. He says this is new. He has also been feeling weaker in his lower extremities.Today he endorses some bloating, but states that he is still passing gas. Endorses constipation; usually has abowel movement twice a day butlast bowel movement was 2 days ago. He denies anyvision changes, hearing changes,pain in theearmouthor throatarea. He denies any dysphagia,nausea orvomiting, chest pain including pleuritic chest pain,melena, hematochezia, dysuria,hematuria,rashes. He denies anyrecent medication changes prior to hospitalizations. Most recent procedure was in April 2022- hisright knee was replaced. At [facility]: + b/l CVA tenderness andTTP in the lumbar area on day of admission. +chest tightness without dyspnea orpalpitations. An EKG showed new T wave inversions in dnwnnH0oxl V2 compared to his EKG on 01/30/2023. He also had bibasilar cracklesin his lungs.Negative high-sensitivitytroponin. IDconsultation: + LymeIgM and IgG and Western Blot -> Doxy started. Found to havedaily fevers, persistent leukocytosis, anemia (hgb8-9, down from baseline 14-15), thrombocytopenia (to the 80s),ferritin> 3000, and LDH> 3000. He did not have erythema migrans. Infectious disease was concerned for inflammation out of proportion to infectionand possibly HLH. Infectious diseasereportedthat they were in agreement withhematology'sconcern for HLH as well as other potential underlying etiologies like a hematologic malignancy that may explain his cytopenias. Discharge (02/09/23): "White count levelminimally decreased, most recent peripheral smear review no longer shows blastsin the overall picture seems to be moving away from a priscilla acute leukemic transformationof his polycythemia vera. He has evolving pulmonary infiltrates but no evidence of a PE or DVT,superficialvenous thrombosis is noted but is not likely to be responsible for the level of fever or clinical changes." - He had a bone marrow biopsy todayand [facility] butslides cannot be found. This is likely becausethe bonemarrow biopsy was a dry tapand they were unable to send slides.He was hemodynamically stable during his admission on cefepime and doxycycline. During transport:His heart rate remained in the 80sexcept for 1 timeit was 148. Blood pressureranged [id number]. Pulse oxranged from89- 96 and respiratory rateranged [id number]. DIAGNOSTICS from [facility] --- Do not have the actual images CT angio of chest- 02/04/2023 -Positive findings include:Atelectasis versus scarringin the dependent portions of the lungs.A 4 mm nodule in the left lower lobe. Cardiomegaly is seen with biatrial enlargement. Moderate atherosclerotic disease. Trace free fluidin left upper quadrant. Degenerative changes in the spine. Complete transthoracicechospace - 02/04/2023 -Ejection fraction 60-65%. Left atrium is mildly dilatedand borderline right atrial enlargement. Trace-mildmitral and tricuspid regurgitation. Remaining of the echo is normal EKG -02/05 -Septal andheart/abnormal EKGwhen compared toEKG on 01/30.Nonspecific T wave abnormality in anterior leads. -High-sensitivity troponin8.4 (normal) Venous ultrasound of bilateral lower extremities - 02/08/2023 - Positive findings include: Superficial thrombus in the left long saphenous vein extending from the popliteal fossa to the posterior distal calf. No DVT. CT-guided bone marrow biopsy-02/08/2023 -Bone marrow biopsy completed of left iliac bone. Multiple aspirates were attempted, however the aspiration was a dry tap. 1 bone core was obtained andgiven to the lab. No complications. CTA chest - 02/08/2023 -Positive findings include:Mild patchy bilateral airspace consolidations concerning for multifocal pneumonia. Trace bilateralpleural effusions. No cardiomegaly. LABS from [facility] - TSH, normal Infectious workup: - blood culture x 2: negative -UA:Normal -Babesia:Not detected -Monospot & EBV:possible past infection -Procalcitonin:normal, 0.09 -Coronavirus, Adenovirus, Human metapneumovirus, Rhinovirus/enterovirus, InfluenzaA and B, Parainfluenza, RSV, Whooping cough, Chlamydia pneumoniae, Mycoplasma pneumoniae: Not detected Heme/Onc workup: - Blast cells on CBC-> Peripheral smear 02/06: Normocyticappearing erythrocytes with mildAnisopoikilocytosis. No schistocytes or spherocytes. Polychromatophilic cells(subset of reticulocytes) are noted. Leukocytes are increased in number with the majority being neutrophils. Neutrophil granularity is mildly increased. Left shifted granulocytes are presentbut no blasts are seen. Eosinophils and basophils are not seen. - PSA: < 0.008 - Reticulocyte % 0.8, Reticulocyte Index: 0.38 -> bone marrowhypoproliferation -Triglycerides 221, ferritin> 3000, and LDH> 3000. PT, INR,PTT, fibrinogen [id number] (all elevated) - CBC: Leukocytosis; Hgb:8.5downtrending, not explained by Fe, B12 or Folate. Neut abs: 12.66(elevated), downtrending from 17.45 on 02/06 [place] abs:2.20 (elevated), uptrending from 1.31 on 02/06 Platelets: 66, down from 84 on 02/08 Pending workup from [facility] - MRSA -Marrow biopsy - Gram stain,aerobic and anaerobic'sblood culture,acid-fast bacillus smear, acid-fast bacillus culture,fungal direct prepother,fungal culture other:All pendingwithnopreliminary growthafter 48 hours. -IL-2 -HIV -Bartonella antibodies -HistoUr Ag -Parvovirus antibodiesand PCR -bartonella henselae (catch scratch disease)IgG, IgM - bartonella quinatan IgM - HSV 1 and 2, VZV, CMV, EBV, Adenovirus PCRs - Tick disease: Ehrlichia Ab and PCR, Anaplasma Ab and PRC, Babesia Ab Inpatient Meds: - Tylenol, Fluoxetine 10mg capqAM, folic acid 800mcg qAM, doxycycline 100mg IV q12h (start: 02/04), cefepime 2g IV q8h (start: 02/09), morphine 2mg IV q4h, Coq10 supplement daily, rosuvastatin 5mg tab q3d Home Meds: irbesartan 300mg qHS, rosuvastatin 5mg q3days, chlorthalidone [id number], fluoxetine 10mg qAM, folic acid 0.8mg qAM, tylenol 1000mg q8h PRN, hydroxyurea 1000mg q M, W, F at 0900, hydroxyurea 500mg q Wed, T, , and Sat at 0900, multivitamin daily, Co-enzyme [id number] qHS Allergies: NKDA Surgical Hx -Total right kneereplacement, colonoscopy,radical prostatectomy,right shoulder replacement,left shoulder surgery, tonsillectomy Social history:He is an outdoorsman, lives in [place] [facility]. Has cats. No recent traveling. No sick contacts.No history of smoking, COPD, or asthma. Drinks 1 beer weeklyorsocial occasions. Denies anysubstance use. Family History: none for bleeding disorders or adverse response to anesthesia Dad: prostate cancer, heart disease Sister: Heart disease Review of Systems +chills and severe pain inlower extremities, shoulders, hipsand has noticed that hisright knee iswarmer than his other joints. + trouble focusing + dry cough. + bloating and flatus + constipation Denies anyvision changes, hearing changes,pain in theearmouthor throatarea. He denies any dysphagia,nausea orvomiting, chest pain including pleuritic chest pain,melena, hematochezia, dysuria,hematuria,rashes. Physical Exam Vitals & Measurements T:36.8C HR:86(Monitored) RR:18 BP:141/75 SpO2:92% Oxygen Therapy:Room air WT:96.200kg(Dosing) WT:96.2kg General: Well-developed, lying in bed, shivering under blanket. Alert and oriented to person, time, place, and situation. Attention waxes and wanes during conversation. Eyes: No scleral injection or discharge. PRRL and symmetric. EOMI. ENT: Moist mucous membranes. Clear oropharynx. No exudate. No lesions. Uvula midline. Neck is supple without lymphadenopathy. Lungs: Poor air movement in apex, fair air movement in bases. No wheezes or crackles. No coughing. Cardiac: Regular rate and rhythm. No murmurs. Abdomen: Soft, nontender, and mildly distended. Hyperactive BS. Neurologic: Grossly intact cranial nerves and 2+bicep tendonreflexes bilaterally. Extremities: +1 RLE and trace LLE edema. No erythema,but increased warmth overright knee.Patient hasincreased diffuse tenderness across R knee andhip whenrightlower extremity ismoved.Patient has full range of motioninknee.Negative logroll. b/l+2 dorsalis pedis and radial pulses. Skin: no rashes or petechiae or purpura or lesions/lacerations. No nail changes. labored breathing Diagnostic Results see above for thorough workup at [facility] Assessment/Plan AYE HERNANDEZ Ris a72 yearMalewith a PMH ofpolycythemia vera,scleroderma, pulmonary nodule, chronic splenomegaly,prostate cancers/p radical prostatectomy in 2006, malignant hypertension,recently diagnosed [facility] disease[facility] 10 days on doxycycline and cefepime and concern for HLH. #Concern for HLH # Fever of Unknown Origin # Neutrophilic Leukocytosis, worsening anemia, thrombocytopenia # Lyme Disease # Polyarthralgia It is difficult to differentiatebetweenfindingssupport ofHLH versuschronic conditions. Hehas a history of hypertriglyceridemia with triglycerides in the 200s and 300s. [facility] alsobelieveshis splenomegaly ischronic from polycythemia vera. I believe the new or acute symptomswould be a hisfever,thrombocytopenia,worseninganemia,and elevated ferritin. Although not diagnostic,elevated LDH can besupportiveof HLH. However his elevated fibrinogen does notfit theHLH picture.He [facility] a [facility] better [facility]. Ddx is broad at this point withHLH being most concerning,but differential includesmalignancy especially with hx of prostate cancer and polycythemia vera,infectious, and autoimmune etiologies especially with hx of scleroderma and current polyarthralgia. ID andIsaace at [facility] reported concern for HLH and that his presentation is out of proportion for a Lyme Disease infection. - Day team may consider consulting Heme/Onc - Day team may consider consulting Rheumatology - Receive imaging from [facility] and have over-reads. If no CT Abdomen/Pelvis was completed, order imaging - Consider joint US to evaluate for effusion not visible on exam or order imaging per Rheum's recommendations - CBC with diff qAM - peripheral smear - BMP qAM - CMP once - magnesium & phosphorous level once - lactic acid level - MRSA swab - Blood culture x2 - continue abx: doxycycline 100mg PO q12h (start: 02/04), cefepime 2g IV q8h (start: 02/09) - repeat PT/INR, PTT, fibrinogen - repeat ferritin - repeat TSH - repeat triglyceride level - repeat LDH - UA and urine cx - CXR and procalcitonin level and RVP and VBG in setting of labored breathing and fever of unknown origin - ESR and CRP - LAWANDA - RF and anti-citrullinated antibodies - Hep B sAg, Hep C ab, Parvovirus IgM - d/c anticoagulation if plts <50k #Concern for Sepsis # Elevated Lactate without Acidosis He tachypnea,heart rate over 90, history of fevers although he has not had any here,leukocytosis, thrombocytopenia with an elevated PT/INR, andan elevated lactic acid. It is unclear if he hasanother source of infection. VBG supportive of physiologic pH and not acidosis.qSOFA: 1. Although his attention waxes and wanes, he is oriented and so has a [place] of 15. Severe Sepsis (Sepsis with Organ Dysfunction) on 02/10/2023 05:11: Sepsis with Organ Dysfunction: SIRS/Sepsis Criteria Met: 02/10/2023 03:03 EST WBC = 18.13 K/uL [Greater than or equal to 12.01] 02/10/2023 05:07 EST HR = 91 bpm [Greater than or equal to 91] 02/10/2023 05:07 EST RR = 32 br/min [Greater than or equal to 21] 02/10/2023 03:03 EST Platelet = 60 K/uL [Less than 100] 02/10/2023 03:07 EST Lactic Acid = 2.1 mmol/L [Greater than or equal to 2.1 and Less than 4] Organ Dysfunction: _ Acute hypoxic respiratory failure, _ Acute renal failure, _ Hyperbilirubinemia,x Thrombocytopenia, _ Encephalopathy Antibiotics: Drug Dose/Schedule Start Dt/Tm Stop Dt/Tm cefepime 2,000 mg IV q8h 02/10/23 5:29:00 EST 02/16/23 21:29:00 EST doxycycline 100 mg PO bid 02/10/23 9:00:00 EST 02/16/23 21:00:00 EST Blood Cultures/Lactic Acid: Blood Culture (Aerobic AND Anaerobic)ordered on 02/10/2023 02:03Current Status:Ordered Blood Culture (Aerobic AND Anaerobic)ordered on 02/10/2023 02:03Current Status:Ordered Blood cultures still pending collection. Lactate on 02/10/2023 03:07:2.1 Initial Fluid Bolus:Not applicable as the patient did NOT have 2 episodes of SBP < 90 mmHg or MAP < 65 mmHg AND did NOT have an initial lactate > 4.0._ If patient's condition warranted vasopressors:Patient's blood pressure did not warrant vasopressor usage - s/p 1L LR - fluid status check,may give another 1L bolus if lung exam reassuring - Follow-up on blood cultures,although it will not be surprisingif there is no growthsince hehas been on doxycycline and cefepimeprior to today'sadmission - if no longer a concern for sepsis or if no hypotension for a day, may consider resuming home anti-hypertensives #Labored Breathing He has no smoking historyorpulmonary history including asthma. He does, however,have a lungnodule andstates that he has scleroderma although I would expect chronic lung changes instead of acute increased work of breathing. - albuterol PRN - CBC with diff, CXR, procalcitonin level, and RVP and VBG in setting of labored breathing and fever of unknown origin - see #Fever of unknown origin for further workup - monitor O2 sats #Polycythemia Vera - hold Hydroxyurea since he has anemia. Medication washeld at [facility] - Day team may consider Heme/Onc consult for discharge med rec recommendations # History of prostate cancer With a history of prostate cancerthere is risk for bony metastasisand this was concerningwhenthere is bony tenderness over the spine on exam today, [facility] # Back Pain With bony tenderness over the spine in the setting of10 days fever despitebroad antibiotics,there is concern for anabscessthatis not being penetrated by antibiotics. - Day team may consider MRI unless there is imaging from [facility] that offers reassuring view of spine #Scleroderma Patient shares that he has a history of this, however there is no [facility] - Anti- Scl ab - avoid glucocorticoids because of the risk of precipitating scleroderma renal crisis, especiallywith patient's known history of malignant HTN Chronic Conditions: HTN: holding anti-HTNs due to concern for sepsis. Irbesartan 300mg qHS, Chlorthalidone 25mg q48h, Hydroxyurea 1gq M,W,F at 0900 and Hydroxyurea 500mg q Sun, Tues, Thurs and Sat at 0900 HLD: continue rosuvastatin 5mg q3 days BMI is:25 - 29.9 (Overweight) Obesity complicates all aspects of care. FEN Diet: heart healthy IVF: 1L LR DVT PPX: Lovenox 40mg q24h, D/C if plts <50k GI PPX: none CODE STATUS: FULL POLST FORM: _ Patient already has a POLST form completed _ POLST form completed this admission _ POLST declined by patient _ Not Applicable EMERGENCY CONTACT: PCP: AGNIESZKA NOEL, FLORINDA Mckinney at [place] Dispo: Floor status Amee Miller MD PGY-1 Family & Community Medicine Attestation I preformed a history and a physical examination of the patient and discussed his management with the resident. I reviewed the residents note and agree with the documented findings and plan of care as documented above. Problem List/Past Medical History Ongoing ANXIETY Arthrofibrosis of knee joint BPPV (benign paroxysmal positional vertigo) Coronary artery calcification seen on CAT scan DIVERTICULOSIS OF COLON (WITHOUT MENTION OF HEMORRHAGE) DJD of left shoulder Dyslipidemia HYPERTENSION. 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 S/P knee replacement Shortness of breath UNSPECIFIED HEMORRHOIDS WITHOUT MENTION OF COMPLICATION Historical BMI 32.0-32.9,adult Impaired fasting glucose Need for hepatitis A immunization Osteoarthritis of right glenohumeral joint Shoulder pain Travel advice encounter Procedure/Surgical History Manipulation of knee joint under anesthetic (06/18/2022)Arthroplasty of right knee (04/28/2022)Chest X-ray (08/27/2021)Colonoscopy (12/12/2019)Chemical test for occult blood (01/11/2017)Femoral neck DEXA scan Z score (08/13/2016)R Total Shoulder Arthroplasty (07/27/2016)Full sleep study (05/20/2016)Emergency medical services (03/14/2016)US scan of bladder (03/10/2016)Ultrasound scan of abdomen and pelvis (03/04/2016)Ultrasound procedure on urinary AND/OR malegenital system (03/04/2016)X-ray of right knee (06/16/2015)Magnetic resonance imaging venography (09/24/2014)MRA head (09/24/2014)MRA Neck with and without contrast (09/24/2014)MRI of brain (09/20/2014)colonoscopy: diverticulosis, anal papillae, int. hemor. (08/16/2009)radical prostatectomy (2006)colonoscopy (05/12/2005)hemorrhoidectomy (2005)Right knee arthroscopy (1990)Vasectomy (1988)Left shoulder ORIF (1976)Tonsillectomy, primary or secondary; younger than age 12 (1952)Emergency medical services Medications Inpatient acetaminophen(Tylenol), 1000 mg= 2 tab, PO, q6h, PRN cefepime, 2000 mg= 50 mL, IV, q8h doxycycline, 100 mg= 1 cap, PO, bid enoxaparin, 40 mg= 0.4 mL, subQ, q24h FLUoxetine, 10 mg= 1 cap, PO, Daily folic acid, 1 mg= 1 tab, PO, Daily HYDROmorphone(Dilaudid), 0.4 mg= 2 mL, IV Push, q4h, PRN HYDROmorphone(Dilaudid), 0.2 mg= 1 mL, IV Push, q4h, PRN multivitamin with minerals, 15 mL, PO, Daily rosuvastatin, 5 mg= 1 tab, PO, q72h Home aspirin, 81 mg, PO, Daily chlorthalidone(chlorthalidone 25 mg oral tablet), See Instructions FLUoxetine(FLUoxetine 10 mg oral capsule), See Instructions folic acid(folic acid 1 mg oral tablet), 1 mg= 1 tab, PO, Daily hydroxyurea(hydroxyurea 500 mg oral capsule), 1000 mg= 2 cap, PO, Daily irbesartan(irbesartan 300 mg oral tablet), See Instructions multivitamin with minerals(Centrum Adults oral tablet), 1 tab, PO, Daily rosuvastatin(rosuvastatin 5 mg oral tablet), See Instructions ubiquinone(Coenzyme Q10 100 mg oral capsule), See Instructions Allergies NKA Social History Smoking Status Never smoked cigarettes Alcohol - No Risk Use:Current Type:Beer, Wine Frequency:1-2 times per week Average drinks per episode in last year:1 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 Exercise - Occasional exercise Duration (average number of minutes):30 Times per week:1-2 times/week Exercise type:Walking, push mowing x 1 hour Home/Environment - No Risk Lives with:Children, Spouse Living situation:Home/Independent Home equipment:CPAP/BiPAP Major illness in household:Yes - Comments: sonHorace , with Down's syndrome, immune deficiency, multiple other diagnoses Other - Comments: in 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 Substance Abuse - Denies Substance Abuse Tobacco - Denies Tobacco Use Use:Never smoker Family History Alzheimer disease: Mother. COPD: MGF and PGF. Cardiovascular disease: Sister. Congestive heart failure: Father and PGM. Depression.: Mother. Diabetes: PGM. Factor V Leiden: Sister. GERD - Gastro-esophageal reflux disease: Son. Heart attack: Father (Dx at 55 years). Heart failure: Sister. Immune defect: Son. Osteoarthritis: Mother. Prostate cancer..: Father. Scleroderma: Son. Thrombophilia: Sister. Total hip replacement: Mother. Trisomy 21 - translocation: Son. Health Status Family Member(s) Son: History is negative Family Member(s) Relationship: Father, Age: 75 Years, Cause: CHF Relationship: MGF, Age: 83 Years Relationship: PGF, Age: 91 Years Relationship: PGM, Age: 68 Years Relationship: MGM, Age: 99 Years Immunizations Vaccine Date Status SARS-CoV-2 mRNA (tozinameran 5y-11y) 12/23/2021 Recorded influenza virus vaccine, inactivated 12/23/2021 Recorded SARS-CoV-2 mRNA (pnhofybuftg-mrrr-uqs) 06/28/2021 Recorded Comments : 2021-06-30: Historical information-source unspecified influenza virus vaccine, inactivated 12/31/2020 Recorded SARS-CoV-2 (COVID-19) mRNA BNT-162b2 vax 12/12/2020 Recorded Comments : 2020-12-13: Historical information-source unspecified tetanus/diphtheria/pertuss, acel (Tdap) 10/10/2020 Recorded Comments : [facility] SARS-CoV-2 (COVID-19) mRNA BNT-162b2 vax 05/11/2020 Recorded Comments : 2020-10-02: Historical information-source unspecified SARS-CoV-2 (COVID-19) mRNA BNT-162b2 vax 04/20/2020 Recorded Comments : 2020-10-02: Historical information-source unspecified influenza virus vaccine, inactivated 12/18/2019 Recorded Comments : [facility] zoster vaccine, inactivated 04/24/2019 Recorded Comments : [facility] zoster vaccine, inactivated 02/20/2019 Recorded Comments : [facility] influenza virus vaccine, inactivated 12/15/2018 Recorded influenza virus vaccine, inactivated 12/23/2016 Recorded influenza virus vaccine, inactivated 01/01/2016 Recorded pneumococcal 23-valent vaccine 09/11/2015 Given influenza virus vaccine, inactivated 12/26/2014 Recorded pneumococcal 13-valent vaccine 07/09/2014 Given influenza virus vaccine, inactivated 12/27/2013 Recorded influenza virus vaccine, inactivated 01/07/2013 Recorded Comments : [02/20/2013] Got @ [facility] influenza virus vaccine, inactivated 11/19/2011 Given influenza virus vaccine, inactivated 11/06/2010 Recorded tetanus/diphtheria/pertuss, acel (Tdap) 05/05/2010 Recorded zoster vaccine live 05/05/2010 Recorded Electronic Signature on File CC: Brennen Kolb M.D. [id number] [facility] [id number] Electronically Reviewed/Signed by: Amee Miller MD Author Signature Dt/Tm:02/10/2023 08:30 AM Resident Department of Family Medicine Electronically Reviewed/Signed by: Amee Miller MD Cosigner Signature Dt/Tm: 02/10/2023 08:32 AM Resident Department of Family Medicine Electronically Reviewed/Signed by: Jamal Santos MD Cosigner Signature Dt/Tm: 02/10/2023 03:57 PM Department of Family Medicine ABD Cardiology Consult note * MD Birdie, Alok: PERFORM MD Birdie, Alok: PERFORM, MODIFY MD Birdie, Alok: MODIFY, MODIFY MD Birdie, Alok: MODIFY, MODIFY MD Packer Nathan: MODIFY, MODIFY MD Birdie, Alok: MODIFY Event Display: Cardiology Consult Authored Date: [id number] CARDIOLOGY INPATIENT CONSULT Name: AYE HERNANDEZ Patient Number: [id number] : 1950 Date of Admission: 02/10/2023 Date of Service: 02/15/2023 REQUESTING PHYSICIAN'S NAME: MD Edgard, Sharmin Miller REASON FOR CONSULTATION: New onset Afib ASSESSMENT: Patient is a 72 year old M without significant cardiac history, presenting with ongoingillness of unclear etiology. With continued multidisciplinary workup underway, patient is now experiencing new, recurring atrial fibrillation. Thus far, patient's symptoms have been controlled with pu shes of beta blockade and he has remained hemodynamically stable. RECOMMENDATIONS: 1 ) New Onset Atrial Fibrillation - Given patient's course of Afib thus far, there is a high likelihood of recurrence. Suspect his recurrent arrhythmia is a result of his underlying illness - Patient is not a good candidate for anticoagulation at this time given his degree of thrombocytopenia - Ultimately, patient may benefit from antiarrhythmic pharmacotherapy. However, given current inability to tolerate PO, would recommend continuing IV metoprolol 2.5mg q6h. - Overnight if patient has recurrence of atrial fibrillation but is hemodynamically stable, can first trial 5mg IV metoprolol tartrate pushes up to 3 times. - If not responsive to metoprolol, can stop standing doses and proceed with initiation of diltiazembolus (up to twice if needed), then transition to diltiazem gtt if responsive to bolus. - If hypotensive or not responsive to first two diltiazem pushes, can reach out to Cards team for potential cardioversion - We will plan to follow-up with patient tomorrow HPI: Patient is a 72 year old M, hx of polycythemia vera, scleroderma, pulmonary nodules, chronic splenomegaly, prostate cancer s/p radical prostatectomy in 2006, HTN, recently diagnosed lyme disease (s/pdoxycycline treatment) who was admitted as a direct transfer for fever of unknown origin. Cardiology was consulted for concern of new onset Afib. Patient initially presented to [facility] ED several times due to fevers, diffuse pains, unclear etiology. He did have some chest tightness there w/ reports of EKG on 02/05 showing new T wave inversions, and negative high- sensitivity troponin. There is also a report of complete TTE on 02/04 showing normal EF, mild LA dilation, borderline RA enlargement. He underwent extensive Heme/Onc and infectious workup, generally unrevealing aside from +Lyme for which doxycycline was initiated. After the patient did not improve, transfer to [facility] was requested. Patient was initially on the [facility] service when transferred. Shortly after admission, patient developed Afib with RVR on 02/10. This improved with IV metoprolol pushes, and patient was started on PO metoprolol tartrate 25mg BID. Repeat TTE at that time was unrevealing. He required ICU admission from 02/10- 02/13 due to increased O2 requirements, but has subsequently been downgraded, now on 1L NC. 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 Due to concern for possible splenic infarct, primary team is considering ZACKARY to evaluate for possible endocarditis. At time of downgrade, patient's HR had been stable, but after returning to the floor, required another 5mg IV metoprolol push. The PM of 02/14, patient underwent rapid response for tachycardia. Required IV metoprolol x3, and lasix was given due to concerns for pulmonary edema. Metop dosing was increased to 25mg PO q8h. This AM, Metoprolol dosing was changed to IV 2.5mg q6h due to patient's nausea and inability to tolerate PO. Thus far today, patient has maintained normal sinus. He denies any chest pain, SOB, cough. Endorsesfatigue and nausea, but otherwise no explicit concerns. EKGs from 02/10 and 02/14 seem consistent with Afib. 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 PERSONAL HISTORY OF MALIGNANT NEOPLASM OF PROSTATE Hypertrophied anal papilla ANXIETY DIVERTICULOSIS OF COLON (WITHOUT MENTION OF HEMORRHAGE) UNSPECIFIED HEMORRHOIDS WITHOUT MENTION OF COMPLICATION LIPOPROTEIN DEFICIENCIES ROSACEA Polycythemia vera (clinical) Hospital Day: 6 Surgical Hospital Day/Procedure: No procedures found MEDICATIONS: Active Inpt Meds: FLUoxetine 10 mg PO Daily docusate-senna (Senna S) 1 tab PO bid doxycycline 100 mg IV q12h emollients, topical (Sween 24 (dimethicone)) 1 appl topical bid folic acid 1 mg PO Daily metoprolol (metoprolol tartrate) 2.5 mg IV q6h multivitamin with minerals 15 mL PO Daily polyethylene glycol 3350 (MiraLax) 17 g PO Daily Active PRN Meds: acetaminophen (Tylenol) 1,000 mg PO q6h albuterol-ipratropium (DuoNeb) 3 mL NEB q6h ondansetron (Zofran) 4 mg IV Push q6h simethicone 40 mg PO ac and hs Active IV Meds: None Allergies and Sensitivities: NKA VITAL SIGNS AND EXAM: Vitals Temp Pulse BP RR SpO2 FIO2 Date Wt(kg) Wt(lb) 02/15 13:10 ---- 74 ----- -- --- --- 02/15 92.2 203 02/15 11:37 37.5 77 ----- 23 88 --- 02/14 94.0 207 02/15 08:39 36.5 75 ----- 21 97 RA 02/12 96.5 212 02/15 08:00 ---- --- 126/65 -- 96 1.0L/m 02/12 95.5 210 02/15 06:40 ---- 76 ----- -- --- --- 02/10 96.0 211 24 Hr Tmax: 38.1 at 02/14 22:05 36 Hr Tmax: 38.1 at 02/14 22:05 Vital Signs are the last 5 in the past 48 hours. Weights display the last 5 within 7 days. Initial Wt: 02/10 kg 212 lb Recorded Input Output Balance 02/15 7a-3p 503 1000 -497 3p-11p 0 0 0 11p-7a 0 0 0 24 Total 503 1000 -497 02/14 7a-3p 15 475 -460 3p-11p 374 200 174 11p-7a 485 1400 -915 24 Total 874 2075 -1201 Refer to the I-VIEW - I and O tab for details Physical Exam: General: awake, alert, no acute distress. Nods/shakes head appropriately to questions; takes effortto speak, leading to minimal voluntary verbalization HEENT: normocephalic, atraumatic, EOMI Cardiac: regular rate and rhythm, no murmurs/rubs/gallops, normal S1/S2 Lungs: lung alaniz clear bilaterally, non-labored breathing, some mildly decreased air entry to thebases bilaterally Abdomen: mildly distended, non-tender Extremities: no pitting edema in LE Neuro: AOx4, able to follow commands Skin: warm, dry, intact LABS: Most Recent Lab Results over the last 24 Hours: CBC: on 02/15/2023 04:05 CMP: on 02/15/2023 04:05 7.8 132 95 31 10.7 28 124 22.9 3.4 22 1.11 Ca = 9.6 eGFR CKD-EPI: 70 Most Recent 24hr Labs as of 02/15 1247 Lactate 2.2 02/15 0452 Estimated CrCl 70.14 02/15 0405 MCH 34.1 H MCHC 34.1 MCV 100.0 H RBC 2.29 L MPV NOT AVAILABLE RDW 14.5 H Anion Gap 15 H Mg 2.1 PO4 4.9 H eGFR CKD-EPI 70 Alk Phos 136 H ALT 23 AST 64 H T Bili 0.6 Alb 2.8 L Prot 5.8 L 02/15 035 LDH >2500 H Fibr 580 H Ferritin 7101.0 H 02/14 2159 Immature Gran% 5.3 Neut% 70.8 Lymph% 7.1 [place]% 14.1 Baso% 0.9 Eos% 0.0 Other% 1.8 Immat Gran, Abs 0.51 H Lymph, Abs 0.68 L [place], Abs 1.35 H Baso, Abs 0.09 Eos, Abs 0.00 Other, Abs 0.17 H Type of Diff: See Flowsheet RBC Morphology See Flowsheet Platelet Morpho See Flowsheet BNP, NT-Pro 1872 H Troponin T <0.010 Troponin T Delt See Flowsheet Procalcitonin. 3.29 H 02/14 2158 INR 1.5 H PT 18.6 H Attending - I saw and evaluated the patient with the job training supervisor and agree with the assessment and recommendations. Electronic Signature on File CC: iTffany Valencia, DO [address] [facility] [address] Electronically Reviewed/Signed by: Alok Packer MD Author Signature Dt/Tm:02/15/2023 03:46 PM Resident Department of Family Medicine Electronically Reviewed/Signed by: Clover Atwood MD Cosigner Signature Dt/Tm: 02/15/2023 09:58 PM [facility] [place] [facility], [facility] [facility], [address], [place] [address] Rheumatology Consult * MD Rob Sowmya L: MODIFY MD Rob Sowmya L: MODIFY, MODIFY, MODIFY, MODIFY, MODIFY, MODIFY, MODIFY, MODIFY, MODIFY, MODIFY, MODIFY, MODIFY, MODIFY, MODIFY, MODIFY, MODIFY, MODIFY Event Display: Rheumatology Consult Authored Date: Chief Complaint FOU Reason for Consultation Reported hx of scleroderma History of Present Illness 72-year-old male with past medical history of polycythemia vera on hydroxyurea at home, prostate cancer status post radical prostatectomy in 2006, status post right knee replacement and shoulder replacement, recently diagnosed Lyme's diseasetwo weeks ago who presented as a transfer from [facility] on 02/09 due to fever of unknown etiology for 10 days concern for HLH. HPI is primarily obtained by patient's , present at bedside. OSH hospital course: She notes that symptoms started 3 weeks ago. Initial symptom was diffuse generalized pain throughout, whichhe believes was primarily joint pain. Joint included symmetrical involvement of bilateral shoulders, elbows, hips, knees, ankles. Patient notes that his right kneewas the most bothersome. He had joint stiffness lasting2 to 3 hours a day. He denies any joint swellingor redness. Associated symptoms included fatigue, progressively worsening shortness of breath. He presented to the ER at [facility] and was found to havepositive Lyme's diseaseand was started on oral doxycycline on 01/30. He notes his symptoms did not improve, which led to his hospitalizationon 02/04. Infectious disease was consulted due to a positive Lyme IgM/IgG on Western blot. He was started on doxycycline IV on 02/04 and continued to have daily fevers, anemia between 8-9, thrombocytopenia in the 80s and leukocytosis 20, ferritin greater than 3000, LDH greater than 3000. Due to febrile episodes, started on cefepime on 02/09. ID believed he required hematology consult for HLH. TTE showed mild mitral and tricuspid regurgitation. EKG showed nonspecific T wave abnormalities in the anterior lead. Duplex of the lower extremity showed superficial thrombus in the left long saphenous vein. Status post bone marrow biopsy on 02/08 CTA chest showed mild patchy bilateral airspace consolidations concerning for multifocal pneumonia. PBS did not show any blast. [facility] Hospital course: Upon presenting to [facility] noted to be hemodynamically stable.Chest x-ray showed mild interstitial edema with trace bilateral pleural effusions. CT PE showed no evidence of pulmonary embolism, splenomegaly, pulmonary edema with bilateral pleural effusions, nonspecific ground glass opacities which were considered to be more likely edema rather than pneumonia. CT abdomen and pelvis with contrast showed severe splenomegaly with possible mild splenic infarct, no discrete retroperitoneal lymphadenopathy. X-ray of the right knee shows soft tissue swelling anteriorly, most likely small joint effusion. TTE showed no abnormalities with a preserved renal function. Patient upgraded to MICU on 02/10 due to increased work of breathing requiring rescue BiPAP, found to be in new A-fib with RVR. Weaned off and now on 2-4L NC. ID consulted: Continue doxycycline, added on Zosyn Hematology consulted: Noted H score is indeterminate for HLA B 325 to 40%: Lyme's, splenomegaly, elevated triglycerides at baseline confound assessment for HLH. Recommended to obtain a CD25, CXCL9. Orthopedic surgery consulted: No concern for septic knee. Status post arthrocentesis: Synovial fluid showed 431 WBC, 23% PMN, RBC 10K, positive for monosodium urate crystals. Infectious workup negative so far: RVP panel, blood cultures x 2 NTD, urine culture. PBS showed negative parasite screen. Noted he may benefit from a bone marrow biopsy to rule out MDS. Hepatitis B, hepatitis C, HIV negative. During the patient's hospital course, he has had intermittent febrile episodes, most recently on 02/10 at 38.2. In regard to his lab work, he has hyponatremia at 130, hypochloremia 95. RUDY at 1.35, noted to have a creatinine of 1.1 on admission. Leukocytosis noted to have been improving, 18 on admission, [id number] neutrophil predominance at 13.3. Macrocytic anemia with a hemoglobin of 8.5 and MCV 100. Thrombocytopenia in the low 60s. ALT within normal limits, AST 64. Low titer positive rheumatoid factor at 17. IgG 653. CRP 32.5, ESR within normal limits at 33.Ferritin 6600.Urinalysis showed 100 protein Pending LAWANDA with reflex titer, CCP antibody, parvovirus B19.Pending MRI head. Of note, during my assessment of him today, he notes he continues to have joint pain and stiffness. Other symptoms include fatigue, decrease in mental status, shortness of breath at rest. He denies: Weight loss, vision change, sicca symptoms, oral ulcers, skin rash, dysphagia, chest pain, abdominal pain, hematuria, Raynaud's phenomena. Denies difficulty combing hair, reaching over head, sitting up from chair. Past family history: Son has scleroderma on IVIG social history: Social history: Denies tobacco alcohol drug use Review of Systems All other ROS negative. Pertinent positives as stated in the above HPI. Physical Exam Vitals & Measurements T:36.4C TMIN:34.9C TMAX:38.3C HR:85(Monitored) RR:22 BP:132/61 SpO2:98% Oxygen Flow:2(L/Min) Oxygen Therapy:Nasal cannula Input and Output - Last 24 hours (Last 8 hours) Total In: 990 (116) Total Out: 1800 (200) Total Balance: -810 (-84) MED INTAKE:330 (116) Urine Voided:1800 (200) Oral Fluids:660 (0) Stool Count 2(1) Urine Count 4(0) General: cooperative, alert, appears fatigue, on NC HEENT: oral moist mucous membranes, no presence of oral ulcers Neck: supple, no lymphadenopathy Cardiovascular: RRR, normal S1 and S2, no murmur, no edema Respiratory: decreased breath sounds b/l bases, shallow breaths, using accessory muscles Abdomen: soft nontender nondistended abdomen, normoactive bowel sounds in all four quadrants Skin: No presence of: rash, nail pitting, palpable purpura, infarcts at nail beds. MSK: Shoulders/Elbows/Wrists/Hands: mildly TTP, no signs of swelling or synovitis, ROM intact b/l Knees: without tenderness or swelling, R knee wrapped in onemi, vertical surgical incision scar. Ankles/MTP: without tenderness or swelling, range of motion intact bilaterally. Neuro: 5/5 strength in proximal and distal muscles bilaterally Diagnostic Results (02/10/2023 16:[address] Chest - PE) FINDINGS: This study is of diagnostic quality. Pulmonary vessels: The central, lobar and segmental arteries are free of embolus. The sub-segmentalarteries are variably seen but contain no filling defect to suggest embolus. Pleura and Lungs: Marked peribronchial and interlobular septal thickening with bilateral pleural effusions, consistent with pulmonary edema. Groundglass opacities bilaterally with some relative peripheral sparing. Central airways: No endobronchial lesion. Lymph nodes: Small mediastinal nodes are likely reactive. Thyroid and Mediastinum: Unremarkable. Heart and Great vessels: Atherosclerotic calcification in the aorta and coronary arteries. Trace pericardial fluid. Upper abdomen: Splenomegaly. Chest wall: Degenerative changes in the spine. No destructive lesion. IMPRESSION: 1. No evidence of pulmonary embolism. 2. Pulmonary edema and bilateral pleural effusions. Groundglass opacities are nonspecific, considered more likely due to pulmonary edema than pneumonia. 3. Splenomegaly. [1] (02/10/2023 16:[address] Abdomen and Pelvis w/ Contrast) FINDINGS: Abdomen Liver, Gallbladder \\T\\ bile ducts: The liver is normal in appearance. There are no focal lesions,nor is there biliary dilation. The gallbladder is normal in appearance. Pancreas: Normal in appearance. Spleen: The spleen is severely enlarged. There are ill-defined areas of wedge- shaped low-attenuation in the upper aspect of spleen which may represent evolving infarcts. Adrenals: Normal in appearance. Kidneys, collecting system and ureters: There are probable cysts in both kidneys. There is no hydronephrosis. Retroperitoneum, lymph nodes, and vessels: The abdominal aorta and its major branches are mildly atherosclerotic. There is no discrete retroperitoneal lymphadenopathy. Bowel \\T\\ Mesentery: The bowel is normal in caliber. There is no obstruction. There is mild sigmoidcolonic diverticulosis without diverticulitis. There is mild mesenteric edema. Pelvis Bladder: Normal in appearance. Reproductive organs: No mass. Extraperitoneal, lymph nodes, vessels: No discrete pelvic lymphadenopathy. Osseous and body wall: There is multilevel disc degeneration of the lower thoracic and the lumbar spine. There are no concerning osteolytic or osteoblastic lesions. IMPRESSION: 1. Severe splenomegaly with possible evolving mild splenic infarcts. 2. Other nonurgent findings as above. [2] (02/10/2023 16:36 EST XR Knee 1 or 2 Views Right) There is a right knee arthroplasty with resurfaced patella. There is no complication of the hardware. There is thickening of the prepatellar soft tissues and thickening of the septi through the subcutaneous fat both proximal and distal to the patella. The knee is held in large degree of flexion, limiting evaluation for joint effusion. At least small joint effusion is suspected. IMPRESSION: No complication of knee arthroplasty no acute osseous abnormality. Soft tissue swelling anteriorly with likely small joint effusion, however knee flexion on lateral film limits evaluation for effusion. [3] Assessment/Plan 72-year-old male with past medical history of polycythemia vera on hydroxyurea at home, prostate cancer status post radical prostatectomy in 2006, status post right knee replacement and shoulder replacement, recently diagnosed Lyme's diseasetwo weeks ago who presented as a transfer from [facility] on 02/09 due to fever of unknown etiology for 10 days despite being on doxycycline, concern for HLH in setting of new macrocytic anemia, thrombocytopenia, elevated ferritin at 6600. During the patient's hospital course, he has been maintained on doxycycline and Zosyn with worsening respiratory symptomsand mentation.Upgraded to MICU due to requiring rescue BiPAP, now on NC. Lab work shows leukocytosis of 16 with neutrophil predominance at 13.3, macrocytic anemia at 8.5, thrombocytopenia at 62. PBS notes reactive/inflammatory leukocytosis, immature platelet fraction which can be seen with ITP or drug-induced thrombocytopenia, rare spherocytes. Pending bone marrow biopsy results from OSH - supposed to be arriving tomorrow. CT imaging shows severe splenomegaly with possible evolving mild splenic infarcts. Symptoms of inflammatory polyarthritis with symmetricaljoint involvement of shoulders, elbows, hips, knees started 3 weeks ago;his right knee is most bothersome. Although he has clinical symptomsof inflammatorypolyarthritis, no evidence of physical exam findings. X-ray of the right knee showed small anterior joint effusion, for which an arthrocentesis has been completed by orthopedic surgery on 02/10. This showed 431 nucleated cells, greater than 10,000 RBCs, crystals showing monosodium urate. Uric acid was normal at 4.3. Remainder rheumatological lab work shows: Low titer positive RF at 17. IgG 653. CRP elevated at33. ESR within normal limits at 33 ferritin has increased from 3000 at OSH to now 66,000. Recommendations: 1. Pending LAWANDA w/ reflex titer - low suspicion that this is secondary to CTD, ie SLE, given his ageand gender demographics 2. Pending immunoglobin panel 3. Pending CCP Ab - low suspicion that this is secondary to RA given lack of physical exam findings; low titer positive RF which is not too significant 4. Pending pathology from bone marrow biopsy results at OSH - differential diagnosis includes infection vs. malignancy vs. HLH with consideration of TTP vs. atypical HUS in setting of new RUDY and worsening mental status with findings of anemia/thrombocytopenia. Attending: I have seen and examined Mr Hernandez and discussed the plan with Dr Bryant . I have reviewed the note and agree with documented findings. Mr Hernandez is a [id number] with history of polycythemia vera on hydroxyureaalong with history of prostate cancer transferred from an outside hospitalfor ongoing fever for the past10 days, with a concern for HLH in the setting ofthrombocytopenia, anemia along with elevated ferritin. He was also found to haveLyme's disease for which he is on doxycycline. Will await bone marrow biopsy results. He seems to have some symmetricaljoint pain since past few weeks but no significant evidence of inflammation on physical exam. Possible that this could befrom Lyme's diseaseversus others He does not have personal history of scleroderma and it looks like his son does have scleroderma asper his . Borderline rheumatoid factor with normal sed rate buthigh CRP. I do wonder it might mostly be an infectious etiology or hematologic etiologyfor HLHif at all he ends up having HLH.. We have also wondered about other things like HUS/TTPespecially with his ongoing altered mental status. We will follow. Medications Inpatient acetaminophen(Ofirmev), 1000 mg= 100 mL, IV, q6h, PRN acetaminophen(Tylenol), 1000 mg= 2 tab, PO, q6h, PRN albuterol-ipratropium(DuoNeb), 3 mL, NEB, q6h, PRN doxycycline, 100 mg= 1 cap, PO, bid enoxaparin, 40 mg= 0.4 mL, subQ, q24h FLUoxetine, 10 mg= 1 cap, PO, Daily folic acid, 1 mg= 1 tab, PO, Daily furosemide(Lasix), 40 mg= 1 tab, PO, Daily HYDROmorphone(Dilaudid), 0.4 mg= 2 mL, IV Push, q4h, PRN HYDROmorphone(Dilaudid), 0.2 mg= 1 mL, IV Push, q4h, PRN multivitamin with minerals, 15 mL, PO, Daily mupirocin topical(mupirocin 2% nasal ointment), 1 appl, each nostril, bid piperacillin-tazobactam, 4.5 g= 100 mL, IV, q8h rosuvastatin, 5 mg= 1 tab, PO, q72h Home aspirin, 81 mg, PO, Daily chlorthalidone(chlorthalidone 25 mg oral tablet), See Instructions FLUoxetine(FLUoxetine 10 mg oral capsule), See Instructions folic acid(folic acid 1 mg oral tablet), 1 mg= 1 tab, PO, Daily hydroxyurea(hydroxyurea 500 mg oral capsule), 1000 mg= 2 cap, PO, Daily irbesartan(irbesartan 300 mg oral tablet), See Instructions multivitamin with minerals(Centrum Adults oral tablet), 1 tab, PO, Daily rosuvastatin(rosuvastatin 5 mg oral tablet), See Instructions ubiquinone(Coenzyme Q10 100 mg oral capsule), See Instructions Allergies NKA Lab Results Test Name Test Result Date/Time Cret 1.35 mg/dL 02/11/2023 03:36 EST eGFR CKD-EPI 55 mL/min/1.73 m2 02/11/2023 03:36 EST WBC 15.86 K/uL 02/11/2023 03:36 EST Hgb 8.5 g/dL 02/11/2023 03:36 EST MCV 100.0 fL 02/11/2023 03:36 EST Plts 62 K/uL 02/11/2023 03:36 EST Immat Gran, Abs 0.41 K/uL 02/11/2023 03:36 EST Neut, Abs 13.25 K/uL 02/11/2023 03:36 EST Lymph, Abs 0.82 K/uL 02/11/2023 03:36 EST Other, Abs 0.27 K/uL 02/11/2023 03:36 EST [place], Abs 1.11 K/uL 02/11/2023 03:36 EST ALT 23 unit/L 02/11/2023 03:36 EST AST 64 unit/L 02/11/2023 03:36 EST RF. 17 I.U./mL 02/10/2023 03:02 EST IgG 653 mg/dL 02/10/2023 03:02 EST IgM 174 mg/dL 02/10/2023 03:02 EST CReacProt 32.48 mg/dL 02/10/2023 03:02 EST ESR 33 mm/hr 02/10/2023 03:02 EST Uric Acid 4.8 mg/dL 02/11/2023 03:36 EST Ferritin 6651.0 ng/mL 02/11/2023 03:36 EST [1]CT Chest - PE; MD Rose, Marlene 02/10/2023 16:49 EST [2]CT Abdomen and Pelvis w/ Contrast; MD Kory, Carmen M 02/10/2023 16:49 EST [3]XR Knee 1 or 2 Views Right; MD Brandon, Silvina L 02/10/2023 16:36 EST Electronic Signature on File Electronically Reviewed/Signed by: Brooke Bryant DO Author Signature Dt/Tm:02/11/2023 04:21 PM Resident Division of Rheumatology Electronically Reviewed/Signed by: MD Alice Matthewsigner Signature Dt/Tm: 02/12/2023 09:20 AM Division of Rheumatology RA * MD [place], [place]: PERFORM, MODIFY Event Display: Orthopaedics Consult Authored Date: [id number] ORTHOPAEDICS CONSULTATION REPORT Name: AYE HERNANDEZ Patient Number: [id number] : 1950 Date of Service: 02/11/2023 CONSULTING SERVICE: MICU REASON FOR CONSULTATION: Right knee pain and swelling concerning for right septic knee TIME OF CONSULTATION: 6:00 PM TIME OF EVALUATION: 6:05 PM HISTORY OF PRESENT ILLNESS: Patient is 72-year-old male with past medical history of polycythemia vera, scleroderma, prostate cancer, and recently diagnosed Lyme disease who presented to [facility] as a direct transfer from [facility] due to fever of unknown etiology over the past 10 days. The patient s tates that he initially developed bilateral hip and knee pain for which he initially presented to [facility] approximately 2 weeks ago. He was diagnosed with Lyme disease at that time and was given a prescription for oral doxycycline. However due to persistent symptoms of pain as well as new onset fevers he represented to [facility]. Due to persistent fever of unknown origin as well as leukocytosis, thrombocytopenia, anemia, splenomegaly, and elevated LDH, there was concern for possible HLH. The patient was subsequently transferred to [facility] for hematology subspecialty care as well as rheumatology and orthopedic infectious disease for evaluation and treatment of his HLH. The patient was subsequently upgraded to the MICU due to acute hypoxic respiratory failure. The patient continues toendorse significant pain about his bilateral lower extremities but most predominantly about the right knee. Patient notes significant pain and swelling about the knee. He denies any trauma to the knee. He continues to endorse occasional subjective fevers. He does have a history of a right total knee arthroplasty performed in 2022 at [facility]. REVIEW OF SYSTEMS: 14 point review of systems was obtained and is negative except for what is notedin the HPI. PAST MEDICAL HISTORY: Polycythemia vera, Lyme disease, hypertension, hyperlipidemia, prostate cancer PAST SURGICAL HISTORY: Right TKA 2022, right TSA ALLERGIES: No known drug allergies FAMILY HISTORY: No family history of bleeding disorders, clotting disorders, or life threatening reactions to anesthesia. SOCIAL HISTORY: Denies any tobacco, alcohol, recreational drug use. PHYSICAL EXAMINATION: Gen: fair-appearing male, lying in bed uncomfortable but in no acute distress HEENT: Normocephalic, atraumatic. PERRL, EOMI, sclerae anicteric, conjunctivae clear, MMM CV: regular rate and rhythm Pulm: breathing comfortably and saturating well on room air, symmetric chest wall rise Neuro: alert and oriented x3, answering questions and follows commands appropriately. MSK: LLE: Skin intact without lacerations or abrasions. Mildly tender about the left hip, thigh and knee. Patient able to fire hip flexor, quad, hamstring, tib ant, EHL, gastrocsoleus. Sensation intact tolight touch in tibial, SP, DP, sural, saphenous nerve distributions. DP pulse 2+. Brisk capillary refill in all toes. RLE: Skin intact without lacerations or abrasions. TTP predominantly along right knee but nontenderotherwise. No significant knee effusion or erythema. Patient able to fire hip flexor, quad, hamstring, tib ant, EHL, gastrocsoleus. Full range of motion of the left hip and knee passively and actively. No pain with short range of motion of the right knee. Sensation intact to light touch in tibial, SP, DP, sural, saphenous nerve distributions. DP pulse 2+. Brisk capillary refill in all toes. LUE: Skin intact without lacerations or abrasions. Nontender to palpation and no gross deformity. Patient able to fire deltoid, biceps, triceps, wrist flexors, wrist extensors, finger flexors, fingerabductors. Sensation intact to light touch in axillary, median, radial, ulnar nerve distribution. Radial pulse 2+. Brisk capillary refill in all fingers. RUE: Skin intact without lacerations or abrasions. Nontender to palpation and no gross deformity. Patient able to fire deltoid, biceps, triceps, wrist flexors, wrist extensors, finger flexors, fingerabductors. Sensation intact to light touch in axillary, median, radial, ulnar nerve distribution. Radial pulse 2+. Brisk capillary refill in all fingers. IMAGING: X-rays of the right knee obtained demonstrate evidence of a right total knee arthroplasty in stable alignment without evidence of hardware loosening or failure. There is a small joint effusion. ASSESSMENT: 72-year-old male with a history of a right total knee arthroplasty in 2022 who presentsdue to worsening right knee pain and swelling over the past week. Patiently recently tested positive for Lyme disease for which doxycycline was provided no relief. Patient is afebrile hemodynamicallystable. WBC 17.7, CRP 32.5, ESR 33. PLAN: Synovial fluid aspiration performed of right knee. Synovial fluid aspirate results: 431 WBCs, 23% PMNs, positive monosodium urate crystals. Recommend continued treatment of Lyme disease. Also recommend treatment of gout. Patient staffed with attending surgeon Dr. Dhaliwal. Please page [phone] with any additional questions or concerns. Electronic Signature on File Electronically Reviewed/Signed by: Ky Hays MD Author Signature Dt/Tm:02/11/2023 03:49 AM Resident Division of Orthopaedics Electronically Reviewed/Signed by: Edwin Dhaliwal MD Cosigner Signature Dt/Tm: 02/19/2023 10:58 AM Division of Orthopaedics CS Discharge instructions * DO Fraga Julio: PERFORM, MODIFY Event Display: Patient Discharge Instructions Authored Date: [id number] AYE HERNANDEZ :1950 Visit Date:02/10/2023 Patient Discharge Instructions [facility] For medical concerns, call: . Date of Admission:02/10/2023 Date of Discharge:02/23/2023 Physician:MD Simon, Scott Abdalla Service:Hematology/Oncology Discharge Disposition:Home . Advance Directive:Living will, Health Care Power of Supervisor [employer] Reason for Hospitalization FUO (fever of unknown origin) Your Diagnoses FUO (fever of unknown origin) Polycythemia vera (clinical) Acute hypoxic respiratory failure Thrombocytopenia Anemia A-fib Positive Lyme disease serology Elevated ferritin Splenomegaly Body aches Respiratory failure My Health Patient Portal: [facility] makes it easy for you to manage your health information online. My [facility] is a free service that provides you instant, secure access to your medical information anytime, anywhere. Sign in or set up your account today at [email or web address] Thank you for allowing us to assist you with your healthcare needs. If you need additional community resources, ALICIA Perla can help at https://www.pa211.org. 211 can assist you in connecting with social programs based on your unique needs and locations. 211 is an anonymous search that can help you locate resources for: Food, Housing, Transportation, Goods, Education and Healthcare. Medications Patient is enrolled in Rx-to-Go Program New medications will be delivered from [facility] to patient's room at discharge: Mon-Sun from 9AM-5 PM. Medications MUST be PICKED UP at [facility] if patient is discharged Mon-Sun after 5 PM or anytime on holidays. Please note, the [facility] closes at 8 PM on and 5:30 PM on Saturdays, Sundays, and holidays. What How Much When Instructions Next Dose New dexAMETHasone (dexAMETHasone 1 mg oral tablet) 5 tab(s) by mouth Once daily Duration: 1 Days Take 5 tabs, once a day, on 2022 Pickup at [facility] New metoprolol (metoprolol succinate 50 mg oral tablet, extended release) 1 tab(s) by mouth Once daily Duration: 30 Days take 1 tab, once a day. Do not crush or chew Pickup at [facility] New ruxolitinib (ruxolitinib 5 mg oral tablet) 1 tab(s) by mouth 2 times daily Duration: 30 Days Refills: 1 Pickup at [facility] Unchanged aspirin 81 Milligram by mouth Once daily Unchanged FLUoxetine (FLUoxetine 10 mg oral capsule) See instructions TAKE 1 CAPSULE BY MOUTH EVERY DAY Unchanged folic acid (folic acid 1 mg oral tablet) 1 tab(s) by mouth Once daily Unchanged rosuvastatin (rosuvastatin 5 mg oral tablet) See instructions TAKE 1 TABLET BY MOUTH EVERY 72 HOURS Unchanged ubiquinone (Coenzyme Q10 100 mg oral capsule) See instructions 1 cap by mouth every other day (alternate with 200mg tablet) Pharmacy Information [facility] [place]: [address] [place] [address] Dr Ward, ALICIA [id number] [phone] What How Much When Comments Stop Taking chlorthalidone (chlorthalidone 25 mg oral tablet) See instructions TAKE 1 TABLET BY MOUTH EVERY OTHER DAY Stop Taking hydroxyurea (hydroxyurea 500 mg oral capsule) 2 cap by mouth Once daily Stop Taking irbesartan (irbesartan 300 mg oral tablet) See instructions TAKE 1 TABLET BY MOUTH EVERY DAY Stop Taking multivitamin with minerals (Centrum Adults oral tablet) 1 tab(s) by mouth Once daily Duration: 120 Days Allergies NKA What to do next Instructions From Your Doctor You were admitted to [facility] for the treatment of the following: Fever of unknown origin, Lyme disease, HLH, 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 You were transferred from [facility] for 10 days of fevers of unknown origin. For this,you were seen by our infectious disease doctors,hematology/oncology, andrheumatology. From the infectious disease perspective,extensive workupwas done,andall that came back positive shannon infection of Lyme disease. Please make note thatyour results are not back yet, and we will call you if anything else turns out positive. You were also seen by rheumatology, as HLH or hemophagocytic lymphohistiocytosiscan look quite similar to adult onset stills disease with macrophage activation syndrome (a subset of HLH). At this time, rheumatology does not believeyou have adult onset stills disease, your presentationmost closely relatesto HLH. Please keep in mind that these 2 conditions ofvery difficult to differentiate. For this condition, he was started on steroids. On the day of discharge, we were on the tapering phase of this medication. Please take 1 more dose of 5 mg dexamethasone on 02/24/2023. As you already know, you have a diagnosis of polycythemia vera,this falls under a "myeloproliferative disorder". Multiple bone marrow biopsies were attempted, which resulted in a "dry tap". This means that they were unable to retrievesufficient bone marrow,whichmeansyou aremyeloproliferative disordermost likely progressed to myelofibrosis. For your positive vera you werestarted on ruxolitinib(Jakafi)5 mg twice a dayby mouth. Please continue to take this medicationuntil you see your oncologist in the outpatient setting. If you need transfusion based on your lab results, our office will call you, and you will receive transfusions in [facility] ([phone]) for a same day transfusion appointment. Please keep in mind you have follow-up appointments with Doctor Jayden Joe in [place] once a month. Please obtain your labs every Wednesday and Wednesday. These results will be faxed to Kathie Farrell at [phone]. While in the hospital, you were also diagnosed with atrial fibrillation.Breann sent you up for a Cardiology appointment. They will call you to schedule.Please follow up with this appointment. You currently do not require anticoagulation due to your low platelet counts. Continue to take metoprolol succinate 50 mg every day until told otherwise by a chief executive. Given your low blood pressure, do not take chlorthalidone or irbesartan until reassessment with your PCP or chief executive. Likewise, given your low blood counts, do not take hydroxyurea until told otherwise by your oncologist. Your multivitamin was also stopped because your phosphorus and magnesium were found to be too high during admission. Please stop taking a multivitamin until these labs are rechecked and at a normal level. A discharge summary will be sent to your primary care physician to ensure continuity of care. Please bring this discharge summary with you to your next office appointment so that your provider canreview it at that time. Follow-up appointments: 1. Keep all your follow-up appointments as already scheduled. If you cannot make an appointment, notify your provider. 2. We have requested an appointment with your primary care provider within 1 week of discharge. Follow-up labs:CBC w/ platelets and diff, CMP, uric acid, ferritin, Mg, Phos every Wednesday and Wednesday Medications: - Your medication list has been reviewed and reconciled upon discharge to ensure accuracy and continuity of care. - You are provided with a list of all your current medications at this time. Please review closely and make note of any changes. - Please take all of your medications exactly as prescribed. - Tell your primary care provider if you cannot afford your medications. - Call your primary care provider if you are having any side effects or any other problems. - Call your primary care provider before taking any over the counter medications or supplements, including herbals and vitamins, because some of these may interact with your current medications and/or make your symptoms worse. It was our pleasure to care for you during your hospitalization. You were seen for your Right knee swelling and had an aspiration to rule out infection. Follow up with Orthopedics as needed. Call [phone] with any questions. ACTIVITY GUIDELINES: -Right lower extremity isweight bearing as toleratedwith the assistance of a walker as shown by Physical Therapy. -Right hip, knee and ankle range of motion as tolerated: NO specific restrictions - elevate foot/ankle above heart level to help decrease pain and swelling Call your doctor with questions regarding your Orthopaedic Injuries - Call with any questions concerning fevers > 101F, chills, redness, increased swelling, numbness, tingling, drainage or pus from your incisions or if you have any questions please phone ouroffice. - Wednesday 8am-4:30pm Call - Evenings or Weekends call the hospital elevating grader operator and ask for the Orthopaedic resident construction carpenter to be paged You were offered a Hepatitis C screening test and you declined. Please follow up with your PCP. If you notice the following symptoms Please call your primary care provider for symptoms including, but not limited to: fevers (temperatures >100.4 degrees F or 38.1 degrees C), chills, intractable nausea or vomiting, diarrhea, rash,shortness of breath, bleeding, pain, or if you experience any worsening of the symptoms that brought you to the hospital. In particular, please be cautious for nose bleeds, bleeding from your gums, easy bruising, recurrent fevers, syncope ForEMERGENCYandVERY SERIOUShealth-related issues, such as chest pain, shortness of breath, or sudden onset of the symptoms that brought you to the hospital, you may need to [email or web address] [facility]. Contact our Careline at . If unable to contact your physician and you feel it is an emergency, go to the nearest Emergency Room or call [phone] Diet Instructions At this moment in time you have no restrictionson your diet. You may eat your usual foods. Itis recommended you consume lean proteins, fruits, vegetables, and avoid friedor processed foodsif able. Activity Instructions You may resume your previous home activities, but go slowly and pace yourself as tolerated. Always take fall precautions, and ask for assistance as you regain your strength, coordination, and endurance.Please continue to have protected sex,as you are high risk for infection given your immunocompromise status. Avoidpools, sinus, hot tubsas theseare a nidus for bacteria and other infections. If you go to the gymorother public spaces, please wear glovesand be mindful of touchingyour face. Remember to wash your hands. Follow-Up Appointments Scheduled Follow-Up Appointments Date/Time:Provider/Resource: Feb 10:40 KONRAD Colby Sarah A [facility] [address] [address], [place] [address] . Please arrive 15 min earlier than your appointment time for Check In Process. Date/Time:Provider/Resource: Mar 07:45 Florinda Alvarenga Location/Instructions:[facility], [facility], [address] [address], [place] [address] Date/Time:Provider/Resource: Mar 01:40 DO Gracia Jason D Location/Instructions:[facility] [address], [facility] [address], [address], [place] [address] . Please arrive 15 min earlier than your appointment time for Check In Process. Date/Time:Provider/Resource: Apr 09:30 MD Brand Paul S Location/Instructions:Please arrive 15 minutes prior to your appointment time with [facility], [address] [place] [address], [address], [facility] [address] You Need to Schedule the Following Appointments [facility]: P:[phone] F:[phone] Please make an appointment with your primary care provider within one week of being discharged. Someone Will Contact You Regarding These Appointments -Cardiology with Dr. Rene -Oncology follow up with Dr. Joe The Following Services Have Been Arranged for You Service: Organization: Business Address: Phone Number: Home Care Physician Services [facility] [address] [place] [address], [id number] Tests Pending To obtain results pending at hospital discharge, call and ask for the following Physician:MD iSmon, Scott Abdalla Special Instructions Common Emergency Awareness Tips Call 911 immediately if: experiencing any of the warning signs and symptoms of stroke: B.E. F.A.S.T. Balance: is there trouble with walking or coordination Eyes: is there double vision or visual loss Face: Smile, do both sides of face move equally Arm: Raise arms, do both arms move equally Speech: Is speech slurred or inappropriate Time: Time is critical, call 911 immediately Heart Attack Signs Chest discomfort: Most heart attacks involve discomfort in the center of the chest and lasts more than a few minutes, or goes away and comes back. It can feel like uncomfortable pressure, squeezing, fullness or pain. Discomfort in upper body: Symptoms can include pain or discomfort in one or both arms, back, neck, jaw or stomach. Shortness of breath: With or without discomfort. Other signs: Breaking out in a cold sweat, nausea, or lightheaded. Remember, MINUTES DO MATTER. If you experience any of these heart attack warning signs, call to get immediate medical attention! Education [employer] Atrial Fibrillation Atrial fibrillation is a type of heartbeat that is irregular or fast. If you have this condition, your heart beats without any order. This makes it hard for your heart to pump blood in a normal way. Atrial fibrillation may come and go, or it may become a long-lasting problem. If this condition is not treated, it can put you at higher risk for stroke, heart failure, and other heart problems. What are the causes? This condition may be caused by diseases that damage the heart. They include: High blood pressure. Heart failure. Heart valve disease. Heart surgery. Other causes include: Diabetes. Thyroid disease. Being overweight. Kidney disease. Sometimes the cause is not known. What increases the risk? You are more likely to develop this condition if: You are older. You smoke. You exercise often and very hard. You have a family history of this condition. You are a man. You use drugs. You drink a lot of alcohol. You have lung conditions, such as emphysema, pneumonia, or COPD. You have sleep apnea. What are the signs or symptoms? Common symptoms of this condition include: A feeling that your heart is beating very fast. Chest pain or discomfort. Feeling short of breath. Suddenly feeling light-headed or weak. Getting tired easily during activity. Fainting. Sweating. In some cases, there are no symptoms. How is this treated? Treatment for this condition depends on underlying conditions and how you feel when you have atrialfibrillation. They include: Medicines to: Prevent blood clots. Treat heart rate or heart rhythm problems. Using devices, such as a pacemaker, to correct heart rhythm problems. Doing surgery to remove the part of the heart that sends bad signals. Closing an area where clots can form in the heart (left atrial appendage). In some cases, your doctor will treat other underlying conditions. Follow these instructions at home: Medicines Take aned-lun-jxpjnyt and prescription medicines only as told by your doctor. Do not take any new medicines without first talking to your doctor. If you are taking blood thinners: Talk with your doctor before you take any medicines that have aspirin or NSAIDs, such as ibuprofen,in them. Take your medicine exactly as told by your doctor. Take it at the same time each day. Avoid activities that could hurt or bruise you. Follow instructions about how to prevent falls. Wear a bracelet that says you are taking blood thinners. Or, carry a card that lists what medicinesyou take. Lifestyle Do not use any products that have nicotine or tobacco in them. These include cigarettes, e-cigarettes, and chewing tobacco. If you need help quitting, ask your doctor. Eat heart-healthy foods. Talk with your doctor about the right eating plan for you. Exercise regularly as told by your doctor. Do not drink alcohol. Lose weight if you are overweight. Do not use drugs, including cannabis. General instructions If you have a condition that causes breathing to stop for a short period of time (apnea), treat it as told by your doctor. Keep a healthy weight. Do not use diet pills unless your doctor says they are safe for you. Diet pills may make heart problems worse. Keep all follow-up visits as told by your doctor. This is important. Contact a doctor if: You notice a change in the speed, rhythm, or strength of your heartbeat. You are taking a blood-thinning medicine and you get more bruising. You get tired more easily when you move or exercise. You have a sudden change in weight. Get help right away if: You have pain in your chest or your belly (abdomen). You have trouble breathing. You have side effects of blood thinners, such as blood in your vomit, poop (stool), or pee (urine),or bleeding that cannot stop. You have any signs of a stroke. "BE FAST" is an easy way to remember the main warning signs: B - Balance. Signs are dizziness, sudden trouble walking, or loss of balance. E - Eyes. Signs are trouble seeing or a change in how you see. F - Face. Signs are sudden weakness or loss of feeling in the face, or the face or eyelid drooping on one side. A - Arms. Signs are weakness or loss of feeling in an arm. This happens suddenly and usually on oneside of the body. S - Speech. Signs are sudden trouble speaking, slurred speech, or trouble understanding what peoplesay. T - Time. Time to call emergency services. Write down what time symptoms started. You have other signs of a stroke, such as: A sudden, very bad headache with no known cause. Feeling like you may vomit (nausea). Vomiting. A seizure. These symptoms may be an emergency. Do not wait to see if the symptoms will go away. Get medical help right away. Call your local emergency services (911 in the [place] Do not drive yourself to the hospital. Summary Atrial fibrillation is a type of heartbeat that is irregular or fast. You are at higher risk of this condition if you smoke, are older, have diabetes, or are overweight. Follow your doctor's instructions about medicines, diet, exercise, and follow-up visits. Get help right away if you have signs or symptoms of a stroke. Get help right away if you cannot catch your breath, or you have chest pain or discomfort. This information is not intended to replace advice given to you by your health care provider. Make sure you discuss any questions you have with your health care provider. Document Revised: 08/23/2019 Document Reviewed: 08/23/2019 [employer] Patient Education 2022 [employer]. Polycythemia Vera Polycythemia vera (PV) is a form of blood cancer called a myeloproliferative neoplasm (MPN) in which the bone marrow makes too many red blood cells. The bone marrow may also make too many clotting cells (platelets) and white blood cells. Bone marrow is the spongy center of bones where blood cells are produced. Sometimes, this causes an overproduction of blood cells in the liver and spleen, causing those organs to become enlarged. Additionally, people who have PV are at a higher risk for stroke or heart attack because their blood may clot more easily. PV is a long-term, or chronic, disease. What are the causes? Almost all people who have PV have an abnormal gene (genetic mutation) that causes changes in the way that the bone marrow makes blood cells. This gene, which is called JAK2, is not hereditary. This means that it is not passed along from parent to child. It is not known what triggers the genetic mutation that causes the body to produce too many red blood cells. What increases the risk? You are more likely to develop this condition if: You are male. You are 60 years of age or older. What are the signs or symptoms? You may not have any symptoms in the early stage of PV. When symptoms develop, they may include: Itchy skin, especially after bathing. Burning sensation in the hands or feet. Abdominal fullness or feeling full soon after eating. Ulcers on fingers or toes. Shortness of breath. Bone or joint pain. Dizziness. Headache. Tiredness. Ringing in the ears. Weight loss. Unusual bleeding, including nosebleeds or bleeding from gums. How is this diagnosed? This condition may be diagnosed during a routine physical exam and a blood test called a complete blood count (CBC). Your health care provider may also suspect PV if you have symptoms. During the physical exam, your health care provider may find that you have an enlarged liver or spleen. You may also have tests to confirm the diagnosis. These may include: A procedure to remove a sample of bone marrow for testing (bone marrow biopsy). Blood tests to check for: The JAK2 gene. Low levels of a hormone that helps to regulate red blood cell production (erythropoietin). How is this treated? There is no cure for PV, but treatment can help to control the disease. There are several types of treatment. No single treatment works for everyone. You will need to work with a blood cancer specialist (surgical services director) to find the treatment that is best for you. This condition may be treated by: Periodically having some blood removed with a needle (phlebotomy) to lower the number of red blood cells. Taking medicine. Your health care provider may recommend: Low-dose aspirin to lower your risk for blood clots. A medicine to control blood counts. A medicine that slows down the effects of JAK2 gene. Other medicines to treat symptoms such as itching. Follow these instructions at home: Take udzq-nyh-uhomnlq and prescription medicines only as told by your health care provider. Do regular exercise as told by your health care provider. Check your hands and feet regularly for any sores that do not heal. Do not use any products that contain nicotine or tobacco. These products include cigarettes, chewing tobacco, and vaping devices, such as e-cigarettes. If you need help quitting, ask your health careprovider. Return to your normal activities as told by your health care provider. Ask your health care provider what activities are safe for you. Keep all follow-up visits. This is important. Contact a health care provider if: You have side effects from your medicines. Your symptoms change or get worse at home. You have blood in your stool or you vomit blood. Get help right away if: You have sudden and severe pain in your abdomen. You have chest pain or difficulty breathing. You have any symptoms of a stroke. "BE FAST" is an easy way to remember the main warning signs of astroke: B - Balance. Signs are dizziness, sudden trouble walking, or loss of balance. E - Eyes. Signs are trouble seeing or a sudden change in vision. F - Face. Signs are sudden weakness or numbness of the face, or the face or eyelid drooping on one side. A - Arms. Signs are weakness or numbness in an arm. This happens suddenly and usually on one side of the body. S - Speech. Signs are sudden trouble speaking, slurred speech, or trouble understanding what peoplesay. T - Time. Time to call emergency services. Write down what time symptoms started. You have other signs of a stroke, such as: A sudden, severe headache with no known cause. Nausea or vomiting. Seizure. These symptoms may be an emergency. Get help right away. Call 911. Do not wait to see if the symptoms will go away. Do not drive yourself to the hospital. Summary Polycythemia vera is a form of blood cancer in which the bone marrow makes too many red blood cells. People who have polycythemia vera are at a higher risk for stroke or heart attack because their blood may clot more easily. The disease is most often associated with an abnormal gene (genetic mutation) that causes changes in the way that the bone marrow makes blood cells. There is no cure for PV, but treatment can help to control the disease. It is treated by periodically having some blood removed and by taking medicines. This information is not intended to replace advice given to you by your health care provider. Make sure you discuss any questions you have with your health care provider. Document Revised: 02/24/2022 Document Reviewed: 02/24/2022 [employer] Patient Education 2022 [employer] Fever, Adult A fever is an increase in the body's temperature. It is usually defined as a temperature of 100.4F (38C) or higher. Brief mild or moderate fevers generally have no long-term effects, and they often do not need treatment. Moderate or high fevers may make you feel uncomfortable and can sometimes be a sign of a serious illness or disease. The sweating that may occur with repeated or prolonged fever may also cause a loss of fluid in the body (dehydration). Fever is confirmed by taking a temperature with a thermometer. A measured temperature can vary with: Age. Time of day. Where in the body you take the temperature. Readings may vary if you place the thermometer: In the mouth (oral). In the rectum (rectal). In the ear (tympanic). Under the arm (axillary). On the forehead (temporal). Follow these instructions at home: Medicines Take over-the counter and prescription medicines only as told by your health care provider. Follow the dosing instructions carefully. If you were prescribed an antibiotic medicine, take it as told by your health care provider. Do notstop taking the antibiotic even if you start to feel better. General instructions Watch your condition for any changes. Let your health care provider know about them. Rest as needed. Drink enough fluid to keep your urine pale yellow. This helps to prevent dehydration. Sponge yourself or bathe with room-temperature water to help reduce your body temperature as needed. Do not use ice water. Do not use too many blankets or wear clothes that are too heavy. If your fever may be caused by an infection that spreads from person to person (is contagious), such as a cold or the flu, you should stay home from work and public gatherings for at least 24 hours after your fever is gone. Your fever should be gone without the need to use medicines. Contact a health care provider if: You vomit. You cannot eat or drink without vomiting. You have diarrhea. You have pain when you urinate. Your symptoms do not improve with treatment. You develop new symptoms. You develop excessive weakness. Get help right away if: You have shortness of breath or have trouble breathing. You are dizzy or you faint. You are disoriented or confused. You develop signs of dehydration, such as: Dark urine, very little urine, or no urine. Cracked lips. Dry mouth. Sunken eyes. Sleepiness. Weakness. You develop severe pain in your abdomen. You have persistent vomiting or diarrhea. You develop a skin rash. Your symptoms suddenly get worse. Summary A fever is an increase in the body's temperature. It is usually defined as a temperature of 100.4F (38C) or higher. Moderate or high fevers can sometimes be a sign of a serious illness or disease. The sweating that may occur with repeated or prolonged fever may also cause dehydration. Pay attention to any changes in your symptoms and contact your health care provider if your symptoms do not improve with treatment. Take over-the counter and prescription medicines only as told by your health care provider. Follow the dosing instructions carefully. If your fever is from an infection that may be contagious, such as cold or flu, you should stay home from work and public gatherings for at least 24 hours after your fever is gone. Your fever should be gone without the need to use medicines. Get help right away if you develop signs of dehydration, such as dark urine, cracked lips, dry mouth, sunken eyes, sleepiness, or weakness. This information is not intended to replace advice given to you by your health care provider. Make sure you discuss any questions you have with your health care provider. Document Revised: 06/29/2022 Document Reviewed: 07/22/2021 [employer] Patient Education 2022 [employer]. .Inpt Proc * MD Jhonatan, Chelseaapol: MODIFY MD Israel Natthapol: MODIFY Event Display: .Inpt Proc Authored Date: [id number] BONE MARROW ASPIRATE AND BIOPSY Prior to the procedure, the following was discussed with the patient. The patient had a chance to ask questions, and the patient agreed to proceed.Written consent obtained and placed in chart. Procedure Description: 1.You will be positioned on your side in bed, and the skin of your back/hip region onone side will be cleansed. 2.The area will be numbed with medication injected under the skin and into the area.This stings for a moment or two until it takes effect. 3.A small cut will be made in your skin. 4.A needle will be placed against the hip bone and slowly advanced. 5.Through the needle, liquid bone marrow will aspirated; this may hurt momentarily. 6.Once an adequate specimen is obtained, the first needle will then be withdrawn, danielle second needle will be inserted into the same area; a small biopsy of the bone will be obtained. 7.The needle will then be removed, your skin cleaned, and a bandage applied.The bandage should be kept dry until the next morning, when it can be removed. There is no other way to analyze your bone marrow except by this procedure.If this procedure is not done, your disorder (disease) might not be correctly diagnosed. The risks of this procedure include: 1. Pain during the procedure and some dull achy pain for about 24 hours afterwards. 2. Bleeding from the small incision or bleeding into the tissues around the marrow site. If your bleeding seems heavy (i.e., the bandage is soaked through with blood and dripping),alert your nurse/primary team. 3. Infection - redness and tenderness at the site, possibly with fever. 4. An adequate specimen may not be obtained, and no diagnosis made from the material obtained. Procedure Note Time out was done: 10:10 AM Premedication(s):None The right hip region was cleansed with ChloraPrep x3.Under sterile technique, the area was anesthetized with 10 mL of 1% lidocaine.A bone marrow aspirate was unable brent performed despite three attempts ("dry tap").Biopsy x2 was obtained with mainly cortical bone samples of fair length, these were performed without incident.Hemostasis was easily achieved.A clean, dry dressing was applied and should remain in place until tomorrow.The patient tolerated the procedure well. Víctor Wells DO Hematology-Oncology Fellow, PGY-4 [facility] [address] Electronic Signature on File Electronically Reviewed/Signed by: Víctor Wells DO Author Signature Dt/Tm:02/12/2023 11:18 AM Resident Division of Hematology Oncology Electronically Reviewed/Signed by: Manas Israel MD Cosigner Signature Dt/Tm: 02/12/2023 04:40PM Division of Hematology Oncology [facility] * Vanessa Harding L: JOE Rainey MD, Michael H: PERFORM, TORSTEN Rainey MD, Michael H: VERIFY Event Display: RUDDY REYNA Spec type Authored Date: Whole Blood * Vanessa Harding: JOE Rainey MD, Michael H: TORSTEN ANG MD, Michael H: VERIFY Event Display: RUDDY REYNA Results Authored Date: Results of JAK2 V617F Mutation Analysis: POSITIVE Mutated JAK2 V617F DNA was detected accounting for 54 % of total JAK2 DNA. The analytical precision of the measured [id number] mutated DNA expressed as a percentage of total JAK2 varies with the amount of total mutated DNA with a coefficient of variation of approximately 50%. Thus, values that are less than 2 fold higher or lower than the reported value are considered equivalent. The [id number] mutation is found in [place] chromosome-negative myeloproliferative neoplasms with high frequency (>95%) in polycythemia vera and approximately 50-60% of cases of primary myelofibrosis and essential thrombocythemia. Rare instances of mutated [id number] may be seen in other myeloid neoplasms including myelodysplastic syndromes, atypical chronic myeloid leukemia, chronic myelomonocytic leukemia and acute myeloid leukemia. Accordingly, additional clinicopathologic correlation is required for a definitive diagnosis. Method Summary: [id number] mutation assay was performed using extracted genomic DNA by quantitative allele-specific polymerase chain reaction (PCR) quantitation with an assay limit of detection of 0.042% of total JAK2 DNA. Mehran Rainey MD (Electronically signed by) Verified: 02/19/2023 11:14 EST Performing Location: [facility] * MD Rosado Hiroko: TRANSCRIBE, PERFORM, VERIFY Event Display: CP PB Dx Authored Date: [id number] Macrocytic anemia, neutrophilia, thrombocytopenia, "other cells 1.7% (blasts)" RBCs show minimal anisocytosis. Immature granulocytes, rare blsts, and giant platelets were noted. Neutrophils, monocytes, and lymphocytes are morphologically unremarkable. Patient has a diagnosis of myeloproliferative neoplasm, JAK2 positive (BM biopsy, 01/27/2013). Development of PB blasts, anemia, thrombocytopenia (previously thrombocytosis), severe splenomegaly are concerning for the progression of myeloproliferative neoplasm. Recommend consultation with hem-onc. Fabiana Rosado MD (Electronically signed by) Verified: 02/12/2023 15:32 EST Performing Location: [facility] * MD Rosado Hiroko: TRANSCRIBE, PERFORM, VERIFY Event Display: CP PB Part type Authored Date: [id number] PB * DO Morley Evelyn M: TRANSCRIBE, PERFORM, VERIFY Event Display: CP PB Dx Authored Date: [id number] Automated CBC reveals leukocytosis with absolute neutrophilia, lymphopenia, and monocytosis, macrocytic, normochromic anemia and thrombocytopenia. Peripheral smear demonstrates red cells with mild anisopoikilocytosis. Schistocytes are not seen. Spherocytes are rare (1 to 2 per high power field). Neutrophils show maturation with occasional hypersegmentation. Lymphocytes are small and mature. Monocytes are unremarkable. No blasts are seen. Platelets have normal morphology. The leukocytosis is likely reactive/inflammatory. The immature platelet fraction is increased (19.3%), which may be seen with ITP or drug-induced thrombocytopenia or other peripheral destruction etiology. The anemia is likely multifactorial. The reticulocyte production index is inadequate for the degree of anemia, while the reticulocyte hemoglobin is within normal range; unlikely secondary to iron deficiency. While rare spherocytes are seen, recent bilirubin and negative EWELINA make autoimmune hemolytic anemia less likely. The clinical concern for other etiologies, including HLH, is noted. Eda Morley DO (Electronically signed by) Verified: 02/11/2023 13:29 EST Performing Location: [facility] * DO Morley Evelyn M: TRANSCRIBE, PERFORM, VERIFY Event Display: CP PB Part type Authored Date: [id number] Peripheral blood smear * Services, CPDI: PERFORM Event Display: Hematopathology Ref Testing Authored Date: [id number] * Services, CPDI: PERFORM Event Display: Hematopathology Ref Testing Authored Date: [id number] * MD Phillips Olajumoke O: TRANSCRIBE, PERFORM, VERIFY Event Display: CP PB Part type Authored Date: Peripheral Blood * MD Phillips Olajumoke O: TRANSCRIBE, PERFORM, VERIFY Event Display: CP PB Dx Authored Date: Peripheral Blood smear reviewed for unidentified cells (2.7%). The unidentified cells are reactive lymphocytes. RBCs are macrocytic and normochromic with moderate anisopoikilocytosis. No circulating nucleated RBCs noted. Neutrophilia with mild left shift and few hypersegmented neutrophils present. There is also hypo-lobation and hypo- granulation of some neutrophils. Lymphocytes are small and mature with frequent reactive forms. Platelets are decreased with normal morphology and a few giant platelets. Macrocytosis can be seen in B12/folate deficiency, hypothyroidism, ETOH, medications, COPD, liver disease, MDS etc Patient may benefit form a bone marrow biopsy to rule out MDS. Marlon Phillips MD (Electronically signed by) Verified: 02/10/2023 09:14 EST Performing Location: [facility] * Milli Eda: TRANSCRIBE, PERFORM, VERIFY Event Display: CP PB Part type Authored Date: Parasite smear * NancieDO marieEllan Lashon: TRANSCRIBE, PERFORM, VERIFY Event Display: CP PB Dx Authored Date: NEGATIVE PARASITE SCREEN. No red blood cell or white blood cell inclusions characteristic of plasmodia (malaria), babesia, ehrlichia or anaplasma seen. These results do not entirely exclude active parasite infection with very low levels of circulating parasites. Consider serologic or nucleic acid-based tests for parasite detection if clinically indicated. Eda Morley DO (Electronically signed by) Verified: 02/11/2023 09:45 EST Performing Location: [facility] Bone marrow aspiration report * Angi Rapp: JOE Philippe MD, Erik R: PERFORM, VERIFY MD Philippe Erik R: VERIFY Event Display: BM Clinical History Authored Date: H/O polycythemia vera, now with fever of unknown origin concern for infection vs autoimmune vs HLH * Angi Rapp: JOE Philippe MD, Erik R: PERFORM, VERIFY MD Philippe Erik R: VERIFY Event Display: BM Disclaimer Authored Date: The following statement applies to flow cytometry, immunohistochemical, histochemical, molecular genetics, immunofluorescence, and in situ hybridization assays. These tests were developed and their performance characteristics determined by a [facility] Department of Pathology Laboratory. All controls show appropriate reactivity. Not all tests have been cleared or approved by the U.S. Food and Drug Administration. The FDA has determined that such clearance or approval is not necessary. For decalcified specimen types, focused validation may have been done that may or may not apply to all decalcified specimen types. Results should be interpreted with caution. * MD Abreu Tiffany M: PERFORM, JOE Philippe MD, Erik R: VERIFY Event Display: BM Dx Authored Date: Peripheral blood smear: - Macrocytic, normochromic anemia - Leukocytosis with absolute monocytosis and neutrophilia - Absolute lymphopenia - Thrombocytopenia. - Occasional circulating blasts. Bone marrow, right posterior iliac crest, marrow aspirate, clot section, and biopsy: - Hypercellular marrow with markedly increased atypical megakaryocytes and severe myelofibrosis (MF-3), compatible with fibrotic stage myeloproliferative neoplasm. - Decreased myeloid and erythroid lineages. - No hemophagocytosis identified. Fernando Philippe MD (Electronically signed by) Verified: 02/16/2023 11:34 EST Performing Location: [facility] * Angi Rapp: TRANSCRIBE MD Jose Martin, Fernando Alvarez: PERFORM, VERIFY MD Jose Martin, Fernando Alvarez: VERIFY Event Display: BM Micro Authored Date: [id number] Peripheral Blood Review: Red Blood Cells: Macrocytic, normochromic anemia with mild anisocytosis. Rare nucleated red blood cell seen. No rouleaux. White Blood Cells: Leukocytosis with absolute monocytosis, neutrophilia, and absolute lymphopenia. Neutrophils show a left shift to rare circulating myeloblasts. They exhibit both hyper- and hyposegmented forms with occasional pelgeroid nuclei and variable granularity. Lymphocytes are predominatelysmall to medium and mature with occasional atypical morphology. Monocytes appear unremarkable. Platelets: Thrombocytopenia. Platelets are small to large with variable granularity. Marrow Aspirate Differential Count: Unable to obtain due to lack of hematopoietic marrow on aspirate smears and touch preps Marrow Aspirate, Clot Section, Biopsy: Approximate Length of Hematopoietic Marrow: 1.2 cm Adequacy: Adequate Cellularity: Hypercellular (~90%) Megakaryocytes: Markedly increased with sheets of variably sized megakaryocytes showing dysplastic morphology such as small hypolobated forms and occasional osteoclastic like changes. Myeloid Lineage: Decreased; facilities maintenance assistant maturation to segmented granulocytes with occasional morphologic atypia. No definitive increase in blasts. Erythroid Lineage: Decreased with normoblastic maturation. Other: No lymphoid aggregate, granuloma or metastasis. No increase in lymphocytes or plasma cells. Histochemical Stains: Reticulin: Severe fibrosis (MF-3) Trichrome: Some collagen fibrosis seen. Iron: Storage iron appears decreased (please correlate with laboratory iron studies) Sideroblastic iron: Insufficient specimen for evaluation Send-out Testing Requested: Cytogenetic study was sent to [facility] and will be reported directly to [facility]. Neotype myeloid profile was requested at [facility] and will be reported in [facility]. Molecular and FISH holds were requested at [email or web address]. * MD Philippe Erik R: VERIFY MD Philippe Erik R: VERIFY, TRANSCRIBE Event Display: BM Gross Authored Date: 2A. Bone marrow biopsy -RPIC: Received in [facility] are three cylindrical fragments of red-brown tissue measuring 0.2 cm in diameter and from 0.3 up to 1.0 cm in length. The specimen will be entirely submitted after decalcification. (RIW) * Angi Rapp D: TRANSCRIBE MD Philippe Erik R: PERFORM, VERIFY MD Philippe Erik R: VERIFY Event Display: BM CBC Authored Date: WBC 15.56 K/uL (normal 4.0-10.4) Hgb 8.5 g/dL (normal female 11.7-15.0, male 13.0-17.0) HCT 25.8 % (normal female 35-44, male 39-48) RBC 2.58 M/uL (normal female 3.9-5.00, male 4.40-5.60) MCV 100.0 fL ([id number]) MCHC 32.9 g/dL (normal 32-36) MCH 32.9 pg (normal 28-33) RDW 14.5 % (normal 11.5-14.2) PLT 62 K/d (normal 150-350) Immature granulocytes 2.6 % (normal 0-1) Neutrophils 83.5 % (normal 35-71) Lymphocytes 5.2 % (normal 25-45) Monocytes 7.0 % (normal 0-10) Basophils 0 % (normal 0-2) Eosinophils 0 %, (normal 0-6) Other/Blasts 1.7%, (normal 0) Abs. Immature granulocytes 0.41 K/uL (normal 0.0-0.4) Abs. Neutrophils 13.25 K/uL (normal 2.0-7.7) Abs. Lymphocytes 0.82 K/uL (normal 1.0-3.4) Abs. Monocytes 1.11 K/uL (normal 0.0-1.0) Abs. Basophils 0 K/uL (normal 0.0-0.1) Abs. Eosinophils 0 K/uL (normal 0.0-0.5) Abs. Other/Blasts 0.27 K/uL (normal 0.0) Flow cytometry study * MD Abreu Tiffany M: TRANSCRIBE, PERFORM MD Philippe Erik R: VERIFY Event Display: FL Disclaimer Authored Date: The following statement applies to flow cytometry, immunohistochemical, histochemical, molecular genetics, immunofluorescence, and in situ hybridization assays. These tests were developed and their performance characteristics determined by a [facility] Department of Pathology Laboratory. All controls show appropriate reactivity. Not all tests have been cleared or approved by the U.S. Food and Drug Administration. The FDA has determined that such clearance or approval is not necessary. For decalcified specimen types, focused validation may have been done that may or may not apply to all decalcified specimen types. Results should be interpreted with caution. * MD Abreu Tiffany M: TRANSCRIBE, ASHIA Philippe MD, Erik R: VERIFY Event Display: FL Clinical History Authored Date: Polycythemia vera, now with fever of unknown origin concern for infection cs autoimmune vs HLH * MD Abreu Tiffany M: PERFORM, TRANSCRIBE MD Philippe Erik R: VERIFY Event Display: FL Part type Authored Date: Peripheral Blood * MD Abreu Tiffany M: PERFORM, TRANSCRIBE MD Philippe Erik R: VERIFY Event Display: FL Dx Authored Date: Small population of circulating myeloblasts (1.4%) Flow Cytometry Immunophenotyping Analysis: Specimen source: Peripheral blood ANTIBODIES TESTED:CD45, CD2, cCD3, sCD3, CD5, CD7, CD10, CD11c CD13, CD14, CD19, CD20, cCD22, sCD22, CD33, CD34, CD56, CD64, CD71, cCD79a, CD117, GPA, HLA-DR, cMPO, TDT Viability: 100% Gating: FSC, SSC, CD45 Abnormal cells present by flow cytometry: Yes PHENOTYPE: 1.4% of events fall into the blast gate with dim to moderate CD45 and low side scatter. Blasts express: CD13, MPO, CD34, CD117, HLA-DR ,CD38, with aberrant CD7 (subset), and are negative for CD3, CD22, TDT, and all other tested antigens. MORPHOLOGY: The slides prepared from the flow cytometry samples are reviewed for quality control tester. Frenando Philippe MD (Electronically signed by) Verified: 02/16/2023 11:56 EST Performing Location: [facility] Patient Care team information Care Team Personnel Name: AGNIESZKA Noel, Florinda Mckinney Position: Physician Career Advisor - Family Med Member Role: Primary Care Provider Address: Address: [address] [place] [address] [place] Name: Janna Miller Amy E Position: Pharmacist Member Role: Pharmacy - Lifetime Address: Address: [facility] [address] [place] [address] [place] Name: AGNIESZKA Nguyen Jaime D Position: Physician Asst Exmpt - Orthopaedic Surg Member Role: Lifetime Relationship Address: Address: [address] [facility] [address] [place] [address] [place] Name: Janna Moreno Ann Position: Pharmacist Schedule II Member Role: Pharmacy - Lifetime Care Team Related Persons Name: VINCE QUIANAGia Address: home [address] [place] [phone]
--- NOTE | 2023-02-27 11:00 | Emergency Department Note ---
Impression & Plan Myelofibrosis, Anemia, Thrombocytopenia, Polycythemia rubra vera, HLH (hemophagocytic lymphohistiocytosis) ED Provider Note NAME: AYE CLARKE AGE: 72 SEX: M ARRIVES VIA: Walk-In INFORMANT: Patient ED PROVIDER(S): Mauricio Barker MD CHIEF COMPLAINT: Low Platelets. Referred. PLAN: Disposition: Admit MEDICAL DECISION MAKING: The patient is a pleasant 72-year-old gentleman with a past medical history of polycythemia vera with recent prolonged hospitalization at [facility] then transferred to [facility] for anemia and thrombocytopenia suspected to be secondary to Myelofibrosis in the setting of being diagnosed with Lyme disease (Anaplasma DNA negative) and having been treated with doxycycline who presents to the emergency department referred by his [facility] hematology office for platelet transfusion for outpatient platelets of 16K that were performed as a part discharge follow-up from his discharge on Wednesday. The patient reports he feels the same as he did when he left the hospital and denies any fevers, chills, cough, congestion, GI or symptoms. He denies any signs or symptoms of bleeding. The reports that they made an appointment to get a platelet transfusion on Wednesday but were told today, Dr. Jayden Hudson, that this was not soon enough and that he needed to go to the emergency department for a platelet transfusion. EKG without overt acute ischemia. WBC within normal limits with WBC within normal limits down from 18 from the patient's last discharge. H/H 7.2/21.2 with hemoglobin down even since yesterday on outpatient testing with a hemoglobin of 8.4. Platelets 11 K down from 16 yesterday. Chemistry without metabolic acidosis. Electrolytes without significant malady. LFTs unremarkable. TSH within normal limits. Given downtrending platelets patient was consented and 2 units ordered per the patient's report of her specialists instructions. Additionally, 1 unit of PRBCs ordered due to downtrending H/H. I was able to discuss the patient's case with [facility] hematology on-call, Dr. Olivares, ([phone]), who agrees with platelet transfusion as well as PRBC transfusion. Additionally, recommends 24-hour observation to ensure stable counts. She will also message Dr. Hudson to ensure to see if he has any additional recommendations. She will be available for inpatient team consultation through the weekend. I did review these recommendations with the patient's at the bedside. Understandably they were not pleased with being again admitted to the hospital but do agree with plan for admission as recommended by their specialist team. Case was d/w Dr. Cheek, [facility] hospitalist who will evaluate the patient for admission. Triage Nursing notes reviewed and agree them. Prior/external medical records reviewed Vital Signs: reviewed Differential diagnosis: Infection, dehydration, metabolic abnormality, hypo/hyperglycemia, electrolyte disturbance, anemia, hypoxia, cardiac sources, intracerebral event, toxicologic, neurologic, as well as other pathologies. ER treatment provided: See below. Diagnostics interpreted by me: ECG: Normal sinus rhythm, 70 bpm, no ectopy, no overt ST ovation depression, QTc 460, QRS 78 Cardiac Monitoring: An order for continuous cardiac monitoring was placed and demonstrated Normal sinus rhythm, 70 bpm, no ectopy Laboratory studies: See below Imaging studies: See below Consultation(s): [facility] Hematology-Oncology HPI: The patient is a pleasant 72-year-old gentleman with a past medical history of polycythemia vera with recent prolonged hospitalization at [facility] then transferred to [facility] for anemia and thrombocytopenia suspected to be secondary to Myelofibrosis in the setting of being diagnosed with Lyme disease (Anaplasma DNA negative) and having been treated with doxycycline who presents to the emergency department referred by his [facility] hematology office for platelet transfusion for outpatient platelets of 16K that were performed as a part discharge follow-up from his discharge on Wednesday. The patient reports he feels the same as he did when he left the hospital and denies any fevers, chills, cough, congestion, GI or symptoms. He denies any signs or symptoms of bleeding. The reports that they made an appointment to get a platelet transfusion on Wednesday but were told today, Dr. Jayden Hudson, that this was not soon enough and that he needed to go to the emergency department for a platelet transfusion. ROS: See above HPI for pertinent positives & negatives. A total of 10 systems reviewed and were otherwise negative. VITALS:See Below PHYSICAL EXAMINATION: GENERAL: Awake, alert, fatigued-appearing, in no distress HENT: Normocephalic, atraumatic. Oropharynx with dry mucous membranes and otherwise unremarkable. EYES: Normal conjunctiva. Sclera non-icteric. NECK: Supple. No nuchal rigidity. FROM. No JVD. RESPIRATORY: Clear to auscultation. CARDIAC: Regular rate, normal rhythm. Extremities warm and well perfused. Pulses equal. ABDOMEN: Soft, non-distended. No tenderness to palpation. No rebound or guarding. No masses. RECTAL: Deferred. MUSCULOSKELETAL: Chest examination reveals no tenderness. The back is symmetrical on inspection without obvious abnormality. There is no CVA tenderness to palpation. No joint edema. LOWER EXTREMITIES: Calves are equal size bilaterally and non-tender. No edema. No discoloration. NEURO: Normal sensorium. No sensory or motor deficits noted. SKIN: Mild pallor. No rash or jaundice noted. ED COURSE: Critical Care: I have personally spent greater than 45 minutes of critical care time in the direct management of this patient. This includes bedside care, interpretation of diagnostic studies, and testing, discussion with consultants, patient, and family members, and other required patient management activities. This 45 minutes is in excess of all separately billable procedures. Mauricio Barker MD Past Med/Surg History Medical History History of hematuria Occurred 4-5 years ago- clots in urine Avoids NSAIDs Hx of polycythemia vera Follows with [facility] On hydroxyurea History of prostate cancer Dx'ed 2007. S/p prostatectomy- no chemo or XRT Anxiety Hypertension Sleep apnea cpap Surgical History History of total knee replacement right Hx of colonoscopy Hx of radical prostatectomy History of shoulder replacement rt. History of shoulder surgery lt. 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 Beliefs That Will Affect Care: None marital status: Current Living Situation: Spouse current occupational status: retired Other Information That Helps Us Care for You: No Feels Safe at Home: Yes Safety Concerns: Feels Safe At This Time Assistive Devices: Glasses Allergies Allergies Allergy/AdvReac Type Severity Reaction Status Date / Time No Known Drug Allergies Allergy 0 Verified 02/27/23 11:23 Home Meds Home Medications Medication Instructions Recorded Confirmed fluoxetine 10 mg tablet 10 mg PO QAM 10/20/21 02/27/23 rosuvastatin 5 mg tablet 5 mg PO .EVERY 3 DAYS 10/20/21 02/27/23 folic acid 800 mcg tablet 0.8 mg PO QAM 03/23/22 02/27/23 acetaminophen 500 mg tablet 1,000 mg PO Q8 PRN Pain 01/30/23 02/27/23 (Tylenol Extra Strength) coenzyme Q10 100 mg capsule (Co 100 mg PO HS 02/04/23 02/27/23 Q-10) aspirin 81 mg tablet 81 mg PO DAILY 02/27/23 02/27/23 metoprolol succinate 50 mg 50 mg PO DAILY 02/27/23 02/27/23 tablet,extended release 24 hr Results & Data (ED) Vital Signs Vital Signs - 24 hr 02/27/23 10:21 02/27/23 10:34 02/27/23 10:40 Temperature 36.1 C L Temperature Source Temporal Artery Scan Pulse Rate 78 71 70 Pulse Rate [Right Finger] Pulse Rate from SpO2 Sensor 70 Pulse Rhythm Regular Pulse Strength Normal Respiratory Rate 20 8 L Respiratory Effort / Characteristics Non-Labored Spontaneous Respiratory Depth Normal Respiratory Pattern Regular Blood Pressure 107/62 Blood Pressure [Right Arm] Blood Pressure Mean 77 Blood Pressure Mean [Right Arm] Blood Pressure Position Sitting Pulse Oximetry 98 97 Oxygen Delivery Method Room Air Sepsis Recent Fever Within 48 Hours No Sepsis New/Unexplained Change in Mental Status No Sepsis Action Taken by Nursing No Action Required 02/27/23 10:50 02/27/23 10:54 02/27/23 11:00 Temperature Temperature Source Pulse Rate 71 72 76 Pulse Rate [Right Finger] Pulse Rate from SpO2 Sensor 71 76 Pulse Rhythm Regular Pulse Strength Respiratory Rate 8 L 18 13 Respiratory Effort / Characteristics Respiratory Depth Respiratory Pattern Blood Pressure Blood Pressure [Right Arm] Blood Pressure Mean Blood Pressure Mean [Right Arm] Blood Pressure Position Pulse Oximetry 97 97 98 Oxygen Delivery Method Room Air Sepsis Recent Fever Within 48 Hours Sepsis New/Unexplained Change in Mental Status Sepsis Action Taken by Nursing 02/27/23 11:10 02/27/23 11:20 02/27/23 11:30 Temperature Temperature Source Pulse Rate 72 72 75 Pulse Rate [Right Finger] Pulse Rate from SpO2 Sensor 72 Pulse Rhythm Pulse Strength Respiratory Rate 13 11 L 17 Respiratory Effort / Characteristics Respiratory Depth Respiratory Pattern Blood Pressure Blood Pressure [Right Arm] Blood Pressure Mean Blood Pressure Mean [Right Arm] Blood Pressure Position Pulse Oximetry 97 Oxygen Delivery Method Sepsis Recent Fever Within 48 Hours Sepsis New/Unexplained Change in Mental Status Sepsis Action Taken by Nursing 02/27/23 11:40 02/27/23 11:50 02/27/23 12:00 Temperature Temperature Source Pulse Rate 65 65 65 Pulse Rate [Right Finger] Pulse Rate from SpO2 Sensor 65 65 65 Pulse Rhythm Pulse Strength Respiratory Rate 13 10 L 14 Respiratory Effort / Characteristics Respiratory Depth Respiratory Pattern Blood Pressure Blood Pressure [Right Arm] Blood Pressure Mean Blood Pressure Mean [Right Arm] Blood Pressure Position Pulse Oximetry 100 99 98 Oxygen Delivery Method Sepsis Recent Fever Within 48 Hours Sepsis New/Unexplained Change in Mental Status Sepsis Action Taken by Nursing 02/27/23 12:10 02/27/23 12:17 02/27/23 12:17 Temperature Temperature Source Pulse Rate 67 66 Pulse Rate [Right Finger] 67 Pulse Rate from SpO2 Sensor 66 67 Pulse Rhythm Pulse Strength Respiratory Rate 14 16 14 Respiratory Effort / Characteristics Non-Labored Spontaneous Respiratory Depth Normal Respiratory Pattern Blood Pressure Blood Pressure [Right Arm] 121/57 L Blood Pressure Mean Blood Pressure Mean [Right Arm] 78 Blood Pressure Position Pulse Oximetry 99 98 98 Oxygen Delivery Method Room Air Sepsis Recent Fever Within 48 Hours Sepsis New/Unexplained Change in Mental Status Sepsis Action Taken by Nursing 02/27/23 12:17 02/27/23 12:20 02/27/23 12:30 Temperature Temperature Source Pulse Rate 66 72 Pulse Rate [Right Finger] Pulse Rate from SpO2 Sensor 66 72 Pulse Rhythm Pulse Strength Respiratory Rate 13 15 Respiratory Effort / Characteristics Respiratory Depth Respiratory Pattern Blood Pressure 121/57 L Blood Pressure [Right Arm] Blood Pressure Mean 81 Blood Pressure Mean [Right Arm] Blood Pressure Position Pulse Oximetry 99 100 Oxygen Delivery Method Sepsis Recent Fever Within 48 Hours Sepsis New/Unexplained Change in Mental Status Sepsis Action Taken by Nursing 02/27/23 12:40 02/27/23 12:50 02/27/23 13:00 Temperature Temperature Source Pulse Rate 69 67 Pulse Rate [Right Finger] Pulse Rate from SpO2 Sensor 69 68 Pulse Rhythm Pulse Strength Respiratory Rate 16 13 Respiratory Effort / Characteristics Respiratory Depth Respiratory Pattern Blood Pressure 118/59 L Blood Pressure [Right Arm] Blood Pressure Mean 90 Blood Pressure Mean [Right Arm] Blood Pressure Position Pulse Oximetry 98 99 Oxygen Delivery Method Sepsis Recent Fever Within 48 Hours Sepsis New/Unexplained Change in Mental Status Sepsis Action Taken by Nursing 02/27/23 13:00 02/27/23 13:10 02/27/23 13:20 Temperature Temperature Source Pulse Rate 67 68 66 Pulse Rate [Right Finger] Pulse Rate from SpO2 Sensor 67 69 67 Pulse Rhythm Pulse Strength Respiratory Rate 11 L 15 12 Respiratory Effort / Characteristics Respiratory Depth Respiratory Pattern Blood Pressure Blood Pressure [Right Arm] Blood Pressure Mean Blood Pressure Mean [Right Arm] Blood Pressure Position Pulse Oximetry 99 98 99 Oxygen Delivery Method Sepsis Recent Fever Within 48 Hours Sepsis New/Unexplained Change in Mental Status Sepsis Action Taken by Nursing 02/27/23 13:27 02/27/23 13:28 02/27/23 13:28 Temperature 37.3 C Temperature Source Oral Pulse Rate 68 68 Pulse Rate [Right Finger] Pulse Rate from SpO2 Sensor 68 Pulse Rhythm Regular Pulse Strength Normal Respiratory Rate 16 13 Respiratory Effort / Characteristics Respiratory Depth Respiratory Pattern Blood Pressure 119/62 119/62 Blood Pressure [Right Arm] Blood Pressure Mean 81 79 Blood Pressure Mean [Right Arm] Blood Pressure Position Sitting Pulse Oximetry 99 99 Oxygen Delivery Method Sepsis Recent Fever Within 48 Hours Sepsis New/Unexplained Change in Mental Status Sepsis Action Taken by Nursing 02/27/23 13:30 02/27/23 13:36 02/27/23 13:37 Temperature 37.3 C Temperature Source Oral Pulse Rate 67 65 Pulse Rate [Right Finger] Pulse Rate from SpO2 Sensor 67 Pulse Rhythm Pulse Strength Respiratory Rate 15 12 Respiratory Effort / Characteristics Respiratory Depth Respiratory Pattern Blood Pressure 113/57 L 113/57 L Blood Pressure [Right Arm] Blood Pressure Mean 75 82 Blood Pressure Mean [Right Arm] Blood Pressure Position Pulse Oximetry 99 97 Oxygen Delivery Method Sepsis Recent Fever Within 48 Hours Sepsis New/Unexplained Change in Mental Status Sepsis Action Taken by Nursing 02/27/23 13:37 02/27/23 13:40 02/27/23 13:42 Temperature 37.5 C Temperature Source Oral Pulse Rate 66 63 65 Pulse Rate [Right Finger] Pulse Rate from SpO2 Sensor 66 63 Pulse Rhythm Pulse Strength Respiratory Rate 12 16 12 Respiratory Effort / Characteristics Respiratory Depth Respiratory Pattern Blood Pressure 111/62 Blood Pressure [Right Arm] Blood Pressure Mean 78 Blood Pressure Mean [Right Arm] Blood Pressure Position Pulse Oximetry 97 97 97 Oxygen Delivery Method Sepsis Recent Fever Within 48 Hours Sepsis New/Unexplained Change in Mental Status Sepsis Action Taken by Nursing 02/27/23 13:42 02/27/23 13:42 02/27/23 13:47 Temperature 37.5 C Temperature Source Oral Pulse Rate 67 67 Pulse Rate [Right Finger] Pulse Rate from SpO2 Sensor 66 Pulse Rhythm Pulse Strength Respiratory Rate 11 L 12 Respiratory Effort / Characteristics Respiratory Depth Respiratory Pattern Blood Pressure 111/62 113/55 L Blood Pressure [Right Arm] Blood Pressure Mean 86 74 Blood Pressure Mean [Right Arm] Blood Pressure Position Pulse Oximetry 98 97 Oxygen Delivery Method Sepsis Recent Fever Within 48 Hours Sepsis New/Unexplained Change in Mental Status Sepsis Action Taken by Nursing 02/27/23 13:47 02/27/23 13:47 02/27/23 13:50 Temperature Temperature Source Pulse Rate 65 65 Pulse Rate [Right Finger] Pulse Rate from SpO2 Sensor 65 66 Pulse Rhythm Pulse Strength Respiratory Rate 13 13 Respiratory Effort / Characteristics Respiratory Depth Respiratory Pattern Blood Pressure 113/55 L Blood Pressure [Right Arm] Blood Pressure Mean 80 Blood Pressure Mean [Right Arm] Blood Pressure Position Pulse Oximetry 98 96 Oxygen Delivery Method Sepsis Recent Fever Within 48 Hours Sepsis New/Unexplained Change in Mental Status Sepsis Action Taken by Nursing 02/27/23 14:00 02/27/23 14:00 02/27/23 14:00 Temperature 37.4 C Temperature Source Oral Pulse Rate 66 66 Pulse Rate [Right Finger] Pulse Rate from SpO2 Sensor 66 Pulse Rhythm Pulse Strength Respiratory Rate 12 13 Respiratory Effort / Characteristics Respiratory Depth Respiratory Pattern Blood Pressure 111/60 113/58 L Blood Pressure [Right Arm] Blood Pressure Mean 77 87 Blood Pressure Mean [Right Arm] Blood Pressure Position Pulse Oximetry 98 98 Oxygen Delivery Method Sepsis Recent Fever Within 48 Hours Sepsis New/Unexplained Change in Mental Status Sepsis Action Taken by Nursing 02/27/23 14:01 02/27/23 14:01 02/27/23 14:10 Temperature Temperature Source Pulse Rate 66 67 Pulse Rate [Right Finger] Pulse Rate from SpO2 Sensor 57 L 68 Pulse Rhythm Pulse Strength Respiratory Rate 13 12 Respiratory Effort / Characteristics Respiratory Depth Respiratory Pattern Blood Pressure 111/60 Blood Pressure [Right Arm] Blood Pressure Mean 85 Blood Pressure Mean [Right Arm] Blood Pressure Position Pulse Oximetry 98 98 Oxygen Delivery Method Sepsis Recent Fever Within 48 Hours Sepsis New/Unexplained Change in Mental Status Sepsis Action Taken by Nursing 02/27/23 14:15 02/27/23 14:17 02/27/23 14:17 Temperature 37.3 C Temperature Source Oral Pulse Rate 68 68 Pulse Rate [Right Finger] Pulse Rate from SpO2 Sensor 68 Pulse Rhythm Pulse Strength Respiratory Rate 18 15 Respiratory Effort / Characteristics Respiratory Depth Respiratory Pattern Blood Pressure 117/57 L 117/57 L Blood Pressure [Right Arm] Blood Pressure Mean 77 82 Blood Pressure Mean [Right Arm] Blood Pressure Position Pulse Oximetry 99 98 Oxygen Delivery Method Sepsis Recent Fever Within 48 Hours Sepsis New/Unexplained Change in Mental Status Sepsis Action Taken by Nursing 02/27/23 14:20 02/27/23 14:30 02/27/23 14:33 Temperature Temperature Source Pulse Rate 67 68 71 Pulse Rate [Right Finger] Pulse Rate from SpO2 Sensor 67 69 Pulse Rhythm Pulse Strength Respiratory Rate 18 22 Respiratory Effort / Characteristics Respiratory Depth Respiratory Pattern Blood Pressure Blood Pressure [Right Arm] Blood Pressure Mean Blood Pressure Mean [Right Arm] Blood Pressure Position Pulse Oximetry 98 96 Oxygen Delivery Method Sepsis Recent Fever Within 48 Hours Sepsis New/Unexplained Change in Mental Status Sepsis Action Taken by Nursing 02/27/23 14:40 02/27/23 14:45 02/27/23 14:48 Temperature 37.4 C Temperature Source Oral Pulse Rate 69 72 73 Pulse Rate [Right Finger] Pulse Rate from SpO2 Sensor 70 73 Pulse Rhythm Pulse Strength Respiratory Rate 20 16 22 Respiratory Effort / Characteristics Respiratory Depth Respiratory Pattern Blood Pressure 119/60 Blood Pressure [Right Arm] Blood Pressure Mean 79 Blood Pressure Mean [Right Arm] Blood Pressure Position Pulse Oximetry 98 99 96 Oxygen Delivery Method Sepsis Recent Fever Within 48 Hours Sepsis New/Unexplained Change in Mental Status Sepsis Action Taken by Nursing 02/27/23 14:48 02/27/23 14:50 02/27/23 15:00 Temperature Temperature Source Pulse Rate 69 Pulse Rate [Right Finger] Pulse Rate from SpO2 Sensor 71 Pulse Rhythm Pulse Strength Respiratory Rate 17 Respiratory Effort / Characteristics Respiratory Depth Respiratory Pattern Blood Pressure 119/60 117/67 Blood Pressure [Right Arm] Blood Pressure Mean 94 92 Blood Pressure Mean [Right Arm] Blood Pressure Position Pulse Oximetry 98 Oxygen Delivery Method Sepsis Recent Fever Within 48 Hours Sepsis New/Unexplained Change in Mental Status Sepsis Action Taken by Nursing 02/27/23 15:00 Temperature Temperature Source Pulse Rate 68 Pulse Rate [Right Finger] Pulse Rate from SpO2 Sensor 68 Pulse Rhythm Pulse Strength Respiratory Rate 20 Respiratory Effort / Characteristics Respiratory Depth Respiratory Pattern Blood Pressure Blood Pressure [Right Arm] Blood Pressure Mean Blood Pressure Mean [Right Arm] Blood Pressure Position Pulse Oximetry 98 Oxygen Delivery Method Room Air Sepsis Recent Fever Within 48 Hours Sepsis New/Unexplained Change in Mental Status Sepsis Action Taken by Nursing Laboratory Data Attestation: I reviewed the patient's lab results. 02/27/23 11:00 02/27/23 11:00 Lab Results 02/27/23 02/27/23 Range/Units 10:59 11:00 WBC 7.90 (4.8-10.8) K/ul RBC 2.23 L (4.70-6.10) M/uL Hgb 7.2 L (14.0-18.0) g/dl Hct 21.2 L (42.0-52.0) % MCV 95.1 (80.0-100.0) fL MCH 32.3 (25.0-34.0) pg MCHC 34.0 (32.0-36.0) g/dL RDW Std Deviation 51.8 H (36.4-46.3) fL RDW Coeff of Nikia 14.9 H (11.5-14.5) % Plt Count 11 L* (130-400) K/uL MPV 12.4 (9.4-12.4) fL Reticulocyte % (Auto) 0.6 (0.5-2.0) % Reticulocyte # 0.01 L (0.02-0.10) 10^6/uL Absolute Nucleated RBC 0.09 (0.00-0.12) K/uL Nucleated RBC % (auto) 1.1 % Neutrophils % (Manual) 71 % Lymphocytes % (Manual) 11 % Monocytes % (Manual) 8 % Basophils % (Manual) 1 % Metamyelocytes % (Man) 5 % Myelocytes % (Man) 3 % Blast Cells % (Manual) 1 % Neutrophils # (Manual) 5.61 (1.40-6.50) K/uL Total Absolute Neuts 5.61 (1.4-6.5) K/uL Lymphocytes # (Manual) 0.87 L (1.2-3.4) K/uL Total Abs Lymphocytes 0.87 L (1.2-3.4) K/uL Monocytes # (Manual) 0.63 H (0.11-0.59) K/uL Basophils # (Manual) 0.08 (0-0.2) K/uL Metamyelocytes # (Man) 0.40 H (0-0) K/uL Myelocytes # (Manual) 0.24 H (0-0) K/uL Blast Cells # (Man) 0.08 H (0-0) K/uL Hypogranular Neuts 2+ PT 13.5 H (9.0-12.0) Seconds INR 1.2 H (0.9-1.1) Sodium 135 L (136-145) mmol/L Potassium 4.3 (3.5-5.1) mmol/L Chloride 101 (98-107) mmol/L Carbon Dioxide 27 (21-32) mmol/L Anion Gap 7 (3-11) BUN 28 H (6-23) mg/dl Creatinine 0.93 (0.6-1.4) mg/dl Est Cr Clr Drug Dosing 75.3 ml/min Est GFR ( Amer) 94.1 ml/min Est GFR (Non-Af Amer) 81.2 ml/min BUN/Creatinine Ratio 30.1 H (10-20) Glucose 127 H (70-99(Fasting)) mg/dl Calcium 9.0 (8.6-10.3) mg/dl Iron 134 (35-175) mcg/dl TIBC 248 L (250-450) mcg/dl Unsaturated IBC 114 L (155-355) mcg/dl Transferrin % Sat 54 H (20-50) % Ferritin 2391.0 H (8-388) ng/ml Total Bilirubin 0.9 (0.2-1.0) mg/dl AST 29 (13-39) U/L ALT 18 (7-52) U/L Alkaline Phosphatase 77 (34-104) U/L Lactate Dehydrogenase 3283 H (86-244) U/L Total Protein 5.5 L (6.0-8.3) gm/dl Albumin 3.3 L (3.4-5.0) gm/dl Globulin 2.2 L (2.5-4.0) gm/dl Albumin/Globulin Ratio 1.5 (0.9-2) Vitamin B12 1150 H (180-914) pg/ml Folate > 22.30 (>5.38) ng/ml TSH 3.464 (0.300-4.500) uIu/ml Blood Type A Positive Antibody Screen NEGATIVE Crossmatch See Detail Administered Medications Rosuvastatin Calcium (Rosuvastatin Calcium 5 Mg Tab) 5 mg PO Q3D@2100 GAYATHRI Stop: 03/29/23 21:59 Last Admin: 02/27/23 21:54 Dose: 5 mg Documented By: RAFAL Imaging Data Radiologist's Impression: Chest X-Ray 02/27/23 13:44 SINGLE VIEW CHEST CLINICAL HISTORY: Follow-up groundglass opacities. FINDINGS: An AP, portable, upright chest radiograph is compared to study dated 01/31/2020. Correlation is made with chest CT dated 02/04/2023. The heart is mildly enlarged noting atherosclerotic calcification of the thoracic aorta. The pulmonary vasculature is not congested. No airspace consolidation or large pleural effusion is identified. No pneumothorax is seen. The bony thorax is grossly intact. A right shoulder arthroplasty is in place. Advanced arthritic change is noted in the left shoulder. IMPRESSION: 1. No acute cardiopulmonary abnormality is identified. 2. Findings of congestive failure and mild groundglass opacities/pulmonary edema seen by CT on 02/08/2023 are not seen on today's chest x-ray. ACT 112: Negative or not required by law. Electronically signed by: Mamadou Weeks M.D. 02/27/2023 3:15 PM Discharge Plan Visit Data Chief Complaint: Abnormal Labs/Diagnostic Testing Stated Complaint: ABNORMAL PLATELET COUNT -[facility] ED Provider: Mauricio Barker Discharge Problem: Myelofibrosis, Anemia, Thrombocytopenia, Polycythemia rubra vera, HLH (hemophagocytic lymphohistiocytosis) Patient Disposition: Admitted As Inpatient Discharge Instructions Interventions: ED Discharge Assessment Last Done: 02/27/23 17:09 Discharge Problem: Anemia Qualifiers: Anemia type: unspecified type Qualified Code(s): D64.9 - Anemia, unspecified
[2023-02-27 11:29] LABS: Albumin Globulin Ratio 1.5 (0.9-2); Albumin Level 3.3 gm/dl (3.4-5.0); BUN Creatinine Ratio 30.1 (10-20); Bilirubin,Total 0.9 mg/dl (0.2-1.0); Creatinine Clr Calc Pharmacy 75.3 ml/min; Est GFR (African American) 94.1 ml/min; Est GFR (Non-African American) 81.2 ml/min; Globulin 2.2 gm/dl (2.5-4.0); Potassium 4.3 mmol/L (3.5-5.1); Total Protein 5.5 gm/dl (6.0-8.3)
[2023-02-27 11:39] LABS: Hematocrit (blood only) 21.2 % (42.0-52.0); Hemoglobin 7.2 g/dl (14.0-18.0); Mean Corpuscular Hemoglobin 32.3 pg (25.0-34.0); Mean Corpuscular Volume 95.1 fL (80.0-100.0); Mean Platelet Volume 12.4 fL (9.4-12.4); Nucleated RBC # (auto) 0.09 K/uL (0.00-0.12); Nucleated RBC % (auto) 1.1 %; Platelet Count 11 K/uL (130-400); RDW Coefficient of Variation 14.9 % (11.5-14.5); RDW Standard Deviation 51.8 fL (36.4-46.3); Red Blood Count 2.23 M/uL (4.70-6.10)
[2023-02-27 11:40] LABS: INR 1.2 (0.9-1.1); Prothrombin Time 13.5 Seconds (9.0-12.0)
[2023-02-27 11:43] LABS: Thyroid Stimulating Hormone 3.464 uIu/ml (0.300-4.500)
[2023-02-27 12:11] LABS: ALC (manual) 0.87 K/uL (1.2-3.4); ANC (manual) 5.61 K/uL (1.4-6.5); Basophils # (manual) 0.08 K/uL (0-0.2); Basophils % (manual) 1 %; Blast # (manual) 0.08 K/uL (0-0); Blast Cells % (manual) 1 %; Lymphocytes # (manual) 0.87 K/uL (1.2-3.4); Lymphocytes % (manual) 11 %; Metamyelocytes % (manual) 5 %; Monocytes # (manual) 0.63 K/uL (0.11-0.59); Monocytes % (manual) 8 %; Myelocytes # (manual) 0.24 K/uL (0-0); Myelocytes % (manual) 3 %; Neutrophils # (manual) 5.61 K/uL (1.40-6.50); Neutrophils % (manual) 71 %
[2023-02-27 12:31] LABS: Hypogranular Neutrophils 2+
[2023-02-27] MEDS ORDERED: SODIUM CHLORIDE 0.9% 250 ML IV PRN ×2 (13:12→19:23)
[2023-02-27 14:33] LABS: Reticulocyte % 0.6 % (0.5-2.0); Reticulocytes # 0.01 10^6/uL (0.02-0.10)
--- NOTE | 2023-02-27 15:15 | History & Physical Report ---
Date of Service February 27, 2023 Assessment & Plan (1) Myelofibrosis: Plan: Suspected cause of his thrombocytopenia and anemia. Plan from discharge summary was to get labs every Wednesday and Wednesday with [facility]. Unclear on the plan from his primary reactor technician Dr. Joe at this stage however the plan from on-call reactor technician at [facility] Dr Olivares is to transfuse 1 unit of platelets and irradiated blood cells. Repeat CBC in a.m. and discuss ongoing plans with Dr Olivares - will likely need transfer if needing repeated transfusions (2) Thrombocytopenia: Plan: Transfusion threshold usually less than 10 however on advice of [facility] hematology will transfuse 1 unit and repeat levels in the morning. He continues on aspirin last took this morning - recommend stopping at this time unless otherwise advised by hematology (3) Anemia: Plan: Repeat ferritin, iron studies, B12, folate, LDH, reticulocyte count Transfuse 1 unit irradiated red blood cells Repeat levels in a.m. (4) HLH (hemophagocytic lymphohistiocytosis): Plan: Finished course of dexamethasone (5) Polycythemia rubra vera: Plan: Discharged on Jakafi however was told to stop this yesterday by "[facility]" although unclear where he got this information from. Last dose was yesterday. Continue to hold Jakafi at this time. (6) Paroxysmal atrial fibrillation: Plan: Noted to be in atrial fibrillation at recent [facility] visit. No anticoagulation due to severe thrombocytopenia. Continue metoprolol succinate. Currently in normal sinus rhythm. Plan VTE prophylaxis - chemical prophylaxis contraindicated in setting of severe thrombocytopenia Diet - regular Disposition - admit to med/tele Admission and Anticipated Discharge Date Admission Date: February 27, 2023 History of Present Illness Chief Complaint: Thrombocytopenia on outpatient labs Primary Care Provider: Florinad Lambert Hernandez is a 72-year-old male who presents to the ER due to thrombocytopenia on outpatient labs yesterday. He has a significant recent hospitalization for fever of unknown origin. He was hospitalized here from February 04 to and ultimately transferred to [facility] where he was diagnosed with hemophagocytic lymphohistiocytosis and polycythemia vera with progression from myeloproliferative disorder to myelofibrosis. He was ultimately discharged on February 23 with 1 more dose of 5 mg dexamethasone on February 24. He was started on Jakafi for his polycythemia rubra vera. He was to follow-up with CBC, CMP, uric acid, ferritin, magnesium, phosphorus every Wednesday and Wednesday with same-day transfusions to be [facility] through [facility] as needed. He followed up with labs yesterday and although not in transfusion range his reactor technician Dr. Joe called to say he did not think he could wait till Wednesday to arrange transfusion. He is waiting for a phone call back although apparently did not receive this. His called today but was put through to [facility] who advised him to come to the ER. ER provider discussed care with reactor technician associate professor of economics Dr Olivares who advised admission overnight with 1 units platelets and 1 unit of blood with repeat labs to determine if he would need transfer vs. discharge. He was also advised to stop his Jakafi by someone at [facility] on Wednesday but he does not know who this is. His last dose was yesterday (Wednesday). He continues on aspirin with his last dose this morning. [facility] labs 02/26 9:30am Hemoglobin 8.7 WBC 11.66 Plt 16 He denies any hematochezia, melena, hematemesis, hemoptysis, hematuria, epistaxis. Allergies Allergy/AdvReac Type Severity Reaction Status Date / Time No Known Drug Allergies Allergy 0 Verified 02/27/23 11:23 Home Medications Medication Instructions Recorded Confirmed Type fluoxetine 10 mg tablet 10 mg PO QAM 10/20/21 02/27/23 History rosuvastatin 5 mg tablet 5 mg PO .EVERY 3 DAYS 10/20/21 02/27/23 History folic acid 800 mcg tablet 0.8 mg PO QAM 03/23/22 02/27/23 History acetaminophen 500 mg tablet 1,000 mg PO Q8 PRN Pain 01/30/23 02/27/23 History (Tylenol Extra Strength) coenzyme Q10 100 mg capsule (Co 100 mg PO HS 02/04/23 02/27/23 History Q-10) aspirin 81 mg tablet 81 mg PO DAILY 02/27/23 02/27/23 History metoprolol succinate 50 mg 50 mg PO DAILY 02/27/23 02/27/23 History tablet,extended release 24 hr Past Med/Surg History Medical History (Updated 02/27/23 @ 23:18 by Mauricio Barker MD) History of hematuria Occurred 4-5 years ago- clots in urine Avoids NSAIDs Hx of polycythemia vera Follows with [facility] On hydroxyurea History of prostate cancer Dx'ed 2007. S/p prostatectomy- no chemo or XRT Anxiety Hypertension Sleep apnea cpap Surgical History History of total knee replacement right Hx of colonoscopy Hx of radical prostatectomy History of shoulder replacement rt. History of shoulder surgery lt. Hx of tonsillectomy Family History Father Prostate cancer Heart disease Sister Heart disease Other No family history of adverse response to anesthesia No family history of bleeding disorder Social History Smoking Status: Never smoker Second Hand Exposure: Yes; Do You Dip or Chew Tobacco: No; Hx Alcohol Use: Yes Alcohol type: beer Alcohol Intake Frequency Comment: socially Hx Substance Use: No Preferred Language: Occitan Communication Ability: Effective Corporate Intern Required: No Beliefs That Will Affect Care: None marital status: Current Living Situation: Spouse current occupational status: retired Other Information That Helps Us Care for You: No Feels Safe at Home: Yes Safety Concerns: Feels Safe At This Time Assistive Devices: Glasses Review of Systems Review of Systems: All systems reviewed & are unremarkable except as noted in HPI & below Physical Exam Constitutional: WD/WN, vitals as above Eyes: + anicteric sclerae; normal pupil size ENMT: external ear and nose normal, oropharynx normal Neck: trachea midline, no thyromegaly Respiratory: normal respiratory effort, lungs clear to auscultation Cardiovascular: RRR, no murmur, no edema Gastrointestinal (Abdomen): normal bowel sounds, soft, nontender, no hepatosplenomegaly Musculoskeletal: no cyanosis or clubbing, extremities motor strength 5/5 Skin: no rashes, warm and dry Neurologic: moves all extremities and awake; not confused Psychiatric: A+Ox3, euthymic affect Genitourinary: no CVA tenderness Results & Data Results & Data Vital Signs (Past 12 Hours) Vital Signs Temp Pulse Pulse Resp BP BP Pulse Ox 02/27/23 14:45 37.4 C 72 16 119/60 99 02/27/23 14:33 71 02/27/23 14:15 37.3 C 68 18 117/57 L 99 02/27/23 14:00 37.4 C 66 12 111/60 98 02/27/23 13:47 37.5 C 67 12 113/55 L 97 02/27/23 13:42 37.5 C 65 12 111/62 97 02/27/23 13:36 37.3 C 65 12 113/57 L 97 02/27/23 13:27 37.3 C 68 16 119/62 99 02/27/23 12:17 67 16 121/57 L 98 02/27/23 10:54 72 18 97 02/27/23 10:34 71 02/27/23 10:21 36.1 C L 78 20 107/62 98 O2 Del Method 02/27/23 14:45 02/27/23 14:33 02/27/23 14:15 02/27/23 14:00 02/27/23 13:47 02/27/23 13:42 02/27/23 13:36 02/27/23 13:27 02/27/23 12:17 Room Air 02/27/23 10:54 Room Air 02/27/23 10:34 02/27/23 10:21 Room Air Laboratory Results Abnormal lab results 02/27/23 02/27/23 Range/Units 10:59 11:00 RBC 2.23 L (4.70-6.10) M/uL Hgb 7.2 L (14.0-18.0) g/dl Hct 21.2 L (42.0-52.0) % RDW Std Deviation 51.8 H (36.4-46.3) fL RDW Coeff of Nikia 14.9 H (11.5-14.5) % Plt Count 11 L* (130-400) K/uL Reticulocyte # 0.01 L (0.02-0.10) 10^6/uL Lymphocytes # (Manual) 0.87 L (1.2-3.4) K/uL Total Abs Lymphocytes 0.87 L (1.2-3.4) K/uL Monocytes # (Manual) 0.63 H (0.11-0.59) K/uL Metamyelocytes # (Man) 0.40 H (0-0) K/uL Myelocytes # (Manual) 0.24 H (0-0) K/uL Blast Cells # (Man) 0.08 H (0-0) K/uL PT 13.5 H (9.0-12.0) Seconds INR 1.2 H (0.9-1.1) Sodium 135 L (136-145) mmol/L BUN 28 H (6-23) mg/dl BUN/Creatinine Ratio 30.1 H (10-20) Glucose 127 H (70-99(Fasting)) mg/dl TIBC 248 L (250-450) mcg/dl Unsaturated IBC 114 L (155-355) mcg/dl Transferrin % Sat 54 H (20-50) % Ferritin 2391.0 H (8-388) ng/ml Lactate Dehydrogenase 3283 H (86-244) U/L Total Protein 5.5 L (6.0-8.3) gm/dl Albumin 3.3 L (3.4-5.0) gm/dl Globulin 2.2 L (2.5-4.0) gm/dl Vitamin B12 1150 H (180-914) pg/ml Crossmatch See Detail Diagnostic Findings SINGLE VIEW CHEST CLINICAL HISTORY: Follow-up groundglass opacities. FINDINGS: An AP, portable, upright chest radiograph is compared to study dated 01/31/2020. Correlation is made with chest CT dated 02/04/2023. The heart is mildly enlarged noting atherosclerotic calcification of the thoracic aorta. The pulmonary vasculature is not congested. No airspace consolidation or large pleural effusion is identified. No pneumothorax is seen. The bony thorax is grossly intact. A right shoulder arthroplasty is in place. Advanced arthritic change is noted in the left shoulder. IMPRESSION: 1. No acute cardiopulmonary abnormality is identified. 2. Findings of congestive failure and mild groundglass opacities/pulmonary edema seen by CT on 02/08/2023 are not seen on today's chest x-ray. Medications Administered ER medications given: 1 unit platelets ECG Rate (beats per minute): 70 Rhythm: normal sinus Findings: no acute ischemic change Comparison ECG Date: from (February 04, 2023) Change: the following changes noted (Nonspecific T wave abnormalities no longer evident) Code Status & VTE Plan Code Status Full VTE Prophylaxis Plan VTE Prophylaxis will be ordered: No PG Care Time/CCT Total # of Minutes Spent Total Time Spent with Patient: Total time spent is greater than 50% in coordination of care (as documented) at patient's floor/unit and/or counseling patient: Coding Level of Care Code 50171 INT INP/OBS CARE MIN Diagnoses Myelofibrosis D75.81 Thrombocytopenia D69.6 Anemia D64.9 HLH (hemophagocytic lymphohistiocytosis) D76.1 Polycythemia rubra vera D45 Paroxysmal atrial fibrillation I48.0
--- NOTE | 2023-02-27 15:16 | XRay Report ---
SINGLE VIEW CHEST CLINICAL HISTORY: Follow-up groundglass opacities. FINDINGS: An AP, portable, upright chest radiograph is compared to study dated 01/31/2020. Correlatio n is made with chest CT dated 02/04/2023. The heart is mildly enlarged noting atherosclerotic calcifi cation of the thoracic aorta. The pulmonary vasculature is not congested. No airspace consolidation o r large pleural effusion is identified. No pneumothorax is seen. The bony thorax is grossly intact. A right shoulder arthroplasty is in place. Advanced arthritic change is noted in the left shoulder. IMPRESSION: 1. No acute cardiopulmonary abnormality is identified. 2. Findings of congestive failure and mild groundglass opacities/pulmonary edema seen by CT on 2022 are not seen on today's chest x-ray. ACT 112: Negative or not required by law. Electronically signed by: Mamadou Weeks M.D. 02/27/2023 3:15 PM
[2023-02-27 15:30] LABS: Folate (Folic Acid),Ser orPlas > 22.30 ng/ml (>5.38)
[2023-02-27 15:31] LABS: Vitamin B12 1150 pg/ml (180-914)
[2023-02-27] MEDS ORDERED: ACETAMINOPHEN 500 MG TAB PO PRN (17:35)
[2023-02-27] MEDS ORDERED: NON-FORMULARY MEDICATION (Coenzyme Q10 [Co Q-10] 100 mg Capsule) PO SCH (21:00)
[2023-02-27] MEDS: ROSUVASTATIN CALCIUM 5 MG TAB PO SCH (21:54)
[2023-02-28 06:36] LABS: Hematocrit (blood only) 23.5 % (42.0-52.0); Mean Corpuscular Hemoglobin 32.3 pg (25.0-34.0); Mean Corpuscular Volume 94.8 fL (80.0-100.0); Mean Platelet Volume 11.4 fL (9.4-12.4); Nucleated RBC # (auto) 0.17 K/uL (0.00-0.12); Nucleated RBC % (auto) 1.7 %; Platelet Count 19 K/uL (130-400); RDW Coefficient of Variation 15.7 % (11.5-14.5); RDW Standard Deviation 53.7 fL (36.4-46.3); Red Blood Count 2.48 M/uL (4.70-6.10); White Blood Count 9.76 K/ul (4.8-10.8)
--- NOTE | 2023-02-28 06:56 | Hospitalist Progress Note ---
Date of Service February 28, 2023 Assessment & Plan (1) Myelofibrosis: Plan: Suspected cause of his thrombocytopenia and anemia. Plan from discharge summary was to get labs every Wednesday and Wednesday with [facility]. Unclear on the plan from his primary drug and alcohol counsellor Dr. Joe at this stage however the plan from on-call drug and alcohol counsellor at [facility] Dr Olivares is to transfuse 1 unit of platelets and irradiated blood cells. Repeat CBC in a.m. and discuss ongoing plans with Dr Olivares - will likely need transfer if needing repeated transfusions (2) Thrombocytopenia: Plan: Transfusion threshold usually less than 10 however on advice of [facility] hematology will transfuse 1 unit and repeat levels in the morning. He continues on aspirin last took this morning - recommend stopping at this time unless otherwise advised by hematology (3) Anemia: Plan: Repeat ferritin, iron studies, B12, folate, LDH, reticulocyte count Transfuse 1 unit irradiated red blood cells Repeat levels in a.m. (4) HLH (hemophagocytic lymphohistiocytosis): Plan: Finished course of dexamethasone (5) Polycythemia rubra vera: Plan: Discharged on Jakafi however was told to stop this yesterday by "[facility]" although unclear where he got this information from. Last dose was yesterday. Continue to hold Jakafi at this time. (6) Paroxysmal atrial fibrillation: Plan: Noted to be in atrial fibrillation at recent [facility] visit. No anticoagulation due to severe thrombocytopenia. Continue metoprolol succinate. Currently in normal sinus rhythm. Plan VTE prophylaxis - chemical prophylaxis contraindicated in setting of severe thrombocytopenia Diet - regular Disposition - admit to med/tele Admission and Anticipated Discharge Date Admission Date: February 27, 2023 Results & Data Results & Data Vital Signs (Past 12 Hours) Vital Signs Temp Pulse Pulse Resp BP BP Pulse Ox 02/28/23 02:40 37.4 C 76 16 126/66 96 02/28/23 02:15 36.4 C L 84 16 133/73 97 02/28/23 01:15 36.4 C L 76 14 133/68 96 02/28/23 00:45 36.6 C 78 14 124/68 96 02/28/23 00:30 36.7 C 82 16 128/66 96 02/28/23 00:26 36.7 C 82 16 128/66 96 02/28/23 00:10 37.2 C 80 18 135/68 97 02/27/23 23:27 37.4 C 02/27/23 22:50 38.1 C H 79 18 117/66 95 02/27/23 22:30 79 14 97 02/27/23 22:30 36.7 C 80 18 128/65 96 02/27/23 21:51 85 02/27/23 21:25 37.2 C 82 20 112/62 02/27/23 20:55 37.1 C 82 18 118/64 96 02/27/23 20:40 37.2 C 72 18 120/60 95 02/27/23 20:20 36.9 C 72 20 108/63 96 02/27/23 19:43 02/27/23 19:31 36.7 C 75 20 131/61 95 O2 Del Method O2 Flow Rate 02/28/23 02:40 02/28/23 02:15 02/28/23 01:15 02/28/23 00:45 02/28/23 00:30 02/28/23 00:26 02/28/23 00:10 02/27/23 23:27 02/27/23 22:50 Room Air 02/27/23 22:30 02/27/23 22:30 02/27/23 21:51 02/27/23 21:25 96 02/27/23 20:55 02/27/23 20:40 02/27/23 20:20 02/27/23 19:43 Room Air 02/27/23 19:31 Room Air (3) Anemia Anemia type: unspecified type Qualified Code(s): D64.9 - Anemia, unspecified
--- NOTE | 2023-02-28 06:57 | Consultation ---
Date of Consultation February 28, 2023 Assessment & Plan (1) HLH (hemophagocytic lymphohistiocytosis): There is apparently a diagnosis made of HLH at [facility] and he was treated for a time with dexamethasone. The markedly elevated LDH is noted but his reticulocyte count is extremely low and he is showing moderate response to PRBC transfusion suggesting against significant ongoing peripheral Red cell destruction. He has also responded reasonably well to platelet transfusions and at this time is not showing a markedly elevated white blood cell count nor ongoing fever. Altogether the LDH may be more a reflection of ineffective hematopoiesis than of major ongoing cellular destruction and there does not seem to be any cause for immediate resumption of the dexamethasone. 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 Care management is being coordinated through [facility] who did start him on ruxolitinib for a time but at their instruction he suspended that prior to this admission. Hospitalist team has been in contact with the [facility] team who are aware of his current admission and hematologic parameters and have expressed a willingness to accept him in transfer if he does not have good transfusion response. Not entirely clear what the ongoing broader treatment plan will be though it is likely to be an attempt to stabilize him in the short run with some medication, perhaps more advanced generation JAK2 inhibitor given the current cytopenias, but this will only be temporizing which in and of itself may not dramatically extend his survival expectation. Question will be whether he is sufficiently fit to proceed to stem cell transplant which would be the more definitive intervention but with questions of its efficacy a priori given the degree of his current presentation and as well the ability of even a fit septuagenarian to well tolerate the potential side effects. Notation is made of the markedly elevated LDH which probably reflects ineffective hematopoiesis in his marrow rather than a destructive process though there was an apparent element of HLH at time of transfer to [facility] as noted above. This is further reinforced by the rise in his platelet count and red cell counts after transfusion which suggest against dramatic ongoing peripheral cell destruction. Our immediate role will be to coordinate transfusion. Would use irradiated transfusion products given the potential for upcoming transplant. Would be as conservative as possible with those transfusions to avoid excessive sensitization that might impact upon the potential outcome of a future transplant. Would support red cells to a hemoglobin of 7 to 7.5 g/dL unless explicitly otherwise instructed by the [facility] team and he seems to have achieved an acceptable rise in hemoglobin after the first Red cell transfusion here. Platelet transfusion targets are separately discussed Ultimately, he really needs to coordinate with the [facility] team for both short- term and long-term optimal management. If he cannot be transferred there ac utely from this hospitalization, we can hopefully discharge him as soon as he reaches adequate count thresholds and get him as soon as possible back to that team on an outpatient basis (3) Paroxysmal atrial fibrillation: Apparent transient paroxysmal atrial fibrillation during the acute phases of his November illness but currently in sinus rhythm. As such, there is less pressure for antithrombotic therapy from this perspective unless it recurs and platelet transfusion parameters can be defined on ongoing issues basis. See that discussion. (4) History of prostate cancer: PSA is undetectable and there was apparently no sign of prostate cancer cells in the marrow, this diagnosis is not impacting upon his current medical management or prognostication (5) Thrombocytopenia: As provisionally discussed verbally at the time of admission, our usual "prophylactic" platelet transfusion threshold would be only 10,000. Situation here, however, is modulated by the recent use of aspirin. Also note that the patient is on an SSRI which can also impair platelet function. As such, a higher platelet threshold may be indicated temporarily and authors differ in the recommendations of anywhere from 30-50,000 platelet levels as reasonably "safe" with ongoing aspirin therapy. Aspirin was discontinued upon admission and thus will not be impacting on either newly produced endogenous platelets or on platelet subsequently transfused. It is probably reasonable to reach a one-time threshold of 30,000 today but then going forward accept a lower threshold of 10-20,000 (with input from [facility]) with the ultimate target determined in the context of ongoing fluoxetine and as well the potential that with a primary hematologic disorder there may be some inherent platelet dysfunction. Any suggestion of significant hemostatic defect should immediately warrant platelet transfusions to 50,000 in conjunction with reassessment of coagulation parameters and needed supplementation based on those results Plan 1. Has achieved an adequate hemoglobin level but if he falls again below the 7 to 7.5 g/dL range consider additional irradiated packed red cell transfusion 2. Will try to achieve a platelet level of 30,000 today using irradiated products but as above thereafter can limit transfusions to platelets below the 10-20,000 range (with targets defined by [facility]) given that aspirin will be on hold 3. Any new significant bleeding would require platelet transfusion to 50,000 in conjunction with a recheck of coagulation factor levels and infusion as necessary 4. Optimally should get back together with the [facility] team as quickly as possible either by direct inpatient transfer if unstable during this admission or very quick outpatient follow-up if he can be discharged History of Present Illness Reason for Consultation: Pancytopenia in the context of myelofibrotic transformation of polycythemia vera with a possible historic element of HLH Attending Physician: Tosha Santamaria MD History of Present Illness Please note that this is a consultation constructed purely from review of the electronic database. I am working remotely and unable to speak directly with the patient or examine him. I reviewed both the [facility] and the current admission records which seem to be an accurate source of relevant information but I am completely reliant on that for my conclusions and perspectives. I have discussed with the hospitalist service that his care is currently being coordinated at [facility] and therefore a transfer there would most optimally position him with the team most capable and most familiar with his case with regards to optimal management overall. He is not demonstrating immediately life-threatening complications, however, so we can take some steps to stabilize the situation here but for optimal care he will need to be back in the hands of the [facility] team at the soonest available opportunity. The evaluation is consultative in nature and all patient care and treatment decisions can either be accepted or rejected by the patient's primary hospital- based treating physician using their own independent medical judgment for the patient. 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 He had also been on long-term aspirin 81 mg daily. This had generally kept Hct adequately controlled between 40 and 44% (target less than 45%). Notably WBC count had typically been in the very low double digits. He was admitted to [facility] in January, after diagnosis of Lyme disease which had been treated with doxycycline but despite that therapy reporting increasing back pain both between the shoulder blades and in the lumbar area. He was also noted to have worsening leukocytosis, and more pronounced anemia/thrombocytopenia with ongoing fever spikes as high as 39.5. Ultimately a diagnostic marrow biopsy performed on 02/09/2023 at [facility] but with deteriorating status patient was actually transferred to [facility] that same day. Ultimately pathology from the marrow biopsy showed: - Fibrotic stage myeloproliferative neoplasm - Hypercellular marrow (100%) with trilineage hematopoiesis - Diffuse grade 3 fibrosis and focal collagenous fibrosis [facility] overread: - Hypercellular marrow with markedly increased atypical megakaryocytes, compatible with fibrotic stage myeloproliferative neoplasm - Severe myelofibrosis (MF3) - Decreased myeloid and erythroid lineages - No definitive evidence of increased blasts or leukemic transformation (see comment) At [facility] was apparently diagnosed additionally with HLH and started on dexame thasone which ultimately tapered off with his last dose February 24. He was also started on ruxolitinib. He had been discharged and followed as an outpatient but when surveillance CBC showed declining platelet count and red cells, he was advised to come to [facility] for transfusion and is admitted for same. He has apparently been recently told to stop his ruxolitinib by [facility]. As of yet there is no subsequent alternative treatment plan defined. He apparently had been taking aspirin up until his admission here but that is now been suspended He is having no fever or unusual bruising/bleeding at this time Apparently while at [facility] he did have an episode of paroxysmal atrial fibrillation but is in normal sinus rhythm at this time We note that he does have a history of prostate cancer status post 2006 radical prostatectomy. PSA was still undetectable as of February 06, 2023 Allergies Allergy/AdvReac Type Severity Reaction Status Date / Time No Known Drug Allergies Allergy 0 Verified 02/27/23 11:23 Home Medications Medication Instructions Recorded Confirmed Type fluoxetine 10 mg tablet 10 mg PO QAM 10/20/21 02/27/23 History rosuvastatin 5 mg tablet 5 mg PO .EVERY 3 DAYS 10/20/21 02/27/23 History folic acid 800 mcg tablet 0.8 mg PO QAM 03/23/22 02/27/23 History acetaminophen 500 mg tablet 1,000 mg PO Q8 PRN Pain 01/30/23 02/27/23 History (Tylenol Extra Strength) coenzyme Q10 100 mg capsule (Co 100 mg PO HS 02/04/23 02/27/23 History Q-10) aspirin 81 mg tablet 81 mg PO DAILY 02/27/23 02/27/23 History metoprolol succinate 50 mg 50 mg PO DAILY 02/27/23 02/27/23 History tablet,extended release 24 hr Patient History Medical History (Updated 02/28/23 @ 07:14 by Deandre Finley MD) History of hematuria Occurred 4-5 years ago- clots in urine Avoids NSAIDs Hx of polycythemia vera Follows with [facility] On hydroxyurea History of prostate cancer Dx'ed 2007. S/p prostatectomy- no chemo or XRT Anxiety Hypertension Sleep apnea cpap Surgical History History of total knee replacement right Hx of colonoscopy Hx of radical prostatectomy History of shoulder replacement rt. History of shoulder surgery lt. Hx of tonsillectomy Family History Father Prostate cancer Heart disease Sister Heart disease Other No family history of adverse response to anesthesia No family history of bleeding disorder Social History Smoking Status: Never smoker Second Hand Exposure: Yes; Do You Dip or Chew Tobacco: No; Hx Alcohol Use: Yes Alcohol type: beer Alcohol Intake Frequency Comment: socially Hx Substance Use: No Preferred Language: Malian Communication Ability: Effective Flute Teacher Required: No Beliefs That Will Affect Care: None marital status: Current Living Situation: Spouse current occupational status: retired Other Information That Helps Us Care for You: No Feels Safe at Home: Yes Safety Concerns: Feels Safe At This Time Assistive Devices: Glasses Physical Exam Physical Exam: I was not able to personally perform an examination. I note that vital signs are currently stable and he is specifically afebrile, not tachycardic, oxygenating well. Described exam on admission was relatively unremarkable particularly without any evidence of skin rash, splenomegaly, petechiae or bruising, or any signs of overt hemorrhage. Patient was currently overall relatively stable and in no acute distress Results & Data Vital Signs (Past 12 Hours) Vital Signs Temp Pulse Pulse Resp BP BP Pulse Ox 02/28/23 02:40 37.4 C 76 16 126/66 96 02/28/23 02:15 36.4 C L 84 16 133/73 97 02/28/23 01:15 36.4 C L 76 14 133/68 96 02/28/23 00:45 36.6 C 78 14 124/68 96 02/28/23 00:30 36.7 C 82 16 128/66 96 02/28/23 00:26 36.7 C 82 16 128/66 96 02/28/23 00:10 37.2 C 80 18 135/68 97 02/27/23 23:27 37.4 C 02/27/23 22:50 38.1 C H 79 18 117/66 95 02/27/23 22:30 79 14 97 02/27/23 22:30 36.7 C 80 18 128/65 96 02/27/23 21:51 85 02/27/23 21:25 37.2 C 82 20 112/62 02/27/23 20:55 37.1 C 82 18 118/64 96 02/27/23 20:40 37.2 C 72 18 120/60 95 02/27/23 20:20 36.9 C 72 20 108/63 96 02/27/23 19:43 02/27/23 19:31 36.7 C 75 20 131/61 95 O2 Del Method O2 Flow Rate 02/28/23 02:40 02/28/23 02:15 02/28/23 01:15 02/28/23 00:45 02/28/23 00:30 02/28/23 00:26 02/28/23 00:10 02/27/23 23:27 02/27/23 22:50 Room Air 02/27/23 22:30 02/27/23 22:30 02/27/23 21:51 02/27/23 21:25 96 02/27/23 20:55 02/27/23 20:40 02/27/23 20:20 02/27/23 19:43 Room Air 02/27/23 19:31 Room Air Laboratory Results Laboratory Results - last 24 hr 02/27/23 02/27/23 02/28/23 10:59 11:00 05:30 WBC 7.90 9.76 RBC 2.23 L 2.48 L Hgb 7.2 L 8.0 L Hct 21.2 L 23.5 L MCV 95.1 94.8 MCH 32.3 32.3 MCHC 34.0 34.0 RDW Std Deviation 51.8 H 53.7 H RDW Coeff of Nikia 14.9 H 15.7 H Plt Count 11 L* 19 L* D MPV 12.4 11.4 Reticulocyte % (Auto) 0.6 Reticulocyte # 0.01 L Absolute Nucleated RBC 0.09 0.17 H Nucleated RBC % (auto) 1.1 1.7 Neutrophils % (Manual) 71 60 Lymphocytes % (Manual) 11 13 Monocytes % (Manual) 8 11 Basophils % (Manual) 1 Metamyelocytes % (Man) 5 3 Myelocytes % (Man) 3 5 Blast Cells % (Manual) 1 8 Neutrophils # (Manual) 5.61 5.86 Total Absolute Neuts 5.61 5.86 Lymphocytes # (Manual) 0.87 L 1.27 Total Abs Lymphocytes 0.87 L 1.27 Monocytes # (Manual) 0.63 H 1.07 H Basophils # (Manual) 0.08 Metamyelocytes # (Man) 0.40 H 0.29 H Myelocytes # (Manual) 0.24 H 0.49 H Blast Cells # (Man) 0.08 H 0.78 H Hypogranular Neuts 2+ 2+ Blood Smear Review Pending Haptoglobin Pending PT 13.5 H INR 1.2 H Sodium 135 L 136 Potassium 4.3 4.6 Chloride 101 102 Carbon Dioxide 27 27 Anion Gap 7 7 BUN 28 H 26 H Creatinine 0.93 0.98 Est Cr Clr Drug Dosing 75.3 71.5 Est GFR ( Amer) 94.1 88.3 Est GFR (Non-Af Amer) 81.2 76.2 BUN/Creatinine Ratio 30.1 H 26.5 H Glucose 127 H 96 Calcium 9.0 9.2 Phosphorus 4.4 Magnesium 2.1 Iron 134 TIBC 248 L Unsaturated IBC 114 L Transferrin % Sat 54 H Ferritin 2391.0 H Total Bilirubin 0.9 1.1 H AST 29 33 ALT 18 17 Alkaline Phosphatase 77 77 Lactate Dehydrogenase 3283 H Total Protein 5.5 L 5.7 L Albumin 3.3 L 3.4 Globulin 2.2 L 2.3 L Albumin/Globulin Ratio 1.5 1.5 Vitamin B12 1150 H Folate > 22.30 TSH 3.464 Blood Type A Positive Antibody Screen NEGATIVE Crossmatch See Detail Diagnostic Findings Chest X-Ray 02/27/23 13:44 SINGLE VIEW CHEST CLINICAL HISTORY: Follow-up groundglass opacities. FINDINGS: An AP, portable, upright chest radiograph is compared to study dated 01/31/2020. Correlation is made with chest CT dated 02/04/2023. The heart is mildly enlarged noting atherosclerotic calcification of the thoracic aorta. The pulmonary vasculature is not congested. No airspace consolidation or large pleural effusion is identified. No pneumothorax is seen. The bony thorax is grossly intact. A right shoulder arthroplasty is in place. Advanced arthritic change is noted in the left shoulder. IMPRESSION: 1. No acute cardiopulmonary abnormality is identified. 2. Findings of congestive failure and mild groundglass opacities/pulmonary edema seen by CT on 02/08/2023 are not seen on today's chest x-ray. ACT 112: Negative or not required by law. Electronically signed by: Mamadou Weeks M.D. 02/27/2023 3:15 PM PG Care Time/CCT Total # of Minutes Spent Total Time Spent with Patient: Total time spent is greater than 50% in coordination of care (as documented) at patient's floor/unit and/or counseling patient: [place] [address] IN/OBS CONSULT LVL 4,60M Patient Type New History Expanded Problem Focused Exam Problem Focused Medical Decision Making High Complexity Diagnoses HLH (hemophagocytic lymphohistiocytosis) D76.1 Polycythemia rubra vera D45 Paroxysmal atrial fibrillation I48.0 History of prostate cancer Z85.46 Thrombocytopenia D69.6
[2023-02-28 07:01] LABS: Albumin Level 3.4 gm/dl (3.4-5.0); Bilirubin,Total 1.1 mg/dl (0.2-1.0); Calcium 9.2 mg/dl (8.6-10.3); Magnesium 2.1 mg/dl (1.7-2.4); Potassium 4.6 mmol/L (3.5-5.1)
[2023-02-28 07:07] LABS: Albumin Globulin Ratio 1.5 (0.9-2); BUN Creatinine Ratio 26.5 (10-20); Creatinine Clr Calc Pharmacy 71.5 ml/min; Est GFR (African American) 88.3 ml/min; Est GFR (Non-African American) 76.2 ml/min; Globulin 2.3 gm/dl (2.5-4.0); Phosphorus 4.4 mg/dl (2.5-4.9); Total Protein 5.7 gm/dl (6.0-8.3)
[2023-02-28 07:08] LABS: ALC (manual) 1.27 K/uL (1.2-3.4); ANC (manual) 5.86 K/uL (1.4-6.5); Blast # (manual) 0.78 K/uL (0-0); Blast Cells % (manual) 8 %; Hypogranular Neutrophils 2+; Lymphocytes # (manual) 1.27 K/uL (1.2-3.4); Lymphocytes % (manual) 13 %; Metamyelocytes # (manual) 0.29 K/uL (0-0); Metamyelocytes % (manual) 3 %; Monocytes # (manual) 1.07 K/uL (0.11-0.59); Monocytes % (manual) 11 %; Myelocytes # (manual) 0.49 K/uL (0-0); Myelocytes % (manual) 5 %; Neutrophils # (manual) 5.86 K/uL (1.40-6.50); Neutrophils % (manual) 60 %
[2023-02-28] MEDS: METOPROLOL SUCC 50MG EXT REL TAB PO SCH (08:47)
[2023-02-28] MEDS: FLUoxetine HCL 10 MG CAP PO SCH (08:48)
[2023-02-28] MEDS: FOLIC ACID 400 MCG TAB PO SCH (08:48)
[2023-02-28] MEDS ORDERED: ROSUVASTATIN CALCIUM 5 MG TAB PO SCH (09:00)
--- NOTE | 2023-02-28 10:16 | Discharge Summary ---
Date of Service February 28, 2023 Admission HPI Per Admitting Provider Mauro Hernandez is a 72-year-old male who presents to the ER due to thrombocytopenia on outpatient labs yesterday. He has a significant recent hospitalization for fever of unknown origin. 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 He was ultimately discharged on February 23 with 1 more dose of 5 mg dexamethasone on February 24. He was started on Jakafi for his polycythemia rubra vera. He was to follow-up with CBC, CMP, uric acid, ferritin, magnesium, phosphorus every Wednesday and Wednesday with same-day transfusions to be arranged through [facility] as needed. He followed up with labs yesterda y and although not in transfusion range his chronic disease epidemiologist Dr. Joe called to say he did not think he could wait till Wednesday to arrange transfusion. He is waiting for a phone call back although apparently did not receive this. His called today but was put through to the [facility] who advised him to come to the ER. ER provider discussed care with chronic disease epidemiologist radio station operator Dr Olivares who advised admission overnight with 1 units platelets and 1 unit of blood with repeat labs to determine if he would need transfer vs. discharge. He was also advised to stop his Jakafi by someone at [facility] on Wednesday but he does not know who this is. His last dose was yesterday (Wednesday). He continues on aspirin with his last dose this morning. [facility] labs 02/26 9:30am Hemoglobin 8.7 WBC 11.66 Plt 16 He denies any hematochezia, melena, hematemesis, hemoptysis, hematuria, epistaxis. Admission Exam Per Admitting Provider Constitutional: WD/WN, vitals as above Eyes: + anicteric sclerae; normal pupil size ENMT: external ear and nose normal, oropharynx normal Neck: trachea midline, no thyromegaly Respiratory: normal respiratory effort, lungs clear to auscultation Cardiovascular: RRR, no murmur, no edema Gastrointestinal (Abdomen): normal bowel sounds, soft, nontender, no hepatosplenomegaly Musculoskeletal: no cyanosis or clubbing, extremities motor strength 5/5 Skin: no rashes, warm and dry Neurologic: moves all extremities and awake; not confused Psychiatric: A+Ox3, euthymic affect Genitourinary: no CVA tenderness Principal Diagnosis thrombocytopenia, pancytopenia Discharge Exam Gen: well appearing male in NAD HEENT: AT NC MMM CV: RRR no m/r/g clinically well perfused, no obvious bruising or priscilla bleeding Resp: CTAB no wheezing, no increased work of breathing Abd: soft, non-distended MSK: no obvious deformities Neuro: alert and oriented Psych: appropriate mood and affect Discharge Data Allergies Allergy/AdvReac Type Severity Reaction Status Date / Time No Known Drug Allergies Allergy 0 Verified 02/27/23 11:23 Hospital Course (1) Myelofibrosis: Myelofibrosis Patient with known myelofibrosis, hemophagocytic lymphohistiocytosis, polycythemia vera, and pancytopenia which have resulted in the need for transfusions and hospitalizations in the past. Outpatient labs indicated need for transfusion. Patient received 1uPRBCs and 1u platelets here for values of platelets 11,000 and hemoglobin 7.2. Patient recovered adequately to plts 19 and hemoglobin of 8. Discussed with Dr. Olivares on-call chronic disease epidemiologist and Dr. Joe primary-chronic disease epidemiologist. Patient has outpatient platelet transfusion scheduled for 03/01 and routine labs ordered for this week. Plan to f/u with Dr. Joe this week as well. Team comfortable with discharge home as labs improved, hemodynamically stable, and close follow up has been arranged. Thrombocytopenia Would hold ASA at this time. Defer on hematology team on resumption of medication Polycythemia Vera Patient previously on Jakafi. Held by Dr. Joe in setting of thrombocytopenia. Continue to hold. Paroxysmal atrial fibrillation Not an acute process. In sinus upon my examination. Continue metoprolol succinate. Anemia Repeat ferritin - 2391, iron studies: Iron 134 TIBC 248, IBC 114 Transferrin 54, B12 - 1150, folate - > 22.30, LDH - 3283, reticulocyte count - 0.01 Hemophagocytic lymphohistiocytosis Completed course of dexamethasone (2) Thrombocytopenia: (3) Anemia: (4) HLH (hemophagocytic lymphohistiocytosis): (5) Polycythemia rubra vera: (6) Paroxysmal atrial fibrillation: Total Time Total Time Spent Total Time Spent (In Minutes): See attending attestation Discharge Plan Discharge Items Patient Disposition: Home - Self-Care Reason For Visit: SEVERE MYELOFIBROSIS, THROMBOCYTOPENIA Discharge Diagnosis: thrombocytopenia Activity: Per Instructions section Non-emergency contact: Primary Care Provider and Oncologist Call non-emergency contact if: your symptoms worsen Follow-up/Referrals: Florinda Verdin PA-C [Primary Care Provider] - (PLEASE CALL YOUR PRIMARY CARE PROVIDER TO SCHEDULE A HOSPITAL FOLLOW-UP DISCHARGE APPOINTMENT WITHIN 7-10 DAYS) Diet: Heart Healthy Addtl Attending Provider Instructions: You were found to have a platelet level of 11,000 and hemoglobin of 7.2 thus it was recommended that you have a transfusion. You were sent to the ED and given one unit of blood. Your platelets increased to 19,000 and your hemoglobin to 8.0. You have an appointment scheduled for a platelet transfusion tomorrow 03/01 . It is important that you keep this appointment. In addition to the transfusion you will proceed with your typically scheduled lab work. You are to have a follow up with Dr. Joe with [facility] at some point this week. If you do not have a scheduled appointment by Wednesday it is important that you reach out to them. We did hold your aspirin. Would defer to Dr. Joe on re-starting this medication. Otherwise there were no changes made to your medications. Contact your PCP if you experience any of the following - lightheadedness/dizziness - difficulty following your treatment plan Call 911 or go to the Emergency Department if you experience any of the following - blood in your stool, urine, or vomit - increased bruising without trauma to the area Thank you for allowing us to participate in your care. Pending Studies at Discharge: Yes Studies:: blood smear, haptoglobin Stand-Alone Forms: [facility], Smoking Cessation Medications and DC Order Prescriptions: Continued fluoxetine 10 mg tablet 10 mg PO QAM rosuvastatin 5 mg tablet 5 mg PO .EVERY 3 DAYS Rx Instructions: 5 mg orally every 3 days; folic acid 800 mcg Tablet 0.8 mg PO QAM coenzyme Q10 [Co Q-10] 100 mg Capsule 100 mg PO HS metoprolol succinate 50 mg tablet extended release 24 hr 50 mg PO DAILY acetaminophen [Tylenol Extra Strength] 500 mg tablet 1,000 mg PO Q8 PRN (Reason: Pain) Held aspirin 81 mg Tablet 81 mg PO DAILY Hold Instructions: Resume on 03/12/23. discuss with [facility] hematology Discharge Orders: Discharge Order (Routine); Ordered 02/28/23 Ordered By: Rekha Rodriguez Admission Data Admit Date/Time: 02/27/23 15:06 Attending Provider: Tosha Santamaria Admit Provider: Bryan Cheek Primary Care Provider: Florinda Verdin Other Providers: Bryan Cheek; Deandre Finley; [facility] Other Interventions: Discharge Summary Assessment (RN) Last Done: 02/28/23 10:18 Supervising Physician Co-Signing Physician Notes Attending Physician Supervision Note: I independently interviewed and examined the patient and verified the mercedes history and physical, reviewed labs and image studies and agree with findings and care plan noted above. No concerns this morning. No bleeding. vitals noted. heart - RRR, lungs - CTA. no sign of bleeding. Severe thrombocytopenia - Platelet 10k. rise in platelet level (19k) with 2 units of platelet transfusion. Anemia - Hb - 7.2. Received one unit pRBC with rise of hb to 8 HLH - no concern of cell destruction. LDH elevated likely from ineffective hematopoiesis. Hb and platelet level rise after transfusion. PCV - evolved into MF-[address] Finley consult. Discussion by resident physician with [facility] heme/onc team - ok to discharge home and to have platelet transfusion tomorrow as already scheduled. d/c aspirin. Resident Activity Tracking Resident Involvement: Resident Care Provided Care Provided: Adult Hospital Medicine
--- NOTE | 2023-03-01 06:05 | Electrocardiogram Report ---
Test Reason : Blood Pressure : / mmHG Vent. Rate : 070 BPM Atrial Rate : 070 BPM P-R Int : 148 ms QRS Dur : 078 ms QT Int : 386 ms P-R-T Axes : 040 008 054 degrees QTc Int : 416 ms Normal sinus rhythm Normal ECG When compared with ECG of 04-FEB-2023 13:53, Criteria for Septal infarct are no longer Present Nonspecific T wave abnormality no longer evident in Inferior leads Confirmed by David Reyes ([id number]) on 03/01/2023 6:04:50 AM Referred By: REFERRED SELF Confirmed By:David Reyes
--- NOTE | 2023-04-12 09:41 | Coding Query ---
A supporting diagnosis is required for the test/procedure performed on this patient in order for us to be reimbursed by the patient's insurance. Please provide a supporting diagnosis for the following test/procedure listed below next to the test name along with your signature. *If there is no additional diagnosis for this patient that would support the following test/procedure please document that below next to the test/procedure. Test(s)/Procedure(s) that require a supporting diagnosis: * 15463 Vitamin B12 DIAGNOSIS: Anemia * 45243 Folate DIAGNOSIS: Anemia Provider Signature: Date: Thank you Nelda Khoury Health Information Management Once completed, please kindly fax back to [phone] For questions please call [phone] [facility]
== END 2023-02-28 11:16 | disposition home health service (06) | DRG 809 ==
LOC: ED 10:11 → INTOOBSV 15:06 → 2N 15:06 → SUATTDRO 15:06 → 2N 17:09

== ENCOUNTER 2023-03-01 18:36 | Observation (INO) ==
[2023-03-01] MEDS ORDERED: SODIUM CHLORIDE 0.9% 500 ML IV SCH (19:00)
--- NOTE | 2023-03-01 19:06 | Emergency Department Note ---
Impression & Plan Syncope, Anemia, Thrombocytopenia ED Provider Note NAME: AYE CLARKE AGE: 72 SEX: M : 1950 ARRIVES VIA: Ambulance INFORMANT: Patient, EMS personnel ED PROVIDER(S): Yaya Alonzo DO CHIEF COMPLAINT: Syncope HPI: The patient is a 72-year-old male who had an episode of syncope versus seizure prior to arrival. He was recent discharge from our facility. He had transfusion of platelets yesterday as well as today for myelofibrosis. The patient has a history of thrombocytopenia and atrial fibrillation. He presented to the emergency department by ambulance after having an episode where he had some sort of convulsion it was described to the family. There was no prolonged postictal phase. The patient denies having any headache at this time. He denies having any chest pain or difficulty breathing. He feels that he is at his baseline. ROS: See above HPI for pertinent positives & negatives. A total of 10 systems reviewed and were otherwise negative. PAST MEDICAL HISTORY: See Below PAST SURGICAL HISTORY: See Below FAMILY HISTORY: See Below SOCIAL HISTORY: See Below HOME MEDICATIONS: See Below ALLERGIES: See Below VITALS: See Below PHYSICAL EXAMINATION: GENERAL: The patient was awake but somewhat listless. He answers questions appropriately. EYES: The conjunctivae are clear. The pupils are round and reactive. EARS, NOSE, MOUTH AND THROAT: The nose is without any evidence of any deformity. NECK: The neck is nontender and supple. RESPIRATORY: Normal respiratory effort is noted there is no evidence of wheezing rhonchi or rales CARDIOVASCULAR: Regular rate and rhythm noted there no murmurs rubs or gallops normal S1 normal S2. GASTROINTESTINAL: The abdomen is soft. Abdomen is nontender. MUSCULOSKELETAL/EXTREMITIES: There is no evidence of gross deformity full range of motion is noted in the hips and shoulders. SKIN: There is no obvious evidence of any rash. There are no petechiae, pallor or cyanosis noted. NEUROLOGIC: Patient is awake alert and oriented x3 strength is symmetric patellar reflexes are 2+ bilaterally MEDICAL DECISION MAKING: The patient is a 72-year-old male who presented to the emergency department after a syncopal episode. The patient had what was described as a shaking episode as well but I do not feel this represents a seizure. There is no reported postictal phase. The patient was recently diagnosed with myelofibrosis. He does have a primary inspector hairspring in [facility]. I did discuss patient's condition with the covering inspector hairspring. The patient was treated with IV fluids in the emergency department. He has received multiple transfusions as well as platelets as recently as this morning for his condition. I discussed the patient's laboratory and radiographic studies with him. Given his history I do not feel the patient would be a good candidate for outpatient management at this time given his thrombocytopenia if he does have another syncopal episode this could result in a brain hemorrhage. For this reason I discussed his condition with the on-call [facility] hospitalist. They have agreed to evaluate the patient in the emergency department for further management and disposition. Triage Nursing notes reviewed. Prior medical records reviewed Vital Signs: reviewed and remarkable for hypotension. Differential diagnosis: Vasovagal event, dehydration, infection, hypoglycemia, electrolyte abnormalities, cardiac sources, intracerebral event, pulmonary embolism, seizure, toxicologic, neurologic, as well as other pathologies. ER treatment provided: See below Diagnostics interpreted by me: ECG: EKG was obtained in the emergency department. My interpretation is normal sinus rhythm at 64 bpm. There is no ectopy. There is no acute ST segment abnormalities noted. This was compared to a tracing from February 27, 2023. No changes were noted Cardiac Monitoring: An order was placed for continuous cardiac monitoring. The monitor shows a rate of 73 bpm with sinus rhythm. Laboratory studies: As stated above and show below. Imaging studies: See below. Radiographic imaging was reviewed by myself Consultation(s): I discussed this case with Dr. Farr who is on-call for the patient's hematology group at [facility]. I discussed this case with Dr. Castellon who is on-call for the [facility] hospitalist group Past Med/Surg History Medical History History of hematuria Occurred 4-5 years ago- clots in urine Avoids NSAIDs Hx of polycythemia vera Follows with [facility] On hydroxyurea History of prostate cancer Dx'ed 2007. S/p prostatectomy- no chemo or XRT Anxiety Hypertension Sleep apnea cpap Surgical History History of total knee replacement right Hx of colonoscopy Hx of radical prostatectomy History of shoulder replacement rt. History of shoulder surgery lt. Hx of tonsillectomy Family History Father Prostate cancer Heart disease Sister Heart disease Other No family history of adverse response to anesthesia No family history of bleeding disorder Social History Smoking Status: Never smoker Second Hand Exposure: Yes; Do You Dip or Chew Tobacco: No; Hx Alcohol Use: Yes Alcohol type: beer Alcohol Intake Frequency Comment: socially Hx Substance Use: No Preferred Language: French Communication Ability: Effective Armament Repairer Required: No Beliefs That Will Affect Care: None marital status: Current Living Situation: Spouse current occupational status: retired Feels Safe at Home: Yes Assistive Devices: Walker Allergies Allergies Allergy/AdvReac Type Severity Reaction Status Date / Time No Known Drug Allergies Allergy 0 Verified 03/01/23 09:02 Home Meds Home Medications Medication Instructions Recorded Confirmed fluoxetine 10 mg tablet 10 mg PO QAM 10/20/21 03/01/23 rosuvastatin 5 mg tablet 5 mg PO .EVERY 3 DAYS 10/20/21 03/01/23 folic acid 800 mcg tablet 0.8 mg PO QAM 03/23/22 03/01/23 acetaminophen 500 mg tablet 1,000 mg PO Q8 PRN Pain 01/30/23 03/01/23 (Tylenol Extra Strength) coenzyme Q10 100 mg capsule (Co 100 mg PO HS 02/04/23 03/01/23 Q-10) metoprolol succinate 50 mg 50 mg PO DAILY 02/27/23 03/01/23 tablet,extended release 24 hr Results & Data (ED) Vital Signs Vital Signs - 24 hr 03/01/23 18:40 03/01/23 18:41 03/01/23 18:43 Pulse Rate 65 65 65 Pulse Rate from SpO2 Sensor 65 Respiratory Rate 17 13 Blood Pressure 109/55 L Blood Pressure Mean 73 Pulse Oximetry 98 99 Oxygen Delivery Method Room Air Sepsis Recent Fever Within 48 Hours No Sepsis New/Unexplained Change in Mental Status N/A Sepsis Action Taken by Nursing No Action Required 03/01/23 18:51 03/01/23 19:00 03/01/23 19:30 Pulse Rate 65 62 65 Pulse Rate from SpO2 Sensor 63 66 Respiratory Rate 12 12 Blood Pressure Blood Pressure Mean Pulse Oximetry 100 99 100 Oxygen Delivery Method Room Air Sepsis Recent Fever Within 48 Hours Sepsis New/Unexplained Change in Mental Status Sepsis Action Taken by Nursing 03/01/23 19:39 03/01/23 20:00 Pulse Rate 66 66 Pulse Rate from SpO2 Sensor 65 66 Respiratory Rate 14 13 Blood Pressure 109/53 L 111/55 L Blood Pressure Mean 71 73 Pulse Oximetry 98 97 Oxygen Delivery Method Sepsis Recent Fever Within 48 Hours Sepsis New/Unexplained Change in Mental Status Sepsis Action Taken by [facility] Medications Current Medication List: was personally reviewed by me Laboratory Data Attestation: I reviewed the patient's lab results. 03/01/23 18:58 03/01/23 18:58 Lab Results 03/01/23 Range/Units 18:58 WBC 10.86 H (4.8-10.8) K/ul RBC 2.20 L (4.70-6.10) M/uL Hgb 7.1 L (14.0-18.0) g/dl Hct 20.5 L* (42.0-52.0) % MCV 93.2 (80.0-100.0) fL MCH 32.3 (25.0-34.0) pg MCHC 34.6 (32.0-36.0) g/dL RDW Std Deviation 50.5 H (36.4-46.3) fL RDW Coeff of Nikia 15.3 H (11.5-14.5) % Plt Count 17 L* (130-400) K/uL MPV 11.0 (9.4-12.4) fL Absolute Nucleated RBC 0.25 H (0.00-0.12) K/uL Nucleated RBC % (auto) 2.3 % Neutrophils % (Manual) 51 % Lymphocytes % (Manual) 35 % Monocytes % (Manual) 8 % Eosinophils % (Manual) 1 % Basophils % (Manual) 1 % Metamyelocytes % (Man) 3 % Myelocytes % (Man) 1 % Neutrophils # (Manual) 5.54 (1.40-6.50) K/uL Total Absolute Neuts 5.54 (1.4-6.5) K/uL Lymphocytes # (Manual) 3.80 H (1.2-3.4) K/uL Total Abs Lymphocytes 3.80 H (1.2-3.4) K/uL Monocytes # (Manual) 0.87 H (0.11-0.59) K/uL Eosinophils # (Manual) 0.11 (0-0.50) K/uL Basophils # (Manual) 0.11 (0-0.2) K/uL Metamyelocytes # (Man) 0.33 H (0-0) K/uL Myelocytes # (Manual) 0.11 H (0-0) K/uL Dohle Bodies 1+ Polychromasia 1+ PT 15.2 H (9.0-12.0) Seconds INR 1.4 H (0.9-1.1) APTT 39 H (21-31) Seconds PTT Ratio 1.4 Sodium 133 L (136-145) mmol/L Potassium 4.5 (3.5-5.1) mmol/L Chloride 98 (98-107) mmol/L Carbon Dioxide 27 (21-32) mmol/L Anion Gap 8 (3-11) BUN 27 H (6-23) mg/dl Creatinine 1.09 (0.6-1.4) mg/dl Est Cr Clr Drug Dosing 66.2 ml/min Est GFR ( Amer) 77.6 ml/min Est GFR (Non-Af Amer) 67.0 ml/min BUN/Creatinine Ratio 24.8 H (10-20) Glucose 98 (70-99(Fasting)) mg/dl Calcium 9.1 (8.6-10.3) mg/dl Magnesium 2.0 (1.7-2.4) mg/dl Total Bilirubin 1.0 (0.2-1.0) mg/dl AST 30 (13-39) U/L ALT 15 (7-52) U/L Alkaline Phosphatase 87 (34-104) U/L Total Creatine Kinase 18 L (30-223) U/L Troponin I High Sens 12.3 (0-20) pg/ml Total Protein 5.7 L (6.0-8.3) gm/dl Albumin 3.2 L (3.4-5.0) gm/dl Globulin 2.5 (2.5-4.0) gm/dl Albumin/Globulin Ratio 1.3 (0.9-2) Lipase 23 (11-82) U/L TSH 4.260 (0.300-4.500) uIu/ml Administered Medications Discontinued Medications Sodium Chloride (Nss) 500 mls @ 999 mls/hr IV .Q31M GAYATHRI Stop: 03/01/23 19:30 Last Infusion: 03/01/23 19:40 Dose: Infused Documented By: Admin: 03/01/23 18:55 Dose: 999 mls/hr Documented By: LISA Sodium Chloride (Nss) 1,000 mls @ 999 mls/hr IV .Q1H1M ONE Stop: 03/01/23 21:54 Last Admin: 03/01/23 21:05 Dose: 999 mls/hr Documented By: KAYD Imaging Data Attestation: I personally reviewed and interpreted this imaging study as follows: My Impression: 1 view chest x-ray was obtained in the emergency department. My interpretation is no free air or definite infiltrate, final report below. CT the brain was obtained in the emergency department. My interpretation is no intracranial hemorrhage or mass effect, final report below Radiologist's Impression: Chest X-Ray 03/01/23 18:51 XR chest 1V portable CLINICAL HISTORY: syncope TECHNIQUE: Single frontal radiograph of the chest was obtained. Comparison: Comparison is made to chest radiograph 02/28/2020 FINDINGS: No lines and tubes are seen. The cardiomediastinal silhouette is normal. The lungs are clear. No evidence of pleural effusion or pneumothorax. IMPRESSION: No acute chest disease. ACT 112: Negative or not required by law. Electronically signed by: Ish Lee M.D. 03/01/2023 7:[address] 03/01/23 18:51 Exam(s): CT HEAD Without Contrast EXAM: CT Head Without Intravenous Contrast CLINICAL HISTORY: Reason for exam: syncope. TECHNIQUE: Axial computed tomography images of the head/brain without intravenous contrast. CTDI is 36.38 mGy and DLP is 625.8 mGy-cm. Automated exposure control was utilized for the study. A dose lowering technique was utilized adhering to the principles of ALARA. COMPARISON: None. FINDINGS: Brain: Global parenchymal volume loss with chronic microvascular ischemic changes. No hemorrhage. Ventricles: No ventriculomegaly. Bones/joints: Unremarkable. No acute fracture. Soft tissues: Unremarkable. Sinuses: Unremarkable as visualized. Mastoid air cells: Unremarkable as visualized. No mastoid effusion. IMPRESSION: 1. No intracranial hemorrhage or other acute intracranial abnormality. 2. Global parenchymal volume loss with chronic microvascular ischemic changes. Electronically signed by: Jhonny Medel MD 03/01/23 20:23 PM Discharge Plan Visit Data Chief Complaint: Seizure ED Provider: Yaya Alonzo Discharge Problem: Syncope, Anemia, Thrombocytopenia Patient Disposition: Being Evaluated by Hospitalist Forms Stand Alone Forms: My [facility] Prescriptions Prescriptions: No Action fluoxetine 10 mg tablet 10 mg PO QAM rosuvastatin 5 mg tablet 5 mg PO .EVERY 3 DAYS Rx Instructions: 5 mg orally every 3 days; folic acid 800 mcg Tablet 0.8 mg PO QAM coenzyme Q10 [Co Q-10] 100 mg Capsule 100 mg PO HS metoprolol succinate 50 mg tablet extended release 24 hr 50 mg PO DAILY acetaminophen [Tylenol Extra Strength] 500 mg tablet 1,000 mg PO Q8 PRN (Reason: Pain) Referrals Referrals: Florinda Verdin PA-C [Outside Practitioners] - Discharge Problem: Syncope Qualifiers: Syncope type: unspecified Qualified Code(s): R55 - Syncope and collapse Anemia Qualifiers: Anemia type: unspecified type Qualified Code(s): D64.9 - Anemia, unspecified
[2023-03-01 19:41] LABS: Albumin Globulin Ratio 1.3 (0.9-2); Albumin Level 3.2 gm/dl (3.4-5.0); BUN Creatinine Ratio 24.8 (10-20); Calcium 9.1 mg/dl (8.6-10.3); Creatinine Clr Calc Pharmacy 66.2 ml/min; Est GFR (African American) 77.6 ml/min; Globulin 2.5 gm/dl (2.5-4.0); Potassium 4.5 mmol/L (3.5-5.1); Total Protein 5.7 gm/dl (6.0-8.3)
[2023-03-01 19:46] LABS: Troponin I High Sensitivity 12.3 pg/ml (0-20)
[2023-03-01 19:54] LABS: INR 1.4 (0.9-1.1); Partial Thromboplastin Ratio 1.4; Partial Thromboplastin Time 39 Seconds (21-31); Prothrombin Time 15.2 Seconds (9.0-12.0)
[2023-03-01 19:55] LABS: Thyroid Stimulating Hormone 4.26 uIu/ml (0.300-4.500)
[2023-03-01 19:57] LABS: Hematocrit (blood only) 20.5 % (42.0-52.0); Hemoglobin 7.1 g/dl (14.0-18.0); Mean Corpuscular Hemoglobin 32.3 pg (25.0-34.0); Mean Corpuscular Hgb Conc 34.6 g/dL (32.0-36.0); Mean Corpuscular Volume 93.2 fL (80.0-100.0); Nucleated RBC # (auto) 0.25 K/uL (0.00-0.12); Nucleated RBC % (auto) 2.3 %; Platelet Count 17 K/uL (130-400); RDW Coefficient of Variation 15.3 % (11.5-14.5); RDW Standard Deviation 50.5 fL (36.4-46.3); White Blood Count 10.86 K/ul (4.8-10.8)
--- NOTE | 2023-03-01 20:23 | CT Scan Report ---
Exam(s): CT HEAD Without Contrast EXAM: CT Head Without Intravenous Contrast CLINICAL HISTORY: Reason for exam: syncope. TECHNIQUE: Axial computed tomography images of the head/brain without intravenous contrast. CTDI is 36.38 mGy and DLP is 625.8 mGy-cm. Automated exposure control was utilized for the study. A dose lowering technique was utilized adhering to the principles of ALARA. COMPARISON: None. FINDINGS: Brain: Global parenchymal volume loss with chronic microvascular ischemic changes. No hemorrhage. Ventricles: No ventriculomegaly. Bones/joints: Unremarkable. No acute fracture. Soft tissues: Unremarkable. Sinuses: Unremarkable as visualized. Mastoid air cells: Unremarkable as visualized. No mastoid effusion. IMPRESSION: 1. No intracranial hemorrhage or other acute intracranial abnormality. 2. Global parenchymal volume loss with chronic microvascular ischemic changes. Electronically signed by: Jhonny Medel MD 03/01/23 20:23 PM
[2023-03-01 20:46] LABS: Dohle Bodies 1+; Polychromasia 1+
[2023-03-01 20:47] LABS: ANC (manual) 5.54 K/uL (1.4-6.5); Basophils # (manual) 0.11 K/uL (0-0.2); Basophils % (manual) 1 %; Eosinophils # (manual) 0.11 K/uL (0-0.50); Eosinophils % (manual) 1 %; Lymphocytes % (manual) 35 %; Metamyelocytes # (manual) 0.33 K/uL (0-0); Metamyelocytes % (manual) 3 %; Monocytes # (manual) 0.87 K/uL (0.11-0.59); Monocytes % (manual) 8 %; Myelocytes # (manual) 0.11 K/uL (0-0); Myelocytes % (manual) 1 %; Neutrophils # (manual) 5.54 K/uL (1.40-6.50); Neutrophils % (manual) 51 %
[2023-03-01] MEDS ORDERED: SODIUM CHLORIDE 0.9% 1,000 ML IV ONE (20:54)
--- NOTE | 2023-03-01 23:25 | History & Physical Report ---
Date of Service March 01, 2023 Assessment & Plan (1) Syncope: Plan: Patient is a 72-year-old male with past medical history of hemophagocytic lymphohistiocytosis, thrombocytopenia, polycythemia vera, myelofibrosis, paroxysmal atrial fibrillation, and hypertension who presents to the hospital for evaluation of syncope. Patient to be admitted for cardiac monitoring and further workup. -Admit to telemetry, telemetry indication being syncope of unknown cause -Differential is quite broad but does not seem to fully encompass the description of his seizure. No postictal state. Prolactin ordered and pending -Arrhythmia is a possibility given history of paroxysmal atrial fibrillation, however, patient is in sinus rhythm at this time -Head CT w/o evidence of bleed -Patient just had an echocardiogram 3 weeks ago that was grossly normal. -Orthostatic seems unlikely given position change was standing to seated position -Potentially could have been delayed transfusion reaction as patient did have fever earlier in the day with platelet transfusion this morning although he has never had complications before. -We will transfuse 1 unit as his hemoglobin is at 7.1 which his gasket former did recommend transfusion at this level at his previous admission. Patient is blood consented. -Recommend discussing with [facility] gasket former, Dr. Joe, in the morning (2) Anemia: Plan: - Secondary to myelofibrosis -Transfused 1 unit on admission, check CBC in morning -Continue folic acid (3) Thrombocytopenia: Plan: - Will withhold platelet transfusion for now as patient had transfusion this morning and platelet level is at 17 -Transfusion threshold of 10, recheck CBC in morning (4) Myelofibrosis: Plan: - As above (5) Paroxysmal atrial fibrillation: Plan: - Currently in sinus rhythm -Will be on telemetry, continue beta-blockade -No anticoagulation given thrombocytopenia (6) HLH (hemophagocytic lymphohistiocytosis): Plan: - Patient completed dexamethasone course (7) Hypertension: Plan: - Continue metoprolol (8) Anxiety: Plan: - Continue SSRI Plan Disposition: Admit to telemetry for syncope workup DVT prophylaxis: SCDs Diet: Regular CODE STATUS: Full code History of Present Illness Chief Complaint: syncope Primary Care Provider: Sherman Crystal DO Patient is a 72-year-old male with past medical history of hemophagocytic lymphohistiocytosis, thrombocytopenia, polycythemia vera, myelofibrosis, paroxysmal atrial fibrillation, and hypertension who presents to the hospital for evaluation of syncope. Patient was recently discharged from this facility on 02/28/2023. He was admitted due to concerning low platelet numbers that required transfusion per discussion with [facility] gasket former who manages his thrombocytopenia and other hemopoietic conditions. He was discharged home and since then has had 2 platelet transfusions with the last 1 being the morning of 03/01/2023. It seems he had a temperature a few hours after this summer around the 101 F range. He was also somewhat nauseous at approximately 1 PM. Otherwise his day was unremarkable until approximately 530 when he went to sit down at the dinner table. When he did this, he felt lightheaded and his had witnessed his eyes rolled to the back of his head. states that he was shaking somewhat at the dinner table when this occurred. She states that he did not hit his head. This episode lasted for approximately 15 to 20 seconds before the patient regained consciousness. There is seem to be a state of confusion for a few seconds after this episode but no notable postictal state based off of 's description. Patient denies having a headache at any point. He feels he is back to baseline currently. No nausea or vomiting. Patient has never had an episode like this before nor has ever had a seizure in his life. Denies palpitations or chest pain. No other complaints at this time. ED course:Patient denied having headache at any point. Patient evaluated by provider. Labs are significant for hemoglobin of 7.1, platelet count of 17, INR 1.4, PTT of 39, sodium of 133, and a normal TSH. Troponin is normal. EKG shows sinus rhythm. Head CT shows no intracranial hemorrhage or acute abnormality. Chest x-ray is without acute disease. Patient was given 1.5 L of normal saline. Hospitalist service was then consulted for admission. Allergies Allergy/AdvReac Type Severity Reaction Status Date / Time No Known Drug Allergies Allergy 0 Verified 03/01/23 09:02 Home Medications Medication Instructions Recorded Confirmed Type fluoxetine 10 mg tablet 10 mg PO QAM 10/20/21 03/01/23 History rosuvastatin 5 mg tablet 5 mg PO .EVERY 3 DAYS 10/20/21 03/01/23 History folic acid 800 mcg tablet 0.8 mg PO QAM 03/23/22 03/01/23 History acetaminophen 500 mg tablet 1,000 mg PO Q8 PRN Pain 01/30/23 03/01/23 History (Tylenol Extra Strength) coenzyme Q10 100 mg capsule (Co 100 mg PO HS 02/04/23 03/01/23 History Q-10) metoprolol succinate 50 mg 50 mg PO DAILY 02/27/23 03/01/23 History tablet,extended release 24 hr Past Med/Surg History Medical History (Updated 03/02/23 @ 02:04 by Jesus Garza DO) History of hematuria Occurred 4-5 years ago- clots in urine Avoids NSAIDs Hx of polycythemia vera Follows with [facility] On hydroxyurea History of prostate cancer Dx'ed 2007. S/p prostatectomy- no chemo or XRT Anxiety Hypertension Sleep apnea cpap Surgical History (Updated 03/02/23 @ 00:08 by Keyon Glynn) History of total knee replacement right Hx of colonoscopy Hx of radical prostatectomy History of shoulder replacement rt. History of shoulder surgery lt. 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 Required: No Beliefs That Will Affect Care: Evangelical Evangelical Beliefs: Lucy [place], [place] marital status: Current Living Situation: Spouse current occupational status: retired Other Information That Helps Us Care for You: No Feels Safe at Home: Yes Assistive Devices: Glasses and Walker Review of Systems Review of Systems: All systems reviewed & are unremarkable except as noted in HPI & below Physical Exam Constitutional: WD/WN, vitals as above Eyes: + anicteric sclerae Neck: trachea midline, no thyromegaly Respiratory: normal respiratory effort, lungs clear to auscultation Cardiovascular: RRR, no murmur, no edema Gastrointestinal (Abdomen): normal bowel sounds, soft, nontender, no hepatosplenomegaly Musculoskeletal: Head/Neck/Chest: normocephalic and head atraumatic Skin: no rashes, warm and dry Neurologic: CN's II-XI intact bilaterally and moves all extremities; no focal motor deficits Psychiatric: A+Ox3, euthymic affect Results & Data Results & Data Vital Signs (Past 12 Hours) Vital Signs Pulse Resp BP Pulse Ox O2 Del Method 03/01/23 22:50 68 03/01/23 22:00 71 22 122/59 L 96 03/01/23 21:00 70 18 118/55 L 97 03/01/23 20:00 66 13 111/55 L 97 03/01/23 19:39 66 14 109/53 L 98 03/01/23 19:30 65 12 100 03/01/23 19:00 62 12 99 03/01/23 18:51 65 100 Room Air 03/01/23 18:43 65 13 109/55 L 99 Room Air 03/01/23 18:41 65 03/01/23 18:40 65 17 98 Code Status & VTE Plan VTE Prophylaxis Plan VTE Prophylaxis will be ordered: Yes Supervising Physician Co-Signing Physician Notes Attending addendum: I have physically seen this patient, have supervised the medical residents activities, and agree with the H&P unless as otherwise noted. Assessment and Plan: Syncope versus seizure- The patient will be admitted to telemetry for serial cardiac enzymes, serial EKG's, cardiac rhythm monitoring CT head negative Echocardiogram 3 weeks ago negative Status post recent admission to [facility] from 02/27-02/28/2023 where he received PRBCs and platelet transfusion Hemoglobin 7.1 at this time, may be contributing to syncopal episode, and therefore will be transfused 1 unit PRBCs, with serial H&H's Anemia/thrombocytopenia/myelofibrosis- Followed by hematology, and noted to be progressive Transfusion 1 unit PRBCs as noted above Serial laboratories Transfuse platelets only if levels are less than or equal to 10 Paroxysmal atrial fibrillation- Continue metoprolol succinate, follow on telemetry Remaining orders and notations as noted (1) Syncope Syncope type: unspecified Qualified Code(s): R55 - Syncope and collapse (2) Anemia Anemia type: unspecified type Qualified Code(s): D64.9 - Anemia, unspecified
[2023-03-01] MEDS ORDERED: ONDANSETRON INJ 2 MG/ML 2 ML VIAL IV PRN (23:33)
[2023-03-02] MEDS ORDERED: SODIUM CHLORIDE 0.9% 250 ML IV PRN (01:32)
[2023-03-02 02:13] LABS: Albumin Globulin Ratio 1.5 (0.9-2); Albumin Level 3.1 gm/dl (3.4-5.0); BUN Creatinine Ratio 25.5 (10-20); Bilirubin,Total 1.1 mg/dl (0.2-1.0); Calcium 8.5 mg/dl (8.6-10.3); Creatinine Clr Calc Pharmacy 73.7 ml/min; Est GFR (African American) 88.3 ml/min; Est GFR (Non-African American) 76.2 ml/min; Globulin 2.1 gm/dl (2.5-4.0); Potassium 4.5 mmol/L (3.5-5.1); Total Protein 5.2 gm/dl (6.0-8.3)
[2023-03-02 02:47] LABS: INR 1.4 (0.9-1.1); Partial Thromboplastin Ratio 1.5; Partial Thromboplastin Time 42 Seconds (21-31); Prothrombin Time 15.3 Seconds (9.0-12.0)
[2023-03-02 03:12] LABS: ANC (manual) 5.84 K/uL (1.4-6.5); Basophils # (manual) 0.11 K/uL (0-0.2); Basophils % (manual) 1 %; Dohle Bodies 1+; Hematocrit (blood only) 20.2 % (42.0-52.0); Lymphocytes % (manual) 33 %; Mean Corpuscular Hgb Conc 34.7 g/dL (32.0-36.0); Mean Corpuscular Volume 92.2 fL (80.0-100.0); Mean Platelet Volume 11.6 fL (9.4-12.4); Metamyelocytes # (manual) 0.32 K/uL (0-0); Metamyelocytes % (manual) 3 %; Monocytes # (manual) 0.32 K/uL (0.11-0.59); Monocytes % (manual) 3 %; Myelocytes # (manual) 0.53 K/uL (0-0); Myelocytes % (manual) 5 %; Neutrophils # (manual) 5.84 K/uL (1.40-6.50); Neutrophils % (manual) 55 %; Nucleated RBC # (auto) 0.34 K/uL (0.00-0.12); Nucleated RBC % (auto) 3.2 %; Platelet Count 15 K/uL (130-400); RDW Coefficient of Variation 15.1 % (11.5-14.5); RDW Standard Deviation 50.3 fL (36.4-46.3); Red Blood Count 2.19 M/uL (4.70-6.10); White Blood Count 10.61 K/ul (4.8-10.8)
--- OUTSIDE RECORDS SUMMARY | 2023-03-02 04:39 | External Medical Summary | Continuity of Care Document ---
Author Name Unknown Organization [facility] [address] Address [address] [facility], [place] [id number] Care Team Providers Care Clam Dredger Name Role Phone Florinda Verdin Primary Care Physician [phone] Encounter [id number] Date(s): 02/26/23 - 02/26/23 [facility] [address] [facility] [address], [facility] [address] [place], [place] [phone] Encounter Diagnosis Antineoplastic chemotherapy induced pancytopenia(Final) - Discharge Disposition: Home or Self Care Attending Physician: MD Jackson Monika Referring Physician: MD Jackson Monika Allergies, Adverse Reactions, Alerts No Known Allergies Immunizations Given and Recorded Vaccine Date Status Refusal Reason SARS-CoV-2 (COVID-19) mRNA-vacc - [id number] 1 12/22/22 Recorded SARS-CoV-2 mRNA (tozinameran 5y-11y) [...] vaccine, inactivated 11/06/10 Jude rded SARS-CoV-2 mRNA ([id number]) 4 06/28/21 Recorded SARS-CoV-2 (COVID-19) mRNA BNT-162b2 [...] Comment: 2023-02-19: Historical information-source unspecified 2Result Comment: [facility] - [facility] 3Result Comment: [02/20/2013] Got @ [facility] 4Result Comment: 2021-06-30: Historical information-source unspecified 5Result Comment: 2020-12-13: Historical information-source unspecified 6Result Comment: 2020-10-02: Historical information-source unspecified 7Result Comment: 2020-10-02: Historical information-source unspecified [facility] Medications aspirin Start: 02/20/10 8:32:12 EST, 81 [...] tabs, once a day, on 02/24/2023, Pharmacy: [facility] [place] Start Date: 02/23/23 Stop Date: 02/24/23 Status: Ordered FLUoxetine 10 mg oral capsule Start: 12/29/21 15:32:00 EDT, See Instructions, Disp# 90 cap, Refills: 4, TAKE 1 CAPSULE BY MOUTH EVERY DAY, Pharmacy: [facility] [id number] Start Date: 12/29/21 Status: Ordered folic acid 1 mg oral tablet Start: 07/17/19 8:08:00 EDT, 1 tab, PO, Daily Start Date: 07/17/19 Status: Ordered metoprolol succinate 50 mg oral tablet, extended release Start: 02/23/23 10:19:00 EST, 1 tab, PO, Daily, Disp# 30 tab, Refills: 0, take 1 tab, once a day. Do not crush or chew, Pharmacy: [facility] Start Date: 02/23/23 Stop Date: 03/25/23 Status: Ordered rosuvastatin 5 mg oral tablet Start: 11/05/22 9:13:00 EDT, See Instructions, Disp# 30 tab, Refills: 4, TAKE 1 TABLET BY MOUTH EVERY 72 HOURS, Pharmacy: [id number] Start Date: 11/05/22 Status: Ordered ruxolitinib 5 mg oral tablet Start: 02/17/23 13:26:00 EST, 1 tab, PO, bid, Disp# 60 tab, Refills: 1, Pharmacy: [facility] Start Date: 02/17/23 Stop Date: 04/18/23 Status: Ordered Problem List Condition Confirmation Course Effective Dates [...] Active 1HDL: 26 2radical prostatectomy May 2006 Procedures Procedure Date Related Diagnosis Body Site [...] 07/27/16 Completed Full sleep study 8 05/20/16 [facility] Emergency medical services 9 03/14/16 Completed [...] diverticulosis, anal papillae, int. hemor. 18 08/16/09 [facility] ed radical prostatectomy 2006 Com pleted colonoscopy 19 05/12/05 Completed hemorrhoidectomy 2005 C ompleted Right knee arthroscopy 1990 [...] significant stenosis, occlusion, or aneurysm seen in [place] of [place]. A tiny focal fenestration seen in proximal right [employer]. 16unremarkable MRA neck 17no acute intrcranial abnormality right mastoid effusion a metallic foreign body was noted in soft tissue of the forhead 18diverticulosis, hypertrophied anal papillae, internal hemorrhoids 19polyps 20and anal papilla removed 21internal, were excised Results Laboratory List Name Date Complete Blood Count w Differential (CBC ,DIFFH) 02/26/23 Comprehensive Metabolic Panel (COMP META B PANEL) 02/26/23 Ferritin (FERRITIN) 02/26/23 Magnesium Level (MAGNESIUM) 02/26/23 Phosphorus Level (PHOSPHORUS) 02/26/23 Uric Acid Level (URIC ACID) 02/26/23 Most recent to oldest [Reference Range]: 1 eGFR CKD-EPI [>60 mL/min/1.73 m2] 78 mL/ min/1.73 m2 1 (02/26/23 9:13 AM) Macrocytes FEW *Unknown* (02/26/23 9:13 AM) Microcytes FEW *Unknown* (02/26/23 9:13 AM) Ovalocytes FEW *Unknown* (02/26/23 9:13 AM) Basophilic Stippling SLIGHT *Unknown* (02/26/23 9:13 AM) Platelet Morphology Giant Platelets Pres ent 2 *Unknown* (02/26/23 9:13 AM) Estimated CrCl 76.32 mL/min (02/26/23 10:12 AM) MPV [9.0-12.2 fL] 10.2 fL 3 (02/26/23 9:13 AM) Immature Gran% 15.0 % (02/26/23 9:13 AM) Neut% 52.0 % (02/26/23 9:13 AM) Lymph% 17.0 % (02/26/23 9:13 AM) Crockett% 15.0 % (02/26/23 9:13 AM) Baso% 0.0 % (02/26/23 9:13 AM) Eos% 0.0 % (02/26/23 9:13 AM) Other% 1.0 % (02/26/23 9:13 AM) Immat Gran, Abs [0-0.4 K/uL] 1.75 K/uL *HI* (02/26/23 9:13 AM) Neut, Abs [2.0-7.7 K/uL] 6.06 K/uL (02/26/23 9:13 AM) Lymph, Abs [1.0-3.4 K/uL] 1.98 K/uL (02/26/23 9:13 AM) Crockett, Abs [0-1.0 K/uL] 1.75 K/uL *HI* (02/26/23 9:13 AM) Baso, Abs [0-0.1 K/uL] 0.00 K/uL (02/26/23 9:13 AM) Eos, Abs [0-0.5 K/uL] 0.00 K/uL (02/26/23 9:13 AM) Other, Abs [0.0 K/uL] 0.12 K/uL *HI* (02/26/23 9:13 AM) Type of Diff: MANUAL *Unknown* (02/26/23:13 AM) RDW [11.5-14.2 %] 15.2 % *HI* (02/26/23 9:13 AM) Anion Gap [5-14 mmol/L] 9 mmol/L (02/26/23 9:13 AM) Alb [3.5-5.0 g/dL] 3.5 g/dL (02/26/23 9:13 AM) Alk Phos [38-126 unit/L] 92 unit/L (02/26/23 9:13 AM) ALT [<50 unit/L] 29 unit/L (02/26/23 9:13 AM) AST [15-46 unit/L] 47 unit/L *HI* (02/26/23:13 AM) BUN [7-20 mg/dL] 30 mg/dL *HI* (02/26/23 9:13 AM) Ca [8.4-10.2 mg/dL] 9.2 mg/dL (02/26/23 9:13 AM) Cl- [96-107 mmol/L] 103 mmol/L (02/26/23 9:13 AM) HCO3 [22-30 mmol/L] 23 mmol/L (02/26/23 9:13 AM) Cret [0.70-1.30 mg/dL] 1.02 mg/dL (02/26/23 9:13 AM) Ferritin [30.0-400.0 ng/mL] 3387.0 ng/mL *HI* (02/26/23 9:13 AM) Glu [74-106 mg/dL] 160 mg/dL *HI* (02/26/23:13 AM) Hct [39-48 %] 25.6 % *LOW* (02/26/23:13 AM) Hgb [13.0-17.0 g/dL] 8.7 g/dL *LOW* (02/26/23:13 AM) K [3.5-5.1 mmol/L] 4.6 mmol/L (02/26/23 9:13 AM) MCH [28-33 pg] 32.5 pg (02/26/23: AM) MCHC [32-36 g/dL] 34.0 g/dL (02/26/23:13 AM) MCV [81-96 fL] 95.5 fL (02/26/23:13 AM) Mg [1.6-2.3 mg/dL] 2.1 mg/dL 4 (02/26/23 9:13 AM) Na [137-145 mmol/L] 135 mmol/L *LOW* (02/26/23:13 AM) PO4 [2.5-4.5 mg/dL] 4.4 mg/dL 5 (02/26/23 9:13 AM) Plts [150-350 K/uL] 16 K/uL 6 *Critical Low* (02/26/23:13 AM) RBC [4.40-5.60 M/uL] 2.68 M/uL *LOW* (02/26/23 9:13 AM) T Bili [0.2-1.3 mg/dL] 0.7 mg/dL (02/26/23 9:13 AM) Prot [6.3-8.2 g/dL] 6.2 g/dL *LOW* (02/26/23:13 AM) Uric Acid [3.5-8.5 mg/dL] 4.7 mg/dL 7 (02/26/23 9:13 AM) WBC [4.0-10.4 K/uL] 11.66 K/uL *HI* (02/26/23 9:13 AM) 1Result Comment: Testing Performed By: Dept of Pathology [facility] [address], [address], [place] [address] 2Result Comment: Testing Performed By: Dept of Pathology [facility] [address], [address], [place] [address] 3Result Comment: Testing Performed By: Dept of Pathology [facility] [address], [address], [place] [address] 4Result Comment: Testing Performed By: Dept of Pathology [facility] [address], [address], [place] [address] 5Result Comment: Testing Performed By: Dept of Pathology [facility] [address], [address], [place] [address] 6Result Comment: RESULTS CHECKED PREVIOUS RESULT ON 02/23/23 29 7Result Comment: Testing Performed By: Dept of Pathology [facility] [address], [address], [place] [address] Social History Social History Type Response Smoking Status Never smoked cigaret ernestina Sex Male Patient Care team information Care Team Personnel Name: AGNIESZKA Verdin, Florinda Mckinney Position: Physician Instructor Industrial Design - Family Med Member Role: Primary Care Provider Address: Address: [address] [facility] [facility] [address] [address] [facility] [place] [address] [place] Name: Janna Miller Amy E Position: Pharmacist Member Role: Pharmacy - Lifetime Address: Address: [address] [address] [place] Name: AGNIESZKA Nguyen Jaime D Position: Physician Asst Exmpt - Orthopaedic Surg Member Role: Lifetime Relationship Address: Address: [facility] [address] [place] [address] [place] Name: Janna Moreno Ann Position: Pharmacist Schedule II Member Role: Pharmacy - Lifetime Care Team Related Persons Name: FARRAH CLARKE Address: home [address] [facility], [place] [id number]
[2023-03-02] MEDS ORDERED: FLUoxetine HCL 10 MG CAP PO SCH (09:00)
[2023-03-02] MEDS ORDERED: ROSUVASTATIN CALCIUM 5 MG TAB PO SCH (09:00)
[2023-03-02] MEDS ORDERED: FOLIC ACID 400 MCG TAB PO SCH (09:00)
[2023-03-02] MEDS ORDERED: METOPROLOL SUCC 50MG EXT REL TAB PO SCH (09:00)
[2023-03-02 10:25] LABS: Hematocrit (blood only) 23.6 % (42.0-52.0); Hemoglobin 8.4 g/dl (14.0-18.0)
--- NOTE | 2023-03-02 12:46 | Hospitalist Progress Note ---
Date of Service March 02, 2023 Assessment & Plan (1) Syncope: Plan: -Differential for syncope is quite broad but does not seem to fully encompass the description of his seizure. No postictal state. -Prolactin ordered and pending -Arrhythmia is a possibility given history of paroxysmal atrial fibrillation -Head CT w/o evidence of bleed -Patient just had an echocardiogram 3 weeks ago that was grossly normal. -Orthostatic seems unlikely given position change was standing to seated position -Potentially could have been delayed transfusion reaction as patient did have fever earlier in the day with platelet transfusion this morning although he has never had complications before. -S/P transfusion of 1 unit of PRBC as his hemoglobin was at 7.1 Hgb improved to 8.4 -Discussed with patient's Chief Estimator in [facility] (Dr. Joe): Transfuse PRBC is Hgb < 7 or platelets < 15k > Considers that, since his plt decreased from 17 to 15 in 24 hours (received transfusion of platelets yesterday), he may not benefit from a plt transfusion at this time Considering therapy with Pacritinib in the future for myelofibrosis For now, continue transfusion 3 times a week If patient is stable, may discharge from their standpoint > Patient is scheduled for an appointment with them tomorrow (2) Anemia: Plan: - Secondary to myelofibrosis -Transfused 1 unit on admission Improved Hgb to 8.4 -Continue folic acid (3) Thrombocytopenia: Plan: -Transfusion threshold of 10, recheck CBC in morning Plt this morning 15 (4) Myelofibrosis: Plan: - As above (5) Paroxysmal atrial fibrillation: Plan: - Currently in sinus rhythm -Will be on telemetry, continue beta-blockade -No anticoagulation given thrombocytopenia (6) HLH (hemophagocytic lymphohistiocytosis): Plan: - Patient completed dexamethasone course (7) Hypertension: Plan: - Continue metoprolol (8) Anxiety: Plan: - Continue SSRI Plan Disposition: Admit to telemetry for syncope workup DVT prophylaxis: SCDs Diet: Regular CODE STATUS: Full code Admission and Anticipated Discharge Date Admission Date: March 01, 2023 Subjective Patient is a 72-year-old male with PMHx of hemophagocytic lymphohistiocytosis, thrombocytopenia, polycythemia vera, myelofibrosis, paroxysmal atrial fibrillation, and hypertension who was admitted for further evaluation after he had an episode of syncope that was followed by 15-20 second episode of generalized shaking (no post-ictal state). Today he was evaluated and refers feeling unwell and having a stiff neck. He has not had another episode of syncope since that episode yesterday. He denies having chest pain, SOB, fevers, chills, or any other symptom. Review of Systems Review of Systems: As per HPI. Physical Exam Physical Exam: General: Alert. Oriented to person, time, and place. Afebrile. No acute distress. Eyes: pupils equal and reactive to light bilaterally, extraocular movements intact. Cardiac: Regular rate and rhythm, no murmurs/rubs/gallops. Respiratory: Clear to auscultation bilaterally a/p, no wheezes/rales/rhonchi. No increased work of breathing. Symmetrical chest rise. No respiratory distress. Abdomen: Soft, nontender, nondistended. Bowel sounds present. Lower Extremities: No lower extremity edema or swelling. No deep calf pain. Lindsey's negative bilaterally. Results & Data Results & Data Vital Signs (Past 12 Hours) Vital Signs Temp Pulse Resp BP Pulse Ox O2 Del Method 03/02/23 12:00 74 18 03/02/23 11:30 67 18 03/02/23 11:00 70 22 03/02/23 10:30 70 14 03/02/23 10:00 71 14 96 03/02/23 09:30 68 19 03/02/23 09:00 77 17 03/02/23 08:30 72 18 94 03/02/23 08:00 75 14 95 03/02/23 08:00 111/49 L 03/02/23 07:30 70 23 95 03/02/23 07:02 76 03/02/23 07:00 74 17 91 03/02/23 05:13 74 22 123/55 L 98 Room Air 03/02/23 05:10 36.6 C 75 24 123/55 L 99 03/02/23 04:10 36.4 C L 75 21 128/64 100 03/02/23 03:40 36.4 C L 74 22 125/59 L 98 03/02/23 03:25 37.0 C 72 18 120/55 L 96 03/02/23 03:04 36.4 C L 77 18 121/60 97 Resident Activity Tracking Resident Involvement: Resident Care Provided Care Provided: Adult Hospital Medicine (1) Syncope Syncope type: unspecified Qualified Code(s): R55 - Syncope and collapse (2) Anemia Anemia type: unspecified type Qualified Code(s): D64.9 - Anemia, unspecified
--- NOTE | 2023-03-02 15:09 | Discharge Summary ---
Date of Service March 02, 2023 Admission HPI Per Admitting Provider Patient is a 72-year-old male with past medical history of hemophagocytic lymphohistiocytosis, thrombocytopenia, polycythemia vera, myelofibrosis, paroxysmal atrial fibrillation, and hypertension who presents to the hospital for evaluation of syncope. Patient was recently discharged from this facility on 02/28/2023. He was admitted due to concerning low platelet numbers that required transfusion per discussion with [facility] [place] captain who manages his thrombocytopenia and other hemopoietic conditions. He was discharged home and since then has had 2 platelet transfusions with the last 1 being the morning of 03/01/2023. It seems he had a temperature a few hours after this summer around the 101 F range. He was also somewhat nauseous at approximately 1 PM. Otherwise his day was unremarkable until approximately 530 when he went to sit down at the dinner table. When he did this, he felt lightheaded and his had witnessed his eyes rolled to the back of his head. states that he was shaking somewhat at the dinner table when this occurred. She states that he did not hit his head. This episode lasted for approximately 15 to 20 seconds before the patient regained consciousness. There is seem to be a state of confusion for a few seconds after this episode but no notable postictal state based off of 's description. Patient denies having a headache at any point. He feels he is back to baseline currently. No nausea or vomiting. Patient has never had an episode like this before nor has ever had a seizure in his life. Denies palpitations or chest pain. No other complaints at this time. ED course:Patient denied having headache at any point. Patient evaluated by provider. Labs are significant for hemoglobin of 7.1, platelet count of 17, INR 1.4, PTT of 39, sodium of 133, and a normal TSH. Troponin is normal. EKG shows sinus rhythm. Head CT shows no intracranial hemorrhage or acute abnormality. Chest x-ray is without acute disease. Patient was given 1.5 L of normal saline. Hospitalist service was then consulted for admission. Admission Exam Per Admitting Provider Constitutional: WD/WN, vitals as above Eyes: + anicteric sclerae Neck: trachea midline, no thyromegaly Respiratory: normal respiratory effort, lungs clear to auscultation Cardiovascular: RRR, no murmur, no edema Gastrointestinal (Abdomen): normal bowel sounds, soft, nontender, no hepatosplenomegaly Musculoskeletal: Head/Neck/Chest: normocephalic and head atraumatic Skin: no rashes, warm and dry Neurologic: CN's II-XI intact bilaterally and moves all extremities; no focal motor deficits Psychiatric: A+Ox3, euthymic affect Principal Diagnosis Vasovagal syncope Discharge Exam General: Alert. Oriented to person, time, and place. Afebrile. No acute distress. Eyes: pupils equal and reactive to light bilaterally, extraocular movements intact. Cardiac: Regular rate and rhythm, no murmurs/rubs/gallops. Respiratory: Clear to auscultation bilaterally a/p, no wheezes/rales/rhonchi. No increased work of breathing. Symmetrical chest rise. No respiratory distress. Abdomen: Soft, nontender, nondistended. Bowel sounds present. Lower Extremities: No lower extremity edema or swelling. No deep calf pain. [place]'s negative bilaterally. Discharge Data Allergies Allergy/AdvReac Type Severity Reaction Status Date / Time No Known Drug Allergies Allergy 0 Verified 03/01/23 09:02 Consultations 03/01/23 21:52 ED Decision to Admit Stat Ordered Studies 03/01/23 18:51 CT head/brain wo con Stat Hospital Course (1) Syncope: Acute, resolved -Differential for syncope is quite broad but seizure unlikely. -Vasovagal syncope due to history of hematologic disorders considered more likely since he had experienced lightheadedness (prodrome) prior to his syncope. -Head CT w/o evidence of bleed -Patient just had an echocardiogram 3 weeks ago that was grossly normal. -S/P transfusion of 1 unit of PRBC as his hemoglobin was at 7.1 Hgb improved to 8.4 -Discussed with patient's Mechanical Intern [place] [facility] (Dr. Joe): Transfuse PRBC is Hgb < 7 or platelets < 15k > Considers that, since his plt decreased from 17 to 15 in 24 hours (received transfusion of platelets yesterday), he may not benefit from a plt transfusion at this time Considering therapy with Pacritinib in the future for myelofibrosis For now, continue transfusion 3 times a week If patient is stable, may discharge from their standpoint > Patient is scheduled for an appointment with them tomorrow (2) Anemia: Chronic, stable -Secondary to myelofibrosis -Transfused 1 unit on admission Improved Hgb to 8.4 - Following mining captain in [place] (3) Thrombocytopenia: Chronic, stable -Transfusion threshold of 10, recheck CBC in morning Plt this morning 15 - Following mining captain in [place] (4) Myelofibrosis: Chronic, stable - Following mining captain in [place] (5) Paroxysmal atrial fibrillation: Chronic, stable - Currently in sinus rhythm -No anticoagulation given thrombocytopenia (6) HLH (hemophagocytic lymphohistiocytosis): Chronic, stable - Patient completed dexamethasone course - Following mining captain in [place] (7) Hypertension: Chronic, stable - Continue metoprolol (8) Anxiety: Chronic, stable - Continue SSRI Plan Patient to be discharged today and going to see their mining captain in [place] tomorrow. Total Time Total Time Spent Total Time Spent (In Minutes): <30 Discharge Plan Discharge Items Patient Disposition: Home - Self-Care Reason For Visit: SYNCOPE Discharge Diagnosis: fainting - see below Activity: Resume your previous activity Non-emergency contact: Primary Care Provider Call non-emergency contact if: you have any medication questions Follow-up/Referrals: Sherman Crystal, [Primary Care Provider] - Diet: Regular Addtl Attending Provider Instructions: anemia - the main reason for your fainting spell yesterday appears to tie back to your anemia - when blood counts get low enough, people will react very similarly to if they're very dehydrated - and be far more prone to faints like you had. the numbers have improved appropriately with transfusion - which is why when we called [facility] to transfer you to there they declined transfer and wanted you to keep your appointment tomorrow. that said, as weak as you are i would not at all be opposed to simply going from here to [facility]'s ER today since we did very much want to get you down there in transfer today. if you don't go there this afternoon, then definitely keep the follow up appointment tomorrow. Pending Studies at Discharge: No Stand-Alone Forms: My [facility] [employer], Smoking Cessation Medications and DC Order Prescriptions: Continued fluoxetine 10 mg tablet 10 mg PO QAM rosuvastatin 5 mg tablet 5 mg PO .EVERY 3 DAYS Rx Instructions: 5 mg orally every 3 days; folic acid 800 mcg Tablet 0.8 mg PO QAM coenzyme Q10 [Co Q-10] 100 mg Capsule 100 mg PO HS metoprolol succinate 50 mg tablet extended release 24 hr 50 mg PO DAILY acetaminophen [Tylenol Extra Strength] 500 mg tablet 1,000 mg PO Q8 PRN (Reason: Pain) Discharge Orders: Discharge Order (Routine); Ordered 03/02/23 Ordered By: Scott Goncalves Admission Data Admit Date/Time: 03/01/23 22:39 Attending Provider: Scott Goncalves Admit Provider: Jay Castellon Primary Care Provider: Sherman Crystal Other Providers: Jesus Garza; Jay Castellon; [facility] Other Interventions: Discharge Summary Assessment (RN) Last Done: 03/02/23 15:37 Supervising Physician Co-Signing Physician Notes I personally examined the patient and verified all mercedes points of history and exam, discussed case, and agree with decision making with Dr Espino Relates that he was sitting, felt briefly funnywhen asked to quantify this he notes that it was a lightheaded sensationand then he lost consciousness. notes that he was unconscious for 15-20 seconds with some tremulousness, and then whenever he woke up he was immediately coherent. expresses severe frustration at what she perceived to be a lack of vigilancelack of frequent vitals/check-in/etc. while boarding in the ER at our facility. They also noted that they had called his team at [place] who had said about transfer, we certainly agreed and felt that transfer was quite reasonable given his situation, but when Dr. Espino discussed with [place], they felt that transfer was not indicated at this time, and therefore transfer was not able to be facilitated. Vitals noted, fatigued, breathing unlabored. Normocephalic atraumatic mucous membranes moist. Cardio is regular rate. No focal neurodeficits. syncope related to myelfibrosis anemia -mechanism of syncope appears to be very vasoactive, but definitely precipitated by anemia making him more prone to drop in blood pressure. Stable now. At the same time, given that he appears to be requiring frequent transfusions has been in the hospital several times recently, hemoglobin is low again, he had syncope from his marrow processDrShaun Espino called [place] to hopefully facilitate transfer; they did not feel transfer was indicated at this time, and noted that he has an outpatient appointment tomorrow. In discussion with this with patient and , they expressed rather severe displeasure, and discussed that when they called her she they were told that our team simply had to call to set up the transfer. I explained unfortunately we tried to do exactly that and were told the transfer did not seem to be indicated at this time. expressed displeasure and concern about how she might get her in the car to take him to his appointment at [place] tomorrow; I expressed the same concerns, and suggested that since all of us did feel the transfer would be quite reasonable, but that this was not able to be facilitated, it would not be unreasonable for them to simply leave our ER and proceed to the [place] ER directly from here. In their frustration, it was not entirely clear what they were going to opt to do, the patient himself mostly just kept repeating that he wanted us to discharge him as soon as possible. Again discussed definitely keeping the follow-up with [place] tomorrow, but also that it would be quite reasonable to proceed straight from here to their ER. His hemoglobin did respond appropriately to transfusion, and his vitals are stablemaking discharge from our facility with some form of close follow-up with [place] hematology not reckless, but again I agreed with and had the same concerns that patient/ had, and while he is stable to not be an inpatient at this point in time, definitely want him having tight and close follow-up no later than tomorrow. Resident Activity Tracking Resident Involvement: Resident Care Provided Care Provided: [facility]
--- NOTE | 2023-03-02 18:39 | Billing Data ---
Date of Service March 02, 2023 Coding Level of Care Code 42425 IN/OBS DISCH 30 MIN/LESS
--- NOTE | 2023-03-02 20:54 | Billing Data ---
Date of Service March 02, 2023 Coding Level of Care Code 13294 INT INP/OBS CARE
--- NOTE | 2023-03-04 05:49 | Electrocardiogram Report ---
Test Reason : Blood Pressure : / mmHG Vent. Rate : 064 BPM Atrial Rate : 064 BPM P-R Int : 148 ms QRS Dur : 074 ms QT Int : 432 ms P-R-T Axes : 029 -04 030 degrees QTc Int : 445 ms Normal sinus rhythm Septal infarct , age undetermined Abnormal ECG When compared with ECG of 27-FEB-2023 11:09, Septal infarct is now Present Confirmed by David Reyes ([id number]) on 03/04/2023 5:49:09 AM Referred By: REFERRED SELF Confirmed By:David Reyes
== END 2023-03-02 15:37 | disposition home health service (06) | DRG 812 ==
LOC: ED 18:36 → INTOOBSV 22:39 → SUATTDRO 22:39 → EDINP 22:39